=== PATIENT | female | born 1945 | race Caucasian/White ===

== ENCOUNTER → 2017-01-01 | Outpatient (CLI) | payer MEDICARE, OTHER ==
[~2017-01-01] MED LIST: ASPI-983 PO; BACL10TA PO; CHRO1000 PO; GLUC1TAB9 PO; GLUCOSAMINE 1,1 EACH PO; KETO15CR2 TP; LISI-552 PO; MAGN250T13 PO; METF1000 PO; MULT-974 PO; NAPR500T8 PO; POTA2TAB15 PO; RANI150T11 PO
== END ==
LOC: RAD 13:04
PROVIDERS: ATTEND Internal Medicine
DX: Z12.31 Encounter for screening mammogram for malignant neoplasm of breast (principal)
CPT/HCPCS: 77067

== ENCOUNTER → 2018-01-17 | Outpatient (CLI) | payer MEDICARE, OTHER ==
[~2018-01-17] MED LIST changes: -METF1000 PO; +METF10002 PO
--- NOTE | 2018-01-18 12:08 | Diagnostic Imaging Report ---
INDICATION: Routine screening. Comparison is made with prior exam from 01/01/2017 and 08/13/2015. 2-D and 3-D bilateral screening mammography was performed with CAD. Scattered fibroglandular densities are identified bilaterally. Circumscribed nodular densities in both breasts appear stable and partially calcified. No spiculated mass or malignant appearing microcalcifications are seen. The axillae are unremarkable. Impression: BI-RADS category 2 No mammographic features suspicious for malignancy are identified. ACR BI-RADS Category 2: Benign findings. Result letter will be mailed to the patient. Note: At least 10% of breast cancer is not imaged by mammography. Dictated by: Dictated on workstation # [id number]
== END ==
LOC: RAD 14:39
PROVIDERS: ATTEND Internal Medicine
DX: Z12.31 Encounter for screening mammogram for malignant neoplasm of breast (principal)
CPT/HCPCS: 77067

== ENCOUNTER → 2019-07-13 | Outpatient (CLI) | payer MEDICARE, OTHER ==
[~2019-07-13] MED LIST changes: +METF-399 PO; -METF10002 PO
[2019-07-13 09:54] LABS: BASOPHILS % (AUTO) 0 % (0-10); EOSINOPHILS % (AUTO) 3 % (0-10); HEMATOCRIT 37 % (35-52); HEMOGLOBIN 12.4 G/DL (11.5-16.0); LYMPHOCYTES % (AUTO) 24 % (12-44); MEAN CORPUSCULAR HEMOGLOBIN 31 PG (25-34); MEAN CORPUSCULAR HGB CONC 34 G/DL (32-36); MEAN CORPUSCULAR VOLUME 93 FL (80-99); MEAN PLATELET VOLUME 10.6 FL (7.4-10.4); MONOCYTES % (AUTO) 8 % (0-12); NEUTROPHILS % (AUTO) 64 % (42-75); PLATELET COUNT 173 10^3/uL (130-400); RED CELL DISTRIBUTION WIDTH 12.2 % (10.0-14.5); WHITE BLOOD COUNT 6.4 10^3/uL (4.3-11.0)
[2019-07-13 09:55] LABS: EOSINOPHILS # (AUTO) 0.2 10^3/uL (0.0-0.3); LYMPHOCYTES # (AUTO) 1.6 X 10^3 (1.0-4.0); MONOCYTES # (AUTO) 0.5 X 10^3 (0.0-1.0); NEUTROPHILS # (AUTO) 4.1 X 10^3 (1.8-7.8)
[2019-07-13 10:06] LABS: POTASSIUM 4.5 MMOL/L (3.6-5.0)
[2019-07-13 10:07] LABS: BILIRUBIN,TOTAL 0.3 MG/DL (0.1-1.0); CALCIUM 9.4 MG/DL (8.5-10.1); CREATININE SERUM 1.19 MG/DL (0.60-1.30); TOTAL PROTEIN 7.1 GM/DL (6.4-8.2)
[2019-07-13 16:44] LABS: FREE T4 (FREE THYROXINE) 0.94 NG/DL (0.70-1.48)
== END ==
LOC: LAB FS 08:59
PROVIDERS: ATTEND Internal Medicine
DX: E11.65 Type 2 diabetes mellitus with hyperglycemia (principal); E03.9 Hypothyroidism, unspecified; E78.00 Pure hypercholesterolemia, unspecified; E78.1 Pure hyperglyceridemia
CPT/HCPCS: 36415; 80053; 80061; 83036; 84439; 84443; 85025

== ENCOUNTER → 2020-01-09 | Outpatient (CLI) | payer MEDICARE, OTHER ==
[2020-01-09 10:54] LABS: CREATININE SERUM 1.23 MG/DL (0.60-1.30); POTASSIUM 4.3 MMOL/L (3.6-5.0)
[2020-01-09 10:55] LABS: ALBUMIN 4.1 GM/DL (3.2-4.5); BILIRUBIN,TOTAL 0.4 MG/DL (0.1-1.0); CALCIUM 9.5 MG/DL (8.5-10.1); TOTAL PROTEIN 7.1 GM/DL (6.4-8.2)
[2020-01-09 16:21] LABS: FREE T4 (FREE THYROXINE) 0.96 NG/DL (0.70-1.48)
== END ==
LOC: LAB FS 10:11
PROVIDERS: ATTEND Internal Medicine
DX: E11.65 Type 2 diabetes mellitus with hyperglycemia (principal); E03.9 Hypothyroidism, unspecified; I10 Essential (primary) hypertension; Z13.6 Encounter for screening for cardiovascular disorders
CPT/HCPCS: 36415; 80053; 80061; 82043; 83036; 84439; 84443

== ENCOUNTER → 2020-01-30 | Outpatient (CLI) | payer MEDICARE, OTHER ==
--- NOTE | 2020-01-30 14:14 | Diagnostic Imaging Report ---
INDICATION: Bilateral knee pain. No known injury. TECHNIQUE: Three views of the bilateral knees at 1:06 PM. CORRELATION STUDY: None FINDINGS: Right knee: Two long cannulated and partially threaded screws transfix the proximal tibia in a horizontal orientation. There is asymmetric narrowing at the medial compartment. Marginal osteophyte formation is noted medially. The articular surfaces appear to be fairly smooth. There is a small calcified intraarticular loose body posteriorly. Mild narrowing of the patellofemoral compartment. Likely small joint effusion. Left knee: There is moderate joint space narrowing of the medial compartment with the lateral compartment better preserved. There is sclerosis about the medial tibial plateau. Marginal osteophyte formation medially. Minimal spurring about the superior pole of the left patella. IMPRESSION: 1. Negative for acute bony abnormality of either knee. 2. 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 Dictated by: Dictated on workstation # [id number]
== END ==
LOC: RAD FS 12:55
PROVIDERS: ATTEND Nurse Practitioner
DX: M17.0 Bilateral primary osteoarthritis of knee (principal)

== ENCOUNTER → 2020-02-12 | Outpatient (CLI) | payer MEDICARE, OTHER ==
--- NOTE | 2020-02-12 12:56 | Diagnostic Imaging Report ---
INDICATION: Screening. TECHNIQUE: The current study was also evaluated with a Computer Aided Detection (CAD) system. 3-D Tomographic imaging was also performed. COMPARISON: 02/03/2019, 01/17/2018, and 01/01/2017. FINDINGS: There are scattered fibroglandular densities bilaterally. There are benign type calcifications. There is no new dominant mass, spiculated lesion, or suspicious calcification identified. The skin, nipples, and axillae are unremarkable. IMPRESSION: Benign findings. ACR BI-RADS Category 2: Benign findings. Result letter will be mailed to the patient. Note: At least 10% of breast cancer is not imaged by mammography. Dictated by: Dictated on workstation # [id number]
== END ==
LOC: RAD 09:58
PROVIDERS: ATTEND Internal Medicine
DX: Z12.31 Encounter for screening mammogram for malignant neoplasm of breast (principal)
CPT/HCPCS: 77063; 77067

== ENCOUNTER → 2021-02-12 | Outpatient (CLI) | payer MEDICARE, OTHER ==
[~2021-02-12] MED LIST changes: +ASPI-1238 PO; -ASPI-983 PO; -LISI-552 PO; +LISI20TA26 PO
--- NOTE | 2021-02-12 11:31 | Diagnostic Imaging Report ---
Indication: Routine screening. Comparison is made with prior mammogram 02/12/2020 and 02/03/2019. 2-D and 3-D bilateral screening mammography was performed with CAD. Scattered fibroglandular densities are identified bilaterally. The parenchymal pattern is stable. No mass or malignant-appearing microcalcifications are seen. There are benign parenchymal and vascular calcifications bilaterally. Axillae are unremarkable. IMPRESSION: BI-RADS Category 2 No mammographic features suspicious for malignancy are identified. ACR BI-RADS Category 2: Benign findings. Result letter will be mailed to the patient. Note: At least 10% of breast cancer is not imaged by mammography. Dictated by: Dictated on workstation # [id number]
== END ==
LOC: RAD 10:09
PROVIDERS: ATTEND Internal Medicine
DX: Z12.31 Encounter for screening mammogram for malignant neoplasm of breast (principal)
CPT/HCPCS: 77063; 77067

== ENCOUNTER → 2022-04-30 | Outpatient (CLI) | payer MEDICARE, OTHER ==
--- NOTE | 2022-04-30 18:28 | Diagnostic Imaging Report ---
INDICATION: Routine screening. COMPARISON: Prior mammograms from 02/12/2021 and 02/12/2020. EXAMINATION: 2D and 3D bilateral screening mammography was performed with CAD. The current study was also evaluated with a Computer Aided Detection (CAD) system. FINDINGS: Scattered fibroglandular densities are identified, bilaterally. There are benign parenchymal calcifications throughout both breasts. No mass or malignant appearing microcalcifications are seen. Axillae are unremarkable. IMPRESSION: No mammographic features suspicious for malignancy are identified. ACR BI-RADS Category 2: Benign findings. Result letter will be mailed to the patient. Note: At least 10% of breast cancer is not imaged by mammography. Dictated by: Dictated on workstation # [id number]
== END ==
LOC: RAD 10:45
PROVIDERS: ATTEND Internal Medicine
DX: Z12.31 Encounter for screening mammogram for malignant neoplasm of breast (principal)
CPT/HCPCS: 77063; 77067

== ENCOUNTER → 2023-03-24 | Outpatient (CLI) | payer MEDICARE, OTHER ==
[2023-03-24 13:05] LABS: BASOPHILS % (AUTO) 0 % (0-10); EOSINOPHILS # (AUTO) 0.2 10^3/uL (0.0-0.3); EOSINOPHILS % (AUTO) 2 % (0-10); HEMATOCRIT 36 % (35-52); LYMPHOCYTES # (AUTO) 2.1 10^3/uL (1.0-4.0); LYMPHOCYTES % (AUTO) 24 % (12-44); MEAN CORPUSCULAR HEMOGLOBIN 30 pg (25-34); MEAN CORPUSCULAR HGB CONC 33 g/dL (32-36); MEAN CORPUSCULAR VOLUME 89 fL (80-99); MEAN PLATELET VOLUME 9.7 fL (9.0-12.2); MONOCYTES # (AUTO) 0.7 10^3/uL (0.0-1.0); MONOCYTES % (AUTO) 8 % (0-12); NEUTROPHILS % (AUTO) 66 % (42-75); PLATELET COUNT 232 10^3/uL (130-400); WHITE BLOOD COUNT 9.1 10^3/uL (4.3-11.0)
--- NOTE | 2023-03-24 13:07 | Diagnostic Imaging Report ---
EXAMINATION: Left hip radiographs, 2 views. COMPARISON: None. HISTORY: 78-year-old female, left hip pain. FINDINGS: There is severe joint space loss of the left hip with juhj-ly-msmp articulation. There is no prominent osteophyte formation. The left hip is not dislocated. There is no identified acute fracture. IMPRESSION: Severe osteoarthritis of the left hip. Dictated by: Dictated on workstation # [id number]
[2023-03-24 13:15] LABS: POTASSIUM 4.3 MMOL/L (3.6-5.0)
[2023-03-24 13:16] LABS: CALCIUM 9.6 MG/DL (8.5-10.1)
[2023-03-24 13:21] LABS: CREATININE SERUM 0.99 MG/DL (0.60-1.30)
[2023-03-24 13:25] LABS: BACTERIA,URINE MODERATE /HPF; BILIRUBIN,URINE NEGATIVE (NEGATIVE); CLARITY,URINE CLEAR; COLOR,URINE YELLOW; GLUCOSE, URINE (UA) NEGATIVE (NEGATIVE); KETONES,URINE NEGATIVE (NEGATIVE); LEUKOCYTE ESTERASE ,URINE 1+ (NEGATIVE); NITRITE,URINE NEGATIVE (NEGATIVE); PH,URINE 5.5 (5-9); PROTEIN,URINE NEGATIVE (NEGATIVE); RBC,URINE 0-2 /HPF; SQUAMOUS EPITHELIAL CELL,UR 0-2 /HPF
--- NOTE | 2023-03-24 13:25 | Diagnostic Imaging Report ---
Indication: Respiratory distress FINDINGS: The lungs clear. No failure, effusion or pneumothorax. IMPRESSION: Normal 2 view chest. Dictated by: Dictated on workstation # [id number]
== END ==
LOC: ORTHO 11:11
PROVIDERS: ATTEND Orthopaedic Surgery
DX: M16.12 Unilateral primary osteoarthritis, left hip (principal)
CPT/HCPCS: 71046; 73502; 80048; 81000; 85025; 87088; G0463; 36415; 87077; 87186; 99203

== ENCOUNTER → 2023-04-12 | Outpatient (CLI) | payer MEDICARE, OTHER ==
[~2023-04-12] VITALS: Ht 167.7 cm; Wt 90.1 kg
[~2023-04-12] MED LIST changes: +AMLO-250 PO; +CITA20TA9 PO; +LEVO50CA4 PO; +OMEP20CA18 PO; +SIMV10TA26 PO; +TIZA2CAP9 PO; +VENL75TA2 PO
[2023-04-12 09:15] VITALS: BP 116/64
== END ==
LOC: PREOP 07:32
PROVIDERS: ATTEND Orthopaedic Surgery
DX: Z01.818 Encounter for other preprocedural examination (principal)
CPT/HCPCS: 87081; 93005

== ENCOUNTER 2023-04-19 05:49 | Inpatient (IN) | payer MEDICARE, OTHER ==
[~2023-04-19] VITALS: Ht 167.7 cm; Wt 90.1 kg
[2023-04-19] VITALS (14 sets, daily range): BP systolic 118–200; BP diastolic 66–89
--- OUTSIDE RECORDS SUMMARY | 2023-04-19 05:52 | XMS REPORT | Clinical Summary ---
Author Author [facility] Organization [facility] Address Unknown Phone Unavailable Care Team Providers Care Sap Technical Architect Name Role Phone Dot Nuñez Unavailable Unavailable Lupe Jimenez RN Unavailable Unavailable Azael Gibbons MD PCP [phone] Maliha Duong CHOIR DIRECTOR-SWING DRIVER Unavailable [phone] Stepan Shaw MD Unavailable [phone] Source Comments Some departments are not documenting in the electronic medical record. If you do not see the information that you expected, contact Release of Information in the Health Information Management department at [phone] for further assistance in locating additional records.[facility] Medications Medication Sig Dispensed Refills Start Date End Date Status metFORMIN (GLUCOPHAGE) 500 mg tablet Take 500 mg by mouth twice daily with meals. 0 Active lisinopril (PRINIVIL; ZESTRIL) 20 mg tablet Take 20 mg by mouth daily. 0 Active cyclobenzaprine (FLEXERIL) 10 mg tablet Take 10 mg by mouth as Needed for Muscle Cramps. 0 Active MULTIVITAMIN PO Take 1 Tab by mouth daily. womens 1-a-day multivitamin with magnesium 0 Active Active Problems Problem Noted Date Diagnosed Date Colon polyp 06/19/2015 Social History Tobacco Use Types Packs/Day Years Used Date Smoking Tobacco: Never Assessed Sex and Gender Information Value Date Recorded Sex Assigned at Not on file Gender Identity Not on file Sexual Orientation Not on file Last Filed Vital Signs Vital Sign Reading Time Taken Comments Blood Pressure 159/73 06/17/2015 2:11 PM FUNCTIONAL SKILLS TUTOR Pulse 72 06/17/2015 2:11 PM FUNCTIONAL SKILLS TUTOR Temperature 36.5 C (97.7 F) 06/17/2015 1:[address] Respiratory Rate - - Oxygen Saturation 98% 06/17/2015 2:11 PM FUNCTIONAL SKILLS TUTOR Inhaled Oxygen Concentration - - Weight 97.5 kg (215 lb) 06/17/2015 10:57 AM FUNCTIONAL SKILLS TUTOR Height 170.2 cm (5' 7") 06/17/2015 10:57 AM FUNCTIONAL SKILLS TUTOR Body Mass Index 33.67 06/17/2015 10:57 AM FUNCTIONAL SKILLS TUTOR Plan of Treatment Health Maintenance Due Date Last Done Comments MEDICARE ANNUAL WELLNESS VISIT 1945 COVID-19 VACCINE (#1) 1945 DTAP/TDAP VACCINES (1 - Tdap) 01/21/1964 HEPATITIS C SCREENING 01/21/1964 PHYSICAL (COMPREHENSIVE) EXAM 01/21/1964 SHINGLES RECOMBINANT VACCINE (1 of 2) 01/21/1996 OSTEOPOROSIS SCREENING/MONITORING 2011 PNEUMOCOCCAL VACCINE 65+ YRS (1 - PCV) 2011 ADVANCE CARE PLANNING DISCUS ANIKA AND DOCUMENTATION 06/14/2022 DEPRESSION SCREENING 06/14/2022 INFLUENZA VACCINE (#1) 2023 COLORECTAL CANCER SCREENING Discontinued 11/13/2016, 0 06/17/2015 Care Teams Sap Technical Architect Relationship Specialty Start Date End Date Azael Gibbons MD [facility] [place] [address] PCP - General Regulatory Submissions Specialist 06/17/15 Dot Nuñez 05/24/15 Lupe iJmenez, JOSE LUIS 06/11/15 Maliha Duong APRN-SWING DRIVER [address] [facility] [address] [place] [address] Gastroenterology 06/19/15 Stepan Shaw MD [address] [facility] [address] [place] [address] Gastroenterology 09/25/15
[2023-04-19] MEDS ORDERED: ceFAZolin INJECTION 2,000 MG in NS (IVPB) 50 ML 50 ML IV ONE (06:15)
[2023-04-19] MEDS: LACTATED RINGERS 1,000 ML 1,000 ML IV PRN ×2 (06:33→08:13)
[2023-04-19] MEDS ORDERED: MIDAZOLAM INJ 2 MG/2 ML VIAL ONE (07:10)
[2023-04-19] MEDS ORDERED: fentaNYL INJECTION 100 MCG/2 ML VIAL ONE (07:12)
--- NOTE | 2023-04-19 07:15 | Progress Note-Pre Operative ---
Pre-Operative Progress Note Date of Available H&P: Mar 24, 2023 Date H&P Reviewed: Apr 19, 2023 Time H&P Reviewed: 07:10 History & Physical: H&P Reviewed, Patient Examed, No changes noted Pre-Operative Diagnosis: Left Hip Primary Osteoarthritis ELVER CORDOVA MD Apr 19, 2023 07:15
[2023-04-19] MEDS ORDERED: BUPIVACAINE 0.5% 30 ML VIAL ONE (07:47)
[2023-04-19] MEDS ORDERED: TRANEXAMIC ACID 100 MG/ML 10 ML INJECTION ONE (07:47)
[2023-04-19] MEDS ORDERED: PHENYLEPHRINE 100 MCG/ML 10 ML (ANESTHESIA) SYR ONE (09:05)
--- NOTE | 2023-04-19 09:38 | Operative Report - Ortho ---
Operative Report Surgeon (s)/Clothing Cutter (s) Surgeon ELVER CORDOVA MD Clothing Cutter n/a Pre-Operative Diagnosis Left Hip Primary Osteoarthritis Post-Operative Diagnosis same Operative Report Date of Procedure: Apr 19, 2023 Name of Procedure Performed: Left Total Hip Arthroplasty Description & Findings After obtaining informed consent and marking the patient in the preoperative holding area, the patient did receive antibiotics and was taken to the operating room. General anesthesia was induced and patient was positioned in the lateral decubitus position with the left side up. Left lower extremity was prepped and draped in the usual sterile fashion. Surgical timeout was taken. Posterolateral approach was utilized. Capsule and external rotators were taken down in one layer. Hip was dislocated without difficulty. Femoral neck osteotomy was performed and femoral head was removed. Acetabulum was exposed. Labrum and soft tissue was removed from the acetabulum. Sequential reaming was began beginning with a 46 mm reamer and reaming to a 50 mm. 50 mm trial was placed and had good fit. Trial was removed and the acetabulum was irrigated with normal saline; a 50 mm cup was impacted into place and had excellent press fit. A trial liner was put into place. Attention was turned to the femoral side, a [employer] cutter osteotome was used to removed bone near the greater trochanter. Canal finder was inserted followed by the lateralizing reamer. Sequential broaching was began with a 0 and was broached to a 4. Trial standard neck and neutral 32 mm head were put into place. The hip was stable in position of sleep, and but had some instability in flexion and internal rotation. A +4 mm head was placed and the stability improved. This was accepted. Hip was dislocated. Trial components were removed and the canal was irrigated. Acetabulum was exposed and trial liner was removed. Polyethylene liner was impacted into place and locking mechanism was checked. A size 4 Insignia was impacted into place and set at the same level as the broach. A +4 32 mm ceramic head was impacted onto the madrid taper of the stem. Hip was once again located and found to have stability in position of sleep as well as flexion and internal rotation. Irrisept soak was performed. Hip was irrigated. External rotators were repaired with #2 Fiberwire. The fascial layer was closed with #2 StrataFix. The subcutaneous layer was closed with 2-0 Vicryl. Skin was closed with 3-0 V- loc. Wound was dressed with steri-strips, xeroform, 4x4s, ABD, and tape. Patient was placed in abduction pillow and transferred to his hospital bed without difficulty and was stable to the recovery room. Anesthesia Type Spinal Estimated Blood Loss 150 mL Specimen(s) collected/removed None ELVER CORDOVA MD Apr 19, 2023 09:38
[2023-04-19] MEDS ORDERED: BISACODYL 5 MG TABLET PO PRN (09:45)
[2023-04-19] MEDS ORDERED: ONDANSETRON INJECTION 4 MG/2 ML (SDV) IV PRN (09:45)
[2023-04-19] MEDS ORDERED: MILK OF MAGNESIA 400 MG/5 ML 30 ML UDC PO PRN (09:45)
[2023-04-19] MEDS ORDERED: ACETAMINOPHEN 500 MG TABLET PO PRN (09:45)
[2023-04-19] MEDS: NS IV 1000 ML 1,000 ML IV SCH ×2 (10:48→20:06)
--- NOTE | 2023-04-19 11:43 | Consultation ---
ARLENE TOVAR 04/19/23 1143: HPI History of Present Illness: HPI/Chief Complaint 78 year old female presents to in patient care for left SUSAN that occurred earlier on 04/[address]. The pt reports no pain or complaints. She is starting to get feeling back in her LE and has some tingling in both of her hands that is decreasing. She has an appetite and was eating her lunch during the exam. Source: patient (daughter) Date Seen 04/19/23 Attending Physician Michelle Conner DO PCP Admitting Physician: Gurdeep Street MD Attending Physician: Gurdeep Street MD Referring Physician Date of Admission Apr 19, 2023 at 05:49 Home Medications & Allergies Home Medications Reviewed patient Home Medication Reconciliation performed by pharmacy medication reconciliations serology technician and/or nursing. Patients Allergies have been reviewed. Allergies Allergies Coded Allergies No Known Drug Allergies (Qixgakgu91/6/15) Past Artqqwl-Mglvnq-Wrqflx Hx Patient Social History Employed/Student: retired Tobacco Use?: No Smoking Status: Former Smoker (40 pack year history) Substance use?: No Alcohol Use?: Yes Alcohol Frequency: Once in a while Immunizations Up To Date Date of Influenza Vaccine: Mar 18, 2015 Tetanus Booster (TDap): Unknown Date of Pneumonia Vaccine: May 14, 2014 Seasonal Allergies Seasonal Allergies: No Current Status Advance Directives: Yes Advance Directive Location: Copy placed in chart Communicates: Verbally Primary Language: Tunisian Is interpretation needed?: No Sensory deficits: Vision impairment Past Medical History Surgeries: Orthopedic (rt knee replacement (20 years ago). Left SUSAN 04/19/23), Tonsillectomy, Tubal Ligation Currently Using CPAP: No Currently Using BIPAP: No High Cholesterol, Hypertension CARDIOLOGY COORDINATOR History: Tubal Ligation Gastroesophageal Reflux Degenerate Disk Disease, Arthritis Hypothyroidsim, Diabetes, Non-Insulin dep Hearing Impairment: Hard of Hearing Blood Disorders: No Review of Systems Constitutional: No chills, No dizziness, No fever, No malaise, No weakness EENTM: No hearing loss, No ear pain, No blurred vision, No double vision, No vision loss, No hoarseness, No mouth pain Respiratory: No cough, No short of breath Cardiovascular: No chest pain, No palpitations Gastrointestinal: No abdominal pain, No constipation, No diarrhea, No heartburn, No loss of appetite, No nausea, No vomiting Musculoskeletal: joint pain Physical Exam Physical Exam Vital Signs Vital Signs - First Documented 04/19/23 06:05 Temp 36.1 Pulse 89 Resp 18 B/P (MAP) 142/66 (91) Pulse Ox 98 O2 Delivery Room Air Capillary Refill : Height, Weight, BMI Height: 5'7.00" Weight: 214lbs. oz. 97.619978ju; 32.03 BMI Method: General Appearance: No Apparent Distress Eyes: Bilateral Eye Normal Inspection HEENT: PERRL/EOMI; No Photophobia, No Scleral Icterus (L), No Scleral Icterus (R) Neck: Non Tender Respiratory: Chest Non Tender, Lungs Clear, Normal Breath Sounds, No Accessory Muscle Use, No Respiratory Distress Cardiovascular: Regular Rate, Rhythm, No Edema, No JVD, No Murmur, Normal Peripheral Pulses Gastrointestinal: Normal Bowel Sounds, No Pulsatile Mass, Non Tender, Soft; No Distended, No Guarding, No Rebound Extremity: Normal Capillary Refill, No Calf Tenderness Neurologic/Psychiatric: Alert, Oriented x3, No Motor/Sensory Deficits, Normal Mood/Affect, timber framer II-XII Norm as Tested Skin: Normal Color, Warm/Dry Results Results/Procedures Labs Patient resulted labs reviewed. Assessment/Plan Assessment and Plan Assess & Plan/Chief Complaint Assessment: Left SUSAN HTN DMII Hypothyroidism Plan: Left SUSAN -will continue to monitor pt's pain and recovery HTN -continue current medications DMII -continue current medications Hypothyroidism -continue Levothyroxine tx CONNERLEXIE PIERSONRomaine CARLIN 04/20/232058: HPI History of Present Illness: HPI/Chief Complaint Chief complaint: Left total hip arthroplasty HPI: This is a 78-year-old female clinic patient of [facility] for the past 18 years who presented following a left total hip replacement. Currently she is doing well. Vitals remained stable. Source: patient (daughter) Exam Limitations: no limitations Referring Physician Yenifer Past Lndtcab-Xjzeav-Plapum Hx Patient Social History Marrital Status: Employed/Student: retired Smoking Status: Former Smoker (40 pack year history) Past Medical History Surgeries: Orthopedic (rt knee replacement (20 years ago). Left SUSAN 04/19/23), Tonsillectomy, Tubal Ligation High Cholesterol, Hypertension Diabetes, Non-Insulin dep Review of Systems Constitutional: see HPI Physical Exam Physical Exam General Appearance: No Apparent Distress, WD/WN, Chronically ill Respiratory: Lungs Clear, Normal Breath Sounds Cardiovascular: Regular Rate, Rhythm Neurologic/Psychiatric: Alert, Oriented x3 Assessment/Plan Assessment and Plan Assess & Plan/Chief Complaint Assessment: Status post total hip replacement Hypothyroidism Diabetes Hypertension Plan: Supportive nursing home meds Supervisory-Addendum Brief Verification & Attestation Participated in pt care: history, MDM, physical Personally performed: exam, history, MDM, supervision of care Care discussed with: Medical Student Procedures: n/a Results interpretation: Verified all documentation Verification and Attestation of Medical Student E/M Service A medical student performed and documented this service in my presence. I revie wed and verified all information documented by the medical student and made modifications to such information, when appropriate. I personally performed the physical exam and medical decision making. Michelle Conner, Apr 20, 2023,20:57 ARLENE TOVAR Apr 19, 2023 11:43 MICHELLE CONNER DO Apr 20, 2023 20:59
[2023-04-19] MEDS: morphine INJ 4 MG/ML 1 ML (VIAL/SYRINGE) IVP PRN ×2 (12:11→14:55)
[2023-04-19] MEDS: CYCLOBENZAPRINE 10 MG TABLET PO PRN ×2 (13:13→21:18)
--- NOTE | 2023-04-19 14:54 | Diagnostic Imaging Report ---
INDICATION: Postoperative evaluation, left hip arthroplasty. COMPARISON: 03/24/2023. TECHNIQUE: Single radiograph of the pelvis dated 04/19/2023. FINDINGS: Recent and interval placement of a left total hip arthroplasty with postsurgical soft tissue gas present overlying the left hip. No evidence of immediate hardware complication. Degenerative changes are within the partially visualized lower lumbar spine. No acute fracture or dislocation. No suspicious radiopaque foreign body. IMPRESSION: Interval and recent placement of a left total hip arthroplasty without immediate hardware complication, acute osseous abnormality, or suspicious radiopaque foreign body. Scattered degenerative changes. Dictated by: Dictated on workstation # [id number]
[2023-04-19] MEDS ORDERED: ceFAZolin INJECTION 2,000 MG in NS (IVPB) 50 ML 50 ML IV SCH (15:00)
--- NOTE | 2023-04-19 15:00 | Physical Therapy Evaluation ---
PT Evaluation-General Medical Diagnosis Admission Date Apr 19, 2023 at 05:49 Medical Diagnosis: left hip OA Onset Date: Apr 19, 2023 Therapy Diagnosis Therapy Diagnosis: impaired mobility Height/Weight Height (Feet): 5 Height (Inches): 7.00 Weight (Pounds): 214 Precautions Precautions/Isolations: Fall Prevention, Standard Precautions Weight Bear Status Left Lower Extremity: Left Weight Bearing/Tolerated Referral Reason for Referral: Evaluation/Treatment Medical History Pertinent Medical History: OA Additional Medical History (B) hip and knee OA Current History Pt underwent elective left SUSAN 04/19/23 Reviewed History: Yes Social History Home: Multilevel Current Living Status: Spouse Entry Into Home: Level Entry Pt's home is mostly handicap accessible. Pt resides with her . She has relied on the combination of a walker and w/c for mobility for the past year. Prior Prior Level of Function SCALE: Activities may be completed with or without assistive devices. 5-Dstdxjlbxx-gobnkik completes the activity by him/herself with no assistance from a helper. 5-Set-up or Clean-up Assistance-helper sets up or cleans up; patient completes activity. [place] assists only prior to or following the activity. 4-Supervision or Touching Assistance-helper provides verbal cues and/or touching/steadying and/or contact guard assistance as patient completes activity. Assistance may be provided throughout the activity or intermittently. 3-Partial/Moderate Assistance-helper does LESS THAN HALF the effort. [place] lifts, holds or supports trunk or limbs, but provides less than half the effort. 2-Substantial/Maximal Assistance-helper does MORE THAN HALF the effort. [place] lifts or holds trunk or limbs and provides more than half the effort. 4-Nshpyqflx-uhiuvx does ALL the effort. Patient does none of the effort to complete the activity. Or, the assistance of 2 or more helpers is required for the patient to complete the activity. If activity was not attempted, code reason: 7-Patient Refused. 9-Not Applicable-not attempted and the patient did not perform the activity before the current illness, exacerbation or injury. 10-Not Attempted due to Environmental Limitations-(lack of equipment, weather restraints, etc.). 88-Not Attempted due to Medical Conditions or Safety Concerns. Bed Mobility: 6 Transfers (B,C,W/C): 6 Gait: 6 PT Evaluation-Current Subjective Pt reports 10/10 pain left hip. She is having spasms in both legs. Objective Patient Orientation: Person, Situation Attachments: Lutz Catheter, IV Pt in signficant pain. Verbalized only when asked direct questions. Limited opening of the eyes. ROM/Strength Strength Lower Extremities left LE hip flex abd 1/5, ankle PF/DF 3/5, quads 2/5 Sensory Vision: Functional Hearing: Functional Transfers Roll Left to Right (QC): 1 Sit to Lying (QC): 1 Lying to Sitting/Side of Bed(Q: 1 Sit to Stand (QC): 1 Maximal physical assist of 2 to bring patient to edge of bed and come to standing. Pt able to maintain standing without physical assist and was able to take 4 side steps with FWW and verbal cues. Gait Does the Patient Walk?: Yes Mode of Locomotion: Walk Anticipated Mode of Locomotion: Both Distance: 4 Gait Assistive Device: FWW Comments/Gait Description 4 side steps; did not move forward with walker for fear of patient syncope Balance Sitting Static: Fair Sitting Dynamic: Fair Standing Static: Poor Standing Dynamic: Poor Assessment/Needs Pt has impaired mobility following left total hip arthroplasty. Pt had pain limiting mobility for the past year and split time between a FWW and wheel chair. Rehab Potential: Fair Post Rehab Potential-Barriers: prior limited mobility PT Short Term Goals Short Term Goals Time Frame: Apr 21, 2023 Roll Left & Right: 4 Sit to lyin Lying to sitting on side of be: 4 Sit to stand: 4 Chair/lbl-bf-lkxwp transfer: 4 Walk 10 feet: 4 PT Fdc Goals Fdc Goals PT Music Copyist Goals Time Frame: Apr 23, 2023 Roll Left & Right (QC): 6 Sit to Lying (QC): 5 Lying-Sitting on Side/Bed(QC): 6 Sit to Stand (QC): 5 Chair/Laa-ax-Nwfsz Xfer(QC): 5 Does the Patient Walk: Yes Walk 50ft with 2 Turns (QC): 4 PT Plan Problem List Problem List: Activity Tolerance, Balance, Gait, Transfer, Bed Mobility Treatment/Plan Treatment Plan: Continue Plan of Care Treatment Plan: Bed Mobility, Education, Functional Strength, Gait, Safety, Therapeutic Exercise Treatment Duration: Apr 23, 2023 Frequency: 11 times per week Estimated Hrs Per Day: .25 hour per day Patient and/or Family Agrees t: Yes Time Time In: 1430 Time Out: 1500 DATE: Apr 19, 2023 Total Billed Treatment Time: 30 Total Billed Treatment visit, eval high complexity 30 minutes FARNAZ ROSALES PT Apr 19, 2023 15:00
[2023-04-19] MEDS: ceFAZolin INJECTION 2,000 MG in NS (IVPB) 50 ML 50 ML IV SCH ×2 (15:10→23:18)
[2023-04-19] MEDS ORDERED: cloNIDine 0.1 MG TABLET PO NR (16:45)
[2023-04-19] MEDS ORDERED: meTOprolol TARTRATE (IR) 25 MG TABLET PO NR (16:45)
[2023-04-19] MEDS ORDERED: amLODIPine 5 MG TABLET PO NR (16:45)
[2023-04-19] MEDS: ASPIRIN enteric coated 81MG TABLET PO SCH (16:49)
[2023-04-19] MEDS: CELECOXIB 100 MG CAPSULE PO SCH (19:59)
[2023-04-19] MEDS: meTOprolol TARTRATE (IR) 25 MG TABLET PO SCH (20:00)
[2023-04-19] MEDS: metFORMIN 500 MG TABLET PO SCH (20:00)
[2023-04-19] MEDS: DOCUSATE SODIUM 100 MG CAPSULE PO SCH (20:02)
[2023-04-19] MEDS: oxyCODONE IMMEDIATE RELEASE 5 MG TABLET PO PRN (20:07)
[2023-04-19] MEDS: cloNIDine 0.1 MG TABLET PO PRN (21:19)
[2023-04-20 03:15] VITALS: BP 171/77
[2023-04-20] MEDS: cloNIDine 0.1 MG TABLET PO PRN (03:20)
[2023-04-20] MEDS: oxyCODONE IMMEDIATE RELEASE 5 MG TABLET PO PRN ×2 (03:21→09:08)
[2023-04-20] MEDS: THERAPEUTIC MULTIVITAMIN W/MINERALS TABLET PO SCH (05:13)
[2023-04-20] MEDS: NS IV 1000 ML 1,000 ML IV SCH ×2 (05:13→21:22)
[2023-04-20] MEDS: CYCLOBENZAPRINE 10 MG TABLET PO PRN (05:13)
[2023-04-20 05:18] LABS: BASOPHILS % (AUTO) 0 % (0-10); EOSINOPHILS % (AUTO) 0 % (0-10); HEMATOCRIT 32 % (35-52); HEMOGLOBIN 11.2 g/dL (11.5-16.0); LYMPHOCYTES # (AUTO) 1.3 10^3/uL (1.0-4.0); LYMPHOCYTES % (AUTO) 6 % (12-44); MEAN CORPUSCULAR HEMOGLOBIN 30 pg (25-34); MEAN CORPUSCULAR HGB CONC 35 g/dL (32-36); MEAN CORPUSCULAR VOLUME 86 fL (80-99); MEAN PLATELET VOLUME 9.7 fL (9.0-12.2); MONOCYTES # (AUTO) 1.3 10^3/uL (0.0-1.0); MONOCYTES % (AUTO) 6 % (0-12); NEUTROPHILS # (AUTO) 20.1 10^3/uL (1.8-7.8); NEUTROPHILS % (AUTO) 88 % (42-75); PLATELET COUNT 224 10^3/uL (130-400); WHITE BLOOD COUNT 22.8 10^3/uL (4.3-11.0)
[2023-04-20 05:26] LABS: ALBUMIN 3.4 GM/DL (3.2-4.5)
[2023-04-20 05:29] LABS: TOTAL PROTEIN 6.2 GM/DL (6.4-8.2)
[2023-04-20 05:30] LABS: BILIRUBIN,TOTAL 0.6 MG/DL (0.1-1.0)
[2023-04-20 05:32] LABS: CREATININE SERUM 1.02 MG/DL (0.60-1.30)
[2023-04-20 06:09] LABS: LYMPHOCYTES % (MANUAL) 4 %; MONOCYTES % (MANUAL) 4 %; NEUTROPHILS % (MANUAL) 92 %
[2023-04-20 07:18] VITALS: BP 117/70
--- NOTE | 2023-04-20 08:46 | Progress Note - Ortho ---
Progress Note Subjective Date of Exam 04/20/23 Chief Complaint POD #1 L SUSAN HPI/Events since last exam was able to take a few steps yesterday, trouble with muscle spasms yesterday Review of Systems - Allergies: Coded Allergies: No Known Drug Allergies (Verified , 03/19/15) Home Meds Reported Medications Tizanidine HCl (Tizanidine HCl) 2 Mg Capsule, 2 MG PO, CAP 04/12/23 Simvastatin (Simvastatin) 10 Mg Tablet, 10 MG PO, TAB 04/12/23 Levothyroxine Sodium (Levothyroxine) 50 Mcg Capsule, 50 MCG PO, CAP 04/12/23 Venlafaxine HCl (Venlafaxine HCl ER) 75 Mg Tab.er.24, 75 MG PO, TAB 04/12/23 Omeprazole (Omeprazole) 20 Mg Capsule.dr, 20 MG PO, CAP 04/12/23 Citalopram Hydrobromide (Citalopram HBr) 20 Mg Tablet, 20 MG PO, TAB 04/12/23 Amlodipine Besylate (Amlodipine Besylate) 5 Mg Tablet, 5 MG PO DAILY, TAB 04/12/23 Multivitamin (Multi-Vitamin Daily) 1 Each Tablet, 1 EACH PO DAILY, TAB 03/19/15 Potassium Gluconate (Potassium Gluconate) 500 Mg Tablet, 595 MG PO DAILY, TAB 03/19/15 Magnesium Oxide (Magnesium) 250 Mg Tablet, 250 MG PO DAILY, TAB 03/19/15 Lisinopril (Lisinopril) 20 Mg Tablet, 20 MG PO DAILY, TAB 03/19/15 Metformin HCl (Metformin HCl) 1,000 Mg Tablet, 1000 MG PO BID, TAB 03/19/15 Objective Exam L Hip: Dressing C/D/I, +DF of ankle, no s/s of DVT Vital Signs Vital Signs Date Time Temp Pulse Resp B/P (MAP) Pulse Ox O2 Delivery O2 Flow Rate FiO2 04/20/23 07:18 36.0 81 18 117/70 (86) 93 Room Air 04/20/23 03:15 36.1 90 20 171/77 (108) 91 Room Air 04/19/23 23:15 36.3 95 20 176/77 (110) 91 Room Air 04/19/23 21:25 92 Room Air 04/19/23 21:16 36.6 109 20 183/81 (115) 91 Room Air 04/19/23 20:10 92 Room Air 04/19/23 20:09 36.5 109 22 198/87 (124) 90 Room Air 04/19/23 16:36 36.5 116 22 200/80 (120) 92 Room Air 04/19/23 12:27 36.8 101 20 169/77 (107) 96 Room Air 04/19/23 10:42 36.2 76 16 144/74 (97) 100 Room Air 04/19/23 10:23 Room Air 04/19/23 10:15 36.5 16 132/72 (92) 100 Room Air 04/19/23 10:10 16 120/89 (99) 98 Room Air 04/19/23 10:00 16 144/67 (92) 100 Room Air 04/19/23 10:00 Room Air 04/19/23 09:50 16 139/73 (95) 100 Room Air 04/19/23 09:40 OxyMask 2.00 04/19/23 09:40 16 133/68 (89) 100 OxyMask 2.00 04/19/23 09:30 18 124/68 (86) 100 OxyMask 2.00 04/19/23 09:25 36.8 20 118/66 (83) 100 OxyMask 4.00 04/19/23 09:25 OxyMask 4.00 I & O 04/20/23 07:00 Intake Total 3765 ml Output Total 1925 ml Balance 1840 ml Lab Results Laboratory Tests 04/20/23 05:10: White Blood Count 22.8H, Red Blood Count 3.74L, Hemoglobin 11.2L, Hematocrit 32L , Mean Corpuscular Volume 86, Mean Corpuscular Hemoglobin 30, Mean Corpuscular Hemoglobin Concent 35, Red Cell Distribution Width 12.2, Platelet Count 224, Mean Platelet Volume 9.7, Immature Granulocyte % (Auto) 1, Neutrophils (%) (Auto) 88H, Lymphocytes (%) (Auto) 6L, Monocytes (%) (Auto) 6, Eosinophils (%) (Auto) 0, Basophils (%) (Auto) 0, Neutrophils # (Auto) 20.1H, Lymphocytes # (Auto) 1.3, Monocytes # (Auto) 1.3H, Eosinophils # (Auto) 0.0, Basophils # (Auto) 0.0, Immature Granulocyte # (Auto) 0.1, Neutrophils % (Manual) 92, Lymphocytes % (Manual) 4, Monocytes % (Manual) 4, Sodium Level 128L, Potassium Level 4.0, Chloride Level 98, Carbon Dioxide Level 20L, Anion Gap 10, Blood Urea Nitrogen 14, Creatinine 1.02, Estimat Glomerular Filtration Rate 57, BUN/Creatinine Ratio 14, Glucose Level 197H, Calcium Level 8.0L, Corrected Calcium 8.5, Total Bilirubin 0.6, Aspartate Amino Transf (AST/SGOT) 36H, Alanine Aminotransferase (ALT/SGPT) 25, Alkaline Phosphatase 90, Total Protein 6.2L, Albumin 3.4 Imaging Postop AP pelvis dated 04/19/23 was reviewed from PACS and demonstrated left total hip arthroplasty with components in good position, no complications Assessment and Plan Assessment L Hip Primary OA s/p SUSAN Problem List L Hip Primary OA s/p SUSAN Plan PT/OT DVT Prophylaxis Possibly home with home health tomorrow; has family available for assistance Final Diagonsis L Hip Primary OA s/p SUSAN Level of the visit: Level 3 (global) ELVER CORDOVA MD Apr 20, 2023 08:46
[2023-04-20] MEDS ORDERED: amLODIPine 5 MG TABLET PO SCH (09:00)
[2023-04-20] MEDS ORDERED: POTASSIUM GLUCONATE 595 MG PO SCH (09:00)
[2023-04-20] MEDS: PANTOPRAZOLE 20 MG TABLET PO SCH (09:06)
[2023-04-20] MEDS: CELECOXIB 100 MG CAPSULE PO SCH ×2 (09:06→20:32)
[2023-04-20] MEDS: ASPIRIN enteric coated 81MG TABLET PO SCH ×2 (09:06→17:17)
[2023-04-20] MEDS: CITALOPRAM 20 MG TABLET PO SCH (09:06)
[2023-04-20] MEDS: MAGNESIUM OXIDE 400 MG TABLET PO SCH (09:07)
[2023-04-20] MEDS: meTOprolol TARTRATE (IR) 25 MG TABLET PO SCH ×2 (09:07→20:28)
[2023-04-20] MEDS: metFORMIN 500 MG TABLET PO SCH ×2 (09:07→20:33)
[2023-04-20] MEDS: DOCUSATE SODIUM 100 MG CAPSULE PO SCH ×2 (09:10→20:35)
--- NOTE | 2023-04-20 10:56 | Anesthesia-Regional Post-Op ---
Regional Patient Condition Mental Status: Alert, Oriented x3 Circulation: Same as Pre-Op Headache: Absent Sensation: Full Recovery Motor Block: Absent Post Op Complications Complications None Follow Up Care/Instructions Patient Instructions None needed. Anesthesia/Patient Condition Patient is doing well, no complaints, stable vital signs, no apparent adverse anesthesia problems. No complications reported per nursing. QUYNH SIMMONS CRNA Apr 20, 2023 10:56
[2023-04-20 11:28] VITALS: BP 102/65
--- NOTE | 2023-04-20 12:48 | Progress Note ---
ARLENE TOVAR 04/20/23 1248: Subjective Date Seen by a Provider: Apr 20, 2023 Time Seen by a Provider: 11:45 Subjective/Events-last exam Pt's daughter is stating how the pt is not in a lot of pain right now. The pt has not been using a lot of pain medication but is requesting to continue muscle relaxers. The pt has been taking flexeril but is wanting to switch to a new medication, tizanidine, due to the flexeril sedating her. Pt takes tizanidine at home and reports no adverse reactions. Muscle spasms were present throughout the night and the muscle relaxers were helping relieve these sx, the pain medications were not. She was moving around yesterday with PT. She verbalized understanding that Dr. Street wanted her to start moving around and walking. Review of Systems General: No Chills, No Night Sweats, No Fatigue HEENT: No Head Aches, No Visual Changes Pulmonary: No Cough Cardiovascular: No: Chest Pain, Palpitations Gastrointestinal: No: Nausea, Abdominal Pain, Diarrhea, Constipation Musculoskeletal: other (muscle spasms in her LEs b/l) Neurological: No: Weakness, Change in speech, Confusion Objective Exam Last Set of Vital Signs Vital Signs Date Time Temp Pulse Resp B/P (MAP) Pulse Ox O2 Delivery O2 Flow Rate FiO2 04/20/23 11:28 36.4 75 18 102/65 (77) 92 Room Air 04/19/23 09:40 2.00 Capillary Refill : I&O Intake and Output 04/20/23 00:00 Intake Total 3415 ml Output Total 1275 ml Balance 2140 ml Intake Oral 540 ml IV Total 2875 ml Output Urine Total 1125 ml Estimated Blood Loss 150 ml General: No Acute Distress Neck: No JVD Lungs: Clear to Auscultation Heart: Regular Rate, No Murmurs, Gallops Abdomen: Normal Bowel Sounds, Soft, No Tenderness, No Hepatosplenomegaly Extremities: No Clubbing, No Cyanosis Skin: No Rashes Results Lab Laboratory Tests 04/20/23 05:10: White Blood Count 22.8H, Red Blood Count 3.74L, Hemoglobin 11.2L, Hematocrit 32L , Mean Corpuscular Volume 86, Mean Corpuscular Hemoglobin 30, Mean Corpuscular Hemoglobin Concent 35, Red Cell Distribution Width 12.2, Platelet Count 224, Mean Platelet Volume 9.7, Immature Granulocyte % (Auto) 1, Neutrophils (%) (Auto) 88H, Lymphocytes (%) (Auto) 6L, Monocytes (%) (Auto) 6, Eosinophils (%) (Auto) 0, Basophils (%) (Auto) 0, Neutrophils # (Auto) 20.1H, Lymphocytes # (Auto) 1.3, Monocytes # (Auto) 1.3H, Eosinophils # (Auto) 0.0, Basophils # (Auto) 0.0, Immature Granulocyte # (Auto) 0.1, Neutrophils % (Manual) 92, Lymphocytes % (Manual) 4, Monocytes % (Manual) 4, Sodium Level 128L, Potassium Level 4.0, Chloride Level 98, Carbon Dioxide Level 20L, Anion Gap 10, Blood Urea Nitrogen 14, Creatinine 1.02, Estimat Glomerular Filtration Rate 57, BUN/Creatinine Ratio 14, Glucose Level 197H, Calcium Level 8.0L, Corrected Calcium 8.5, Total Bilirubin 0.6, Aspartate Amino Transf (AST/SGOT) 36H, Alanine Aminotransferase (ALT/SGPT) 25, Alkaline Phosphatase 90, Total Protein 6.2L, Albumin 3.4 Assessment/Plan Assessment/Plan Assess & Plan/Chief Complaint Assessment: Left SUSAN HTN DMII Hypothyroidism Plan: Left SUSAN -will continue to monitor pt's pain and recovery -starting the pt on Tizanidine and dc the flexeril due to AE HTN -continue current medications DMII -continue current medications Hypothyroidism -continue Levothyroxine tx MICHELLE CONNER DO 04/20/232115: Subjective Subjective/Events-last exam Patient a bit lethargic today Flexeril made her very drowsy Patient appears to be overmedicated Objective Exam General: Other (Lethargic) Lungs: Clear to Auscultation Heart: Regular Rate Assessment/Plan Assessment/Plan Assess & Plan/Chief Complaint Limit Flexeril Pain control Avoid overmedication Supervisory-Addendum Brief Verification & Attestation Participated in pt care: history, MDM, physical Personally performed: exam, history, MDM, supervision of care Care discussed with: Medical Student Procedures: n/a Results interpretation: Verified all documentation Verification and Attestation of Medical Student E/M Service A medical student performed and documented this service in my presence. I reviewed and verified all information documented by the medical student and made modifications to such information, when appropriate. I personally performed the physical exam and medical decision making. Michelle Conner, Apr 20, 2023,21:15 ARLENE TOVAR Apr 20, 2023 12:48 MICHELLE CONNER DO Apr 20, 2023 21:16
--- NOTE | 2023-04-20 14:50 | Physical Therapy Daily Note ---
PT Daily Note-Current Subjective Pt found seated in recliner /c family present upon entry. Agreed to PT. Reports that her L hip feels "numb." Also reports muscle soreness while standing. Pain Section J - Health Conditions 1. Rarely or not at all 2. Occasionally 3. Frequently 4. Almost constantly 8. Unable to answer Pain Effect on Sleep: 10 Pain Interference with Therapy: 10 Pain Interference w/Day-to-Day: 10 Mental Status Patient Orientation: Person Transfers SCALE: Activities may be completed with or without assistive devices. 3-Ffvehehqcc-gkleemw completes the activity by him/herself with no assistance from a helper. 5-Set-up or Clean-up Assistance-helper sets up or cleans up; patient completes a ctivity. Lamy assists only prior to or following the activity. 4-Supervision or Touching Assistance-helper provides verbal cues and/or touching/steadying and/or contact guard assistance as patient completes activity. Assistance may be provided throughout the activity or intermittently. 3-Partial/Moderate Assistance-helper does LESS THAN HALF the effort. Lamy lifts, holds or supports trunk or limbs, but provides less than half the effort. 2-Substantial/Maximal Assistance-helper does MORE THAN HALF the effort. Lamy lifts or holds trunk or limbs and provides more than half the effort. 6-Qeprtsesr-zlcrsu does ALL the effort. Patient does none of the effort to complete the activity. Or, the assistance of 2 or more helpers is required for the patient to complete the activity. If activity was not attempted, code reason: 7-Patient Refused. 9-Not Applicable-not attempted and the patient did not perform the activity before the current illness, exacerbation or injury. 10-Not Attempted due to Environmental Limitations-(lack of equipment, weather restraints, etc.). 88-Not Attempted due to Medical Conditions or Safety Concerns. Sit to Stand (QC): 3 Weight Bearing Left Lower Extremity: Left Weight Bearing/Tolerated Gait Training Does the Patient Walk?: Yes Distance: 10 feet x 2 Walk 10 feet (QC): 4 Gait Persons Needed: 1 Gait Assistive Device: FWW Assessment Current Status: Fair Progress Pt performs sit to stand transfer from recliner /c MIN assistance for lifting. Verbal cues required for proper sequencing and hand placement. After first compl eted sit to stand transfer pt loses balance once and required MIN assist for steadying. She ambulated 5 feet forward then backward x2 /c use of a FWW. CGA required due to strength and balance deficits. Pt appears very drowsy throughout visit and reports L hip soreness. Stated that she feels a little better post- treatment. Pt left in recliner post-treatment /c call light in place and all needs met. Continue to progress pt per POC. PT Short Term Goals Short Term Goals Time Frame: Apr 21, 2023 Roll Left & Right: 4 Sit to lyin Lying to sitting on side of be: 4 Sit to stand: 4 Chair/irc-zg-exqjs transfer: 4 Walk 10 feet: 4 PT Retirement Goals Glass Finisher Goals PT Glass Finisher Goals Time Frame: Apr 23, 2023 Roll Left & Right (QC): 6 Sit to Lying (QC): 5 Lying-Sitting on Side/Bed(QC): 6 Sit to Stand (QC): 5 Chair/Odj-rj-Rlfdp Xfer(QC): 5 Does the Patient Walk: Yes Walk 50ft with 2 Turns (QC): 4 PT Plan Treatment/Plan Treatment Plan: Continue Plan of Care Treatment Plan: Bed Mobility, Education, Functional Strength, Gait, Safety, Therapeutic Exercise Treatment Duration: Apr 23, 2023 Frequency: 11 times per week Estimated Hrs Per Day: .25 hour per day Patient and/or Family Agrees t: Yes Time Time In: 1430 Time Out: 1445 DATE: Apr 20, 2023 Total Billed Treatment Time: 15 Total Billed Treatment 1 visit GT x 1 BRUCE PATTERSON NARCOTICS DETECTIVE Apr 20, 2023 14:50
--- NOTE | 2023-04-20 14:53 | Occ Therapy Progress Note ---
Therapy Progress Note OT order received, patient asleep and OT unable to arouse AARON ALEXANDER OT Apr 20, 2023 14:53
[2023-04-20 16:36] VITALS: BP 96/57
[2023-04-20 20:26] VITALS: BP 100/61
--- NOTE | 2023-04-20 21:19 | Diagnostic Imaging Report ---
EXAMINATION: Chest 1 view HISTORY: Altered mental status. COMPARISON: 03/24/2023. FINDINGS: Heart size and pulmonary vasculature are normal. The lungs are clear without consolidation, pleural effusion, or pneumothorax. The osseous structures are intact. IMPRESSION: 1. No acute radiographic abnormality in the chest. Dictated by: Dictated on workstation # [id number]
[2023-04-20] MEDS ORDERED: NS IV 1000 ML 1,000 ML ONE (21:21)
[2023-04-20 21:23] LABS: BASOPHILS % (AUTO) 0 % (0-10); EOSINOPHILS # (AUTO) 0.1 10^3/uL (0.0-0.3); EOSINOPHILS % (AUTO) 0 % (0-10); HEMATOCRIT 29 % (35-52); HEMOGLOBIN 9.7 g/dL (11.5-16.0); LYMPHOCYTES # (AUTO) 1.8 10^3/uL (1.0-4.0); LYMPHOCYTES % (AUTO) 10 % (12-44); MEAN CORPUSCULAR HEMOGLOBIN 30 pg (25-34); MEAN CORPUSCULAR HGB CONC 34 g/dL (32-36); MEAN CORPUSCULAR VOLUME 89 fL (80-99); MONOCYTES # (AUTO) 1.2 10^3/uL (0.0-1.0); MONOCYTES % (AUTO) 7 % (0-12); NEUTROPHILS # (AUTO) 15.3 10^3/uL (1.8-7.8); NEUTROPHILS % (AUTO) 83 % (42-75); PLATELET COUNT 194 10^3/uL (130-400); WHITE BLOOD COUNT 18.5 10^3/uL (4.3-11.0)
[2023-04-20 21:38] LABS: ABG BASE EXCESS -3.3 MMOL/L (-2.5-2.5); ABG OXYGEN SATURATION 97 % (94-100); ABG PCO2 36 MMHG (35-45); ABG PH 7.38 (7.37-7.43); ABG PO2 74 MMHG (79-93); ABG TCO2 22.4 MMOL/L (21.0-31.0); INSPIRED O2 ROOM AIR
[2023-04-20 21:39] LABS: VENTILATOR NO
[2023-04-20 21:40] LABS: BACTERIA,URINE FEW /HPF; BILIRUBIN,URINE 1+ (NEGATIVE); CLARITY,URINE CLEAR; COLOR,URINE ORANGE; GLUCOSE, URINE (UA) NEGATIVE (NEGATIVE); KETONES,URINE 1+ (NEGATIVE); LEUKOCYTE ESTERASE ,URINE 1+ (NEGATIVE); NITRITE,URINE NEGATIVE (NEGATIVE); PROTEIN,URINE 2+ (NEGATIVE)
[2023-04-20 21:42] LABS: ALBUMIN 3.2 GM/DL (3.2-4.5); BILIRUBIN,TOTAL 0.8 MG/DL (0.1-1.0); CALCIUM 7.9 MG/DL (8.5-10.1); CREATININE SERUM 1.9 MG/DL (0.60-1.30); POTASSIUM 4.4 MMOL/L (3.6-5.0); TOTAL PROTEIN 5.8 GM/DL (6.4-8.2)
[2023-04-20] MEDS ORDERED: NS (IVPB) 250 ML 250 ML IV ONE (21:45)
[2023-04-20] MEDS ORDERED: NS (IVPB) 250 ML 250 ML ONE (21:53)
[2023-04-20] MEDS: cefTRIAXone IV/IM 1,000 MG in NS (IVPB) 50 ML 50 ML IV SCH (22:42)
[2023-04-20 23:00] VITALS: BP 73/41
[2023-04-21 00:04] VITALS: BP 88/44
[2023-04-21] MEDS ORDERED: NS IV 1000 ML 1,000 ML IV ONE (01:00)
[2023-04-21 01:12] VITALS: BP 83/44
--- NOTE | 2023-04-21 02:24 | Tele-ICU Progress Note ---
Subjective Date Seen by a Provider: Apr 21, 2023 Subjective/Events-last exam This virtual visit was conducted using real time audio/video. Thank you for asking us to see this patient for critical care services due to oliguria, hypotension, CARINA and UTI. Recent events: Had L SUSAN on 04/19. Was to be D/Cd today bu instead transferred to ICU [facility] 4th floor. PMH: DM2, htn, hypothy. Resting comfortably on camera. PE: VSS. 90/40 O2 sat 92% on RA HEENT: No obvious masses, adenopathy or JVD. Chest: clear to auscultation. CV: RRR S1 S2 No murmur or added sounds. Abd: Non-tender. Bowel sounds Y. : Unremarkable. Lutz Y. METAL EXPEDITER/psychiatric: Grossly intact. No obvious focal findings. Extremities: No edema. Capillary refill < 3 seconds. Skin: unremarkable. Results: Elevated WCC 18.5, decreasing., BUN 27, Creat 1.9, Lact 2.31. Decreased Hb 9.7. AB.38/36/74 on RA.. CXR:Clear. Available chart/ vitals / labs / images reviewed. Video assessment done using teleICU camera, rest of exam as per RN. A/P: Critical Care: critically ill patient. Cont. IVF, abx, ASA, PPI, Metformin. Would hold Norvasc, Lisinoporil, Metoprolol. Discussed with RN Kavin.. Asked RN to reach out to eICU if any questions or concerns later. Time spent with patient/coordination of care with other health professionals (mins): 20. Sepsis Event Evaluation Height, Weight, BMI Height: 5'7.00" Weight: 214lbs. oz. 97.421486sh; 32.03 BMI Method: Focused Exam Lactate Level 04/20/23 21:15: Lactic Acid Level 2.31*H 04/20/23 23:26: Lactic Acid Level 1.52 Lactic Acid Level Laboratory Tests Test 04/20/23 23:26 Lactic Acid Level 1.52 MMOL/L (0.50-2.00) Exam Exam Patient acknowledged, consented, and participated in this virtual visit which was conducted using real time audio/video Vital Signs Date Time Temp Pulse Resp B/P (MAP) Pulse Ox O2 Delivery O2 Flow Rate FiO2 04/21/23 01:12 64 83/44 (57) 04/21/23 00:04 36.5 58 16 88/44 (59) 92 Room Air 04/20/23 23:00 36.4 63 16 73/41 (52) 92 Room Air 04/20/23 20:30 92 Room Air 04/20/23 20:26 36.6 59 20 100/61 (74) 93 Room Air 04/20/23 16:36 36.2 61 18 96/57 (70) 90 Room Air 04/20/23 11:28 36.4 75 18 102/65 (77) 92 Room Air 04/20/23 08:00 Room Air 04/20/23 07:18 36.0 81 18 117/70 (86) 93 Room Air 04/20/23 03:15 36.1 90 20 171/77 (108) 91 Room Air I & O 04/21/23 07:00 Intake Total 940 ml Output Total 135 ml Balance 805 ml Height & Weight Height: 5'7.00" Weight: 214lbs. oz. 97.432756pc; 32.03 BMI Method: General Appearance: No Apparent Distress, WD/WN, Chronically ill HEENT: PERRL/EOMI; No Photophobia, No Scleral Icterus (L), No Scleral Icterus (R) Neck: Non Tender Respiratory: Lungs Clear, Normal Breath Sounds Cardiovascular: Regular Rate, Rhythm Extremity: Normal Capillary Refill, No Calf Tenderness Neurologic/Psychiatric: Alert, Oriented x3 Skin: Normal Color, Warm/Dry Results Lab Laboratory Tests 04/20/23 05:10 04/20/23 21:15 Assessment/Plan Assessment/Plan See free text. Critical Care: Critically Ill Patient MADELINE BLANCHARD MD Apr 21, 2023 02:24
[2023-04-21] MEDS ORDERED: NS IV 1000 ML 1,000 ML IV SCH ×4 (03:00→15:00)
[2023-04-21] MEDS: NOREPINEPHRINE 8 MG/250 ML 250 ML IV SCH ×2 (03:00→06:55)
[2023-04-21 03:54] LABS: BASOPHILS % (AUTO) 0 % (0-10); EOSINOPHILS # (AUTO) 0.1 10^3/uL (0.0-0.3); EOSINOPHILS % (AUTO) 1 % (0-10); HEMATOCRIT 27 % (35-52); HEMOGLOBIN 8.9 g/dL (11.5-16.0); LYMPHOCYTES # (AUTO) 1.9 10^3/uL (1.0-4.0); LYMPHOCYTES % (AUTO) 12 % (12-44); MEAN CORPUSCULAR HEMOGLOBIN 30 pg (25-34); MEAN CORPUSCULAR HGB CONC 33 g/dL (32-36); MEAN CORPUSCULAR VOLUME 91 fL (80-99); MEAN PLATELET VOLUME 10.3 fL (9.0-12.2); MONOCYTES # (AUTO) 1.3 10^3/uL (0.0-1.0); MONOCYTES % (AUTO) 9 % (0-12); NEUTROPHILS # (AUTO) 11.6 10^3/uL (1.8-7.8); NEUTROPHILS % (AUTO) 78 % (42-75); PLATELET COUNT 155 10^3/uL (130-400)
[2023-04-21 04:15] LABS: ALBUMIN 2.8 GM/DL (3.2-4.5); POTASSIUM 4.7 MMOL/L (3.6-5.0)
[2023-04-21 04:16] LABS: CALCIUM 7.2 MG/DL (8.5-10.1)
[2023-04-21 04:17] LABS: TOTAL PROTEIN 5.2 GM/DL (6.4-8.2)
[2023-04-21 04:19] LABS: BILIRUBIN,TOTAL 0.7 MG/DL (0.1-1.0)
[2023-04-21 04:21] LABS: CREATININE SERUM 2.05 MG/DL (0.60-1.30)
[2023-04-21] MEDS ORDERED: ACETAMINOPHEN 325 MG TABLET PO PRN (05:30)
[2023-04-21] MEDS ORDERED: NS IV 500 ML 500 ML IV PRN (05:30)
[2023-04-21] MEDS ORDERED: MELATONIN 3 MG TABLET PO PRN (05:30)
[2023-04-21] MEDS ORDERED: ONDANSETRON INJECTION 4 MG/2 ML (SDV) IV PRN (05:30)
[2023-04-21] MEDS ORDERED: diphenhydrAMINE INJ 50 MG/ML VIAL IVP PRN (05:30)
[2023-04-21] MEDS ORDERED: MILK OF MAGNESIA 400 MG/5 ML 30 ML UDC PO PRN (05:30)
[2023-04-21] MEDS ORDERED: ONDANSETRON 4 MG ORAL DISSOLVE TABLET PO PRN (05:30)
[2023-04-21] MEDS ORDERED: CALCIUM CARBONATE 500 MG CHEW TABLET PO PRN (05:30)
[2023-04-21] MEDS ORDERED: ANTACID SUSPENSION 30 ML UDC PO PRN (05:30)
[2023-04-21] MEDS ORDERED: diphenhydrAMINE 25 MG TABLET PO PRN (05:30)
[2023-04-21] MEDS ORDERED: LACTULOSE SYRUP 10GM/15ML 30ML UDC PO PRN (05:30)
[2023-04-21] MEDS ORDERED: NALOXONE 0.4 MG/ML 1 ML VIAL IV PRN (05:30)
[2023-04-21] MEDS ORDERED: BISACODYL 10 MG SUPPOSITORY PR PRN (05:30)
[2023-04-21] MEDS: THERAPEUTIC MULTIVITAMIN W/MINERALS TABLET PO SCH (05:33)
[2023-04-21] MEDS: POTASSIUM CL 10MEQ/50ML IVPB 50 ML IV SCH (05:37)
[2023-04-21] MEDS: POTASSIUM CHLORIDE 20 MEQ TABLET PO SCH (05:37)
[2023-04-21] MEDS: MAGNESIUM 1 GM/100 ML IVPB 100 ML IV SCH (05:37)
[2023-04-21] MEDS: inSUlin ASPART 1 UNIT/0.01 ML (PER UNIT) SC SCH ×4 (05:38→20:56)
[2023-04-21 07:55] VITALS: BP 124/51
[2023-04-21] MEDS ORDERED: RT-ALBUTEROL SULF 2.5 MG/3 ML PRE-MIX VIAL INH PRN (08:15)
[2023-04-21] MEDS: NS IV 1000 ML 1,000 ML IV SCH ×3 (08:19→21:07)
[2023-04-21] MEDS: PANTOPRAZOLE 20 MG TABLET PO SCH (08:19)
[2023-04-21] MEDS: ASPIRIN enteric coated 81MG TABLET PO SCH ×2 (08:19→17:52)
[2023-04-21] MEDS: CITALOPRAM 20 MG TABLET PO SCH (08:19)
[2023-04-21] MEDS: MAGNESIUM OXIDE 400 MG TABLET PO SCH (08:19)
--- NOTE | 2023-04-21 08:19 | Progress Note - Ortho ---
Progress Note Subjective Date of Exam 04/21/23 Chief Complaint POD #2 L SUSAN HPI/Events since last exam events noted, hip pain controlled, has some pain in arch of left foot Review of Systems - Allergies: Coded Allergies: No Known Drug Allergies (Verified , 03/19/15) Home Meds Reported Medications Tizanidine HCl (Tizanidine HCl) 2 Mg Capsule, 2 MG PO, CAP 04/12/23 Simvastatin (Simvastatin) 10 Mg Tablet, 10 MG PO, TAB 04/12/23 Levothyroxine Sodium (Levothyroxine) 50 Mcg Capsule, 50 MCG PO, CAP 04/12/23 Venlafaxine HCl (Venlafaxine HCl ER) 75 Mg Tab.er.24, 75 MG PO, TAB 04/12/23 Omeprazole (Omeprazole) 20 Mg Capsule.dr, 20 MG PO, CAP 04/12/23 Citalopram Hydrobromide (Citalopram HBr) 20 Mg Tablet, 20 MG PO, TAB 04/12/23 Amlodipine Besylate (Amlodipine Besylate) 5 Mg Tablet, 5 MG PO DAILY, TAB 04/12/23 Multivitamin (Multi-Vitamin Daily) 1 Each Tablet, 1 EACH PO DAILY, TAB 03/19/15 Potassium Gluconate (Potassium Gluconate) 500 Mg Tablet, 595 MG PO DAILY, TAB 03/19/15 Magnesium Oxide (Magnesium) 250 Mg Tablet, 250 MG PO DAILY, TAB 03/19/15 Lisinopril (Lisinopril) 20 Mg Tablet, 20 MG PO DAILY, TAB 03/19/15 Metformin HCl (Metformin HCl) 1,000 Mg Tablet, 1000 MG PO BID, TAB 03/19/15 Objective Exam L Hip: Dressing C/D/I, +DF of ankle, no s/s of DVT Vital Signs Vital Signs Date Time Temp Pulse Resp B/P (MAP) Pulse Ox O2 Delivery O2 Flow Rate FiO2 04/21/23 08:04 69 118/60 04/21/23 07:55 36.5 69 92 04/21/23 07:50 69 124/51 04/21/23 07:23 74 139/60 04/21/23 07:00 57 04/21/23 07:00 59 139/60 (86) 92 Room Air 04/21/23 06:55 63 81/41 04/21/23 06:48 67 81/41 (62) 90 Room Air 04/21/23 06:44 72 81/52 (63) 92 Room Air 04/21/23 06:40 68 84/37 (52) 91 Room Air 04/21/23 06:20 74 107/53 (79) 94 Room Air 04/21/23 06:05 78 108/46 (65) 91 Room Air 04/21/23 05:40 73 107/48 (74) 92 Room Air 04/21/23 05:20 75 110/51 (67) 90 Room Air 04/21/23 05:00 76 111/56 (79) 92 Room Air 04/21/23 04:40 69 117/57 (72) 91 Room Air 04/21/23 04:20 69 102/52 (70) 91 Room Air 04/21/23 04:00 69 95/51 (72) 91 Room Air 04/21/23 04:00 91 Room Air 04/21/23 03:48 65 100/50 (69) 89 Room Air 04/21/23 03:20 70 98/81 (92) 90 Room Air 04/21/23 03:00 75 110/51 04/21/23 03:00 66 88/45 (63) 90 Room Air 04/21/23 02:54 68 91/42 (65) 92 Room Air 04/21/23 02:46 68 94/51 (59) 91 Room Air 04/21/23 02:40 68 89/49 (56) 91 Room Air 04/21/23 02:00 69 90/45 (64) 89 Room Air 04/21/23 01:34 71 04/21/23 01:32 68 92/45 (71) 91 Room Air 04/21/23 01:12 64 83/44 (57) 04/21/23 00:04 36.5 58 16 88/44 (59) 92 Room Air 04/21/23 00:00 91 Room Air 04/20/23 23:00 36.4 63 16 73/41 (52) 92 Room Air 04/20/23 20:30 92 Room Air 04/20/23 20:26 36.6 59 20 100/61 (74) 93 Room Air 04/20/23 16:36 36.2 61 18 96/57 (70) 90 Room Air 04/20/23 11:28 36.4 75 18 102/65 (77) 92 Room Air I & O 04/21/23 07:00 Intake Total 3340 ml Output Total 185 ml Balance 3155 ml Lab Results Laboratory Tests 04/20/23 21:15: White Blood Count 18.5H, Red Blood Count 3.23L, Hemoglobin 9.7L, Hematocrit 29L, Mean Corpuscular Volume 89, Mean Corpuscular Hemoglobin 30, Mean Corpuscular Hemoglobin Concent 34, Red Cell Distribution Width 12.8, Platelet Count 194, Mean Platelet Volume 10.0, Immature Granulocyte % (Auto) 1, Neutrophils (%) (Auto) 83H, Lymphocytes (%) (Auto) 10L, Monocytes (%) (Auto) 7, Eosinophils (%) (Auto) 0, Basophils (%) (Auto) 0, Neutrophils # (Auto) 15.3H, Lymphocytes # (Auto) 1.8, Monocytes # (Auto) 1.2H, Eosinophils # (Auto) 0.1, Basophils # (Auto) 0.0, Immature Granulocyte # (Auto) 0.1, Urine Color ORANGE, Urine Clarity CLEAR, Urine pH 5.0, Urine Specific [place] 1.025H, Urine Protein 2+H, Urine Glucose (UA) NEGATIVE, Urine Ketones 1+H, Urine Nitrite NEGATIVE, Urine Bilirubin 1+H, Urine Urobilinogen 0.2, Urine Leukocyte Esterase 1+H, Urine RBC (Auto) 1+H, Urine RBC 5-10H, Urine WBC 10-25H, Urine Squamous Epithelial Cells 5-10, Urine Crystals NONE, Urine Bacteria FEWH, Urine Casts NONE, Urine Mucus NEGATIVE, Urine Culture Indicated YES, Sodium Level 124*L, Potassium Level 4.4, Chloride Level 92L, Carbon Dioxide Level 21, Anion Gap 11, Blood Urea Nitrogen 27H, Creatinine 1.90H, Estimat Glomerular Filtration Rate 27, BUN/Creatinine Ratio 14, Glucose Level 142H, Lactic Acid Level 2.31*H, Calcium Level 7.9L, Corrected Calcium 8.5, Total Bilirubin 0.8, Aspartate Amino Transf (AST/SGOT) 35H, Alanine Aminotransferase (ALT/SGPT) 19, Alkaline Phosphatase 80, Total Protein 5.8L, Albumin 3.2 04/20/23 21:27: Arterial Blood pH 7.38, Arterial Blood Partial Pressure CO2 36, Arterial Blood Partial Pressure O2 74L, Arterial Blood HCO3 21L, Arterial Blood Total CO2 22.4, Arterial Blood Oxygen Saturation 97, Arterial Blood Base Excess -3.3L, Blood Gas Ventilator Setting NO, Blood Gas Inspired Oxygen ROOM AIR 04/20/23 23:26: Lactic Acid Level 1.52 04/21/23 03:36: White Blood Count 15.0H, Red Blood Count 2.97L, Hemoglobin 8.9L, Hematocrit 27L, Mean Corpuscular Volume 91, Mean Corpuscular Hemoglobin 30, Mean Corpuscular Hemoglobin Concent 33, Red Cell Distribution Width 12.6, Platelet Count 155, Mean Platelet Volume 10.3, Immature Granulocyte % (Auto) 0, Neutrophils (%) (Auto) 78H, Lymphocytes (%) (Auto) 12, Monocytes (%) (Auto) 9, Eosinophils (%) (Auto) 1, Basophils (%) (Auto) 0, Neutrophils # (Auto) 11.6H, Lymphocytes # (Auto) 1.9, Monocytes # (Auto) 1.3H, Eosinophils # (Auto) 0.1, Basophils # (Aut o) 0.0, Immature Granulocyte # (Auto) 0.1, Sodium Level 124*L, Potassium Level 4.7, Chloride Level 97L, Carbon Dioxide Level 17L, Anion Gap 10, Blood Urea Nitrogen 31H, Creatinine 2.05H, Estimat Glomerular Filtration Rate 25, BUN/Creatinine Ratio 15, Glucose Level 105, Calcium Level 7.2L, Corrected Calcium 8.2L, Total Bilirubin 0.7, Aspartate Amino Transf (AST/SGOT) 38H, Alanine Aminotransferase (ALT/SGPT) 19, Alkaline Phosphatase 66, Total Protein 5.2L, Albumin 2.8L 04/21/23 06:04: Microbiology 04/20/23 Urine Culture - Preliminary, Resulted Assessment and Plan Assessment L Hip OA s/p SUSAN Problem List L Hip OA s/p SUSAN Plan PT/OT as able DVT Prophylaxis Dressing Change today Appreciate Critical Care/Medical teams Final Diagonsis L Hip OA s/p SUSAN Level of the visit: Level 3 (global) Focused Exam Lactate Level 04/20/23 21:15: Lactic Acid Level 2.31*H 04/20/23 23:26: Lactic Acid Level 1.52 ELVER CORDOVA MD Apr 21, 2023 08:19
[2023-04-21] MEDS: DOCUSATE SODIUM 100 MG CAPSULE PO SCH ×2 (09:01→21:06)
[2023-04-21] MEDS: SENNOSIDES 8.6 MG TABLET PO SCH ×2 (09:01→21:06)
--- NOTE | 2023-04-21 09:22 | History & Physical ---
ARLENE TOVAR 04/21/23 09: History of Present Illness History of Present Illness Reason for visit/HPI Pt states that she is feeling better than yesterday. Reports pain 0/10 when laying in bed. Pain only occurs when moving and walking. Pt reports two possible UTIs in the past, once during childhood and once during her second . Denies frequent UTIs or kidney problems. Right hand feels numb/tingling. Left hand has no numbness or tingling. Complains of having "cotton mouth" despite drinking fluids. Positive assoc sx include decreased exercise endurance and moving slowly during walking sessions. Negative assoc sx include abdominal tenderness, suprapubic tenderness, burning sensation during urination, incontinence, or BECK. Date of Admission Apr 19, 2023 at 05:49 I consulted on this patient on 04/21/23 09:16 Attending Physician Michelle Conner DO Admitting Physician Admitting Physician: Gurdeep Street MD Attending Physician: Gurdeep Street MD Consult Allergies and Home Medications Allergies Coded Allergies: No Known Drug Allergies (Verified , 03/19/15) Patient Home Medication List Amlodipine Besylate (Amlodipine Besylate) 5 Mg Tablet, 5 MG PO DAILY, (Reported) Entered as Reported by: Rosi Sanchez on 04/12/23 0943 Last Action: Reviewed Citalopram Hydrobromide (Citalopram HBr) 40 Mg Tablet, 40 MG PO DAILY, (Reported) Entered as Reported by: MARGARITA CONTRERAS on 04/21/231499 Last Action: Reviewed Ibuprofen (Ibuprofen) 200 Mg Tablet, 400-800 MG PO Q8H PRN for PAIN-MILD (1-4), (Reported) Entered as Reported by: MARGARITA CONTRERAS on 04/21/23 1503 Last Action: Reviewed Levothyroxine Sodium (Levothyroxine Sodium) 50 Mcg Tablet, 50 MCG PO DAILY, (Reported) Entered as Reported by: MARGARITA CONTRERAS on 04/21/231499 Last Action: Reviewed Lisinopril (Lisinopril) 40 Mg Tablet, 40 MG PO DAILY, (Reported) Entered as Reported by: MARGARITA CONTRERAS on 04/21/23 1500 Last Action: Reviewed Magnesium Oxide (Magnesium) 250 Mg Tablet, 250 MG PO DAILY PRN for LEG CRAMPS, (Reported) Entered as Reported by: PRO MUNOZ on 03/19/15909 Last Action: Reviewed Metformin HCl (Metformin HCl) 500 Mg Tablet, 500 MG PO BID, (Reported) Entered as Reported by: MARGARITA CONTRERAS on 04/21/231499 Last Action: Reviewed Multivitamin (Multi-Vitamin Daily) 1 Each Tablet, 1 EACH PO DAILY, (Reported) Entered as Reported by: PRO MUNOZ on 03/19/15909 Last Action: Reviewed Omeprazole (Omeprazole) 20 Mg Capsule.dr, 20 MG PO DAILY, (Reported) Entered as Reported by: Rosi Sanchez on 04/12/23942 Last Action: Reviewed Simvastatin (Simvastatin) 10 Mg Tablet, 10 MG PO HS, (Reported) Entered as Reported by: Rosi Sanchez on 04/12/23942 Last Action: Reviewed Tizanidine HCl (Tizanidine HCl) 2 Mg Tablet, 2 MG PO TID PRN for MUSCLE SPASMS, (Reported) Entered as Reported by: MARGARITA CONTRERAS on 04/21/231499 Last Action: Reviewed Venlafaxine HCl (Venlafaxine HCl ER) 75 Mg Cap.er.24h, 75 MG PO DAILY, (Reported) Entered as Reported by: MARGARITA CONTRERAS on 04/21/231499 Last Action: Reviewed Discontinued Medications Citalopram Hydrobromide (Citalopram HBr) 20 Mg Tablet, 20 MG PO, (Reported) Discontinued Reason: No Longer Taking Entered as Reported by: Rosi Sanchez on 04/12/23942 Last Action: Discontinued Levothyroxine Sodium (Levothyroxine) 50 Mcg Capsule, 50 MCG PO, (Reported) Discontinued Reason: No Longer Taking Entered as Reported by: Rosi Sanchez on 04/12/23942 Last Action: Discontinued Lisinopril (Lisinopril) 20 Mg Tablet, 20 MG PO DAILY, (Reported) Discontinued Reason: No Longer Taking Entered as Reported by: PRO MUNOZ on 03/19/15909 Last Action: Discontinued Metformin HCl (Metformin HCl) 1,000 Mg Tablet, 1,000 MG PO BID, (Reported) Discontinued Reason: No Longer Taking Entered as Reported by: PRO MUNOZ on 03/19/15909 Last Action: Discontinued Potassium Gluconate (Potassium Gluconate) 500 Mg Tablet, 595 MG PO DAILY, (Reported) Discontinued Reason: No Longer Taking Entered as Reported by: PRO MUNOZ on 03/19/15909 Last Action: Discontinued Tizanidine HCl (Tizanidine HCl) 2 Mg Capsule, 2 MG PO, (Reported) Discontinued Reason: Duplicate Order Entered as Reported by: Rosi Sanchez on 04/12/23942 Last Action: Discontinued Venlafaxine HCl (Venlafaxine HCl ER) 75 Mg Tab.er.24, 75 MG PO, (Reported) Discontinued Reason: Duplicate Order Entered as Reported by: Rosi Sanchez on 04/12/23942 Last Action: Discontinued Past Twvikwr-Qftqiv-Rfqgel Hx Patient Social History Marrital Status: Employed/Student: retired Tobacco Use?: No Smoking Status: Former Smoker (40 pack year history) Substance use?: No Alcohol Use?: Yes Alcohol Frequency: Once in a while Immunizations Up To Date Date of Influenza Vaccine: Mar 18, 2015 Tetanus Booster (TDap): Unknown Date of Pneumonia Vaccine: May 14, 2014 Seasonal Allergies Seasonal Allergies: No Current Status Advance Directives: Yes Advance Directive Location: Copy placed in chart Communicates: Verbally Primary Language: Portuguese Is interpretation needed?: No Sensory deficits: Vision impairment Past Medical History Surgeries: Orthopedic (rt knee replacement (20 years ago). Left SUSAN 04/19/23), Tonsillectomy, Tubal Ligation Currently Using CPAP: No Currently Using BIPAP: No High Cholesterol, Hypertension [employer] History: Tubal Ligation Gastroesophageal Reflux Degenerate Disk Disease, Arthritis Diabetes, Non-Insulin dep Hearing Impairment: Hard of Hearing Blood Disorders: No Review of Systems Constitutional: No chills, No dizziness, No fever, No malaise; weakness EENTM: No ear pain, No blurred vision, No double vision, No eye pain Respiratory: No cough, No short of breath Cardiovascular: No chest pain, No edema, No palpitations Gastrointestinal: No abdominal pain, No diarrhea, No loss of appetite, No nausea, No vomiting Genitourinary: No discharge, No frequency, No hematuria, No hesitancy, No incontinence, No pain Musculoskeletal: joint pain (rt hip), other (lt foot pain) Psychiatric/Neurological: Denies Headache; Numbness (rt hand) Physical Exam Vital Signs Vital Signs - First Documented 04/19/23 06:05 Temp 36.1 Pulse 89 Resp 18 B/P (MAP) 142/66 (91) Pulse Ox 98 O2 Delivery Room Air Capillary Refill : Height, Weight, BMI Height: 5'7.00" Weight: 214lbs. oz. 97.986452bi; 32.03 BMI Method: General Appearance: No Apparent Distress Eyes: Bilateral Eye Normal Inspection HEENT: PERRL/EOMI; No Photophobia, No Scleral Icterus (L), No Scleral Icterus (R) Neck: Normal Inspection, Non Tender; No JVD Respiratory: Chest Non Tender, Lungs Clear, Normal Breath Sounds, No Accessory Muscle Use, No Respiratory Distress Cardiovascular: Regular Rate, Rhythm, No Edema, No Gallop, No JVD, No Murmur, Normal Peripheral Pulses Gastrointestinal: Normal Bowel Sounds, No Pulsatile Mass, Non Tender, Soft; No Distended, No Guarding, No Rebound Extremity: Normal Capillary Refill, Non Tender Neurologic/Psychiatric: Alert, Oriented x3, No Motor/Sensory Deficits, Normal 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, 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 Norm as Tested Skin: Normal Color, Warm/Dry Assessment/Plan Assessment and Plan Assessment: Left SUSAN Oliguria UTI Hypotensive Episode DMII Hypothyroidism Plan: Left SUSAN -will continue to monitor pt's pain and recovery Oliguria -continue to monitor output and continue IVF UTI -monitor labwork to ensure Abx is helping Hypotensive episode -pts BP was stable during exam, will continue to monitor status DMII -continue current medications Hypothyroidism -continue Levothyroxine tx MICHELLE CONNER DO 04/21/230: History of Present Illness History of Present Illness Date Seen by a Provider: Apr 21, 2023 Time Seen by a Provider: 11:00 Allergies and Home Medications Allergies Coded Allergies: No Known Drug Allergies (Verified , 03/19/15) Patient Home Medication List Home Medication List Reviewed: Yes Amlodipine Besylate (Amlodipine Besylate) 5 Mg Tablet, 5 MG PO DAILY, (Reported) Entered as Reported by: Rosi Sanchez on 04/12/23 0943 Last Action: Reviewed Citalopram Hydrobromide (Citalopram HBr) 40 Mg Tablet, 40 MG PO DAILY, (Reported) Entered as Reported by: MARGARITA CONTRERAS on 04/21/23 1500 Last Action: Reviewed Ibuprofen (Ibuprofen) 200 Mg Tablet, 400-800 MG PO Q8H PRN for PAIN-MILD (1-4), (Reported) Entered as Reported by: MARGARITA CONTRERAS on 04/21/23 1503 Last Action: Reviewed Levothyroxine Sodium (Levothyroxine Sodium) 50 Mcg Tablet, 50 MCG PO DAILY, (Reported) Entered as Reported by: MARGARITA CONTRERAS on 04/21/231499 Last Action: Reviewed Lisinopril (Lisinopril) 40 Mg Tablet, 40 MG PO DAILY, (Reported) Entered as Reported by: MARGARITA CONTRERAS on 04/21/231499 Last Action: Reviewed Magnesium Oxide (Magnesium) 250 Mg Tablet, 250 MG PO DAILY PRN for LEG CRAMPS, (Reported) Entered as Reported by: PRO MUNOZ on 03/19/15909 Last Action: Reviewed Metformin HCl (Metformin HCl) 500 Mg Tablet, 500 MG PO BID, (Reported) Entered as Reported by: MARGARITA CONTRERAS on 04/21/231499 Last Action: Reviewed Multivitamin (Multi-Vitamin Daily) 1 Each Tablet, 1 EACH PO DAILY, (Reported) Entered as Reported by: PRO MUNOZ on 03/19/15909 Last Action: Reviewed Omeprazole (Omeprazole) 20 Mg Capsule.dr, 20 MG PO DAILY, (Reported) Entered as Reported by: Rosi Sanchez on 04/12/23942 Last Action: Reviewed Simvastatin (Simvastatin) 10 Mg Tablet, 10 MG PO HS, (Reported) Entered as Reported by: Rosi Sanchez on 04/12/23942 Last Action: Reviewed Tizanidine HCl (Tizanidine HCl) 2 Mg Tablet, 2 MG PO TID PRN for MUSCLE SPASMS, (Reported) Entered as Reported by: MARGARITA CONTRERAS on 04/21/231499 Last Action: Reviewed Venlafaxine HCl (Venlafaxine HCl ER) 75 Mg Cap.er.24h, 75 MG PO DAILY, (Reported) Entered as Reported by: MARGARITA CONTRERAS on 04/21/231499 Last Action: Reviewed Discontinued Medications Citalopram Hydrobromide (Citalopram HBr) 20 Mg Tablet, 20 MG PO, (Reported) Discontinued Reason: No Longer Taking Entered as Reported by: Rosi Sanchez on 04/12/23942 Last Action: Discontinued Levothyroxine Sodium (Levothyroxine) 50 Mcg Capsule, 50 MCG PO, (Reported) Discontinued Reason: No Longer Taking Entered as Reported by: Rosi Sanchez on 04/12/23942 Last Action: Discontinued Lisinopril (Lisinopril) 20 Mg Tablet, 20 MG PO DAILY, (Reported) Discontinued Reason: No Longer Taking Entered as Reported by: PRO MUNOZ on 03/19/15909 Last Action: Discontinued Metformin HCl (Metformin HCl) 1,000 Mg Tablet, 1,000 MG PO BID, (Reported) Discontinued Reason: No Longer Taking Entered as Reported by: PRO MUNOZ on 03/19/15909 Last Action: Discontinued Potassium Gluconate (Potassium Gluconate) 500 Mg Tablet, 595 MG PO DAILY, (Reported) Discontinued Reason: No Longer Taking Entered as Reported by: PRO MUNOZ on 03/19/15909 Last Action: Discontinued Tizanidine HCl (Tizanidine HCl) 2 Mg Capsule, 2 MG PO, (Reported) Discontinued Reason: Duplicate Order Entered as Reported by: Rosi Sanchez on 04/12/23942 Last Action: Discontinued Venlafaxine HCl (Venlafaxine HCl ER) 75 Mg Tab.er.24, 75 MG PO, (Reported) Discontinued Reason: Duplicate Order Entered as Reported by: Rosi Sanchez on 04/12/23942 Last Action: Discontinued Past Qofxzyb-Rivyln-Iyaogf Hx Patient Social History Marrital Status: Employed/Student: retired Smoking Status: Never a Smoker Review of Systems Constitutional: see HPI Physical Exam General Appearance: No Apparent Distress, WD/WN, Chronically ill Respiratory: Lungs Clear, Normal Breath Sounds Cardiovascular: Regular Rate, Rhythm Assessment/Plan Admission Diagnosis Admission Status: Inpatient Order (span 2 midnights) Reason for Inpatient Admission: hypotensive episode and CARINA Supervisory-Addendum Brief Verification & Attestation Participated in pt care: history, MDM, physical Personally performed: exam, history, MDM, supervision of care Care discussed with: Medical Student Procedures: n/a Results interpretation: Verified all documentation Verification and Attestation of Medical Student E/M Service A medical student performed and documented this service in my presence. I reviewed and verified all information documented by the medical student and made modifications to such information, when appropriate. I personally performed the physical exam and medical decision making. Michelle Conner, Apr 21, 2023,18:19 ARLENE TOVAR Apr 21, 2023 09:22 MICHELLE CONNER DO Apr 21, 2023 18:20
[2023-04-21] MEDS: oxyCODONE IMMEDIATE RELEASE 5 MG TABLET PO PRN ×2 (10:07→14:15)
--- NOTE | 2023-04-21 12:13 | Tele-ICU Progress Note ---
Subjective Date Seen by a Provider: Apr 21, 2023 Time Seen by a Provider: 12:08 Subjective/Events-last exam (Tele-ICU Physician , Progress Note ) Service provided via interactive audio and video telecommunications [facility]-CARE s yste to a patient admitted to ICU bed in [facility]. Patient is seen today due to persistent need of ICU care She underwent Left hip arthropaty yesterday. Last night and today became hypotensive requiring fluid boluses and brief levophed. cratinin increased. Impression. 1. post op hypotension due fluid depletion. 2. r/o any blood lost. 3. CARINA new onset. Plan. 1. fluid boluses as needed. 2. repeat bmp and cbc 3. DVT prophylaxis Available chart/ vitals / labs / Images reviewed Video assessment done using tele ICU camera, rest of exam as per RN Coordination of care with primary care physician and bedside consultants. I am remotely monitoring this patient from Tele icu station in [place]. I am unable to do the bedside exam, and history/physical and pertinent information is taken from other notes in the computer and bedside staff. Certain portions of this document may have been dictated utilizing voice recognition technology such as [employer]. Inherent to this technology, typographical and grammatical errors may exist. As much as I am diligent to identify and correct to these mistakes, some errors may remain in the document. Critical care time devoted to this patient today is approximately is--25 minutes. Sepsis Event Evaluation Height, Weight, BMI Height: 5'7.00" Weight: 214lbs. oz. 97.525505pn; 32.03 BMI Method: Focused Exam Lactate Level 04/20/23 21:15: Lactic Acid Level 2.31*H 04/20/23 23:26: Lactic Acid Level 1.52 Exam Exam Patient acknowledged, consented, and participated in this virtual visit which was conducted using real time audio/video Vital Signs Date Time Temp Pulse Resp B/P (MAP) Pulse Ox O2 Delivery O2 Flow Rate FiO2 04/21/23 11:42 36.3 04/21/23 11:00 75 99/48 (65) 90 Room Air 04/21/23 10:00 81 96/53 (67) 92 Room Air 04/21/23 09:00 76 104/57 (73) 91 Room Air 04/21/23 08:19 77 104/55 04/21/23 08:18 37.0 Room Air 04/21/23 08:04 69 118/60 04/21/23 08:00 91 Room Air 04/21/23 07:55 36.5 69 92 04/21/23 07:50 69 124/51 04/21/23 07:23 74 139/60 04/21/23 07:00 57 04/21/23 07:00 59 139/60 (86) 92 Room Air 04/21/23 06:55 63 81/41 04/21/23 06:48 67 81/41 (62) 90 Room Air 04/21/23 06:44 72 81/52 (63) 92 Room Air 04/21/23 06:40 68 84/37 (52) 91 Room Air 04/21/23 06:20 74 107/53 (79) 94 Room Air 04/21/23 06:05 78 108/46 (65) 91 Room Air 04/21/23 05:40 73 107/48 (74) 92 Room Air 04/21/23 05:20 75 110/51 (67) 90 Room Air 04/21/23 05:00 76 111/56 (79) 92 Room Air 04/21/23 04:40 69 117/57 (72) 91 Room Air 04/21/23 04:20 69 102/52 (70) 91 Room Air 04/21/23 04:00 69 95/51 (72) 91 Room Air 04/21/23 04:00 91 Room Air 04/21/23 03:48 65 100/50 (69) 89 Room Air 04/21/23 03:20 70 98/81 (92) 90 Room Air 04/21/23 03:00 75 110/51 04/21/23 03:00 66 88/45 (63) 90 Room Air 04/21/23 02:54 68 91/42 (65) 92 Room Air 04/21/23 02:46 68 94/51 (59) 91 Room Air 04/21/23 02:40 68 89/49 (56) 91 Room Air 04/21/23 02:00 69 90/45 (64) 89 Room Air 04/21/23 01:34 71 04/21/23 01:32 68 92/45 (71) 91 Room Air 04/21/23 01:12 64 83/44 (57) 04/21/23 00:04 36.5 58 16 88/44 (59) 92 Room Air 04/21/23 00:00 91 Room Air 04/20/23 23:00 36.4 63 16 73/41 (52) 92 Room Air 04/20/23 20:30 92 Room Air 04/20/23 20:26 36.6 59 20 100/61 (74) 93 Room Air 04/20/23 16:36 36.2 61 18 96/57 (70) 90 Room Air I & O 04/21/23 07:00 Intake Total 3340 ml Output Total 185 ml Balance 3155 ml Height & Weight Height: 5'7.00" Weight: 214lbs. oz. 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
[2023-04-21 14:04] LABS: BASOPHILS % (AUTO) 0 % (0-10); EOSINOPHILS # (AUTO) 0.1 10^3/uL (0.0-0.3); EOSINOPHILS % (AUTO) 1 % (0-10); HEMATOCRIT 26 % (35-52); LYMPHOCYTES # (AUTO) 1.3 10^3/uL (1.0-4.0); LYMPHOCYTES % (AUTO) 10 % (12-44); MEAN CORPUSCULAR HEMOGLOBIN 30 pg (25-34); MEAN CORPUSCULAR HGB CONC 35 g/dL (32-36); MEAN CORPUSCULAR VOLUME 88 fL (80-99); MEAN PLATELET VOLUME 10.2 fL (9.0-12.2); MONOCYTES # (AUTO) 0.9 10^3/uL (0.0-1.0); MONOCYTES % (AUTO) 7 % (0-12); NEUTROPHILS # (AUTO) 11.2 10^3/uL (1.8-7.8); NEUTROPHILS % (AUTO) 82 % (42-75); PLATELET COUNT 152 10^3/uL (130-400); WHITE BLOOD COUNT 13.6 10^3/uL (4.3-11.0)
[2023-04-21 14:10] LABS: POTASSIUM 4.3 MMOL/L (3.6-5.0)
[2023-04-21 14:11] LABS: CALCIUM 7.2 MG/DL (8.5-10.1)
[2023-04-21 14:16] LABS: CREATININE SERUM 1.8 MG/DL (0.60-1.30)
[2023-04-21] MEDS ORDERED: CITA40TA13 PO (15:00)
[2023-04-21] MEDS ORDERED: TIZA-169 PO (15:00)
[2023-04-21] MEDS ORDERED: MAGNESIUM 2 GM/50 ML IVPB 50 ML IV ONE (15:00)
[2023-04-21] MEDS ORDERED: VENL75CA93 PO (15:00)
[2023-04-21] MEDS ORDERED: LEVO50TA6 PO (15:00)
[2023-04-21] MEDS ORDERED: LISI40TA9 PO (15:00)
[2023-04-21] MEDS ORDERED: METF-397 PO (15:00)
[2023-04-21] MEDS ORDERED: IBUP-2473 PO (15:03)
[2023-04-21] MEDS: MAGNESIUM 1 GM/D5W 100 ML IVPB IV SCH (15:09)
--- NOTE | 2023-04-21 18:19 | Progress Note ---
Subjective Date Seen by a Provider: Apr 21, 2023 Time Seen by a Provider: 11:00 Subjective/Events-last exam Patient doing better Mentation is better Daughter at the bedside CARINA noted IVF maintained Still a bit drowsy Reviewed meds and labs Rocephin for early UTI Pain controlled but will minimize meds due to overmedicated status Review of Systems Musculoskeletal: leg pain Focused Exam Lactate Level 04/20/23 21:15: Lactic Acid Level 2.31*H 04/20/23 23:26: Lactic Acid Level 1.52 Objective Exam Last Set of Vital Signs Vital Signs Date Time Temp Pulse Resp B/P (MAP) Pulse Ox O2 Delivery O2 Flow Rate FiO2 04/21/23 18:00 86 131/60 (83) 94 Room Air 04/21/23 16:00 36.5 04/21/23 15:16 2.00 04/21/23 00:04 16 Capillary Refill : I&O Intake and Output 04/21/23 00:00 Intake Total 1290 ml Output Total 730 ml Balance 560 ml Intake Oral 1240 ml IV Total 50 ml Output Urine Total 730 ml General: Alert, Oriented X3, Cooperative, No Acute Distress Lungs: Clear to Auscultation, Normal Air Movement Heart: Regular Rate, Normal S1, Normal S2, No Murmurs Psych/Mental Status: Mental Status NL, Mood NL, Other (still subtle slowness) Results Lab Laboratory Tests 04/20/23 21:15: White Blood Count 18.5H, Red Blood Count 3.23L, Hemoglobin 9.7L, Hematocrit 29L, Mean Corpuscular Volume 89, Mean Corpuscular Hemoglobin 30, Mean Corpuscular Hemoglobin Concent 34, Red Cell Distribution Width 12.8, Platelet Count 194, Mean Platelet Volume 10.0, Immature Granulocyte % (Auto) 1, Neutrophils (%) (Auto) 83H, Lymphocytes (%) (Auto) 10L, Monocytes (%) (Auto) 7, Eosinophils (%) (Auto) 0, Basophils (%) (Auto) 0, Neutrophils # (Auto) 15.3H, Lymphocytes # (Auto) 1.8, Monocytes # (Auto) 1.2H, Eosinophils # (Auto) 0.1, Basophils # (Auto) 0.0, Immature Granulocyte # (Auto) 0.1, Urine Color ORANGE, Urine Clarity CLEAR, Urine pH 5.0, Urine Specific [place] 1.025H, Urine Protein 2+H, Urine Glucose (UA) NEGATIVE, Urine Ketones 1+H, Urine Nitrite NEGATIVE, Urine Bilirubin 1+H, Urine Urobilinogen 0.2, Urine Leukocyte Esterase 1+H, Urine RBC (Auto) 1+H, Urine RBC 5-10H, Urine WBC 10-25H, Urine Squamous Epithelial Cells 5-10, Urine Crystals NONE, Urine Bacteria FEWH, Urine Casts NONE, Urine Mucus NEGATIVE, Urine Culture Indicated YES, Sodium Level 124*L, Potassium Level 4.4, Chloride Level 92L, Carbon Dioxide Level 21, Anion Gap 11, Blood Urea Nitrogen 27H, Creatinine 1.90H, Estimat Glomerular Filtration Rate 27, BUN/Creatinine Ratio 14, Glucose Level 142H, Lactic Acid Level 2.31*H, Calcium Level 7.9L, Corrected Calcium 8.5, Total Bilirubin 0.8, Aspartate Amino Transf (AST/SGOT) 35H, Alanine Aminotransferase (ALT/SGPT) 19, Alkaline Phosphatase 80, Total P rotein 5.8L, Albumin 3.2 04/20/23 21:27: Arterial Blood pH 7.38, Arterial Blood Partial Pressure CO2 36, Arterial Blood Partial Pressure O2 74L, Arterial Blood HCO3 21L, Arterial Blood Total CO2 22.4, Arterial Blood Oxygen Saturation 97, Arterial Blood Base Excess -3.3L, Blood Gas Ventilator Setting NO, Blood Gas Inspired Oxygen ROOM AIR 04/20/23 23:26: Lactic Acid Level 1.52 04/21/23 03:36: White Blood Count 15.0H, Red Blood Count 2.97L, Hemoglobin 8.9L, Hematocrit 27L, Mean Corpuscular Volume 91, Mean Corpuscular Hemoglobin 30, Mean Corpuscular Hemoglobin Concent 33, Red Cell Distribution Width 12.6, Platelet Count 155, Mean Platelet Volume 10.3, Immature Granulocyte % (Auto) 0, Neutrophils (%) (Auto) 78H, Lymphocytes (%) (Auto) 12, Monocytes (%) (Auto) 9, Eosinophils (%) (Auto) 1, Basophils (%) (Auto) 0, Neutrophils # (Auto) 11.6H, Lymphocytes # (Auto) 1.9, Monocytes # (Auto) 1.3H, Eosinophils # (Auto) 0.1, Basophils # (Auto) 0.0, Immature Granulocyte # (Auto) 0.1, Sodium Level 124*L, Potassium Level 4.7, Chloride Level 97L, Carbon Dioxide Level 17L, Anion Gap 10, Blood Urea Nitrogen 31H, Creatinine 2.05H, Estimat Glomerular Filtration Rate 25, BUN/ Creatinine Ratio 15, Glucose Level 105, Calcium Level 7.2L, Corrected Calcium 8.2L, Total Bilirubin 0.7, Aspartate Amino Transf (AST/SGOT) 38H, Alanine Aminotransferase (ALT/SGPT) 19, Alkaline Phosphatase 66, Total Protein 5.2L, Albumin 2.8L 04/21/23 06:04: Iron Level 42, Vitamin B12 Level 406 04/21/23 11:05: Glucometer 138H 04/21/23 13:55: White Blood Count 13.6H, Red Blood Count 2.97L, Hemoglobin 9.0L, Hematocrit 26L, Mean Corpuscular Volume 88, Mean Corpuscular Hemoglobin 30, Mean Corpuscular Hemoglobin Concent 35, Red Cell Distribution Width 12.5, Platelet Count 152, Me an Platelet Volume 10.2, Immature Granulocyte % (Auto) 1, Neutrophils (%) (Auto) 82H, Lymphocytes (%) (Auto) 10L, Monocytes (%) (Auto) 7, Eosinophils (%) (Auto) 1, Basophils (%) (Auto) 0, Neutrophils # (Auto) 11.2H, Lymphocytes # (Auto) 1.3, Monocytes # (Auto) 0.9, Eosinophils # (Auto) 0.1, Basophils # (Auto) 0.0, Immat ure Granulocyte # (Auto) 0.1, Sodium Level 123*L, Potassium Level 4.3, Chloride Level 98, Carbon Dioxide Level 18L, Anion Gap 7, Blood Urea Nitrogen 35H, Creatinine 1.80H, Estimat Glomerular Filtration Rate 29, BUN/Creatinine Ratio 19, Glucose Level 135H, Calcium Level 7.2L, Phosphorus Level 3.0, Magnesium Level 1.0*L 04/21/23 16:24: Glucometer 170H Microbiology 04/20/23 Blood Culture - Preliminary, Resulted 04/20/23 Urine Culture - Preliminary, Resulted Assessment/Plan Assessment/Plan Assess & Plan/Chief Complaint Assessment: Hypotensive episode requiring transfer to ICU 04/21/23 0100 not due to sepsis CARINA post op due to poor PO intake Early UTI placed on Rocephin empirically s/p left hip replacement DM HLP Depression Plan: Monitor BP IVF Levophed prn Rocephin empirically TIFFANIE CONNER DO Apr 21, 2023 18:19
[2023-04-21] MEDS: cefTRIAXone IV/IM 1,000 MG in NS (IVPB) 50 ML 50 ML IV SCH (21:06)
[2023-04-22] MEDS: oxyCODONE IMMEDIATE RELEASE 5 MG TABLET PO PRN ×4 (03:03→20:39)
[2023-04-22 04:48] LABS: BASOPHILS % (AUTO) 0 % (0-10); EOSINOPHILS # (AUTO) 0.1 10^3/uL (0.0-0.3); EOSINOPHILS % (AUTO) 1 % (0-10); HEMATOCRIT 28 % (35-52); HEMOGLOBIN 9.4 g/dL (11.5-16.0); LYMPHOCYTES # (AUTO) 1.1 10^3/uL (1.0-4.0); LYMPHOCYTES % (AUTO) 10 % (12-44); MEAN CORPUSCULAR HEMOGLOBIN 30 pg (25-34); MEAN CORPUSCULAR HGB CONC 34 g/dL (32-36); MEAN CORPUSCULAR VOLUME 88 fL (80-99); MEAN PLATELET VOLUME 10.7 fL (9.0-12.2); MONOCYTES # (AUTO) 0.8 10^3/uL (0.0-1.0); MONOCYTES % (AUTO) 7 % (0-12); NEUTROPHILS # (AUTO) 9.5 10^3/uL (1.8-7.8); NEUTROPHILS % (AUTO) 82 % (42-75); PLATELET COUNT 190 10^3/uL (130-400); WHITE BLOOD COUNT 11.6 10^3/uL (4.3-11.0)
[2023-04-22 04:59] LABS: POTASSIUM 4.2 MMOL/L (3.6-5.0)
[2023-04-22 05:00] LABS: CALCIUM 7.9 MG/DL (8.5-10.1)
[2023-04-22 05:02] LABS: TOTAL PROTEIN 5.8 GM/DL (6.4-8.2)
[2023-04-22 05:04] LABS: BILIRUBIN,TOTAL 0.5 MG/DL (0.1-1.0)
[2023-04-22 05:05] LABS: CREATININE SERUM 1.45 MG/DL (0.60-1.30); PHOSPHORUS 2.4 MG/DL (2.3-4.7)
[2023-04-22 05:08] LABS: MAGNESIUM 1.4 MG/DL (1.6-2.4)
[2023-04-22] MEDS: NS IV 1000 ML 1,000 ML IV SCH ×2 (05:25→15:04)
[2023-04-22] MEDS: POTASSIUM CL 10MEQ/50ML IVPB 50 ML IV SCH (05:43)
[2023-04-22] MEDS: POTASSIUM CHLORIDE 20 MEQ TABLET PO SCH (05:43)
[2023-04-22] MEDS: MAGNESIUM 1 GM/100 ML IVPB 100 ML IV SCH ×6 (05:44→10:41)
[2023-04-22] MEDS: inSUlin ASPART 1 UNIT/0.01 ML (PER UNIT) SC SCH ×5 (05:44→21:26)
[2023-04-22] MEDS: THERAPEUTIC MULTIVITAMIN W/MINERALS TABLET PO SCH (05:58)
--- NOTE | 2023-04-22 07:38 | Physical Therapy Progress Note ---
Therapy Progress Note Patient transferred to ICU due to decline in medical status. PT will require new orders when patient is deemed medically stable and able to actively participate with skilled therapy. MITCH MENDOZA PT Apr 22, 2023 07:38
[2023-04-22] MEDS: CITALOPRAM 20 MG TABLET PO SCH (08:36)
[2023-04-22] MEDS: ASPIRIN enteric coated 81MG TABLET PO SCH (08:36)
[2023-04-22] MEDS: MAGNESIUM OXIDE 400 MG TABLET PO SCH (08:36)
[2023-04-22] MEDS: PANTOPRAZOLE 20 MG TABLET PO SCH (08:36)
--- NOTE | 2023-04-22 08:37 | Progress Note - Ortho ---
Progress Note Subjective Date of Exam 04/22/23 Chief Complaint POD #3 L SUSAN HPI/Events since last exam patient awake, pain controlled, has not been up since being in ICU Review of Systems - Allergies: Coded Allergies: No Known Drug Allergies (Verified , 03/19/15) Home Meds Reported Medications Ibuprofen (Ibuprofen) 200 Mg Tablet, 400-800 MG PO Q8H PRN for PAIN-MILD (1-4), TAB 04/21/23 Levothyroxine Sodium (Levothyroxine Sodium) 50 Mcg Tablet, 50 MCG PO DAILY, TAB 04/21/23 Metformin HCl (Metformin HCl) 500 Mg Tablet, 500 MG PO BID, TAB 04/21/23 Citalopram Hydrobromide (Citalopram HBr) 40 Mg Tablet, 40 MG PO DAILY, TAB 04/21/23 Venlafaxine HCl (Venlafaxine HCl ER) 75 Mg Cap.er.24h, 75 MG PO DAILY, CAP 04/21/23 Lisinopril (Lisinopril) 40 Mg Tablet, 40 MG PO DAILY, TAB 04/21/23 Tizanidine HCl (Tizanidine HCl) 2 Mg Tablet, 2 MG PO TID PRN for MUSCLE SPASMS, TAB 04/21/23 Simvastatin (Simvastatin) 10 Mg Tablet, 10 MG PO HS, TAB 04/12/23 Omeprazole (Omeprazole) 20 Mg Capsule.dr, 20 MG PO DAILY, CAP 04/12/23 Amlodipine Besylate (Amlodipine Besylate) 5 Mg Tablet, 5 MG PO DAILY, TAB 04/12/23 Multivitamin (Multi-Vitamin Daily) 1 Each Tablet, 1 EACH PO DAILY, TAB 03/19/15 Magnesium Oxide (Magnesium) 250 Mg Tablet, 250 MG PO DAILY PRN for LEG CRAMPS, TAB 03/19/15 Discontinued Reported Medications Tizanidine HCl (Tizanidine HCl) 2 Mg Capsule, 2 MG PO, CAP 04/12/23 Levothyroxine Sodium (Levothyroxine) 50 Mcg Capsule, 50 MCG PO, CAP 04/12/23 Venlafaxine HCl (Venlafaxine HCl ER) 75 Mg Tab.er.24, 75 MG PO, TAB 04/12/23 Citalopram Hydrobromide (Citalopram HBr) 20 Mg Tablet, 20 MG PO, TAB 04/12/23 Potassium Gluconate (Potassium Gluconate) 500 Mg Tablet, 595 MG PO DAILY, TAB 03/19/15 Lisinopril (Lisinopril) 20 Mg Tablet, 20 MG PO DAILY, TAB 03/19/15 Metformin HCl (Metformin HCl) 1,000 Mg Tablet, 1000 MG PO BID, TAB 03/19/15 Objective Exam L Hip: Dressing C/D/I, +DF of ankle, no s/s of DVT Vital Signs Vital Signs Date Time Temp Pulse Resp B/P (MAP) Pulse Ox O2 Delivery O2 Flow Rate FiO2 04/22/23 08:00 96 145/61 (89) 94 Room Air 04/22/23 07:30 91 04/22/23 07:00 93 151/72 (98) 95 Room Air 04/22/23 06:00 80 154/71 (98) 94 Room Air 04/22/23 05:00 90 139/64 (89) 95 Room Air 04/22/23 04:00 93 140/71 (94) 96 Room Air 04/22/23 04:00 95 Nasal Cannula 2.00 04/22/23 03:00 91 150/68 (95) 96 Room Air 04/22/23 02:00 80 152/67 (95) 96 Room Air 04/22/23 01:00 80 124/57 (79) 95 Room Air 04/22/23 01:00 70 04/22/23 00:00 80 123/60 (81) 94 Room Air 04/22/23 00:00 93 Nasal Cannula 2.00 04/21/23 23:00 81 112/60 (77) 95 Room Air 04/21/23 22:00 79 117/56 (76) 96 Room Air 04/21/23 21:00 68 109/65 (80) 96 Room Air 04/21/23 20:08 36.0 04/21/23 20:00 70 68/45 (53) 95 Room Air 04/21/23 19:57 36.0 04/21/23 19:32 92 Nasal Cannula 2.00 04/21/23 19:00 77 04/21/23 19:00 82 88/53 (65) 95 Room Air 04/21/23 18:00 86 131/60 (83) 94 Room Air 04/21/23 17:00 86 127/59 (81) 93 Room Air 04/21/23 16:00 86 121/55 (77) 95 Room Air 04/21/23 16:00 36.5 04/21/23 15:16 94 Nasal Cannula 2.00 04/21/23 15:00 95 118/59 (78) 91 Room Air 04/21/23 14:00 86 129/60 (83) 93 Room Air 04/21/23 13:00 80 112/59 (76) 90 Room Air 04/21/23 12:22 92 Room Air 04/21/23 12:08 75 04/21/23 12:00 78 119/62 (81) 90 Room Air 04/21/23 11:42 36.3 04/21/23 11:00 75 99/48 (65) 90 Room Air 04/21/23 10:00 81 96/53 (67) 92 Room Air 04/21/23 09:00 76 104/57 (73) 91 Room Air I & O 04/22/23 07:00 Intake Total 7040 ml Output Total 3075 ml Balance 3965 ml Lab Results Laboratory Tests 04/21/23 11:05: Glucometer 138H 04/21/23 13:55: White Blood Count 13.6H, Red Blood Count 2.97L, Hemoglobin 9.0L, Hematocrit 26L, Mean Corpuscular Volume 88, Mean Corpuscular Hemoglobin 30, Mean Corpuscular Hemoglobin Concent 35, Red Cell Distribution Width 12.5, Platelet Count 152, Mean Platelet Volume 10.2, Immature Granulocyte % (Auto) 1, Neutrophils (%) (Auto) 82H, Lymphocytes (%) (Auto) 10L, Monocytes (%) (Auto) 7, Eosinophils (%) (Auto) 1, Basophils (%) (Auto) 0, Neutrophils # (Auto) 11.2H, Lymphocytes # (Auto) 1.3, Monocytes # (Auto) 0.9, Eosinophils # (Auto) 0.1, Basophils # (Auto) 0.0, Immature Granulocyte # (Auto) 0.1, Sodium Level 123*L, Potassium Level 4.3, Chloride Level 98, Carbon Dioxide Level 18L, Anion Gap 7, Blood Urea Nitrogen 35H, Creatinine 1.80H, Estimat Glomerular Filtration Rate 29, BUN/Creatinine Ratio 19, Glucose Level 135H, Calcium Level 7.2L, Phosphorus Level 3.0, Magnesium Level 1.0*L 04/21/23 16:24: Glucometer 170H 04/21/23 20:18: Glucometer 164H 04/22/23 04:02: White Blood Count 11.6H, Red Blood Count 3.14L, Hemoglobin 9.4L, Hematocrit 28L, Mean Corpuscular Volume 88, Mean Corpuscular Hemoglobin 30, Mean Corpuscular Hemoglobin Concent 34, Red Cell Distribution Width 12.4, Platelet Count 190, Mean Platelet Volume 10.7, Immature Granulocyte % (Auto) 1, Neutrophils (%) (Auto) 82H, Lymphocytes (%) (Auto) 10L, Monocytes (%) (Auto) 7, Eosinophils (%) (Auto) 1, Basophils (%) (Auto) 0, Neutrophils # (Auto) 9.5H, Lymphocytes # (Auto) 1.1, Monocytes # (Auto) 0.8, Eosinophils # (Auto) 0.1, Basophils # (Auto) 0.0, Immature Granulocyte # (Auto) 0.1, Sodium Level 127L, Potassium Level 4.2, Chloride Level 100, Carbon Dioxide Level 18L, Anion Gap 9, Blood Urea Nitrogen 33H, Creatinine 1.45H, Estimat Glomerular Filtration Rate 37, BUN/Creatinine Ratio 23, Glucose Level 138H, Calcium Level 7.9L, Corrected Calcium 8.7, Phosphorus Level 2.4, Magnesium Level 1.4L, Total Bilirubin 0.5, Aspartate Amino Transf (AST/SGOT) 52H, Alanine Aminotransferase (ALT/SGPT) 22, Alkaline Phosphatase 84, Total Protein 5.8L, Albumin 3.0L Microbiology 04/21/23 MRSA Screen - Final, Complete MRSA not isolated 04/20/23 Blood Culture - Preliminary, Resulted 04/20/23 Urine Culture - Preliminary, Resulted Assessment and Plan Assessment L Hip OA s/p SUSAN Problem List L Hip OA s/p SUSAN Plan Resume therapy services as soon as medically able Given setback may need to consider Acute Rehab, will obtain evaluation DVT Prophylaxis Final Diagonsis L Hip OA s/p SUSAN Level of the visit: Level 3 (global) Focused Exam Lactate Level 04/20/23 21:15: Lactic Acid Level 2.31*H 04/20/23 23:26: Lactic Acid Level 1.52 ELVER CORDOVA MD Apr 22, 2023 08:37
[2023-04-22] MEDS: SENNOSIDES 8.6 MG TABLET PO SCH ×2 (08:38→20:39)
[2023-04-22] MEDS: NOREPINEPHRINE 8 MG/250 ML 250 ML IV SCH (08:38)
[2023-04-22] MEDS: DOCUSATE SODIUM 100 MG CAPSULE PO SCH ×2 (08:38→20:39)
--- NOTE | 2023-04-22 09:32 | Progress Note ---
ARLENE TOVAR 04/22/23 0932: Subjective Date Seen by a Provider: Apr 22, 2023 Subjective/Events-last exam Pt states that she has generalized pain rated as a 9/10 which is localized to he r lower back and right pelvis. Denies radiation. The pain started when they propped her up in bed. She is complaining of left leg stiffness that is causing discomfort, she attributes this to the pillow that the Orthopedic wanted to keep in between her legs. Pt wants to discontinue this pillow as soon as possible. Pt is requesting a dose of muscle relaxer due to her last one being last night. Review of Systems General: No Chills, No Night Sweats HEENT: No Head Aches, No Visual Changes, No Eye Pain, No Ear Pain Pulmonary: No Cough Cardiovascular: No: Chest Pain, Palpitations Gastrointestinal: No: Nausea, Vomiting, Abdominal Pain Musculoskeletal: back pain, leg pain Neurological: No: Incoordination, Change in speech, Confusion Focused Exam Lactate Level 04/20/23 21:15: Lactic Acid Level 2.31*H 04/20/23 23:26: Lactic Acid Level 1.52 Objective Exam Last Set of Vital Signs Vital Signs Date Time Temp Pulse Resp B/P (MAP) Pulse Ox O2 Delivery O2 Flow Rate FiO2 04/22/23 08:41 36.7 95 Nasal Cannula 2.00 04/22/23 08:00 96 04/21/23 00:04 16 Capillary Refill : I&O Intake and Output 04/22/23 00:00 Intake Total 8440 ml Output Total 1830 ml Balance 6610 ml Intake Oral 2190 ml IV Total 6250 ml Output Urine Total 1830 ml General: Alert, Oriented X3, Cooperative, Mild Distress HEENT: PERRLA Neck: No JVD Lungs: Clear to Auscultation, Normal Air Movement Heart: Regular Rate, No Murmurs Abdomen: Normal Bowel Sounds, Soft, No Tenderness Extremities: No Clubbing, No Cyanosis Neuro: Normal Speech, Sensation Intact, Cranial Nerves 3-12 NL Psych/Mental Status: Mental Status NL, Other (Affect: irritable) Results Lab Laboratory Tests 04/21/23 11:05: Glucometer 138H 04/21/23 13:55: White Blood Count 13.6H, Red Blood Count 2.97L, Hemoglobin 9.0L, Hematocrit 26L, Mean Corpuscular Volume 88, Mean Corpuscular Hemoglobin 30, Mean Corpuscular Hemoglobin Concent 35, Red Cell Distribution Width 12.5, Platelet Count 152, Mean Platelet Volume 10.2, Immature Granulocyte % (Auto) 1, Neutrophils (%) (Auto) 82H, Lymphocytes (%) (Auto) 10L, Monocytes (%) (Auto) 7, Eosinophils (%) (Auto) 1, Basophils (%) (Auto) 0, Neutrophils # (Auto) 11.2H, Lymphocytes # (Auto) 1.3, Monocytes # (Auto) 0.9, Eosinophils # (Auto) 0.1, Basophils # (Auto) 0.0, Immature Granulocyte # (Auto) 0.1, Sodium Level 123*L, Potassium Level 4.3, Chloride Level 98, Carbon Dioxide Level 18L, Anion Gap 7, Blood Urea Nitrogen 35H, Creatinine 1.80H, Estimat Glomerular Filtration Rate 29, BUN/Creatinine Ratio 19, Glucose Level 135H, Calcium Level 7.2L, Phosphorus Level 3.0, Magnesium Level 1.0*L 04/21/23 16:24: Glucometer 170H 04/21/23 20:18: Glucometer 164H 04/22/23 04:02: White Blood Count 11.6H, Red Blood Count 3.14L, Hemoglobin 9.4L, Hematocrit 28L, Mean Corpuscular Volume 88, Mean Corpuscular Hemoglobin 30, Mean Corpuscular Hemoglobin Concent 34, Red Cell Distribution Width 12.4, Platelet Count 190, Mean Platelet Volume 10.7, Immature Granulocyte % (Auto) 1, Neutrophils (%) (Auto) 82H, Lymphocytes (%) (Auto) 10L, Monocytes (%) (Auto) 7, Eosinophils (%) (Auto) 1, Basophils (%) (Auto) 0, Neutrophils # (Auto) 9.5H, Lymphocytes # (Auto) 1.1, Monocytes # (Auto) 0.8, Eosinophils # (Auto) 0.1, Basophils # (Auto) 0.0, Immature Granulocyte # (Auto) 0.1, Sodium Level 127L, Potassium Level 4.2, Chloride Level 100, Carbon Dioxide Level 18L, Anion Gap 9, Blood Urea Nitrogen 33H, Creatinine 1.45H, Estimat Glomerular Filtration Rate 37, BUN/Creatinine Ratio 23, Glucose Level 138H, Calcium Level 7.9L, Corrected Calcium 8.7, Phosph orus Level 2.4, Magnesium Level 1.4L, Total Bilirubin 0.5, Aspartate Amino Transf (AST/SGOT) 52H, Alanine Aminotransferase (ALT/SGPT) 22, Alkaline Phosphatase 84, Total Protein 5.8L, Albumin 3.0L Microbiology 04/21/23 MRSA Screen - Final, Complete MRSA not isolated 04/20/23 Blood Culture - Preliminary, Resulted 04/20/23 Urine Culture - Preliminary, Resulted Assessment/Plan Assessment/Plan Assess & Plan/Chief Complaint Assessment: Hypotension due to hypovolemia Hyponatremia Oliguria due to CARINA Left SUSAN HTN DMII Hypothyroidism Plan: Hypotension due to hypovolemia -continue to monitor the pt's BP Hyponatremia -Sodium was 127 today which is an improvement from 123 yesterday -will continue to monitor the sodium levels Oliguria due to CARINA -urine output is improving. Through 04/21 it was 1830mL, on 04/20 it was 730mL Left SUSAN -will continue to monitor pt's pain and recovery -still holding off on muscle relaxers at this time until she is more stable HTN -continue current medications DMII -continue current medications Hypothyroidism -continue Levothyroxine tx Clinical Quality Measures Admission Status Admission Dx Assessment: Left SUSAN Oliguria UTI Hypotensive Episode DMII Hypothyroidism Plan: Left SUSAN -will continue to monitor pt's pain and recovery Oliguria -continue to monitor output and continue IVF UTI -monitor labwork to ensure Abx is helping Hypotensive episode -pts BP was stable during exam, will continue to monitor status DMII -continue current medications Hypothyroidism -continue Levothyroxine tx MICHELLE CONNER DO 04/23/23 0502: Subjective Time Seen by a Provider: 11:00 Subjective/Events-last exam Patient doing a lot better Pain is an issue Transferring down to fourth floor Hyponatremia noted Good urinary output Objective Exam General: Alert, Oriented X3, Cooperative, No Acute Distress Lungs: Clear to Auscultation, Normal Air Movement Heart: Regular Rate, Normal S1, Normal S2, No Murmurs Psych/Mental Status: Mental Status NL, Mood NL Assessment/Plan Assessment/Plan Assess & Plan/Chief Complaint Supportive care Continue IV fluids We will move to fourth floor Supervisory-Addendum Brief Verification & Attestation Participated in pt care: history, MDM, physical Personally performed: exam, history, MDM, supervision of care Care discussed with: Medical Student Procedures: n/a Results interpretation: Verified all documentation Verification and Attestation of Medical Student E/M Service A medical student performed and documented this service in my presence. I reviewed and verified all information documented by the medical student and made modifications to such information, when appropriate. I personally performed the physical exam and medical decision making. Michelle Conner, Apr 23, 2023,05:02 ARLENE TOVAR Apr 22, 2023 09:32 MICHELLE CONNER DO Apr 23, 2023 05:02
--- NOTE | 2023-04-22 10:01 | Tele-ICU Progress Note ---
Subjective Date Seen by a Provider: Apr 22, 2023 Time Seen by a Provider: 09:58 Subjective/Events-last exam (Tele-ICU Physician , Progress Note ) Service provided via interactive audio and video telecommunications E-CARE s rob to a patient admitted to ICU bed in [facility]. Patient is seen today due to persistent need of ICU care She underwent Left hip arthropaty yesterday. Last night and today became hypotensive requiring fluid boluses and brief levophed. cratinin increased. Impression. 1. post op hypotension due fluid depletion improving.. 2. Hypotension resolved ,now bp at times high. 3. CARINA new onset improving with hydration. 4. dm 2. Plan. 1. Continue iv hydration 2. Monitor electrolytes, cr, cbc 3. DVT prophylaxis 4. avoid NSAIDS AND AMINOGLYCOSIDES 5.Decrease dose of xanaflex due to mental status changes associated with it. she takes only 2 mg at home. Available chart/ vitals / labs / Images reviewed Video assessment done using tele ICU camera, rest of exam as per RN Coordination of care with primary care physician and bedside consultants. I am remotely monitoring this patient from Tele icu station in [place]. I am unable to do the bedside exam, and history/physical and pertinent information is taken from other notes in the computer and bedside staff. Certain portions of this document may have been dictated utilizing voice recognition technology such as [employer]. Inherent to this technology, typographical and grammatical errors may exist. As much as I am diligent to identify and correct to these mistakes, some errors may remain in the document. Critical care time devoted to this patient today is approximately is--20 minutes. Sepsis Event Evaluation Height, Weight, BMI Height: 5'7.00" Weight: 214lbs. oz. 97.671142zr; 32.03 BMI Method: Focused Exam Lactate Level 04/20/23 21:15: Lactic Acid Level 2.31*H 04/20/23 23:26: Lactic Acid Level 1.52 Exam Exam Patient acknowledged, consented, and participated in this virtual visit which w as conducted using real time audio/video Vital Signs Date Time Temp Pulse Resp B/P (MAP) Pulse Ox O2 Delivery O2 Flow Rate FiO2 04/22/23 09:00 102 168/76 (106) 95 Nasal Cannula 2.00 04/22/23 08:41 36.7 95 Nasal Cannula 2.00 04/22/23 08:00 96 145/61 (89) 94 Nasal Cannula 2.00 04/22/23 08:00 95 Nasal Cannula 2.00 04/22/23 07:30 91 04/22/23 07:00 93 151/72 (98) 95 Nasal Cannula 2.00 04/22/23 06:00 80 154/71 (98) 94 Room Air 04/22/23 05:00 90 139/64 (89) 95 Room Air 04/22/23 04:00 93 140/71 (94) 96 Room Air 04/22/23 04:00 95 Nasal Cannula 2.00 04/22/23 03:00 91 150/68 (95) 96 Room Air 04/22/23 02:00 80 152/67 (95) 96 Room Air 04/22/23 01:00 80 124/57 (79) 95 Room Air 04/22/23 01:00 70 04/22/23 00:00 80 123/60 (81) 94 Room Air 04/22/23 00:00 93 Nasal Cannula 2.00 04/21/23 23:00 81 112/60 (77) 95 Room Air 04/21/23 22:00 79 117/56 (76) 96 Room Air 04/21/23 21:00 68 109/65 (80) 96 Room Air 04/21/23 20:08 36.0 04/21/23 20:00 70 68/45 (53) 95 Room Air 04/21/23 19:57 36.0 04/21/23 19:32 92 Nasal Cannula 2.00 04/21/23 19:00 77 04/21/23 19:00 82 88/53 (65) 95 Room Air 04/21/23 18:00 86 131/60 (83) 94 Room Air 04/21/23 17:00 86 127/59 (81) 93 Room Air 04/21/23 16:00 86 121/55 (77) 95 Room Air 04/21/23 16:00 36.5 04/21/23 15:16 94 Nasal Cannula 2.00 04/21/23 15:00 95 118/59 (78) 91 Room Air 04/21/23 14:00 86 129/60 (83) 93 Room Air 04/21/23 13:00 80 112/59 (76) 90 Room Air 04/21/23 12:22 92 Room Air 04/21/23 12:08 75 04/21/23 12:00 78 119/62 (81) 90 Room Air 04/21/23 11:42 36.3 04/21/23 11:00 75 99/48 (65) 90 Room Air 04/21/23 10:00 81 96/53 (67) 92 Room Air I & O 04/22/23 07:00 Intake Total 7040 ml Output Total 3075 ml Balance 3965 ml Height & Weight Height: 5'7.00" Weight: 214lbs. oz. 97.956986qw; 32.03 BMI Method: General Appearance: No Apparent Distress, WD/WN, Chronically ill HEENT: PERRL/EOMI; No Photophobia, No Scleral Icterus (L), No Scleral Icterus (R) Neck: Normal Inspection, Non Tender; No JVD Respiratory: Lungs Clear, Normal Breath Sounds Cardiovascular: Regular Rate, Rhythm Extremity: Normal Capillary Refill, Non Tender Neurologic/Psychiatric: Alert, Oriented x3, No Motor/Sensory Deficits, Normal Mood/Affect, tie puller II-XII Norm as Tested Skin: Normal Color, Warm/Dry Results Lab Laboratory Tests 04/20/23 21:15 04/21/23 03:36 04/21/23 13:55 04/22/23 04:02 Assessment/Plan Assessment/Plan as above Critical Care: Critically Ill Patient Time spent with patient (mins): 20 EMPERATRIZ BARRIOS MD Apr 22, 2023 10:01
[2023-04-22] MEDS: ENOXAPARIN 40 MG/0.4 ML SYRINGE SC SCH (10:41)
--- NOTE | 2023-04-22 13:27 | Occupational Therapy Eval ---
OT Evaluation-General/PLF Medical Diagnosis Admission Date Apr 19, 2023 at 05:49 Medical Diagnosis: left hip OA Onset Date: Apr 19, 2023 Therapy Diagnosis Therapy Diagnosis: decr self care, weakness, decr funct mobility, decr act tolerance Height/Weight Height (Feet): 5 Height (Inches): 7.00 Weight (Pounds): 214 Precautions Precautions/Isolations: Fall Prevention, Standard Precautions, Pressure Ulcer Comments Incision is on lateral side of L hip so OT will assume pt has hip precautions Weight Bear Status Weight Bearing Restriction: Weight Bearing/Tolerated Location Restriction: L LE Referral Physician: Belle Referral Reason: Evaluation/Treatment Medical History Pertinent Medical History: Arthritis, DM, GERD, HTN, Hypothroidism, OA Additional Medical History Knee replacement. Degen disc disease. Hard of hearing Current History L total hip on 04/19/23. Transferred to ICU 04/21. Pt reported has had severe muscle cramps. Reviewed History: Yes Social History Home: [facility] Current Living Status: Spouse Entry Into Home: Level Entry ADL-Prior Level of Function SCALE: Activities may be completed with or without assistive devices. 8-Qldmxgypcz-zamfybv completes the activity by him/herself with no assistance from a helper. 5-Set-up or Clean-up Assistance-helper sets up or cleans up; patient completes activity. [place] assists only prior to or following the activity. 4-Supervision or Touching Assistance-helper provides verbal cues and/or touching/steadying and/or contact guard assistance as patient completes activity. Assistance may be provided throughout the activity or intermittently. 3-Partial/Moderate Assistance-helper does LESS THAN HALF the effort. [place] lifts, holds or supports trunk or limbs, but provides less than half the effort. 2-Substantial/Maximal Assistance-helper does MORE THAN HALF the effort. [place] lifts or holds trunk or limbs and provides more than half the effort. 6-Uoiraxqap-dzdgfe does ALL the effort. Patient does none of the effort to complete the activity. Or, the assistance of 2 or more helpers is required for the patient to complete the activity. If activity was not attempted, code reason: 7-Patient Refused. 9-Not Applicable-not attempted and the patient did not perform the activity before the current illness, exacerbation or injury. 10-Not Attempted due to Environmental Limitations-(lack of equipment, weather restraints, etc.). 88-Not Attempted due to Medical Conditions or Safety Concerns. ADL PLOF Comments Pt reported that she was independent with all basic self care skills except that she had some difficulty putting on her socks. She used a walker or wheelchair only because of hip limitations. Self Care: Needed Some Help Functional Cognition: Independent OT Current Status Subjective Pt seen in room, up in bed, agreeable to OT. Daughter present. No pain reported but daughter said that he mother has been having difficulty with muscle cramps. Appearance Alert, cooperative Mental Status/Objective Attachments: Central Line, Oxygen Current Glasses/Contacts: Yes Hearing Aids: No Dentures/Partials: Yes (Doesn't always wear them) Hand Dominance: Right Upper Extremity ROM Grossly WFL per pt report. She was reluctant to move much due to fear of cramps Upper Extremity Strength Grossly WFL per pt report ADL-Treatment ADL-Current Pt was able to feed herself soup with setup but did not want to raise head of bed up. She has not been out of bed, per her report and appeared reluctant to do so. Initial PT evaluation reported transfers with min-SBA assistance and cues. General instruction on hip precautions and how they affect ADLs such as toileting and dressing. Pt verbalized understanding. Eating (QC): 5 Education OT Patient Education: Purpose of tx/functional activities, Rehab process, Other (hip precautions) Teaching Recipient: Patient, Family Teaching Methods: Discussion Response to Teaching: Verbalize Understanding OT Usp Goals Nuclear Technician Goals Time Frame: Apr 29, 2023 Eating (QC): 6 Oral Hygiene (QC): 5 Toileting Hygiene (QC): 5 Shower/Bathe Self (QC): 5 Upper Body Dressing (QC): 5 Lower Body Dressing (QC): 5 On/Off Footwear (QC): 5 Additional Goals: 1-Demonstrate ADL Tasks, 2-Verbalize Understanding, 3- ImproveStrength/Emanuel 1=Demonstrate adherence to instructed precautions during ADL tasks. 2=Patient will verbalize/demonstrate understanding of assistive devices/ modifications for ADL. 3=Patient will improve strength/tolerance for activity to enable patient to perform ADL's. OT Education/Plan Problem List/Assessment Assessment: Decreased Activ Tolerance, Decreased UE Strength, Dependent Transfers, Impaired Self-Care Skills Pt would benefit from skilled OT to increase her independence in basic self care and to decrease caregiver burden. Discharge Recommendations Plan/Recommendations: Continue POC Treatment Plan/Plan of Care Treatment,Training & Education: Yes Patient would benefit from OT for education, treatment and training to promote independence in ADL's, mobility, safety and/or upper extremity function for ADL's. Plan of Care: ADL Retraining, Functional Mobility, UE Funct Exercise/Act Treatment Duration: Apr 29, 2023 Frequency: 3 times per week (3-5 times a week) Estimated Hrs Per Day: .25 hour per day Agreement: Yes Rehab Potential: Fair Time Start Time: 12:43 Stop Time: 12:58 DATE: Apr 22, 2023 Total Time Billed (hr/min): 15 Billed Treatment Time visit, 15 minutes OT evaluation moderate intensity AGNIESZKA MAR OT Apr 22, 2023 13:27
--- NOTE | 2023-04-22 14:12 | Physical Therapy Evaluation ---
PT Evaluation-General Medical Diagnosis Admission Date Apr 19, 2023 at 05:49 Medical Diagnosis: left hip OA Onset Date: Apr 19, 2023 Therapy Diagnosis Therapy Diagnosis: generalized weakness/impaired mobility Height/Weight Height (Feet): 5 Height (Inches): 7.00 Weight (Pounds): 214 Precautions Precautions/Isolations: Fall Prevention, Standard Precautions, Pressure Ulcer Weight Bear Status Left Lower Extremity: Left Weight Bearing/Tolerated Referral Physician: Belle Reason for Referral: Evaluation/Treatment Medical History Pertinent Medical History: Arthritis, DM, GERD, HTN, Hypothroidism, OA Current History s/p elective left THR/transfer to ICU due to low BP Reviewed History: Yes Social History Home: Multilevel Current Living Status: Spouse Entry Into Home: Level Entry Prior Prior Level of Function SCALE: Activities may be completed with or without assistive devices. 0-Huitdabykw-niyltyr completes the activity by him/herself with no assistance from a helper. 5-Set-up or Clean-up Assistance-helper sets up or cleans up; patient completes activity. [place] assists only prior to or following the activity. 4-Supervision or Touching Assistance-helper provides verbal cues and/or touching/steadying and/or contact guard assistance as patient completes activity. Assistance may be provided throughout the activity or intermittently. 3-Partial/Moderate Assistance-helper does LESS THAN HALF the effort. [place] lifts, holds or supports trunk or limbs, but provides less than half the effort. 2-Substantial/Maximal Assistance-helper does MORE THAN HALF the effort. [place] lifts or holds trunk or limbs and provides more than half the effort. 7-Yjmyktyqn-nnrskf does ALL the effort. Patient does none of the effort to complete the activity. Or, the assistance of 2 or more helpers is required for the patient to complete the activity. If activity was not attempted, code reason: 7-Patient Refused. 9-Not Applicable-not attempted and the patient did not perform the activity before the current illness, exacerbation or injury. 10-Not Attempted due to Environmental Limitations-(lack of equipment, weather restraints, etc.). 88-Not Attempted due to Medical Conditions or Safety Concerns. Bed Mobility: 6 Transfers (B,C,W/C): 6 Gait: 6 Indoor Mobility (Ambulation): Independent Prior Devices Use: Walker PT Evaluation-Current Subjective Patient agrees to PT. Objective Patient Orientation: Normal For Age Attachments: Lutz Catheter, IV ROM/Strength ROM Lower Extremities left hip precautions/right LE WFL Strength Lower Extremities right LE 3+/5 grossly/left LE 3-/5 grossly Integumentary/Posture Bladder Incontinence: Lutz Cath Posture trunk flexed posture Neuromuscular (Tone, Coordination, Reflexes) grossly intact Sensory Vision: Functional Hearing: Functional Hand Dominance: Right Transfers Lying to Sitting/Side of Bed(Q: 3 Sit to Stand (QC): 3 Gait Mode of Locomotion: Walk Anticipated Mode of Locomotion: Walk Distance: 5 side steps Gait Assistive Device: FWW Balance Sitting Static: Normal Sitting Dynamic: Normal Standing Static: Fair Standing Dynamic: Fair Assessment/Needs Patient will benefit from skilled PT to address functional strength and mobility to improve current LOF to safely return to home at maximum LOF. Rehab Potential: Fair PT Short Term Goals Short Term Goals Time Frame: Apr 25, 2023 Roll Left & Right: 4 Sit to lyin Lying to sitting on side of be: 4 Sit to stand: 4 Chair/xaf-rh-dyhxn transfer: 4 Walk 10 feet: 4 PT Alf Goals [facility] Specialist Goals PT Alf Goals Time Frame: May 01, 2023 Roll Left & Right (QC): 6 Sit to Lying (QC): 5 Lying-Sitting on Side/Bed(QC): 6 Sit to Stand (QC): 5 Chair/Afw-om-Ujudg Xfer(QC): 5 Does the Patient Walk: Yes Walk 50ft with 2 Turns (QC): 4 PT Plan Problem List Problem List: Activity Tolerance, Functional Strength, Safety, Balance, Gait, Transfer, Bed Mobility Treatment/Plan Treatment Plan: Continue Plan of Care Treatment Plan: Bed Mobility, Education, Functional Strength, Gait, Safety, Therapeutic Exercise Treatment Duration: May 01, 2023 Frequency: 11 times per week Estimated Hrs Per Day: .5 hour per day Patient and/or Family Agrees t: Yes Time Time In: 1320 Time Out: 1341 DATE: Apr 22, 2023 Total Billed Treatment Time: 21 Total Billed Treatment 1 visit EVMod 21 min MITCH MENDOZA PT Apr 22, 2023 14:12
[2023-04-22] MEDS: morphine INJ 4 MG/ML 1 ML (VIAL/SYRINGE) IVP PRN (15:04)
[2023-04-22 16:20] VITALS: BP 187/76
[2023-04-22 17:20] VITALS: BP 161/70
[2023-04-22] MEDS: cloNIDine 0.1 MG TABLET PO PRN (17:31)
[2023-04-22 18:52] VITALS: BP 140/60
[2023-04-22 20:15] VITALS: BP 149/68
[2023-04-22] MEDS: cefTRIAXone IV/IM 1,000 MG in NS (IVPB) 50 ML 50 ML IV SCH (21:31)
[2023-04-22 23:18] VITALS: BP 159/72
[2023-04-23] MEDS: oxyCODONE IMMEDIATE RELEASE 5 MG TABLET PO PRN ×2 (00:39→06:56)
[2023-04-23 04:05] VITALS: BP 160/76
[2023-04-23 05:55] LABS: BASOPHILS % (AUTO) 0 % (0-10); EOSINOPHILS # (AUTO) 0.1 10^3/uL (0.0-0.3); EOSINOPHILS % (AUTO) 1 % (0-10); HEMATOCRIT 29 % (35-52); HEMOGLOBIN 9.9 g/dL (11.5-16.0); LYMPHOCYTES # (AUTO) 1.4 10^3/uL (1.0-4.0); LYMPHOCYTES % (AUTO) 11 % (12-44); MEAN CORPUSCULAR HEMOGLOBIN 30 pg (25-34); MEAN CORPUSCULAR HGB CONC 34 g/dL (32-36); MEAN CORPUSCULAR VOLUME 87 fL (80-99); MEAN PLATELET VOLUME 9.7 fL (9.0-12.2); MONOCYTES % (AUTO) 8 % (0-12); NEUTROPHILS % (AUTO) 79 % (42-75); PLATELET COUNT 262 10^3/uL (130-400); WHITE BLOOD COUNT 12.6 10^3/uL (4.3-11.0)
[2023-04-23] MEDS: POTASSIUM CL 10MEQ/50ML IVPB 50 ML IV SCH (06:04)
[2023-04-23] MEDS: THERAPEUTIC MULTIVITAMIN W/MINERALS TABLET PO SCH (06:04)
[2023-04-23 06:05] LABS: ALBUMIN 3.1 GM/DL (3.2-4.5)
[2023-04-23] MEDS: inSUlin ASPART 1 UNIT/0.01 ML (PER UNIT) SC SCH ×3 (06:05→11:16)
[2023-04-23 06:06] LABS: POTASSIUM 4.5 MMOL/L (3.6-5.0)
[2023-04-23 06:07] LABS: CALCIUM 8.7 MG/DL (8.5-10.1)
[2023-04-23] MEDS: POTASSIUM CHLORIDE 20 MEQ TABLET PO SCH (06:07)
[2023-04-23 06:08] LABS: TOTAL PROTEIN 6.2 GM/DL (6.4-8.2)
[2023-04-23 06:10] LABS: BILIRUBIN,TOTAL 0.7 MG/DL (0.1-1.0)
[2023-04-23 06:12] LABS: CREATININE SERUM 0.95 MG/DL (0.60-1.30)
[2023-04-23] MEDS: MAGNESIUM 1 GM/100 ML IVPB 100 ML IV SCH (06:19)
[2023-04-23 07:32] VITALS: BP 188/80
--- NOTE | 2023-04-23 07:47 | Progress Note ---
LAARLENE 04/23/23 0747: Subjective Date Seen by a Provider: Apr 23, 2023 Subjective/Events-last exam [place] Monroy is a 78 year old female with a PMH of HTN, Hypothyroidism, and DMII who was in the hospital due to a left SUSAN on 04/[address]. After the surgery the pt was not in any pain and was feeling good. On 04/20 the pt continued to have tolerated pain levels that were under control of flexeril. We switched flexeril with tizanidine due to flexeril causing the pt to become sedated and sleepy. The muscle relaxers were helping with the pts muscle spasms and tightness. PT was moving the pt around and reporting appropriate progress. On 04/21 the pt was sent to the ICU due to hypotension due to hypovolemia, oliguria, and a possible UTI. The lowest recorded BP was 68/45. On 04/22 the pt was improving, urine output was increasing, and the BP recordings were stable. Muscle relaxers have been on hold due to the hypotensive episodes. Pt states that she is in a lot less pain than yesterday. Pt describes a general soreness that is present. Transfers still take some time but they are going better. She is requesting to start on a muscle relaxer. She is not really in pain, but more muscle spasms and tightness due to the positioning she has been placed in for the past few days. These feelings are b/l LE. She has an appetite this morning. Pt showered this morning with the help of her daughter. Review of Systems General: No Chills, No Night Sweats HEENT: No Head Aches, No Visual Changes, No Eye Pain, No Ear Pain Pulmonary: No Cough Cardiovascular: No: Chest Pain, Palpitations Gastrointestinal: No: Nausea, Vomiting, Abdominal Pain Genitourinary: No Frequency, No Incontinence Musculoskeletal: leg pain (b/l) Neurological: No: Change in speech, Confusion Focused Exam Lactate Level 04/20/23 21:15: Lactic Acid Level 2.31*H 04/20/23 23:26: Lactic Acid Level 1.52 Objective Exam Last Set of Vital Signs Vital Signs Date Time Temp Pulse Resp B/P (MAP) Pulse Ox O2 Delivery O2 Flow Rate FiO2 04/23/23 04:05 36.2 92 18 160/76 (104) 92 Room Air 0.00 0.00 Capillary Refill : I&O Intake and Output 04/22/23 23:59 Intake Total 4670 ml Output Total 5500 ml Balance -830 ml Intake Oral 2070 ml IV Total 2600 ml Output Urine Total 5500 ml General: Alert, Oriented X3, Cooperative, No Acute Distress HEENT: PERRLA, EOMI Neck: No JVD Lungs: Clear to Auscultation, Normal Air Movement Heart: Regular Rate, No Murmurs Abdomen: Normal Bowel Sounds, Soft, No Tenderness Extremities: No Clubbing, No Cyanosis, Normal Pulses (2+ b/l radius and posterior tibialis) Neuro: Normal Speech, Sensation Intact, Cranial Nerves 3-12 NL Psych/Mental Status: Mental Status NL, Mood NL Results Lab Laboratory Tests 04/22/23 10:24: Glucometer 189H 04/22/23 16:27: Glucometer 166H 04/22/23 21:17: Glucometer 178H 04/23/23 05:14: White Blood Count 12.6H, Red Blood Count 3.32L, Hemoglobin 9.9L, Hematocrit 29L, Mean Corpuscular Volume 87, Mean Corpuscular Hemoglobin 30, Mean Corpuscular Hemoglobin Concent 34, Red Cell Distribution Width 12.6, Platelet Count 262, Mean Platelet Volume 9.7, Immature Granulocyte % (Auto) 0, Neutrophils (%) (Auto) 79H, Lymphocytes (%) (Auto) 11L, Monocytes (%) (Auto) 8, Eosinophils (%) (Auto) 1, Basophils (%) (Auto) 0, Neutrophils # (Auto) 10.0H, Lymphocytes # (Auto) 1.4, Monocytes # (Auto) 1.0, Eosinophils # (Auto) 0.1, Basophils # (Auto) 0.0, Immature Granulocyte # (Auto) 0.1, Sodium Level 128L, Potassium Level 4.5, Chloride Level 101, Carbon Dioxide Level 19L, Anion Gap 8, Blood Urea Nitrogen 18, Creatinine 0.95, Estimat Glomerular Filtration Rate 62, BUN/Creatinine Ratio 19, Glucose Level 143H, Calcium Level 8.7, Corrected Calcium 9.4, Magnesium Level 2.0, Total Bilirubin 0.7, Aspartate Amino Transf (AST/SGOT) 66H, Alanine Aminotransferase (ALT/SGPT) 30, Alkaline Phosphatase 96, Total Protein 6.2L, Albumin 3.1L 04/23/23 05:30: Glucometer 133H Microbiology 04/21/23 MRSA Screen - Final, Complete MRSA not isolated 04/20/23 Blood Culture - Preliminary, Resulted 04/20/23 Urine Culture - Final, Complete NO GROWTH Assessment/Plan Assessment/Plan Assess & Plan/Chief Complaint Assessment: Hypotension due to hypovolemia Hyponatremia Oliguria due to CARINA Left SUSAN HTN DMII Hypothyroidism Plan: Hypotension due to hypovolemia -continue to monitor the pt's BP -BP was stable throughout the night Hyponatremia -Sodium was 128 today which is an improvement from 127 yesterday -will continue to monitor the sodium levels Oliguria due to CARINA -urine output is improving. Through 04/22 at 1200H it was 3000mL, through 2400H it was 2500mL Left SUSAN -will continue to monitor pt's pain and recovery -muscle relaxers will be used as needed, we will not start a structured muscle relaxer plan -pt will be sent to rehab to continue the progress of the recovery HTN -continue current medications DMII -continue current medications Hypothyroidism -continue Levothyroxine tx Clinical Quality Measures Admission Status Admission Dx Assessment: Left SUSAN Oliguria UTI Hypotensive Episode DMII Hypothyroidism Plan: Left SUSAN -will continue to monitor pt's pain and recovery Oliguria -continue to monitor output and continue IVF UTI -monitor labwork to ensure Abx is helping Hypotensive episode -pts BP was stable during exam, will continue to monitor status DMII -continue current medications Hypothyroidism -continue Levothyroxine tx MICHELLE CONNER DO 04/24/23 0626: Supervisory-Addendum Brief Verification & Attestation Participated in pt care: history, MDM, physical Personally performed: exam, history, MDM, supervision of care Care discussed with: Medical Student Procedures: n/a Results interpretation: Verified all documentation Verification and Attestation of Medical Student E/M Service A medical student performed and documented this service in my presence. I reviewed and verified all information documented by the medical student and made modifications to such information, when appropriate. I personally performed the physical exam and medical decision making. Michelle Conner, Apr 24, 2023,06:26 ARLENE TOVAR Apr 23, 2023 07:47 MICHELLE CONNER DO Apr 24, 2023 06:26
[2023-04-23] MEDS: PANTOPRAZOLE 20 MG TABLET PO SCH (08:50)
[2023-04-23] MEDS: DOCUSATE SODIUM 100 MG CAPSULE PO SCH (08:50)
[2023-04-23] MEDS: CITALOPRAM 20 MG TABLET PO SCH (08:50)
[2023-04-23] MEDS: MAGNESIUM OXIDE 400 MG TABLET PO SCH (08:50)
[2023-04-23] MEDS: SENNOSIDES 8.6 MG TABLET PO SCH (08:50)
[2023-04-23] MEDS: NS IV 1000 ML 1,000 ML IV SCH (08:51)
--- NOTE | 2023-04-23 09:59 | Physical Therapy Daily Note ---
PT Daily Note-Current Subjective Patient agrees to PT. Daughter present. Pain Section J - Health Conditions 1. Rarely or not at all 2. Occasionally 3. Frequently 4. Almost constantly 8. Unable to answer Pain Effect on Sleep: 1 Pain Interference with Therapy: 1 Pain Interference w/Day-to-Day: 1 Mental Status Patient Orientation: Normal For Age Attachments: Oxygen, Lutz Catheter Transfers SCALE: Activities may be completed with or without assistive devices. 2-Nqquprlyhq-pemtsyt completes the activity by him/herself with no assistance from a helper. 5-Set-up or Clean-up Assistance-helper sets up or cleans up; patient completes activity. [place] assists only prior to or following the activity. 4-Supervision or Touching Assistance-helper provides verbal cues and/or touching/steadying and/or contact guard assistance as patient completes activity. Assistance may be provided throughout the activity or intermittently. 3-Partial/Moderate Assistance-helper does LESS THAN HALF the effort. [place] lifts, holds or supports trunk or limbs, but provides less than half the effort. 2-Substantial/Maximal Assistance-helper does MORE THAN HALF the effort. [place] lifts or holds trunk or limbs and provides more than half the effort. 7-Woyjhguvd-axsndd does ALL the effort. Patient does none of the effort to complete the activity. Or, the assistance of 2 or more helpers is required for the patient to complete the activity. If activity was not attempted, code reason: 7-Patient Refused. 9-Not Applicable-not attempted and the patient did not perform the activity b efore the current illness, exacerbation or injury. 10-Not Attempted due to Environmental Limitations-(lack of equipment, weather restraints, etc.). 88-Not Attempted due to Medical Conditions or Safety Concerns. Lying to Sitting/Side of Bed(Q: 4 Sit to Stand (QC): 3 Chair/Nud-cf-Cepjr Xfer(QC): 3 Weight Bearing Left Lower Extremity: Left Weight Bearing/Tolerated Gait Training Distance: 15' Walk 10 feet (QC): 3 Walk 50 ft with 2 Turns(QC): 88 Gait Assistive Device: FWW very slow, antalgic gait Exercises Seated Therapy Exercises: Ankle pumps, Long arc quads Seated Reps: 10 Assessment Patient tolerated increase in activity on this date. Patient requires time to complete all functional tasks. Patient up in recliner with needs met. Verbal and demonstration left THR precautions given. PT Short Term Goals Short Term Goals Time Frame: Apr 25, 2023 Roll Left & Right: 4 Sit to lyin Lying to sitting on side of be: 4 Sit to stand: 4 Chair/xuo-kx-emljj transfer: 4 Walk 10 feet: 4 PT Group Home Goals Crib Pad Maker Goals PT Group Home Goals Time Frame: May 01, 2023 Roll Left & Right (QC): 6 Sit to Lying (QC): 5 Lying-Sitting on Side/Bed(QC): 6 Sit to Stand (QC): 5 Chair/Mjx-we-Wupss Xfer(QC): 5 Does the Patient Walk: Yes Walk 50ft with 2 Turns (QC): 4 PT Plan Treatment/Plan Treatment Plan: Continue Plan of Care Treatment Plan: Bed Mobility, Education, Functional Strength, Gait, Safety, Therapeutic Exercise Treatment Duration: May 01, 2023 Frequency: 11 times per week Estimated Hrs Per Day: .5 hour per day Patient and/or Family Agrees t: Yes Time Time In: 815 Time Out: 825 DATE: Apr 23, 2023 Total Billed Treatment Time: 10 Total Billed Treatment 1 visit GT 10 min MITCH MENDOZA PT Apr 23, 2023 09:59
[2023-04-23] MEDS: ENOXAPARIN 40 MG/0.4 ML SYRINGE SC SCH (10:08)
--- NOTE | 2023-04-23 10:59 | Discharge Summary ---
Diagnosis/Chief Complaint Date of Admission Apr 19, 2023 at 05:49 Date of Discharge Discharge Date: Apr 23, 2023 Discharge Diagnosis Left hip replacement Hypotensive episode from volume depletion from poor PO intake requiring ICU transfer (not due to sepsis) Overmedication from muscle relaxants CARINA DM HTN HLP Hypothyroidism Depression Abnormal UTI but negative UCx s/p empiric Rocephin Discharge Summary Discharge Physical Examination Allergies: Coded Allergies: No Known Drug Allergies (Verified , 03/19/15) Vitals & I&Os Vital Signs Date Time Temp Pulse Resp B/P (MAP) Pulse Ox O2 Delivery O2 Flow Rate FiO2 04/23/23 14:00 04/23/23 11:31 35.9 103 18 99 Room Air 04/23/23 08:55 2.00 General Appearance: Alert, Oriented X3, Cooperative Respiratory: Clear to Auscultation Cardiovascular: Regular Rate Psych/Mental Status: Mental Status NL Hospital Course Was the Problem List Reviewed?: Yes [place] Monroy is a 78 year old female with a PMH of HTN, Hypothyroidism, and DMII who was in the hospital due to a left SUSAN on 04/[address]. After the surgery the pt was not in any pain and was feeling good. On 04/20 the pt continued to have tolerated pain levels that were under control of flexeril. We switched flexeril with tizanidine due to flexeril causing the pt to become sedated and sleepy. The muscle relaxers were helping with the pts muscle spasms and tightness. PT was moving the pt around and reporting appropriate progress. On 04/21 the pt was sent to the ICU due to hypotension due to hypovolemia, oliguria, and a possible UTI. The lowest recorded BP was 68/45. On 04/22 the pt was improving, urine output was increasing, and the BP recordings were stable. Muscle relaxers have been on hold due to the hypotensive episodes. Pt states that she is in a lot less pain than yesterday. Pt describes a general soreness that is present. Transfers still take some time but they are going better. She is requesting to start on a muscle relaxer. She is not really in pain, but more muscle spasms and tightness due to the positioning she has been placed in for the past few days. These feelings are b/l LE. She has an appetite this morning. Pt showered this morning with the help of her daughter. Labs (last 24 hrs) Laboratory Tests 04/19/23 05:49: Lab Scanned Report Referred Lab Report 04/19/23 06:59: Glucometer 109 04/20/23 05:10: White Blood Count 22.8H, Red Blood Count 3.74L, Hemoglobin 11.2L, Hematocrit 32L , Mean Corpuscular Volume 86, Mean Corpuscular Hemoglobin 30, Mean Corpuscular Hemoglobin Concent 35, Red Cell Distribution Width 12.2, Platelet Count 224, Mean Platelet Volume 9.7, Immature Granulocyte % (Auto) 1, Neutrophils (%) (Auto) 88H, Lymphocytes (%) (Auto) 6L, Monocytes (%) (Auto) 6, Eosinophils (%) (Auto) 0, Basophils (%) (Auto) 0, Neutrophils # (Auto) 20.1H, Lymphocytes # (Auto) 1.3, Monocytes # (Auto) 1.3H, Eosinophils # (Auto) 0.0, Basophils # (Auto) 0.0, Immature Granulocyte # (Auto) 0.1, Neutrophils % (Manual) 92, Lymphocytes % (Manual) 4, Monocytes % (Manual) 4, Sodium Level 128L, Potassium Level 4.0, Chloride Level 98, Carbon Dioxide Level 20L, Anion Gap 10, Blood Urea Nitrogen 14, Creatinine 1.02, Estimat Glomerular Filtration Rate 57, BUN/Creatinine Ratio 14, Glucose Level 197H, Calcium Level 8.0L, Corrected Calcium 8.5, Total Bilirubin 0.6, Aspartate Amino Transf (AST/SGOT) 36H, Alanine Aminotransferase (ALT/SGPT) 25, Alkaline Phosphatase 90, Total Protein 6.2L, Albumin 3.4 04/20/23 21:15: White Blood Count 18.5H, Red Blood Count 3.23L, Hemoglobin 9.7L, Hematocrit 29L, Mean Corpuscular Volume 89, Mean Corpuscular Hemoglobin 30, Mean Corpuscular Hemoglobin Concent 34, Red Cell Distribution Width 12.8, Platelet Count 194, Mean Platelet Volume 10.0, Immature Granulocyte % (Auto) 1, Neutrophils (%) (Auto) 83H, Lymphocytes (%) (Auto) 10L, Monocytes (%) (Auto) 7, Eosinophils (%) (Auto) 0, Basophils (%) (Auto) 0, Neutrophils # (Auto) 15.3H, Lymphocytes # (Auto) 1.8, Monocytes # (Auto) 1.2H, Eosinophils # (Auto) 0.1, Basophils # (Auto) 0.0, Immature Granulocyte # (Auto) 0.1, Sodium Level 124*L, Potassium Level 4.4, Chloride Level 92L, Carbon Dioxide Level 21, Anion Gap 11, Blood Urea Nitrogen 27H, Creatinine 1.90H, Estimat Glomerular Filtration Rate 27, BUN/Creatinine Ratio 14, Glucose Level 142H, Calcium Level 7.9L, Corrected Calcium 8.5, Total Bilirubin 0.8, Aspartate Amino Transf (AST/SGOT) 35H, Alanine Aminotransferase (ALT/SGPT) 19, Alkaline Phosphatase 80, Total Protein 5.8L, Albumin 3.2, Urine Color ORANGE, Urine Clarity CLEAR, Urine pH 5.0, Urine Specific [place] 1.025H, Urine Protein 2+H, Urine Glucose (UA) NEGATIVE, Urine Ketones 1+H, Urine Nitrite NEGATIVE, Urine Bilirubin 1+H, Urine Urobilinogen 0.2, Urine Leukocyte Esterase 1+H, Urine RBC (Auto) 1+H, Urine RBC 5-10H, Urine WBC 10-25H, Urine Squamous Epithelial Cells 5-10, Urine Crystals NONE, Urine Bacteria FEWH, Urine Casts NONE, Urine Mucus NEGATIVE, Urine Culture Indicated YES, Lactic Acid Level 2.31*H 04/20/23 21:27: Arterial Blood pH 7.38, Arterial Blood Partial Pressure CO2 36, Arterial Blood Partial Pressure O2 74L, Arterial Blood HCO3 21L, Arterial Blood Total CO2 22.4, Arterial Blood Oxygen Saturation 97, Arterial Blood Base Excess -3.3L, Blood Gas Ventilator Setting NO, Blood Gas Inspired Oxygen ROOM AIR 04/20/23 23:26: Lactic Acid Level 1.52 04/21/23 03:36: White Blood Count 15.0H, Red Blood Count 2.97L, Hemoglobin 8.9L, Hematocrit 27L, Mean Corpuscular Volume 91, Mean Corpuscular Hemoglobin 30, Mean Corpuscular Hemoglobin Concent 33, Red Cell Distribution Width 12.6, Platelet Count 155, Mean Platelet Volume 10.3, Immature Granulocyte % (Auto) 0, Neutrophils (%) (Auto) 78H, Lymphocytes (%) (Auto) 12, Monocytes (%) (Auto) 9, Eosinophils (%) (Auto) 1, Basophils (%) (Auto) 0, Neutrophils # (Auto) 11.6H, Lymphocytes # (Auto) 1.9, Monocytes # (Auto) 1.3H, Eosinophils # (Auto) 0.1, Basophils # (Auto) 0.0, Immature Granulocyte # (Auto) 0.1, Sodium Level 124*L, Potassium Level 4.7, Chloride Level 97L, Carbon Dioxide Level 17L, Anion Gap 10, Blood Urea Nitrogen 31H, Creatinine 2.05H, Estimat Glomerular Filtration Rate 25, BUN/Creatinine Ratio 15, Glucose Level 105, Calcium Level 7.2L, Corrected Calcium 8.2L, Total Bilirubin 0.7, Aspartate Amino Transf (AST/SGOT) 38H, Alanine Aminotransferase (ALT/SGPT) 19, Alkaline Phosphatase 66, Total Protein 5.2L, Albumin 2.8L 04/21/23 06:04: Iron Level 42, Vitamin B12 Level 406 04/21/23 11:05: Glucometer 138H 04/21/23 13:55: White Blood Count 13.6H, Red Blood Count 2.97L, Hemoglobin 9.0L, Hematocrit 26L, Mean Corpuscular Volume 88, Mean Corpuscular Hemoglobin 30, Mean Corpuscular Hemoglobin Concent 35, Red Cell Distribution Width 12.5, Platelet Count 152, Mean Platelet Volume 10.2, Immature Granulocyte % (Auto) 1, Neutrophils (%) (Auto) 82H, Lymphocytes (%) (Auto) 10L, Monocytes (%) (Auto) 7, Eosinophils (%) (Auto) 1, Basophils (%) (Auto) 0, Neutrophils # (Auto) 11.2H, Lymphocytes # (Auto) 1.3, Monocytes # (Auto) 0.9, Eosinophils # (Auto) 0.1, Basophils # (Auto) 0.0, Immature Granulocyte # (Auto) 0.1, Sodium Level 123*L, Potassium Level 4.3, Chloride Level 98, Carbon Dioxide Level 18L, Anion Gap 7, Blood Urea Nitrogen 35H, Creatinine 1.80H, Estimat Glomerular Filtration Rate 29, BUN/Creatinine Rat io 19, Glucose Level 135H, Calcium Level 7.2L, Phosphorus Level 3.0, Magnesium Level 1.0*L 04/21/23 16:24: Glucometer 170H 04/21/23 20:18: Glucometer 164H 04/22/23 04:02: White Blood Count 11.6H, Red Blood Count 3.14L, Hemoglobin 9.4L, Hematocrit 28L, Mean Corpuscular Volume 88, Mean Corpuscular Hemoglobin 30, Mean Corpuscular Hemoglobin Concent 34, Red Cell Distribution Width 12.4, Platelet Count 190, Mean Platelet Volume 10.7, Immature Granulocyte % (Auto) 1, Neutrophils (%) (Auto) 82H, Lymphocytes (%) (Auto) 10L, Monocytes (%) (Auto) 7, Eosinophils (%) (Auto) 1, Basophils (%) (Auto) 0, Neutrophils # (Auto) 9.5H, Lymphocytes # (Auto) 1.1, Monocytes # (Auto) 0.8, Eosinophils # (Auto) 0.1, Basophils # (Auto) 0.0, Immature Granulocyte # (Auto) 0.1, Sodium Level 127L, Potassium Level 4.2, Chloride Level 100, Carbon Dioxide Level 18L, Anion Gap 9, Blood Urea Nitrogen 33H, Creatinine 1.45H, Estimat Glomerular Filtration Rate 37, BUN/Creatinine Ratio 23, Glucose Level 138H, Calcium Level 7.9L, Corrected Calcium 8.7, Phosphorus Level 2.4, Magnesium Level 1.4L, Total Bilirubin 0.5, Aspartate Amino Transf (AST/SGOT) 52H, Alanine Aminotransferase (ALT/SGPT) 22, Alkaline P hosphatase 84, Total Protein 5.8L, Albumin 3.0L 04/22/23 10:24: Glucometer 189H 04/22/23 16:27: Glucometer 166H 04/22/23 21:17: Glucometer 178H 04/23/23 05:14: White Blood Count 12.6H, Red Blood Count 3.32L, Hemoglobin 9.9L, Hematocrit 29L, Mean Corpuscular Volume 87, Mean Corpuscular Hemoglobin 30, Mean Corpuscular Hemoglobin Concent 34, Red Cell Distribution Width 12.6, Platelet Count 262, Mean Platelet Volume 9.7, Immature Granulocyte % (Auto) 0, Neutrophils (%) (Auto) 79H, Lymphocytes (%) (Auto) 11L, Monocytes (%) (Auto) 8, Eosinophils (%) (Auto) 1, Basophils (%) (Auto) 0, Neutrophils # (Auto) 10.0H, Lymphocytes # (Auto) 1.4, Monocytes # (Auto) 1.0, Eosinophils # (Auto) 0.1, Basophils # (Auto) 0.0, Immature Granulocyte # (Auto) 0.1, Sodium Level 128L, Potassium Level 4.5, Chloride Level 101, Carbon Dioxide Level 19L, Anion Gap 8, Blood Urea Nitrogen 18, Creatinine 0.95, Estimat Glomerular Filtration Rate 62, BUN/Creatinine Ratio 19, Glucose Level 143H, Calcium Level 8.7, Corrected Calcium 9.4, Magnesium Level 2.0, Total Bilirubin 0.7, Aspartate Amino Transf (AST/SGOT) 66H, Alanine Aminotransferase (ALT/SGPT) 30, Alkaline Phosphatase 96, Total Protein 6.2L, Albumin 3.1L 04/23/23 05:30: Glucometer 133H 04/23/23 11:04: Glucometer 203H Microbiology 04/21/23 MRSA Screen - Final, Complete MRSA not isolated 04/20/23 Blood Culture - Preliminary, Resulted 04/20/23 Urine Culture - Final, Complete NO GROWTH Pending Labs Microbiology Date/Time Source Procedure Growth Status 04/21/23 01:39 Nasal MRSA Screen - Final MRSA not isolated Complete 04/20/23 21:55 Peripheral Lt Hand Blood Culture - Preliminary Resulted 04/20/23 21:55 Peripheral Lt Ac Blood Culture - Preliminary Resulted 04/20/23 21:15 Urine Clean Catch Urine Culture - Final NO GROWTH Complete Laboratory Tests 04/19/23 05:49: Lab Scanned Report Referred Lab Report 04/19/23 06:59: Glucometer 109 04/20/23 05:10: White Blood Count 22.8, Red Blood Count 3.74, Hemoglobin 11.2, Hematocrit 32, Mean Corpuscular Volume 86, Mean Corpuscular Hemoglobin 30, Mean Corpuscular Hemoglobin Concent 35, Red Cell Distribution Width 12.2, Platelet Count 224, Mean Platelet Volume 9.7, Immature Granulocyte % (Auto) 1, Neutrophils (%) (Auto) 88, Lymphocytes (%) (Auto) 6, Monocytes (%) (Auto) 6, Eosinophils (%) (Auto) 0, Basophils (%) (Auto) 0, Neutrophils # (Auto) 20.1, Lymphocytes # (Au to) 1.3, Monocytes # (Auto) 1.3, Eosinophils # (Auto) 0.0, Basophils # (Auto) 0.0, Immature Granulocyte # (Auto) 0.1, Neutrophils % (Manual) 92, Lymphocytes % (Manual) 4, Monocytes % (Manual) 4, Sodium Level 128, Potassium Level 4.0, Chloride Level 98, Carbon Dioxide Level 20, Anion Gap 10, Blood Urea Nitrogen 14, Creatinine 1.02, Estimat Glomerular Filtration Rate 57, BUN/Creatinine Ratio 14, Glucose Level 197, Calcium Level 8.0, Corrected Calcium 8.5, Total Bilirubin 0.6, Aspartate Amino Transf (AST/SGOT) 36, Alanine Aminotransferase (ALT/SGPT) 25, Alkaline Phosphatase 90, Total Protein 6.2, Albumin 3.4 04/20/23 21:15: White Blood Count 18.5, Red Blood Count 3.23, Hemoglobin 9.7, Hematocrit 29, Mean Corpuscular Volume 89, Mean Corpuscular Hemoglobin 30, Mean Corpuscular Hemoglobin Concent 34, Red Cell Distribution Width 12.8, Platelet Count 194, Mean Platelet Volume 10.0, Immature Granulocyte % (Auto) 1, Neutrophils (%) (Auto) 83, Lymphocytes (%) (Auto) 10, Monocytes (%) (Auto) 7, Eosinophils (%) (Auto) 0, Basophils (%) (Auto) 0, Neutrophils # (Auto) 15.3, Lymphocytes # (Auto) 1.8, Monocytes # (Auto) 1.2, Eosinophils # (Auto) 0.1, Basophils # (Auto) 0.0, Immature Granulocyte # (Auto) 0.1, Sodium Level 124, Potassium Level 4.4, Chloride Level 92, Carbon Dioxide Level 21, Anion Gap 11, Blood Urea Nitrogen 27, Creatinine 1.90, Estimat Glomerular Filtration Rate 27, BUN/Creatinine Ratio 14, Glucose Level 142, Calcium Level 7.9, Corrected Calcium 8.5, Total Bilirubin 0.8, Aspartate Amino Transf (AST/SGOT) 35, Alanine Aminotransferase (ALT/SGPT) 19, Alkaline Phosphatase 80, Total Protein 5.8, Albumin 3.2, Urine Color ORANGE, Urine Clarity CLEAR, Urine pH 5.0, Urine Specific [place] 1.025, Urine Protein 2+, Urine Glucose (UA) NEGATIVE, Urine Ketones 1+, Urine Nitrite NEGATIVE, Urine Bilirubin 1+, Urine Urobilinogen 0.2, Urine Leukocyte Esterase 1+, Urine RBC (Auto) 1+, Urine RBC 5-10, Urine WBC 10-25, Urine Squamous Epithelial Cells 5- 10, Urine Crystals NONE, Urine Bacteria FEW, Urine Casts NONE, Urine Mucus NEGATIVE, Urine Culture Indicated YES, Lactic Acid Level 2.31 04/20/23 21:27: Arterial Blood pH 7.38, Arterial Blood Partial Pressure CO2 36, Arterial Blood Partial Pressure O2 74, Arterial Blood HCO3 21, Arterial Blood Total CO2 22.4, Arterial Blood Oxygen Saturation 97, Arterial Blood Base Excess -3.3, Blood Gas Ventilator Setting NO, Blood Gas Inspired Oxygen ROOM AIR 04/20/23 23:26: Lactic Acid Level 1.52 04/21/23 03:36: White Blood Count 15.0, Red Blood Count 2.97, Hemoglobin 8.9, Hematocrit 27, Mean Corpuscular Volume 91, Mean Corpuscular Hemoglobin 30, Mean Corpuscular Hemoglobin Concent 33, Red Cell Distribution Width 12.6, Platelet Count 155, Mean Platelet Volume 10.3, Immature Granulocyte % (Auto) 0, Neutrophils (%) (Auto) 78, Lymphocytes (%) (Auto) 12, Monocytes (%) (Auto) 9, Eosinophils (%) (Auto) 1, Basophils (%) (Auto) 0, Neutrophils # (Auto) 11.6, Lymphocytes # (Auto) 1.9, Monocytes # (Auto) 1.3, Eosinophils # (Auto) 0.1, Basophils # (Auto) 0.0, Immature Granulocyte # (Auto) 0.1, Sodium Level 124, Potassium Level 4.7, Chloride Level 97, Carbon Dioxide Level 17, Anion Gap 10, Blood Urea Nitrogen 31, Creatinine 2.05, Estimat Glomerular Filtration Rate 25, BUN/Creatinine Ratio 15, Glucose Level 105, Calcium Level 7.2, Corrected Calcium 8.2, Total Bilirubin 0.7, Aspartate Amino Transf (AST/SGOT) 38, Alanine Aminotransferase (ALT/SGPT) 19, Alkaline Phosphatase 66, Total Protein 5.2, Albumin 2.8 04/21/23 06:04: Iron Level 42, Vitamin B12 Level 406 04/21/23 11:05: Glucometer 138 04/21/23 13:55: White Blood Count 13.6, Red Blood Count 2.97, Hemoglobin 9.0, Hematocrit 26, Mean Corpuscular Volume 88, Mean Corpuscular Hemoglobin 30, Mean Corpuscular Hemoglobin Concent 35, Red Cell Distribution Width 12.5, Platelet Count 152, Mean Platelet Volume 10.2, Immature Granulocyte % (Auto) 1, Neutrophils (%) (Auto) 82, Lymphocytes (%) (Auto) 10, Monocytes (%) (Auto) 7, Eosinophils (%) (Auto) 1, Basophils (%) (Auto) 0, Neutrophils # (Auto) 11.2, Lymphocytes # (Auto) 1.3, Monocytes # (Auto) 0.9, Eosinophils # (Auto) 0.1, Basophils # (Auto) 0.0, Immature Granulocyte # (Auto) 0.1, Sodium Level 123, Potassium Level 4.3, Chloride Level 98, Carbon Dioxide Level 18, Anion Gap 7, Blood Urea Nitrogen 35, Creatinine 1.80, Estimat Glomerular Filtration Rate 29, BUN/Creatinine Ratio 19, Glucose Level 135, Calcium Level 7.2, Phosphorus Level 3.0, Magnesium Level 1.0 04/21/23 16:24: Glucometer 170 04/21/23 20:18: Glucometer 164 04/22/23 04:02: White Blood Count 11.6, Red Blood Count 3.14, Hemoglobin 9.4, Hematocrit 28, Mean Corpuscular Volume 88, Mean Corpuscular Hemoglobin 30, Mean Corpuscular Hemoglobin Concent 34, Red Cell Distribution Width 12.4, Platelet Count 190, Mean Platelet Volume 10.7, Immature Granulocyte % (Auto) 1, Neutrophils (%) (Auto) 82, Lymphocytes (%) (Auto) 10, Monocytes (%) (Auto) 7, Eosinophils (%) (Auto) 1, Basophils (%) (Auto) 0, Neutrophils # (Auto) 9.5, Lymphocytes # (Auto) 1.1, Monocytes # (Auto) 0.8, Eosinophils # (Auto) 0.1, Basophils # (Auto) 0.0, Immature Granulocyte # (Auto) 0.1, Sodium Level 127, Potassium Level 4.2, Chloride Level 100, Carbon Dioxide Level 18, Anion Gap 9, Blood Urea Nitrogen 33, Creatinine 1.45, Estimat Glomerular Filtration Rate 37, BUN/Creatinine Ratio 23, Glucose Level 138, Calcium Level 7.9, Corrected Calcium 8.7, Phosphorus Level 2.4, Magnesium Level 1.4, Total Bilirubin 0.5, Aspartate Amino Transf (AST/SGOT) 52, Alanine Aminotransferase (ALT/SGPT) 22, Alkaline Phosphatase 84, Total Protein 5.8, Albumin 3.0 04/22/23 10:24: Glucometer 189 04/22/23 16:27: Glucometer 166 04/22/23 21:17: Glucometer 178 04/23/23 05:14: White Blood Count 12.6, Red Blood Count 3.32, Hemoglobin 9.9, Hematocrit 29, Mean Corpuscular Volume 87, Mean Corpuscular Hemoglobin 30, Mean Corpuscular Hemoglobin Concent 34, Red Cell Distribution Width 12.6, Platelet Count 262, Mean Platelet Volume 9.7, Immature Granulocyte % (Auto) 0, Neutrophils (%) (Auto) 79, Lymphocytes (%) (Auto) 11, Monocytes (%) (Auto) 8, Eosinophils (%) (Auto) 1, Basophils (%) (Auto) 0, Neutrophils # (Auto) 10.0, Lymphocytes # (Auto) 1.4, Monocytes # (Auto) 1.0, Eosinophils # (Auto) 0.1, Basophils # (Auto) 0.0, Immature Granulocyte # (Auto) 0.1, Sodium Level 128, Potassium Level 4.5, Chloride Level 101, Carbon Dioxide Level 19, Anion Gap 8, Blood Urea Nitrogen 18, Creatinine 0.95, Estimat Glomerular Filtration Rate 62, BUN/Creatinine Ratio 19, Glucose Level 143, Calcium Level 8.7, Corrected Calcium 9.4, Magnesium Level 2.0, Total Bilirubin 0.7, Aspartate Amino Transf (AST/SGOT) 66, Alanine Aminotransferase (ALT/SGPT) 30, Alkaline Phosphatase 96, Total Protein 6.2, Albumin 3.1 04/23/23 05:30: Glucometer 133 04/23/23 11:04: Glucometer 203 Discharge Home Medications: Active Scripts Active Reported Ibuprofen 200 Mg Tablet 400-800 Mg PO Q8H PRN Levothyroxine Sodium 50 Mcg Tablet 50 Mcg PO DAILY Metformin HCl 500 Mg Tablet 500 Mg PO BID Citalopram HBr (Citalopram Hydrobromide) 40 Mg Tablet 40 Mg PO DAILY Venlafaxine HCl ER (Venlafaxine HCl) 75 Mg Cap.er.24h 75 Mg PO DAILY Lisinopril 40 Mg Tablet 40 Mg PO DAILY Tizanidine HCl 2 Mg Tablet 2 Mg PO TID PRN Simvastatin 10 Mg Tablet 10 Mg PO HS Omeprazole 20 Mg Capsule.dr 20 Mg PO DAILY Amlodipine Besylate 5 Mg Tablet 5 Mg PO DAILY Multi-Vitamin Daily (Multivitamin) 1 Each Tablet 1 Each PO DAILY Magnesium (Magnesium Oxide) 250 Mg Tablet 250 Mg PO DAILY PRN Instructions to patient/family Please see electronic discharge instructions given to patient. TIFFANIE CONNER DO Apr 23, 2023 10:59
--- NOTE | 2023-04-23 11:21 | Occ Therapy Progress Note ---
Therapy Progress Note [id number] Pt seen in room but just finishing shower and very fatigued, requiring extra rest before transferring off shower bench. Pt'd daughter assisted her with shower. In care of daughter and aide. AGNIESZKA MAR OT Apr 23, 2023 11:21
[2023-04-23 11:31] VITALS: BP 156/79
== END 2023-04-23 14:00 | DRG 470 ==
LOC: 4TH 05:49 → SURG 05:50 → 4TH 10:30 → ICU 04-21 01:30 → 4TH 04-22 15:35
PROVIDERS: ADMIT Orthopaedic Surgery; ATTEND Orthopaedic Surgery
PROC: 0SRB04A Replacement of Left Hip Joint with Ceramic on Polyethylene Synthetic Substitute, Uncemented, Open Approach (ICD-10-PCS; principal; 2023-04-19 07:20)
DX: M16.12 Unilateral primary osteoarthritis, left hip (principal); N39.0 Urinary tract infection, site not specified; N17.9 Acute kidney failure, unspecified; E87.1 Hypo-osmolality and hyponatremia; I95.89 Other hypotension; E86.1 Hypovolemia; R40.0 Somnolence; T48.1X5A Adverse effect of skeletal muscle relaxants [neuromuscular blocking agents], initial encounter; E11.9 Type 2 diabetes mellitus without complications; Z79.84 Long term (current) use of oral hypoglycemic drugs; I10 Essential (primary) hypertension; E03.9 Hypothyroidism, unspecified; F32.A Depression, unspecified; K21.9 Gastro-esophageal reflux disease without esophagitis; E78.00 Pure hypercholesterolemia, unspecified; H91.90 Unspecified hearing loss, unspecified ear; H54.7 Unspecified visual loss; Z87.891 Personal history of nicotine dependence; Z96.651 Presence of right artificial knee joint; Z79.899 Other long term (current) drug therapy
CPT/HCPCS: 36415; 36600; 71045; 72170; 80048; 80053; 81000; 82607; 82805; 82947; 83540; 83605; 83735; 84100; 85007; 85025; 85027; 87040; 87081; 87088; 94664

== ENCOUNTER 2023-04-23 12:13 | Inpatient (IN) | payer MEDICARE, OTHER ==
[~2023-04-23] VITALS: Ht 170.2 cm; Wt 91.0 kg
[~2023-04-23 12:13] MED LIST changes: +CITA40TA13 PO; +IBUP-2473 PO; +LEVO50TA6 PO; +LISI40TA9 PO; +METF-397 PO; +TIZA-169 PO; +VENL75CA93 PO
--- NOTE | 2023-04-23 12:25 | PM&R Post Admission Assessment ---
PM&R HP Date of Visit: Apr 23, 2023 Time of Visit: 11:45 History of Present Illness CC: Left hip replacement with slow recovery following post op hypotension HPI: This is a 78yoWF clinic patient of mine who presents to ARU following an uncomplicated left hip replacement but had slow recovery due to ICU transfer due to refractory hypotension. (DC summary acute care chart: [place] Monroy is a 78 year old female with a PMH of HTN, Hypothyroidism, and DMII who was in the hospital due to a left SUSAN on 04/[address]. After the surgery the pt was not in any pain and was feeling good. On 04/20 the pt continued to have tolerated pain levels that were under control of flexeril. We switched flexeril with tizanidine due to flexeril causing the pt to become sedated and sleepy. The muscle relaxers were helping with the pts muscle spasms and tightness. PT was moving the pt around and reporting appropriate progress. On 04/21 the pt was sent to the ICU due to hypotension due to hypovolemia, oliguria, and a possible UTI. The lowest recorded BP was 68/45. On 04/22 the pt was improving, urine output was increasing, and the BP recordings were stable. Muscle relaxers have been on hold due to the hypotensive episodes. Pt states that she is in a lot less pain than yesterday. Pt describes a general soreness that is present. Transfers still take some time but they are going better. She is requesting to start on a muscle relaxer. She is not really in pain, but more muscle spasms and tightness due to the positioning she has been placed in for the past few days. These feelings are b/l LE. She has an appetite this morning. Pt showered this morning with the help of her daughter). Currently she is still very tired and having a very slow recovery and she has not had a BM since 04/18/23. Poor PO intake is noted. Past Fcgvqfd-Ypjgqs-Bfnpks Hx Past Med/Social Hx: Reviewed Nursing Past Med/Soc Hx, Reviewed and Corrections made Patient Social History Marrital Status: Employed/Student: retired Alcohol Use: Denies Use Smoking Status: Never a Smoker Immunizations Up To Date Date of Pneumonia Vaccine: May 14, 2014 Date of Influenza Vaccine: Mar 18, 2015 Seasonal Allergies Seasonal Allergies: No Past Medical History Surgeries: Orthopedic, Tonsillectomy, Tubal Ligation Currently Using CPAP: No Currently Using BIPAP: No Cardiac: High Cholesterol, Hypertension Tubal Ligation Gastrointestinal: Gastroesophageal Reflux Musculoskeletal: Degenerate Disk Disease, Arthritis Endocrine: Diabetes, Non-Insulin dep Hearing Impairment: Hard of Hearing History of Blood Disorders: No PM&R Allergy/Meds/Data Review Allergies Coded Allergies: No Known Drug Allergies (Verified , 03/19/15) Home Medications Scheduled Amlodipine Besylate (Amlodipine Besylate), 5 MG PO DAILY, (Reported) Citalopram Hydrobromide (Citalopram HBr), 40 MG PO DAILY, (Reported) Levothyroxine Sodium (Levothyroxine Sodium), 50 MCG PO DAILY, (Reported) Lisinopril (Lisinopril), 40 MG PO DAILY, (Reported) Metformin HCl (Metformin HCl), 500 MG PO BID, (Reported) Multivitamin (Multi-Vitamin Daily), 1 EACH PO DAILY, (Reported) Omeprazole (Omeprazole), 20 MG PO DAILY, (Reported) Simvastatin (Simvastatin), 10 MG PO HS, (Reported) Venlafaxine HCl (Venlafaxine HCl ER), 75 MG PO DAILY, (Reported) Scheduled PRN Ibuprofen (Ibuprofen), 400-800 MG PO Q8H PRN for PAIN-MILD (1-4), (Reported) Magnesium Oxide (Magnesium), 250 MG PO DAILY PRN for LEG CRAMPS, (Reported) Tizanidine HCl (Tizanidine HCl), 2 MG PO TID PRN for MUSCLE SPASMS, (Reported) Discontinued Medications Citalopram Hydrobromide (Citalopram HBr), 20 MG PO, (Reported) Discontinued Reason: No Longer Taking Levothyroxine Sodium (Levothyroxine), 50 MCG PO, (Reported) Discontinued Reason: No Longer Taking Lisinopril (Lisinopril), 20 MG PO DAILY, (Reported) Discontinued Reason: No Longer Taking Metformin HCl (Metformin HCl), 1,000 MG PO BID, (Reported) Discontinued Reason: No Longer Taking Potassium Gluconate (Potassium Gluconate), 595 MG PO DAILY, (Reported) Discontinued Reason: No Longer Taking Tizanidine HCl (Tizanidine HCl), 2 MG PO, (Reported) Discontinued Reason: Duplicate Order Venlafaxine HCl (Venlafaxine HCl ER), 75 MG PO, (Reported) Discontinued Reason: Duplicate Order Current Medications Current Medications Reviewed Review of Systems Constitutional: see HPI, dizziness, malaise, weakness EENTM: no symptoms reported Respiratory: no symptoms reported Cardiovascular: no symptoms reported Gastrointestinal: constipation Genitourinary: no symptoms reported Musculoskeletal: back pain, joint pain Skin: no symptoms reported Psychiatric/Neurological: Anxiety, Depressed All Other Systems Reviewed Negative Unless Noted: Yes Physical Exam Physical Exam Vital Signs Capillary Refill : Height, Weight, BMI Height: 5'7.00" Weight: 214lbs. oz. [id number]; 32.03 BMI Method: General Appearance: No Apparent Distress, WD/WN, Chronically ill, Obese, Other (fatigued) Eyes: Bilateral Eye Normal Inspection, Bilateral Eye PERRL HEENT: PERRL/EOMI, Normal ENT Inspection, Pharynx Normal Neck: Full Range of Motion, Normal Inspection, Non Tender, Supple, Carotid Bruit Respiratory: Chest Non Tender, Lungs Clear, Normal Breath Sounds, No Accessory Muscle Use, No Respiratory Distress Cardiovascular: Regular Rate, Rhythm, No Edema, No Gallop, No JVD, No Murmur, Normal Peripheral Pulses Gastrointestinal: Normal Bowel Sounds, No Organomegaly, No Pulsatile Mass, Non Tender, Soft Back: Normal Inspection, No CVA Tenderness, No Vertebral Tenderness Extremity: Normal Capillary Refill, Normal Inspection, Normal Range of Motion, Non Tender, No Calf Tenderness, No Pedal Edema Neurologic/Psychiatric: Alert, Oriented x3, obiee architect II-XII Norm as Tested, Abnormal Gait, Depressed Affect, Motor Weakness (left leg) Skin: Normal Color, Warm/Dry Lymphatic: No Adenopathy PM&R Medical Assessment & Plan REHAB/MEDICAL ASSESSMENT AND PLAN: REHAB IMPAIRMENT GROUP: Other orthopaedic ETIOLOGIC DIAGNOSIS: Left hip osteoarthritis with slow recovery The comorbidities that impact the patients function and/or functional outcome by: advanced age, slow recovery , post op hypotension requiring ICU, overmedicaion REHAB PLAN: The patient is being admitted to our comprehensive inpatient rehabilitation facility and can tolerate the intensity of service consisting of at least: 180 minutes of therapy a day, 5 out of 7 days a week Rehab treatment will consist of: PT OT will focus on regaining function with the use of AD in order to increase stamina with ambulation along with increasing ADL independence The patient/family has a good understanding of our discharge process and will benefit from an interdisciplinary inpatient rehabilitation program. The patient has potential to make improvement and is in need of at least two of the following multidisciplinary therapies including but not limited to physical, occupational, speech, and prosthetics and orthotics. Additionally the patient will need services from respiratory, nutritional services, wound care, psychology, etc. (Customize this to each patient). Given the patients complex condition and risk of further medical complications, rehabilitation services cannot be safely or effectively provided at a lower level of care such as a penitentiary facility. BARRIERS TO DISCHARGE: Slow recovery with overmedication and poor PO intake ESTIMATED LOS: 7 days DISPOSITION: Home RELEVANT CHANGES SINCE PREADMISSION SCREENING: I have compared the patients medical and functional status at the time of the preadmission screening and there are: no changes PROGNOSIS: Good REHABILITATION GOALS: 1. PT OT will focus on regaining function with the use of AD in order to increase stamina with ambulation along with increasing ADL independence All the above goals were reviewed with the patient and he/she is in agreement. By signing this document, I acknowledge that I have personally performed a full physical examination on this patient within 24 hours of admission to this inpatient rehabilitation facility and have determined the patient to be able to tolerate the above course of treatment at an intensive level for a reasonable period of time. I will be completing a detailed individualized Plan of Care for this patient by day #4 of the patients stay based upon the Preadmission Screen, the Post-Admission Evaluation, and the therapy evaluations. Admission Dx/Comorbidities: (1) S/P total left hip arthroplasty ICD Codes: Z96.642 - Presence of left artificial hip joint Assessment/Plan Assessment and Plan Assess & Plan/Chief Complaint Left hip replacement Hypotensive episode from volume depletion from poor PO intake requiring ICU transfer (not due to sepsis) Overmedication from muscle relaxants and pain meds CARINA DM HTN HLP Hypothyroidism Depression Abnormal UTI but negative UCx s/p empiric Rocephin Plan: Aggressive PT OT Increase motivation Decrease sedatives Increase PO intake TIFFANIE CONNER DO Apr 23, 2023 12:25
[2023-04-23] MEDS ORDERED: ACETAMINOPHEN 325 MG TABLET PO PRN ×2 (12:30→15:00)
[2023-04-23] MEDS ORDERED: diphenhydrAMINE 25 MG TABLET PO PRN ×2 (12:30→15:00)
[2023-04-23] MEDS ORDERED: LOPERAMIDE 2 MG CAPSULE PO PRN (12:30)
[2023-04-23] MEDS ORDERED: LACTULOSE SYRUP 10GM/15ML 30ML UDC PO PRN (12:30)
[2023-04-23] MEDS ORDERED: ALPRAZolam 0.25 MG TABLET PO PRN (12:30)
[2023-04-23] MEDS ORDERED: BISACODYL 10 MG SUPPOSITORY PR PRN ×2 (12:30→15:00)
[2023-04-23] MEDS ORDERED: MELATONIN 3 MG TABLET PO PRN ×2 (12:30→15:00)
[2023-04-23] MEDS ORDERED: guaiFENesin/CODEINE 10ML UDC PO PRN (12:30)
[2023-04-23] MEDS ORDERED: CALCIUM CARBONATE 500 MG CHEW TABLET PO PRN ×2 (12:30→15:00)
[2023-04-23] MEDS ORDERED: ONDANSETRON 4 MG ORAL DISSOLVE TABLET PO PRN ×2 (12:30→15:00)
[2023-04-23] MEDS ORDERED: Sodium Phosphate/Sodium Biphosphate ADULT enema PR PRN (12:30)
[2023-04-23] MEDS ORDERED: DOCUSATE SODIUM 100 MG CAPSULE PO PRN (12:30)
[2023-04-23 14:00] VITALS: BP 192/83
[2023-04-23] MEDS ORDERED: MILK OF MAGNESIA 400 MG/5 ML 30 ML UDC PO PRN (15:00)
[2023-04-23] MEDS ORDERED: BISACODYL 5 MG TABLET PO PRN (15:00)
[2023-04-23] MEDS ORDERED: diphenhydrAMINE INJ 50 MG/ML VIAL IVP PRN (15:00)
[2023-04-23] MEDS ORDERED: RT-ALBUTEROL SULF 2.5 MG/3 ML PRE-MIX VIAL INH PRN (15:00)
[2023-04-23] MEDS ORDERED: ONDANSETRON INJECTION 4 MG/2 ML (SDV) IV PRN (15:00)
[2023-04-23] MEDS ORDERED: ANTACID SUSPENSION 30 ML UDC PO PRN (15:00)
[2023-04-23] MEDS ORDERED: morphine INJ 4 MG/ML 1 ML (VIAL/SYRINGE) IVP PRN (15:00)
--- NOTE | 2023-04-23 15:02 | Occupational Therapy Eval ---
OT Evaluation-General/PLF Medical Diagnosis Admission Date Apr 23, 2023 at 13:45 Medical Diagnosis: L SUSAN posterior approach Onset Date: Apr 19, 2023 Therapy Diagnosis Therapy Diagnosis: Decreased activity tolerance, decreased ADL independence Height/Weight Height (Feet): 5 Height (Inches): 7.00 Weight (Pounds): 214 Precautions Precautions/Isolations: Fall Prevention, Standard Precautions Comments Posterior hip precautions Weight Bear Status Weight Bearing Restriction: Weight Bearing/Tolerated Location Restriction: L LE Referral Physician: Michelle Odonnell DO Medical History Pertinent Medical History: Arthritis, DM, GERD, HTN, Hypothroidism, OA Current History L SUSAN posterior approach 04/19 Reviewed History: Yes Social History Home: Multilevel (Lives on one floor ) Current Living Status: Spouse Entry Into Home: Ramp ADL-Prior Level of Function SCALE: Activities may be completed with or without assistive devices. 4-Loxubnzrgd-znmgldk completes the activity by him/herself with no assistance from a helper. 5-Set-up or Clean-up Assistance-helper sets up or cleans up; patient completes activity. [place] assists only prior to or following the activity. 4-Supervision or Touching Assistance-helper provides verbal cues and/or touching/steadying and/or contact guard assistance as patient completes activity. Assistance may be provided throughout the activity or intermittently. 3-Partial/Moderate Assistance-helper does LESS THAN HALF the effort. [place] lifts, holds or supports trunk or limbs, but provides less than half the effort. 2-Substantial/Maximal Assistance-helper does MORE THAN HALF the effort. [place] lifts or holds trunk or limbs and provides more than half the effort. 1-Tzmwhcdwr-uryfxj does ALL the effort. Patient does none of the effort to complete the activity. Or, the assistance of 2 or more helpers is required for the patient to complete the activity. If activity was not attempted, code reason: 7-Patient Refused. 9-Not Applicable-not attempted and the patient did not perform the activity before the current illness, exacerbation or injury. 10-Not Attempted due to Environmental Limitations-(lack of equipment, weather restraints, etc.). 88-Not Attempted due to Medical Conditions or Safety Concerns. ADL PLOF Comments Pt reports that she ambulates at home using a power wheelchair, manual wheelchair and FWW; though reports she uses a power wheelchair the majority of the time. 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 Pt reports that she is feeling tired, but is willing to participate in therapy. Pain Numeric Pain Scale: 8 Location: Left Location Body Site: Hip Pain Description: Sharp Mental Status/Objective Patient Orientation: Person, Place, Time, Situation Attachments: IV Current Glasses/Contacts: Yes Hearing Aids: No Dentures/Partials: Yes Hand Dominance: Right Upper Extremity ROM Bilateral shoulders, elbows and hand ROM WFL Upper Extremity Coordination WFL Upper Extremity Sensation R hand has some numbness due to arthritis, though pt reports this is baseline for her. Upper Extremity Strength Bilateral UE Strength: Shoulders: 4-/5 Elbows: 3+/5 Industrial Welder: 4/5 Edema: none ADL-Treatment Eating (QC): 5 Oral Hygiene (QC): 5 Shower/Bathe Self (QC): 2 (pt and daughter refused shower due to having one earlier in the day, though reported requiring max A to complete showering. ) Upper Body Dressing (QC): 5 (to don/doff shirt) Lower Body Dressing (QC): 2 (to don brief) On/Off Footwear (QC): 1 (to don/doff socks) Toileting Hygiene (QC): 1 (to complete toilet hygiene in standing ) Other Treatments 13:45- 14:05- Pt completed two functional transfers with min A for balance, r equiring min cues for safety and hand placement. Pt transitioned from sitting EOB to supine with OT and PT supporting bilateral legs and trunk for smooth transition while maintaining hip precautions. After transition was complete pt's daughter reports that she was "not happy about how therapy handled her mom." Therapists discussed and educated pt's daughter on the technique and reasoning PT/OT used in order to transition pt into bed. Notified RN of pt's increased pain. Pt's daughter reports her continued concerns with the care her mother is receiving and was discussing taking her mother home with her. PT/OT deferred further concerns to nursing faculty in order to provide additional information. 15:30-16:40- Pt was received lying supine in bed and reporting that RN administered pain medication which has helped decrease overall pain. Pt very pleasant and willing to participate in therapy at this time. PT/OT co-treated due to the need for two skilled therapists in order to increase safety with higher level activities. OT prioritizing activity tolerance. safety awareness, functional balance and ADL independence. Please refer to PT note for specifics on their focus and for additional specifics of PT POC. Pt completed functional mobility for <10ft with FWW and min A for balance, requiring max cues for safeety and arm placement. Pt self-propelled in wheelchair with supervision, requiring min rest breaks and min cueing for safety. Pt completed UBD with set up A and LBD with max A to thread legs through pants and pull up over buttocks. Pt educated and demonstrated UE strengthening HEP with orange theraband, prioritizing shoulder flexion, abduction and adduction; elbow flexion/extension and battery service technician strength. Education OT Patient Education: Correct positioning, Energy conservation, Home exercise program, Instructions to caregiver, Modified ADL techniques, Progress toward Goal/Update tx plan, Purpose of tx/functional activities, Reviewed precautions, Rehab process, Safety issues, Transfer techniques Teaching Recipient: Patient, Family Teaching Methods: Demonstration, Discussion Response to Teaching: Verbalize Understanding, Return Demonstration, Reinforcement Needed BIMS CAM BIMS Expression of Ideas and Wants: Without Difficulty Understanding Verbal Content: Understands Brief Interview/Mental Status: Yes IRF EUNICE BIMS: IRF EUNICE BIMS Response (Comments) Value Repitition of Three Words Three 3 Recalls Socks Yes, After Cueing (Wear) 1 Recalls Blue Yes, No Cue Required 2 Recalls Bed Yes, After Cueing 1 Year Correct 3 Month Accurate Within 5 Days 2 Day Correct 1 Total 13 Patient Normally Able to Recal: Current Session, Location of own room, Staff Names and faces, That he/she in a hsp Should Staff Asses. Mental St.: No Memory/Recall Ability: Current Season, Location of Own Room, Staff Names and Faces, That He/She in Hospit[facility] CAM Mental Status Change/Baseline: 0 Inattention: 0 Disorganized thinkin Altered level of consciousness: 0 OT Short Term Goals Short Term Goals Time Frame: Apr 30, 2023 Eatin Oral hygiene: 5 (in sitting ) Toileting hygiene: 3 Shower/bathe self: 3 Upper body dressin Lower body dressin Putting on/taking off footwear: 3 OT Perfusionist Goals Residential Goals Time Frame: May 07, 2023 Acute change in mental status: 0 Inattention: 0 Disorganized thinkin Altered level of consciousness: 0 Eating (QC): 6 Oral Hygiene (QC): 6 Toileting Hygiene (QC): 6 Shower/Bathe Self (QC): 4 Upper Body Dressing (QC): 6 Lower Body Dressing (QC): 6 On/Off Footwear (QC): 6 1=Demonstrate adherence to instructed precautions during ADL tasks. 2=Patient will verbalize/demonstrate understanding of assistive devices/modifications for ADL. 3=Patient will improve strength/tolerance for activity to enable patient to perform ADL's. OT Education/Plan Problem List/Assessment Assessment: Decreased Activ Tolerance, Decreased Safety Aware, Decreased UE Strength, Impaired Bed Mobility, Impaired Coordination, Impaired Funct Balance, Impaired I ADL's, Impaired Self-Care Skills Discharge Recommendations Plan/Recommendations: Continue POC Comment Will make recommendations closer to d/c date Barriers to Progress pain, hip precautions Target Placement home with assistance Patient/Family Goals To get better and return home. Treatment Plan/Plan of Care Treatment,Training & Education: Yes Patient would benefit from OT for education, treatment and training to promote independence in ADL's, mobility, safety and/or upper extremity function for ADL's. Plan of Care: ADL Retraining, Caregiver Training, Concurrent Therapy, Functional Mobility, Group Exercise/Act as Ind, UE Funct Exercise/Act, Visual/Perceptual Retrain, W/C Management Training Treatment Duration: May 08, 2023 Frequency: At least 5 of 7 days/Wk (IRF) Estimated Hrs Per Day: 1.5 hours per day Agreement: Yes Rehab Potential: Good Time Start Time: 13:45 ([id number] OT Eval ) Stop Time: 16:40 ([id number] OT/PT Cotx) DATE: Apr 23, 2023 Total Time Billed (hr/min): 90 Billed Treatment Time 1, EVM, ADL 3, FA 1, EX 1 Evelyne Fountain OTR/L Apr 23, 2023 15:02
[2023-04-23] MEDS: oxyCODONE IMMEDIATE RELEASE 5 MG TABLET PO PRN ×2 (15:09→20:22)
[2023-04-23 16:00] VITALS: BP 182/73
[2023-04-23] MEDS: cloNIDine 0.1 MG TABLET PO PRN (16:11)
--- NOTE | 2023-04-23 17:15 | Physical Therapy Evaluation ---
PT Evaluation-General Medical Diagnosis Admission Date Apr 23, 2023 at 13:45 Medical Diagnosis: L SUSAN posterior approach Onset Date: Apr 19, 2023 Therapy Diagnosis Therapy Diagnosis: impaired functional mobility, impaired endurance, weakness, fall risk Height/Weight Height (Feet): 5 Height (Inches): 7.00 Weight (Pounds): 214 Precautions Precautions/Isolations: Fall Prevention, Standard Precautions Weight Bear Status Full Weight Bearing Weight Bearing/Tolerated Referral Physician: Michelle Odonnell DO Reason for Referral: Evaluation/Treatment Medical History Pertinent Medical History: Arthritis, DM, GERD, HTN, Hypothroidism, OA Reviewed History: Yes Social History Home: Multilevel (Lives on one floor ) Current Living Status: Spouse Entry Into Home: Ramp Prior Prior Level of Function SCALE: Activities may be completed with or without assistive devices. 2-Pxpsalehwl-mvvidcc completes the activity by him/herself with no assistance from a helper. 5-Set-up or Clean-up Assistance-helper sets up or cleans up; patient completes activity. [place] assists only prior to or following the activity. 4-Supervision or Touching Assistance-helper provides verbal cues and/or touching/steadying and/or contact guard assistance as patient completes activity. Assistance may be provided throughout the activity or intermittently. 3-Partial/Moderate Assistance-helper does LESS THAN HALF the effort. [place] lifts, holds or supports trunk or limbs, but provides less than half the effort. 2-Substantial/Maximal Assistance-helper does MORE THAN HALF the effort. [place] lifts or holds trunk or limbs and provides more than half the effort. 3-Qofdumons-ajizlk does ALL the effort. Patient does none of the effort to complete the activity. Or, the assistance of 2 or more helpers is required for the patient to complete the activity. If activity was not attempted, code reason: 7-Patient Refused. 9-Not Applicable-not attempted and the patient did not perform the activity before the current illness, exacerbation or injury. 10-Not Attempted due to Environmental Limitations-(lack of equipment, weather restraints, etc.). 88-Not Attempted due to Medical Conditions or Safety Concerns. 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 Patient states, however, that she is the caregiver for her sister who lives with her. PT Evaluation-Current Subjective c/o fatigue and pain 8 (L) hip. Pain Section J - Health Conditions 1. Rarely or not at all 2. Occasionally 3. Frequently 4. Almost constantly 8. Unable to answer Pain Effect on Sleep: 4 Pain Interference with Therapy: 4 Pain Interference w/Day-to-Day: 4 Pt/Family Goals To go home with her daughter with home health. Patient lives in [place]. Objective Patient Orientation: Person, Place Attachments: IV ROM/Strength ROM Upper Extremities defer to OT ROM Lower Extremities (R) LE WFL. (L) knee flexion/extension limited actively by pain. (L) hip ROM limited by pain/weakness/precautions. Strength Upper Extremities defer to OT Strength Lower Extremities (R) LE 5/5 at ankle and knee. Hip flexion 3-/5 - states she has OA is (R) hip. (L) ankle 4/5, (L) knee flexion 3-/5, (L) knee ext 3-/5, (L) hip NT due to pain Integumentary/Posture Integumentary (L) hip incision dressed Neuromuscular (Tone, Coordination, Reflexes) Impaired coordination (L) LE - post-op pain Sensory Vision: Functional Hearing: Functional Hand Dominance: Right Sensation Right Upper Extremit: Impaired (states she has had (R) hand numbness prior to surgery) Sensation Right Lower Extremit: Intact Sensation Left Lower Extremity: Intact Transfers Roll Left & Right (QC): 1 Sit to Lying (QC): 1 (max (A) of 2) Lying to Sitting/Side of Bed(Q: 1 (mod (A) of 2) Sit to Stand (QC): 1 (mod-max (A) of 2 depending on patient's fatigue) Chair/Bts-vn-Exxwx Xfer(QC): 1 (Min (A) of 2, exceptionally slow praveen) Toilet Transfer (QC): 88 Car Transfer (QC): 88 Gait Does the Patient Walk?: Yes Mode of Locomotion: Both Anticipated Mode of Locomotion: Walk Walk 10 feet (QC): 88 (8' /c FWW min-mod (A) of 1 /c cues to walker use and correct sequence with 2nd person for w/c f/u, but unable to make it the 10' distance.) Walk 50 ft with 2 Turns(QC): 88 Walk 150 ft (QC): 88 Walking 10ft/uneven surface-QC: 88 Gait Assistive Device: FWW Wheelchair Training Does the Pt Use a Wheelchair?: Yes Distance: 50' x 2 Wheel 50 ft with 2 turns (QC): 5 Wheel 150 ft (QC): 88 (unable to reach 150' due to fatigue) Type of Wheelchair: Manual Stairs 1 Step (curb) (QC): 88 4 Steps (QC): 88 12 Steps (QC): 88 Balance Sitting Static: Fair Sitting Dynamic: Poor Standing Static: Fair Standing Dynamic: Poor Picking up an Object (QC): 88 Special Test Comments Elderly mobiltiy index: 0/20 -- dependent for mobility. Goal: 12/31. Treatment cotreatment with OT due to severity of patient mobility impairments, endurance deficits and pain. Multiple transfers including to hip/chair to protect THR. Assisted with balance during ADL activities. BP checked /a gait in [id number] - nsg notified. BP immediate standin/71. BP /p walking 8' and sitting down = 140/65. THR precaution education provided verbally, via demonstration, and in written form. Assessment/Needs 78 y/o female with significant mobility deficits post (L) THR on 04/19/23. Will require ARU rehab to maximize all aspects of functional mobility, endurance, strength and safety prior to return home with daughter and HH services. Rehab Potential: Good Post Rehab Potential-Barriers: primarily used power w/c prior to surgery, so prior level was sedentary PT Fpc Goals Settlement Clerk Goals PT Fpc Goals Time Frame: May 07, 2023 Roll Left to Right (QC): 4 Sit to Lying (QC): 4 Lying-Sitting on Side/Bed(QC): 4 Sit to Stand (QC): 4 Chair/Gjd-uy-Etagu Xfer(QC): 4 (/c FWW) Toilet/Commode Transfer (QC): 4 (/c FWW) Car Transfer (QC): 4 (/c FWW) Does the Patient Walk: Yes Walk 10 feet (QC): 4 (/c FWW) Walk 10ft-Uneven Surface(QC): 4 (/c FWW) Walk 50ft with 2 Turns (QC): 4 (/c FWW) Walk 150 ft (QC): 4 (/c FWW) Does the Pt use WC or Scooter?: Yes Wheel 50 feet with 2 turns (QC: 6 Type: Manual Wheel 150 feet: 6 Type: Motorized 1 Step (curb) (QC): 3 (/c FWW) 4 Steps (QC): 9 12 Steps (QC): 9 Picking up an Object (QC): 5 (/c AE) uses both manual and power w/c at home. Elderly mobility scale score: 7/20 PT Plan Problem List Problem List: Activity Tolerance, Functional Strength, Safety, Balance, Gait, Transfer, Bed Mobility Treatment/Plan Treatment Plan: Continue Plan of Care Treatment Plan: Bed Mobility, Education, Functional Activity Emanuel, Functional Strength, Group Therapy, Gait, Safety, Therapeutic Exercise, Transfers Treatment Duration: May 07, 2023 Frequency: At least 5 of 7 days/Wk (IRF) Estimated Hrs Per Day: 1.5 hours per day Safety Risks/Education Safety Risk Comments: THR precautions Teaching Methods: Demonstration, Handout, Discussion Response to Teaching: Reinforcement Needed Time Time In: 1405 (1530) Time Out: 1420 (1645) DATE: Apr 23, 2023 Total Billed Treatment Time: 90 Total Billed Treatment 15' eval [id number], Co-treatment 1002-8924 -- 1GT, 3 FA, 1 WC(70'), [id number] - 5' patient education individual minutes Kristy Dumont PT Apr 23, 2023 17:15
[2023-04-23] MEDS: inSUlin ASPART 1 UNIT/0.01 ML (PER UNIT) SC SCH ×2 (17:40→20:22)
[2023-04-23 17:44] VITALS: BP 133/60
[2023-04-23 19:38] VITALS: BP 142/63
[2023-04-23] MEDS: DOCUSATE SODIUM 100 MG CAPSULE PO SCH (20:22)
[2023-04-23] MEDS: SENNOSIDES 8.6 MG TABLET PO SCH (20:22)
[2023-04-23] MEDS ORDERED: DOCUSATE SODIUM 100 MG CAPSULE PO SCH (21:00)
[2023-04-23] MEDS ORDERED: SENNA W/DOCUSATE TABLET PO SCH (21:00)
[2023-04-24] MEDS: oxyCODONE IMMEDIATE RELEASE 5 MG TABLET PO PRN ×2 (00:54→01:43)
[2023-04-24] MEDS: inSUlin ASPART 1 UNIT/0.01 ML (PER UNIT) SC SCH ×4 (05:41→20:52)
[2023-04-24 05:48] LABS: BASOPHILS % (AUTO) 0 % (0-10); EOSINOPHILS # (AUTO) 0.2 10^3/uL (0.0-0.3); EOSINOPHILS % (AUTO) 2 % (0-10); HEMATOCRIT 26 % (35-52); HEMOGLOBIN 8.8 g/dL (11.5-16.0); LYMPHOCYTES # (AUTO) 1.4 10^3/uL (1.0-4.0); LYMPHOCYTES % (AUTO) 13 % (12-44); MEAN CORPUSCULAR HEMOGLOBIN 30 pg (25-34); MEAN CORPUSCULAR HGB CONC 35 g/dL (32-36); MEAN CORPUSCULAR VOLUME 87 fL (80-99); MEAN PLATELET VOLUME 9.4 fL (9.0-12.2); MONOCYTES % (AUTO) 9 % (0-12); NEUTROPHILS # (AUTO) 7.6 10^3/uL (1.8-7.8); NEUTROPHILS % (AUTO) 74 % (42-75); PLATELET COUNT 241 10^3/uL (130-400); WHITE BLOOD COUNT 10.2 10^3/uL (4.3-11.0)
[2023-04-24 05:59] LABS: ALBUMIN 2.8 GM/DL (3.2-4.5)
[2023-04-24 06:00] LABS: POTASSIUM 4.4 MMOL/L (3.6-5.0)
[2023-04-24 06:01] LABS: CALCIUM 8.7 MG/DL (8.5-10.1)
[2023-04-24 06:02] LABS: TOTAL PROTEIN 5.6 GM/DL (6.4-8.2)
[2023-04-24 06:04] LABS: BILIRUBIN,TOTAL 0.9 MG/DL (0.1-1.0)
[2023-04-24 06:06] LABS: CREATININE SERUM 0.92 MG/DL (0.60-1.30)
[2023-04-24] MEDS: THERAPEUTIC MULTIVITAMIN W/MINERALS TABLET PO SCH (06:31)
[2023-04-24 08:00] VITALS: BP 150/66
[2023-04-24] MEDS: amLODIPine 5 MG TABLET PO SCH (09:15)
[2023-04-24] MEDS: PANTOPRAZOLE 20 MG TABLET PO SCH (09:15)
[2023-04-24] MEDS: SENNOSIDES 8.6 MG TABLET PO SCH ×2 (09:15→20:29)
[2023-04-24] MEDS: CITALOPRAM 20 MG TABLET PO SCH (09:15)
[2023-04-24] MEDS: MAGNESIUM OXIDE 400 MG TABLET PO SCH (09:16)
[2023-04-24] MEDS: DOCUSATE SODIUM 100 MG CAPSULE PO SCH ×2 (09:16→20:29)
[2023-04-24] MEDS: LACTULOSE SYRUP 10GM/15ML 30ML UDC PO PRN (09:19)
[2023-04-24] MEDS: ENOXAPARIN 40 MG/0.4 ML SYRINGE SC SCH (09:19)
[2023-04-24 10:50] VITALS: BP 150/66
--- NOTE | 2023-04-24 12:18 | PM&R Progress Note ---
Subjective HPI/CC On Admission Date Seen by Provider: Apr 24, 2023 Time Seen by Provider: 11:50 Subjective/Events-last exam 04/24/2023: Patient back in bed when I assessed her Appears to be lethargic I reviewed her meds and the only med she has received last night was an oxydocone and that could certainly be the cause and have this residual so will DC that and start Ultram and only if severe pain will Hydrocodone be initiated. Patient ate bfast but I don't think she is consuming enough fluids so will resta rt fluids Overall a catastrophic decline from left hip replacement which will need close intensive medical management to regain back to baseline Review of Systems General: Fatigue, Malaise Objective Exam Vital Signs Vital Signs Date Time Temp Pulse Resp B/P (MAP) Pulse Ox O2 Delivery O2 Flow Rate FiO2 04/24/23 10:50 35.6 84 92 21 04/24/23 09:14 Room Air 0.00 04/24/23 08:00 17 150/66 (94) Capillary Refill : General Appearance: No Apparent Distress, WD/WN, Chronically ill, Obese, Other (fatigued) HEENT: PERRL/EOMI, Normal ENT Inspection, Pharynx Normal Neck: Full Range of Motion, Normal Inspection, Non Tender, Supple, Carotid Bruit Respiratory: Chest Non Tender, Lungs Clear, Normal Breath Sounds, No Accessory Muscle Use, No Respiratory Distress Cardiovascular: Regular Rate, Rhythm, No Edema, No Gallop, No JVD, No Murmur, Normal Peripheral Pulses Gastrointestinal: Normal Bowel Sounds, No Organomegaly, No Pulsatile Mass, Non Tender, Soft Back: Normal Inspection, No CVA Tenderness, No Vertebral Tenderness Extremity: Normal Capillary Refill, Normal Inspection, Normal Range of Motion, Non Tender, No Calf Tenderness, No Pedal Edema Neurologic/Psychiatric: Alert, Oriented x3, patent engineer II-XII Norm as Tested, Abnormal Gait, Depressed Affect, Motor Weakness (left leg) Skin: Normal Color, Warm/Dry Lymphatic: No Adenopathy Results/Procedures Lab Laboratory Tests 04/24/23 05:38 Patient resulted labs reviewed. FIM Transfers Therapy Code Descriptions/Definitions Functional [place] Measure: 0=Not Assessed/NA 4=Minimal Assistance 1=Total Assistance 5=Supervision or Setup 2=Maximal Assistance 6=Modified [place] 3=Moderate Assistance 7=Complete IndependenceSCALE: Activities may be completed with or without assistive devices. 1-Lhhdbgkeil-ursppfe completes the activity by him/herself with no assistance from a helper. 5-Set-up or Clean-up Assistance-helper sets up or cleans up; patient completes activity. [place] assists only prior to or following the activity. 4-Supervision or Touching Assistance-helper provides verbal cues and/or touching/steadying and/or contact guard assistance as patient completes activity. Assistance may be provided throughout the activity or intermittently. 3-Partial/Moderate Assistance-helper does LESS THAN HALF the effort. [place] lifts, holds or supports trunk or limbs, but provides less than half the effort. 2-Substantial/Maximal Assistance-helper does MORE THAN HALF the effort. [place] lifts or holds trunk or limbs and provides more than half the effort. 2-Yajjfvxto-zfimzw does ALL the effort. Patient does none of the effort to complete the activity. Or, the assistance of 2 or more helpers is required for the patient to complete the activity. If activity was not attempted, code reason: 7-Patient Refused. 9-Not Applicable-not attempted and the patient did not perform the activity before the current illness, exacerbation or injury. 10-Not Attempted due to Environmental Limitations-(lack of equipment, weather restraints, etc.). 88-Not Attempted due to Medical Conditions or Safety Concerns. Roll Left to Right (QC): 1 Sit to Lying (QC): 1 (max (A) of 2) Sit to Stand (QC): 1 (mod-max (A) of 2 depending on patient's fatigue) Chair/Szv-ga-Rjpbx Xfer(QC): 1 (Min (A) of 2, exceptionally slow praveen) Car Transfer (QC): 88 Gait Training Does the Patient Walk?: Yes Walk 10 feet (QC): 88 (8' /c FWW min-mod (A) of 1 /c cues to walker use and correct sequence with 2nd person for w/c f/u, but unable to make it the 10' distance.) Walk 50 ft with 2 Turns(QC): 88 Walk 150 ft (QC): 88 Walking 10ft/uneven surface-QC: 88 Gait Assistive Device: FWW Wheelchair Training Does the Pt Use a Wheelchair?: Yes Distance: 50' x 2 Wheel 50 ft with 2 turns (QC): 5 Wheel 150 ft (QC): 88 (unable to reach 150' due to fatigue) Type of Wheelchair: Manual Stair Training 1 Step (curb) (QC): 88 4 Steps (QC): 88 12 Steps (QC): 88 Balance Picking up an Object (QC): 88 ADL-Treatment Eating (QC): 5 Oral Hygiene (QC): 5 Shower/Bathe Self (QC): 2 (pt and daughter refused shower due to having one earlier in the day, though reported requiring max A to complete showering. ) Upper Body Dressing (QC): 5 (to don/doff shirt) Lower Body Dressing (QC): 2 (to don brief) On/Off Footwear (QC): 1 (to don/doff socks) Toileting Hygiene (QC): 1 (to complete toilet hygiene in standing ) Assessment/Plan Assessment and Plan Assess & Plan/Chief Complaint Left hip replacement Hypotensive episode from volume depletion from poor PO intake requiring ICU transfer (not due to sepsis) Overmedication from muscle relaxants and pain meds CARINA DM HTN HLP Hypothyroidism Depression Abnormal UTI but negative UCx s/p empiric Rocephin Post op anemia from blood loss Hyponatremia Plan: Aggressive PT OT Increase motivation Decrease sedatives Increase PO intake 04/24/2023: Give IVF DC Oxycodone since it appears to be too strong for the patient Ultram and Hydrocodone Minimize sedating meds IVF Check iron and B12 Sodium tablets (1) S/P total left hip arthroplasty TIFFANIE CONNER DO Apr 24, 2023 12:18
--- NOTE | 2023-04-24 12:23 | Occupational Ther Daily Note ---
OT Current Status-Daily Note Subjective Pt received lying supine in bed. Pt pleasant and agreeable to therapy. Pain Numeric Pain Scale: 7 Location: Left Location Body Site: Hip Pain Description: Sharp Comment: only with activity Mental Status/Objective Patient Orientation: Person, Place, Time, Situation Attachments: IV ADL-Treatment Therapy Code Descriptions/Definitions Functional [place] Measure: 0=Not Assessed/NA 4=Minimal Assistance 1=Total Assistance 5=Supervision or Setup 2=Maximal Assistance 6=Modified [place] 3=Moderate Assistance 7=Complete IndependenceSCALE: Activities may be completed with or without assistive devices. 3-Tvbesnvdff-ycixjtp completes the activity by him/herself with no assistance from a helper. 5-Set-up or Clean-up Assistance-helper sets up or cleans up; patient completes activity. [place] assists only prior to or following the activity. 4-Supervision or Touching Assistance-helper provides verbal cues and/or touching/steadying and/or contact guard assistance as patient completes activity. Assistance may be provided throughout the activity or intermittently. 3-Partial/Moderate Assistance-helper does LESS THAN HALF the effort. [place] lifts, holds or supports trunk or limbs, but provides less than half the effort. 2-Substantial/Maximal Assistance-helper does MORE THAN HALF the effort. [place] lifts or holds trunk or limbs and provides more than half the effort. 8-Axjucrvno-xwpwqq does ALL the effort. Patient does none of the effort to complete the activity. Or, the assistance of 2 or more helpers is required for the patient to complete the activity. If activity was not attempted, code reason: 7-Patient Refused. 9-Not Applicable-not attempted and the patient did not perform the activity before the current illness, exacerbation or injury. 10-Not Attempted due to Environmental Limitations-(lack of equipment, weather restraints, etc.). 88-Not Attempted due to Medical Conditions or Safety Concerns. Lower Body Dressing (QC): 3 (min A to don/doff brief and pants) On/Off Footwear: 1 (to don/doff socks) Toileting Hygiene (QC): 3 (to complete toilet hygiene in standing ) Toilet Transfer (QC): 3 (with 2 people, extended time and extensive cueing ) Other Treatment OT/PT co-treatment completed due to the need for two skilled clinicians in order to perform functional mobility and activities safely due to pt's high care level. OT focusing on activity tolerance, functional balance, UE strength/mobility and safety awareness. Please refer to PT note for their focus and additional information. Pt completed functional transfer from bed to BSC and from BSC to chair with FWW and mod A x2 for balance, requiring extended time to complete transfer and extensive cueing for hand placement, safety and to maintain precautions. Pt completed UE HEP with orange theraband with emphasis on shoulder abduction/adduction/flexion; elbow flexion/extension and asp net developer. Education OT Patient Education: Correct positioning, Home exercise program, Modified ADL techniques, Progress toward Goal/Update tx plan, Purpose of tx/functional activities, Reviewed precautions, Rehab process, Safety issues, Transfer techniques, Use of adapted equipment Teaching Recipient: Patient Teaching Methods: Demonstration, Discussion Response to Teaching: Verbalize Understanding, Return Demonstration, Reinforcement Needed OT Short Term Goals Short Term Goals Time Frame: Apr 30, 2023 Eatin Oral hygiene: 5 (in sitting ) Toileting hygiene: 3 Shower/bathe self: 3 Upper body dressin Lower body dressin Putting on/taking off footwear: 3 OT [facility] Goals Card Cleaner Goals Time Frame: May 07, 2023 Acute change in mental status: 0 Inattention: 0 Disorganized thinkin Altered level of consciousness: 0 Eating (QC): 6 Oral Hygiene (QC): 6 Toileting Hygiene (QC): 6 Shower/Bathe Self (QC): 4 Upper Body Dressing (QC): 6 Lower Body Dressing (QC): 6 On/Off Footwear (QC): 6 1=Demonstrate adherence to instructed precautions during ADL tasks. 2=Patient will verbalize/demonstrate understanding of assistive devices/modifications for ADL. 3=Patient will improve strength/tolerance for activity to enable patient to perform ADL's. OT Education/Plan Problem List/Assessment Assessment: Decreased Activ Tolerance, Decreased Safety Aware, Decreased UE Strength, Impaired Bed Mobility, Impaired Coordination, Impaired Funct Balance, Impaired I ADL's, Impaired Self-Care Skills Discharge Recommendations Plan/Recommendations: Continue POC Treatment Plan/Plan of Care Treatment,Training & Education: Yes Patient would benefit from OT for education, treatment and training to promote independence in ADL's, mobility, safety and/or upper extremity function for ADL's. Plan of Care: ADL Retraining, Caregiver Training, Concurrent Therapy, Functional Mobility, Group Exercise/Act as Ind, UE Funct Exercise/Act, Visual/Perceptual Retrain, W/C Management Training Treatment Duration: May 08, 2023 Frequency: At least 5 of 7 days/Wk (IRF) Estimated Hrs Per Day: 1.5 hours per day Agreement: Yes Rehab Potential: Good Time Start Time: 09:30 ([id number] OT/PT Cotx) Stop Time: 10:25 DATE: Apr 24, 2023 Total Time Billed (hr/min): 55 Billed Treatment Time 1, ADL 2, EX 2 Evelyne Fountain OTR/L Apr 24, 2023 12:23
[2023-04-24] MEDS: NS IV 1000 ML 1,000 ML IV SCH (12:27)
--- NOTE | 2023-04-24 12:29 | Physical Therapy Daily Note ---
PT Daily Note-Current Subjective Pt laying Supine in bed upon arrival. Pt agrees to PT/OT co-treat. Pt asks to toilet to start tx. Pain Numeric Pain Scale: 7 Location: Left Location Body Site: Hip Pain Description: Ache, Sharp Section J - Health Conditions 1. Rarely or not at all 2. Occasionally 3. Frequently 4. Almost constantly 8. Unable to answer Pain Effect on Sleep: 4 Pain Interference with Therapy: 4 Pain Interference w/Day-to-Day: 4 Mental Status Patient Orientation: Person, Place, Time, Situation Attachments: IV Transfers SCALE: Activities may be completed with or without assistive devices. 1-Gasacdevsp-elrdret completes the activity by him/herself with no assistance from a helper. 5-Set-up or Clean-up Assistance-helper sets up or cleans up; patient completes activity. [place] assists only prior to or following the activity. 4-Supervision or Touching Assistance-helper provides verbal cues and/or touching/steadying and/or contact guard assistance as patient completes activity. Assistance may be provided throughout the activity or intermittently. 3-Partial/Moderate Assistance-helper does LESS THAN HALF the effort. [place] lifts, holds or supports trunk or limbs, but provides less than half the effort. 2-Substantial/Maximal Assistance-helper does MORE THAN HALF the effort. [place] lifts or holds trunk or limbs and provides more than half the effort. 8-Gkxrhktww-iqithw does ALL the effort. Patient does none of the effort to complete the activity. Or, the assistance of 2 or more helpers is required for the patient to complete the activity. If activity was not attempted, code reason: 7-Patient Refused. 9-Not Applicable-not attempted and the patient did not perform the activity before the current illness, exacerbation or injury. 10-Not Attempted due to Environmental Limitations-(lack of equipment, weather restraints, etc.). 88-Not Attempted due to Medical Conditions or Safety Concerns. Lying to Sitting/Side of Bed(Q: 3 (Mod A) Sit to Stand (QC): 3 (Mod A) Toilet Transfer (QC): 3 (Mod A) Weight Bearing Full Weight Bearing Weight Bearing/Tolerated Gait Training Does the Patient Walk?: Yes Distance: 7' x2 Walk 10 feet (QC): 3 (Mod A) Gait Assistive Device: FWW Exercises Supine Ex: Ankle pumps, Quad Set, Glut sets, Heel Slides (R side), Short Arc Quads, Hip abd/add Supine Reps: 10 Seated Therapy Exercises: Ankle pumps, Long arc quads, Hip abd/add, Glut set Seated Reps: 10 Treatments OT/PT co-treatment completed due to the need for two skilled clinicians in order to perform functional mobility and activities safely due to pt's high care level. OT focusing on activity tolerance, functional balance, UE strength/mobility and safety awareness. PT focused on transfers, following proper Hip Precautions and LE strengthening/mobility. Pt completed functional transfer from bed to BSC and from BSC to chair with FWW and mod A x2 for balance, requiring extended time to complete transfer and extensive cueing for hand placement, safety and to maintain precautions. Pt completed UE HEP with orange theraband with emphasis on shoulder abduction/adduction/flexion; elbow flexion/extension and women's apparel salesperson. Pt alternated Seated LE & UE EX as well as review of Proper Hip Precautions. Pt resting in Hip chair at end of tx. All needs met, call light next to pt. Assessment Current Status: Fair Progress Pt takes extended time to complete tasks as well as reports increasing pain w/movement. PT Jail Goals Spark Plug Assembler Goals PT Spark Plug Assembler Goals Time Frame: May 07, 2023 Roll Left & Right (QC): 4 Sit to Lying (QC): 4 Lying-Sitting on Side/Bed(QC): 4 Sit to Stand (QC): 4 Chair/Ipx-yh-Pgpwr Xfer(QC): 4 (/c FWW) Toilet Transfer (QC): 4 (/c FWW) Car Transfer (QC): 4 (/c FWW) Does the Patient Walk: Yes Walk 10 feet (QC): 4 (/c FWW) Walk 50ft with 2 Turns (QC): 4 (/c FWW) Walk 150 ft (QC): 4 (/c FWW) Walking 10ft on Uneven Surface: 4 (/c FWW) 1 Step (curb) (QC): 3 (/c FWW) 4 Steps (QC): 9 12 Steps (QC): 9 Picking up an Object (QC): 5 (/c AE) Does the Pt use WC or Scooter?: Yes Wheel 50 feet with 2 turns (QC: 6 Type: Manual Wheel 150 feet: 6 Type: Motorized PT Plan Problem List Problem List: Activity Tolerance, Functional Strength, Safety, Gait, Transfer Treatment/Plan Treatment Plan: Continue Plan of Care Treatment Plan: Bed Mobility, Education, Functional Activity Emanuel, Functional Strength, Group Therapy, Gait, Safety, Therapeutic Exercise, Transfers Treatment Duration: May 07, 2023 Frequency: At least 5 of 7 days/Wk (IRF) Estimated Hrs Per Day: 1.5 hours per day Safety Risks/Education Patient Education: Gait Training, Transfer Techniques, Issued Written HEP, Reviewed Precautions, Correct Positioning, Safety Issues Teaching Recipient: Patient Teaching Methods: Discussion Response to Teaching: Verbalize Understanding Time Time In: 929 Time Out: 1025 DATE: Apr 24, 2023 Total Billed Treatment Time: 55 Total Billed Treatment Co-treat w/OT for 55m 1, FA x2 (30m) & EX x2 (25m) LILY CORNEJO DIAGNOSTIC CARDIAC SONOGRAPHER Apr 24, 2023 12:29
[2023-04-24] MEDS ORDERED: SODIUM CHLORIDE 1 GM TABLET PO ONE (12:30)
[2023-04-24 19:33] VITALS: BP 196/84
[2023-04-24] MEDS: cloNIDine 0.1 MG TABLET PO PRN (19:44)
[2023-04-24 20:03] VITALS: BP 158/70
[2023-04-24] MEDS: SODIUM CHLORIDE 1 GM TABLET PO SCH (20:21)
[2023-04-25] MEDS: NS IV 1000 ML 1,000 ML IV SCH ×2 (01:48→14:15)
[2023-04-25] MEDS: inSUlin ASPART 1 UNIT/0.01 ML (PER UNIT) SC SCH ×4 (06:15→21:40)
[2023-04-25] MEDS: THERAPEUTIC MULTIVITAMIN W/MINERALS TABLET PO SCH (06:19)
[2023-04-25 07:44] VITALS: BP 132/60
[2023-04-25] MEDS ORDERED: CYANOCOBALAMIN 1000 MCG/ML 1 ML VIAL IM ONE ×2 (08:15→08:45)
[2023-04-25] MEDS ORDERED: IRON SUCROSE 200 MG/10 ML VIAL IV ONE (08:15)
--- NOTE | 2023-04-25 08:17 | PM&R Progress Note ---
Subjective HPI/CC On Admission Date Seen by Provider: Apr 25, 2023 Time Seen by Provider: 12:00 Subjective/Events-last exam 04/25/2023: Improved a bit Hgb 7.7 but when offered to transfuse the patient and daughter stated she is JW and will not accept blood products I was not aware she was JW so will put that in her chart and give additional iron infusions and B12 Less sedated BM+ 04/24/2023: Patient back in bed when I assessed her Appears to be lethargic I reviewed her meds and the only med she has received last night was an oxydocone and that could certainly be the cause and have this residual so will DC that and start Ultram and only if severe pain will Hydrocodone be initiated. Patient ate bfast but I don't think she is consuming enough fluids so will restart fluids Overall a catastrophic decline from left hip replacement which will need close intensive medical management to regain back to baseline Review of Systems General: Fatigue, Malaise Objective Exam Vital Signs Vital Signs Date Time Temp Pulse Resp B/P (MAP) Pulse Ox O2 Delivery O2 Flow Rate FiO2 04/25/23 09:14 Room Air 0.00 04/25/23 07:44 36.5 73 16 132/60 (84) 96 04/24/23 10:50 21 Capillary Refill : General Appearance: No Apparent Distress, WD/WN, Chronically ill, Obese, Other (fatigued) HEENT: PERRL/EOMI, Normal ENT Inspection, Pharynx Normal Neck: Full Range of Motion, Normal Inspection, Non Tender, Supple, Carotid Bruit Respiratory: Chest Non Tender, Lungs Clear, Normal Breath Sounds, No Accessory Muscle Use, No Respiratory Distress Cardiovascular: Regular Rate, Rhythm, No Edema, No Gallop, No JVD, No Murmur, Normal Peripheral Pulses Gastrointestinal: Normal Bowel Sounds, No Organomegaly, No Pulsatile Mass, Non Tender, Soft Back: Normal Inspection, No CVA Tenderness, No Vertebral Tenderness Extremity: Normal Capillary Refill, Normal Inspection, Normal Range of Motion, Non Tender, No Calf Tenderness, No Pedal Edema Neurologic/Psychiatric: Alert, Oriented x3, guard dance hall II-XII Norm as Tested, Abnormal Gait, Depressed Affect, Motor Weakness (left leg) Skin: Normal Color, Warm/Dry Lymphatic: No Adenopathy Results/Procedures Lab Laboratory Tests 04/25/23 08:17 Patient resulted labs reviewed. FIM Transfers Therapy Code Descriptions/Definitions Functional [place] Measure: 0=Not Assessed/NA 4=Minimal Assistance 1=Total Assistance 5=Supervision or Setup 2=Maximal Assistance 6=Modified [place] 3=Moderate Assistance 7=Complete IndependenceSCALE: Activities may be completed with or without assistive devices. 3-Khbmozrngh-wtebezl completes the activity by him/herself with no assistance from a helper. 5-Set-up or Clean-up Assistance-helper sets up or cleans up; patient completes activity. [place] assists only prior to or following the activity. 4-Supervision or Touching Assistance-helper provides verbal cues and/or touching/steadying and/or contact guard assistance as patient completes activity. Assistance may be provided throughout the activity or intermittently. 3-Partial/Moderate Assistance-helper does LESS THAN HALF the effort. [place] lifts, holds or supports trunk or limbs, but provides less than half the effort. 2-Substantial/Maximal Assistance-helper does MORE THAN HALF the effort. [place] lifts or holds trunk or limbs and provides more than half the effort. 6-Gxtogftni-idblqt does ALL the effort. Patient does none of the effort to complete the activity. Or, the assistance of 2 or more helpers is required for the patient to complete the activity. If activity was not attempted, code reason: 7-Patient Refused. 9-Not Applicable-not attempted and the patient did not perform the activity before the current illness, exacerbation or injury. 10-Not Attempted due to Environmental Limitations-(lack of equipment, weather restraints, etc.). 88-Not Attempted due to Medical Conditions or Safety Concerns. Roll Left to Right (QC): 1 Sit to Lying (QC): 1 (max (A) of 2) Sit to Stand (QC): 3 (Mod A) Chair/Vlo-pp-Xipxe Xfer(QC): 1 (Min (A) of 2, exceptionally slow praveen) Car Transfer (QC): 88 Gait Training Does the Patient Walk?: Yes Distance: 7' x2 Walk 10 feet (QC): 3 (Mod A) Walk 50 ft with 2 Turns(QC): 88 Walk 150 ft (QC): 88 Walking 10ft/uneven surface-QC: 88 Gait Assistive Device: FWW Wheelchair Training Does the Pt Use a Wheelchair?: Yes Distance: 50' x 2 Wheel 50 ft with 2 turns (QC): 5 Wheel 150 ft (QC): 88 (unable to reach 150' due to fatigue) Type of Wheelchair: Manual Stair Training 1 Step (curb) (QC): 88 4 Steps (QC): 88 12 Steps (QC): 88 Balance Picking up an Object (QC): 88 ADL-Treatment Eating (QC): 5 Oral Hygiene (QC): 5 Shower/Bathe Self (QC): 2 (pt and daughter refused shower due to having one earlier in the day, though reported requiring max A to complete showering. ) Upper Body Dressing (QC): 5 (to don/doff shirt) Lower Body Dressing (QC): 3 (min A to don/doff brief and pants) On/Off Footwear (QC): 1 (to don/doff socks) Toileting Hygiene (QC): 3 (to complete toilet hygiene in standing ) Toilet Transfer (QC): 3 (with 2 people, extended time and extensive cueing ) Assessment/Plan Assessment and Plan Assess & Plan/Chief Complaint Left hip replacement Hypotensive episode from volume depletion from poor PO intake requiring ICU transfer (not due to sepsis) Overmedication from muscle relaxants and pain meds CARINA DM HTN HLP Hypothyroidism Depression Abnormal UTI but negative UCx s/p empiric Rocephin Post op anemia from blood loss Hyponatremia JW will not accept blood products Plan: Aggressive PT OT Increase motivation Decrease sedatives Increase PO intake 04/24/2023: Give IVF DC Oxycodone since it appears to be too strong for the patient Ultram and Hydrocodone Minimize sedating meds IVF Check iron and B12 Sodium tablets 04/25/2023: HLIVF Iron infusions (1) S/P total left hip arthroplasty TIFFANIE CONNER DO Apr 25, 2023 08:17
[2023-04-25 08:24] LABS: BASOPHILS % (AUTO) 0 % (0-10); EOSINOPHILS # (AUTO) 0.2 10^3/uL (0.0-0.3); EOSINOPHILS % (AUTO) 2 % (0-10); HEMATOCRIT 23 % (35-52); HEMOGLOBIN 7.7 g/dL (11.5-16.0); LYMPHOCYTES # (AUTO) 1.1 10^3/uL (1.0-4.0); LYMPHOCYTES % (AUTO) 13 % (12-44); MEAN CORPUSCULAR HEMOGLOBIN 30 pg (25-34); MEAN CORPUSCULAR HGB CONC 34 g/dL (32-36); MEAN CORPUSCULAR VOLUME 88 fL (80-99); MEAN PLATELET VOLUME 9.4 fL (9.0-12.2); MONOCYTES # (AUTO) 0.8 10^3/uL (0.0-1.0); MONOCYTES % (AUTO) 10 % (0-12); NEUTROPHILS # (AUTO) 6.1 10^3/uL (1.8-7.8); NEUTROPHILS % (AUTO) 74 % (42-75); PLATELET COUNT 212 10^3/uL (130-400); WHITE BLOOD COUNT 8.2 10^3/uL (4.3-11.0)
[2023-04-25] MEDS: amLODIPine 5 MG TABLET PO SCH (08:25)
[2023-04-25] MEDS: SENNOSIDES 8.6 MG TABLET PO SCH ×2 (08:25→20:28)
[2023-04-25] MEDS: CITALOPRAM 20 MG TABLET PO SCH (08:25)
[2023-04-25] MEDS: PANTOPRAZOLE 20 MG TABLET PO SCH (08:25)
[2023-04-25] MEDS: DOCUSATE SODIUM 100 MG CAPSULE PO SCH ×2 (08:25→20:28)
[2023-04-25] MEDS: ENOXAPARIN 40 MG/0.4 ML SYRINGE SC SCH (08:25)
[2023-04-25] MEDS: MAGNESIUM OXIDE 400 MG TABLET PO SCH (08:25)
[2023-04-25] MEDS: SODIUM CHLORIDE 1 GM TABLET PO SCH ×2 (08:25→19:51)
[2023-04-25 08:34] LABS: ALBUMIN 2.5 GM/DL (3.2-4.5); POTASSIUM 4.3 MMOL/L (3.6-5.0)
[2023-04-25 08:35] LABS: CALCIUM 8.4 MG/DL (8.5-10.1)
[2023-04-25 08:36] LABS: TOTAL PROTEIN 4.9 GM/DL (6.4-8.2)
[2023-04-25 08:38] LABS: BILIRUBIN,TOTAL 0.7 MG/DL (0.1-1.0)
[2023-04-25 08:40] LABS: CREATININE SERUM 0.83 MG/DL (0.60-1.30)
[2023-04-25 19:42] VITALS: BP 141/65
--- NOTE | 2023-04-26 05:06 | PM&R Progress Note ---
Subjective HPI/CC On Admission Date Seen by Provider: Apr 26, 2023 Time Seen by Provider: 08:30 Subjective/Events-last exam 04/26/2023: Doing much better Less pain Labs stable Eating a bit Dramatically improved today 04/25/2023: Improved a bit Hgb 7.7 but when offered to transfuse the patient and daughter stated she is JW and will not accept blood products I was not aware she was JW so will put that in her chart and give additional iron infusions and B12 Less sedated BM+ 04/24/2023: Patient back in bed when I assessed her Appears to be lethargic I reviewed her meds and the only med she has received last night was an oxydocone and that could certainly be the cause and have this residual so will DC that and start Ultram and only if severe pain will Hydrocodone be initiated. Patient ate bfast but I don't think she is consuming enough fluids so will restart fluids Overall a catastrophic decline from left hip replacement which will need close intensive medical management to regain back to baseline Review of Systems General: Fatigue, Malaise Objective Exam Vital Signs Vital Signs Date Time Temp Pulse Resp B/P (MAP) Pulse Ox O2 Delivery O2 Flow Rate FiO2 04/26/23 20:01 37.3 94 20 195/78 (117) 91 Room Air 04/25/23 09:14 0.00 04/24/23 10:50 21 Capillary Refill : General Appearance: No Apparent Distress, WD/WN, Chronically ill, Obese, Other (fatigued) HEENT: PERRL/EOMI, Normal ENT Inspection, Pharynx Normal Neck: Full Range of Motion, Normal Inspection, Non Tender, Supple, Carotid Bruit Respiratory: Chest Non Tender, Lungs Clear, Normal Breath Sounds, No Accessory Muscle Use, No Respiratory Distress Cardiovascular: Regular Rate, Rhythm, No Edema, No Gallop, No JVD, No Murmur, Normal Peripheral Pulses Gastrointestinal: Normal Bowel Sounds, No Organomegaly, No Pulsatile Mass, Non Tender, Soft Back: Normal Inspection, No CVA Tenderness, No Vertebral Tenderness Extremity: Normal Capillary Refill, Normal Inspection, Normal Range of Motion, Non Tender, No Calf Tenderness, No Pedal Edema Neurologic/Psychiatric: Alert, Oriented x3, professor of kinesiology II-XII Norm as Tested, Abnormal Gait, Depressed Affect, Motor Weakness (left leg) Skin: Normal Color, Warm/Dry Lymphatic: No Adenopathy Results/Procedures Lab Laboratory Tests 04/26/23 05:25 Patient resulted labs reviewed. FIM Transfers Therapy Code Descriptions/Definitions Functional [place] Measure: 0=Not Assessed/NA 4=Minimal Assistance 1=Total Assistance 5=Supervision or Setup 2=Maximal Assistance 6=Modified [place] 3=Moderate Assistance 7=Complete IndependenceSCALE: Activities may be completed with or without assistive devices. 8-Iimwmruekq-shqieia completes the activity by him/herself with no assistance from a helper. 5-Set-up or Clean-up Assistance-helper sets up or cleans up; patient completes activity. [place] assists only prior to or following the activity. 4-Supervision or Touching Assistance-helper provides verbal cues and/or touching/steadying and/or contact guard assistance as patient completes activity. Assistance may be provided throughout the activity or intermittently. 3-Partial/Moderate Assistance-helper does LESS THAN HALF the effort. [place] lifts, holds or supports trunk or limbs, but provides less than half the effort. 2-Substantial/Maximal Assistance-helper does MORE THAN HALF the effort. [place] lifts or holds trunk or limbs and provides more than half the effort. 9-Asxkiwfbv-euzkwn does ALL the effort. Patient does none of the effort to complete the activity. Or, the assistance of 2 or more helpers is required for the patient to complete the activity. If activity was not attempted, code reason: 7-Patient Refused. 9-Not Applicable-not attempted and the patient did not perform the activity before the current illness, exacerbation or injury. 10-Not Attempted due to Environmental Limitations-(lack of equipment, weather restraints, etc.). 88-Not Attempted due to Medical Conditions or Safety Concerns. Roll Left to Right (QC): 1 Sit to Lying (QC): 1 (max (A) of 2) Sit to Stand (QC): 3 (Mod A) Chair/Hmo-yz-Uboql Xfer(QC): 1 (Min (A) of 2, exceptionally slow praveen) Car Transfer (QC): 88 Gait Training Does the Patient Walk?: Yes Distance: 7' x2 Walk 10 feet (QC): 3 (Mod A) Walk 50 ft with 2 Turns(QC): 88 Walk 150 ft (QC): 88 Walking 10ft/uneven surface-QC: 88 Gait Assistive Device: FWW Wheelchair Training Does the Pt Use a Wheelchair?: Yes Distance: 50' x 2 Wheel 50 ft with 2 turns (QC): 5 Wheel 150 ft (QC): 88 (unable to reach 150' due to fatigue) Type of Wheelchair: Manual Stair Training 1 Step (curb) (QC): 88 4 Steps (QC): 88 12 Steps (QC): 88 Balance Picking up an Object (QC): 88 ADL-Treatment Eating (QC): 5 Oral Hygiene (QC): 5 Shower/Bathe Self (QC): 2 (pt and daughter refused shower due to having one earlier in the day, though reported requiring max A to complete showering. ) Upper Body Dressing (QC): 5 (to don/doff shirt) Lower Body Dressing (QC): 3 (min A to don/doff brief and pants) On/Off Footwear (QC): 1 (to don/doff socks) Toileting Hygiene (QC): 3 (to complete toilet hygiene in standing ) Toilet Transfer (QC): 3 (with 2 people, extended time and extensive cueing ) Assessment/Plan Assessment and Plan Assess & Plan/Chief Complaint Left hip replacement Hypotensive episode from volume depletion from poor PO intake requiring ICU transfer (not due to sepsis) Overmedication from muscle relaxants and pain meds CARINA DM HTN HLP Hypothyroidism Depression Abnormal UTI but negative UCx s/p empiric Rocephin Post op anemia from blood loss Hyponatremia JW will not accept blood products Plan: Aggressive PT OT Increase motivation Decrease sedatives Increase PO intake 04/24/2023: Give IVF DC Oxycodone since it appears to be too strong for the patient Ultram and Hydrocodone Minimize sedating meds IVF Check iron and B12 Sodium tablets 04/25/2023: HLIVF Iron infusions 04/26/2023: Monitor closely (1) S/P total left hip arthroplasty TIFFANIE CONNER DO Apr 26, 2023 05:06
[2023-04-26] MEDS: THERAPEUTIC MULTIVITAMIN W/MINERALS TABLET PO SCH (05:36)
[2023-04-26 05:42] LABS: BASOPHILS % (AUTO) 0 % (0-10); EOSINOPHILS # (AUTO) 0.3 10^3/uL (0.0-0.3); EOSINOPHILS % (AUTO) 3 % (0-10); HEMATOCRIT 25 % (35-52); HEMOGLOBIN 8.5 g/dL (11.5-16.0); LYMPHOCYTES # (AUTO) 1.4 10^3/uL (1.0-4.0); LYMPHOCYTES % (AUTO) 17 % (12-44); MEAN CORPUSCULAR HEMOGLOBIN 31 pg (25-34); MEAN CORPUSCULAR HGB CONC 34 g/dL (32-36); MEAN CORPUSCULAR VOLUME 89 fL (80-99); MEAN PLATELET VOLUME 9.5 fL (9.0-12.2); MONOCYTES # (AUTO) 0.9 10^3/uL (0.0-1.0); MONOCYTES % (AUTO) 10 % (0-12); NEUTROPHILS # (AUTO) 5.8 10^3/uL (1.8-7.8); NEUTROPHILS % (AUTO) 68 % (42-75); PLATELET COUNT 260 10^3/uL (130-400); WHITE BLOOD COUNT 8.6 10^3/uL (4.3-11.0)
[2023-04-26 06:01] LABS: ALBUMIN 2.8 GM/DL (3.2-4.5); BILIRUBIN,TOTAL 0.4 MG/DL (0.1-1.0); CREATININE SERUM 0.83 MG/DL (0.60-1.30); POTASSIUM 4.6 MMOL/L (3.6-5.0); TOTAL PROTEIN 5.5 GM/DL (6.4-8.2)
[2023-04-26] MEDS: inSUlin ASPART 1 UNIT/0.01 ML (PER UNIT) SC SCH ×4 (06:29→20:32)
[2023-04-26 08:00] VITALS: BP 138/53
[2023-04-26] MEDS: CITALOPRAM 20 MG TABLET PO SCH (08:29)
[2023-04-26] MEDS: ENOXAPARIN 40 MG/0.4 ML SYRINGE SC SCH (08:29)
[2023-04-26] MEDS: amLODIPine 5 MG TABLET PO SCH (08:30)
[2023-04-26] MEDS: MAGNESIUM OXIDE 400 MG TABLET PO SCH (08:30)
[2023-04-26] MEDS: PANTOPRAZOLE 20 MG TABLET PO SCH (08:30)
[2023-04-26] MEDS: SODIUM CHLORIDE 1 GM TABLET PO SCH ×2 (08:30→20:26)
--- NOTE | 2023-04-26 08:43 | ST Cognitive Linguistic Eval ---
Speech Evaluation-General Medical Diagnosis L SUSAN posterior approach Onset Date: Apr 19, 2023 Therapy Diagnosis Therapy Diagnosis: L SUSAN Posterior Precautions Precautions: Fall Precautions/Isolations: Standard Precautions Referral Referring Physician: Dr. Odonnell Reason for Referral: Evaluation/Treatment Medical History Pertinent Medical History: Arthritis, DM, GERD, HTN, Hypothroidism, OA Current History L SUSAN on 04/19 Reviewed History: Yes Social History Current Living Status: Spouse Speech PLF-Current Status Prior Level of Function Pt reports independence with all ADLs. Subjective Pt was sitting in chair upon RETAIL PRESENTATION SPECIALIST arrival. Pt was cooperative and participated. Language Eval: Auditory Comprehends Simple Yes/No Ques: Functional Follows 1-Step Commands: Functional Follows Complex Directions: Functional Follows General Conversations: Functional Language Eval: Verbal Language Completes Spontaneous Greeting: Functional Imitates Simple Words/Phrases: Functional Requests Basic Needs: Functional States Basic Personal Info: Functional Language Evaluation: Reading Follows Simple Written Direct: Functional Language Evaluation: Writing Writes to Simple Dictation: Functional Objective Formal/Standardized Tests MMSE Results Pt scores WFL on the MMSE (28/30). No concerns regarding cognition at this time, discontinue ST. Speech-Plan Patient/Family Goals Patient/Family Goals: Pt wants to return home with her . Treatment Plan Speech Therapy Treatment Plan: Discontinue ST Treatment Duration: Apr 26, 2023 Frequency: 1 time per week Estimated Hrs Per Day: Other (Discontinue ST at this time) Rehab Potential: Good Time Speech Therapy Time In: 08:00 Speech Therapy Time Out: 08:30 DATE: Apr 26, 2023 Total Billed Time: 30 Billed Treatment Time 1 SPSNDCOMP [address] India Meyer Apr 26, 2023 08:43
[2023-04-26] MEDS: SENNOSIDES 8.6 MG TABLET PO SCH ×2 (09:15→20:03)
[2023-04-26] MEDS: DOCUSATE SODIUM 100 MG CAPSULE PO SCH ×2 (09:15→20:03)
--- NOTE | 2023-04-26 10:31 | Occupational Ther Daily Note ---
OT Current Status-Daily Note Subjective Pt agreeable to OT Tx, states pain and muscle spasms in L hip, does not provide pain rating. Mental Status/Objective Patient Orientation: Normal For Age ADL-Treatment Therapy Code Descriptions/Definitions Functional [place] Measure: 0=Not Assessed/NA 4=Minimal Assistance 1=Total Assistance 5=Supervision or Setup 2=Maximal Assistance 6=Modified [place] 3=Moderate Assistance 7=Complete IndependenceSCALE: Activities may be completed with or without assistive devices. 8-Yqzexkvxft-awzeueo completes the activity by him/herself with no assistance from a helper. 5-Set-up or Clean-up Assistance-helper sets up or cleans up; patient completes activity. [place] assists only prior to or following the activity. 4-Supervision or Touching Assistance-helper provides verbal cues and/or touching/steadying and/or contact guard assistance as patient completes activity. Assistance may be provided throughout the activity or intermittently. 3-Partial/Moderate Assistance-helper does LESS THAN HALF the effort. [place] lifts, holds or supports trunk or limbs, but provides less than half the effort. 2-Substantial/Maximal Assistance-helper does MORE THAN HALF the effort. [place] lifts or holds trunk or limbs and provides more than half the effort. 3-Lyihoiagl-nmavjw does ALL the effort. Patient does none of the effort to complete the activity. Or, the assistance of 2 or more helpers is required for the patient to complete the activity. If activity was not attempted, code reason: 7-Patient Refused. 9-Not Applicable-not attempted and the patient did not perform the activity before the current illness, exacerbation or injury. 10-Not Attempted due to Environmental Limitations-(lack of equipment, weather restraints, etc.). 88-Not Attempted due to Medical Conditions or Safety Concerns. Oral Hygiene (QC): 5 (oral swab) Upper Body Dressing (QC): 5 Lower Body Dressing (QC): 3 (Min A with pant hike. Education provided on AE ) On/Off Footwear: 2 (Max A overall using AE.) Other Treatment Pt in recliner, agreeable to OT Tx. Pt donned bra and shirt after set up assistance. Pt educated on AE for LBD. Pt threaded pants using director of application development, requiring VCs threading LEs, and slight assistance with pant hike. Pt utilized director of application development to doff socks with SBA. OT dependently donned tedhose. Pt used sock aide to don b/l socks with min A, then assist donning b/l shoes. Pt stood from hip chair with CGA, VCs for UE placement. Pant hike performed, OT assisted as needed, CGA for standing balance. Pt returned to hip chair, CGA with VCs for UE placement. Post tx, pt in recliner, call light in reach and all needs met. Hip precautions reviewed throughout tx, pt recalled 2/3. Education OT Patient Education: Correct positioning, Energy conservation, Modified ADL techniques, Progress toward Goal/Update tx plan, Purpose of tx/functional activities, Reviewed precautions, Rehab process, Safety issues, Transfer techniques, Use of adapted equipment Teaching Recipient: Patient Teaching Methods: Discussion Response to Teaching: Verbalize Understanding, Reinforcement Needed OT Short Term Goals Short Term Goals Time Frame: Apr 30, 2023 Eatin Oral hygiene: 5 (in sitting ) Toileting hygiene: 3 Shower/bathe self: 3 Upper body dressin Lower body dressin Putting on/taking off footwear: 3 OT Fdc Goals Fdc Goals Time Frame: May 07, 2023 Acute change in mental status: 0 Inattention: 0 Disorganized thinkin Altered level of consciousness: 0 Eating (QC): 6 Oral Hygiene (QC): 6 Toileting Hygiene (QC): 6 Shower/Bathe Self (QC): 4 Upper Body Dressing (QC): 6 Lower Body Dressing (QC): 6 On/Off Footwear (QC): 6 1=Demonstrate adherence to instructed precautions during ADL tasks. 2=Patient will verbalize/demonstrate understanding of assistive devices/modifications for ADL. 3=Patient will improve strength/tolerance for activity to enable patient to perform ADL's. OT Education/Plan Problem List/Assessment Assessment: Decreased Activ Tolerance, Decreased UE Strength, Impaired Funct Balance, Impaired I ADL's, Impaired Self-Care Skills Discharge Recommendations Plan/Recommendations: Continue POC Treatment Plan/Plan of Care Patient would benefit from OT for education, treatment and training to promote independence in ADL's, mobility, safety and/or upper extremity function for ADL's. Plan of Care: ADL Retraining, Caregiver Training, Concurrent Therapy, Functional Mobility, Group Exercise/Act as Ind, UE Funct Exercise/Act, Visual/Perceptual Retrain, W/C Management Training Treatment Duration: May 08, 2023 Frequency: At least 5 of 7 days/Wk (IRF) Estimated Hrs Per Day: 1.5 hours per day Agreement: Yes Rehab Potential: Good Time Start Time: 09:40 Stop Time: 10:40 DATE: Apr 26, 2023 Total Time Billed (hr/min): 60 Billed Treatment Time 1, ADL 4 TATUM SINGH OT Apr 26, 2023 10:30
--- NOTE | 2023-04-26 12:13 | Physical Therapy Daily Note ---
PT Daily Note-Current Subjective Pt presents sitting in elevated recliner. Pt reports 10/10 pain in (L) hip and thigh, stating "the pain is always high". Pt agrees to PT tx. Pt stated during tx that pain was increasing. Pt's daughter present during entire tx. Pain Section J - Health Conditions 1. Rarely or not at all 2. Occasionally 3. Frequently 4. Almost constantly 8. Unable to answer Pain Effect on Sleep: 4 Pain Interference with Therapy: 4 Pain Interference w/Day-to-Day: 4 Mental Status Patient Orientation: Person, Place, Time, Situation Transfers SCALE: Activities may be completed with or without assistive devices. 4-Kazgyodhsy-cvsodzh completes the activity by him/herself with no assistance f rom a helper. 5-Set-up or Clean-up Assistance-helper sets up or cleans up; patient completes activity. [place] assists only prior to or following the activity. 4-Supervision or Touching Assistance-helper provides verbal cues and/or touching/steadying and/or contact guard assistance as patient completes activity. Assistance may be provided throughout the activity or intermittently. 3-Partial/Moderate Assistance-helper does LESS THAN HALF the effort. [place] lifts, holds or supports trunk or limbs, but provides less than half the effort. 2-Substantial/Maximal Assistance-helper does MORE THAN HALF the effort. [place] lifts or holds trunk or limbs and provides more than half the effort. 4-Jllhbulsm-yyerwn does ALL the effort. Patient does none of the effort to complete the activity. Or, the assistance of 2 or more helpers is required for the patient to complete the activity. If activity was not attempted, code reason: 7-Patient Refused. 9-Not Applicable-not attempted and the patient did not perform the activity before the current illness, exacerbation or injury. 10-Not Attempted due to Environmental Limitations-(lack of equipment, weather restraints, etc.). 88-Not Attempted due to Medical Conditions or Safety Concerns. Sit to Stand (QC): 4 (CGA for safety) Weight Bearing Full Weight Bearing Weight Bearing/Tolerated Gait Training Does the Patient Walk?: Yes Walk 10 feet (QC): 4 (CGA for safety) Walk 50 ft with 2 Turns(QC): 88 (Pt only amb 20') Walk 150 ft (QC): 88 (Pt only amb 20') Gait Assistive Device: FWW Pt amb 20' from recliner to hallway and back to recliner /c FWW, CGA for safety and vc's for turning to "good side" for less painful WB. Wheelchair Training Does the Pt Use a Wheelchair?: No Exercises THER EX: Seated B ankle pumps x 20. Seated (L) Quad stretch x 15s x 3reps. Sit<> Stand /c FWW, SBA x 5 reps. Standing /c BUE support on FWW: (L) Hip abd /c toe touch method x 10 reps, (B) Hip ext x 10reps. Treatments Pt amb from recliner<>hallway /c FWW, CGA for safety. Pt conducted seated and standing ther ex in room with daughter present and providing CGA, as well as COCKTAIL LOUNGE MANAGER providing CGA. Pt required multiple rest breaks secondary to increasing pain. Post tx with pt in recliner, daughter present, call light within reach and all needs met. Assessment Current Status: Good Progress Pt requires multiple RB's, secondary to increasing pain. Pt will conduct therape utic activities with reinforcement. PT Mcc Goals Mcc Goals PT [employer] Architect Goals Time Frame: May 07, 2023 Roll Left & Right (QC): 4 Sit to Lying (QC): 4 Lying-Sitting on Side/Bed(QC): 4 Sit to Stand (QC): 4 Chair/Mpx-mm-Zkyqa Xfer(QC): 4 (/c FWW) Toilet Transfer (QC): 4 (/c FWW) Car Transfer (QC): 4 (/c FWW) Does the Patient Walk: Yes Walk 10 feet (QC): 4 (/c FWW) Walk 50ft with 2 Turns (QC): 4 (/c FWW) Walk 150 ft (QC): 4 (/c FWW) Walking 10ft on Uneven Surface: 4 (/c FWW) 1 Step (curb) (QC): 3 (/c FWW) 4 Steps (QC): 9 12 Steps (QC): 9 Picking up an Object (QC): 5 (/c AE) Does the Pt use WC or Scooter?: Yes Wheel 50 feet with 2 turns (QC: 6 Type: Manual Wheel 150 feet: 6 Type: Motorized PT Plan Problem List Problem List: Activity Tolerance, Functional Strength, ROM Treatment/Plan Treatment Plan: Continue Plan of Care Treatment Plan: Bed Mobility, Education, Functional Activity Emanuel, Functional Strength, Group Therapy, Gait, Safety, Therapeutic Exercise, Transfers Treatment Duration: May 07, 2023 Frequency: At least 5 of 7 days/Wk (IRF) Estimated Hrs Per Day: 1.5 hours per day Safety Risks/Education Patient Education: Correct Positioning, Safety Issues Teaching Recipient: Patient, Family Teaching Methods: Demonstration, Discussion Response to Teaching: Verbalize Understanding Discharge Recommendations Plan Continue with HEP ther ex as pt progresses. Time Time In: 1115 Time Out: 1215 DATE: Apr 26, 2023 Total Billed Treatment Time: 60 Total Billed Treatment 1, GT (15m), FA (15m), EX2 (30m) FAREED ROMAN PTA Apr 26, 2023 12:13
--- NOTE | 2023-04-26 15:31 | Therapy Group Daily Note ---
Therapy Daily Group Note Patient Education Topic Home Safety, Exercises Exercises LE Seated Exercise, UE Exercise Session Ratio (pt:therapist): 4:1 Goal of Session: Education on ARU Expectations, Home Safety Strategies, UE/LE Strengthing Goal Met for this Session: Yes Pt Benefit of Group: Contributions to Others, F/U Use of Strategies @Home, Increased Functional Safety, Increased Functional Strength, Improved Cognition, Recognition of Peers, Socialization Other/Notes Group completed with Felisa Ferguson. Took over pt care from OT. OT/PT group consisted of introductions (name,place living, favorite Thanksgiving food), socialization, B UE/LE seated exercises and educational topic of home safety with activity. Pt introduced self appropriately and actively listened to peers. Pt able to complete B UE/LE seated exercises with minimal cues and modifications to maintain hip precautions. Pt demonstrated understanding of educational topic by voicing personal experiences and using information gathered during discussion. Post tx with patient care nursing assistant assisting pt back to room. All needs met. Start Time: 13:00 Stop Time: 14:15 Total Billed Treatment Time: 75 Total Billed Treatment 1, GRP FAREED ROMAN MECHANICAL MAINTENANCE ENGINEER Apr 26, 2023 15:31
[2023-04-26 20:01] VITALS: BP 195/78
[2023-04-26] MEDS: cloNIDine 0.1 MG TABLET PO PRN (20:26)
[2023-04-26 21:00] VITALS: BP 152/63
[2023-04-27] MEDS: THERAPEUTIC MULTIVITAMIN W/MINERALS TABLET PO SCH (05:36)
[2023-04-27] MEDS: inSUlin ASPART 1 UNIT/0.01 ML (PER UNIT) SC SCH ×4 (05:39→21:34)
--- NOTE | 2023-04-27 06:56 | Individualized Plan of Care ---
Individualized Plan of Care Rehab Nursing IPOC Order Admission Date Apr 23, 2023 at 13:45 Current Orders Orders Admission Order(Inpt,Obs,Sdc) (04/23/23 12:21) Vital Signs: Per Unit Policy ( 08,16,00 (04/23/23 12:21) Robles Castellanos (04/23/23 12:21) Sequential Compression Device Q12HX1 (04/23/23 12:21) Rewards Consultant-Inpt Rehab Con (04/23/23 12:21) Rehab Nursing Orders-Ipoc (04/23/23 12:21) Physical Therapy Rehab Orders (04/23/23 12:21) Occupational Therapy Rehab Ord (04/23/23 12:21) Speech Therapy Rehab Orders (04/23/23 12:21) Cbc And Automated Diff (04/24/23 06:00) Comprehensive Metabolic Panel (04/24/23 06:00) Precautions (Aru) (04/23/23 12:21) Weekly Weight WEEK (04/23/23 12:21) Rehab-Intensity Of Therapy (04/23/23 12:21) Initiate Admission Nursing Pro .admission (04/23/23 12:21) Alprazolam Tablet (Alprazolam Tablet) (04/23/23 12:30) Calcium Carbonate Chew Tablet (Calcium C (04/23/23 12:30) Diphenhydramine Tablet (Diphenhydramine (04/23/23 12:30) Docusate Sodium Capsule (Docusate Sodium (04/23/23 21:00) Docusate Sodium Capsule (Docusate Sodium (04/23/23 12:30) Bisacodyl Suppository (Bisacodyl Supposi (04/23/23 12:30) Lactulose Oral Solution (Enulose Oral So (04/23/23 12:30) Na Phos/Na Biphos Adult Enema (Na Phos/N (04/23/23 12:30) Guaifenesin/Codeine Syrup (Guaifenesin/C (04/23/23 12:30) Loperamide Capsule (Loperamide Capsule) (04/23/23 12:30) Melatonin Tablet (Melatonin Tablet) (04/23/23 12:30) Polyethylene Glycol Powder (Polyethylen (04/23/23 21:00) Ondansetron Oral Dissolve Tab (Ondanset (04/23/23 12:30) Senna W/Docusate Tablet (Senna W/Docusat (04/23/23 21:00) Acetaminophen Tablet (Acetaminophen Ta (04/23/23 12:30) Initiate Admission Nursing Pro .admission (04/23/23 12:21) Admission Arrival Bed Request (04/23/23 13:32) Code/Resuscitation (04/23/23 14:52) Abduction Pillow: Apply (Order (04/23/23 14:52) Accucheck Achs ACHS (04/23/23 14:52) Incentive Spirometry (Nursing) Q2H (04/23/23 14:52) Nursing Communication (Order) (04/23/23 14:52) Sequential Compression Device Q12HX1 (04/23/23 14:52) Albuterol Pre-Mix Nebs (Rt) (Albuterol (04/23/23 15:00) Diphenhydramine Injection (Diphenhydram (04/23/23 15:00) Diphenhydramine Tablet (Diphenhydramine (04/23/23 15:00) Citalopram Tablet (Citalopram Tablet) (04/24/23 09:00) Docusate Sodium Capsule (Docusate Sodium (04/23/23 21:00) Bisacodyl Suppository (Bisacodyl Supposi (04/23/23 15:00) Bisacodyl Tablet (Bisacodyl Tablet) (04/23/23 15:00) Lactulose Oral Solution (Enulose Oral So (04/23/23 15:00) Magnesium Oxide Tablet (Magnesium Oxide (04/24/23 08:00) Melatonin Tablet (Melatonin Tablet) (04/23/23 15:00) Milk Of Magnesia Oral Susp (Milk Of Magn (04/23/23 15:00) Polyethylene Glycol Powder (Polyethylen (04/23/23 15:00) Multivitamin W/Mineral Tablet (Multivita (04/24/23 07:00) Antacid Suspension (Antacid Suspension (04/23/23 15:00) Insulin Aspart (Per Unit) (Insulin Aspar (04/23/23 16:00) Pantoprazole Tablet (Pantoprazole Tablet (04/24/23 09:00) Sennosides Tablet (Sennosides Tablet) (04/23/23 21:00) Calcium Carbonate Chew Tablet (Calcium C (04/23/23 15:00) Acetaminophen Tablet (Acetaminophen Ta (04/23/23 15:00) Ondansetron Injection (Ondansetron Inj (04/23/23 15:00) Ondansetron Oral Dissolve Tab (Ondanset (04/23/23 15:00) Amlodipine Tablet (Amlodipine Tablet) (04/24/23 09:00) Clonidine Tablet (Clonidine Tablet) (04/23/23 15:00) Morphine Injection (Morphine Injection (04/23/23 15:00) Oxycodone Immediate Rel Tablet (Oxycodon (04/23/23 15:00) Tizanidine Tablet (Zanaflex Tablet) (04/23/23 15:00) Incentive Spirometry Initial (04/23/23 14:52) Svn Small Volume Nebulizer (04/23/23 14:52) Incentive Spirometry (Nursing) Q2H (04/23/23 14:52) Iv Convert To Heplock (Order) (04/23/23 14:59) Catheter(Urinary) Discontinue (04/23/23 14:59) Enoxaparin Injection (Enoxaparin Injecti (04/24/23 09:00) General/Regular (04/23/23 Dinner) Mat Initiate Protocol (04/24/23 10:50) Oxygen Delivery Set Up (04/24/23 11:02) Oxygen-Administer 07,19 (04/24/23 11:02) Iron Test (Fe) (04/24/23 11:39) Vitamin B 12 (04/24/23 11:39) Soap Suds Enema Until Clear (04/24/23 11:39) Hydrocodone/Apap 5/325 Tablet (Hydrocod (04/24/23 12:00) Ns Iv 1000 Ml (Ns Iv 1000 Ml) (04/24/23 12:00) Tramadol Tablet (Ultram Tablet) (04/24/23 12:00) Sodium Chloride Tablet (Sodium Chloride (04/24/23 12:30) Sodium Chloride Tablet (Sodium Chloride (04/24/23 21:00) Cbc And Automated Diff (04/25/23 08:07) Comprehensive Metabolic Panel (04/25/23 08:07) Iron Sucrose Injection (Venofer Injectio (04/25/23 08:15) Cyanocobalamin Injection (Cyanocobalamin (04/25/23 08:15) Cyanocobalamin Injection (Cyanocobalamin (04/25/23 08:45) Iron Sucrose Injection (Venofer Injectio (04/27/23 09:00) Cbc And Automated Diff (04/26/23 06:00) Comprehensive Metabolic Panel (04/26/23 06:00) Patient Visit (04/23/23 ) Pt Eval Moderate Complexity (04/23/23 ) Patient Visit (04/23/23 ) Gait Training, Ea 15 Min (04/23/23 ) Wheelchair Mgmt/Propulsn 15min (04/23/23 ) Functional Activities, Ea 15 (04/23/23 ) Patient Visit (04/24/23 ) Functional Activities, Ea 15 (04/24/23 ) Exercise Therap, Ea 15 Min (04/24/23 ) Patient Visit (04/26/23 ) Speech Sound Lang Comp (04/26/23 ) Patient Visit (04/26/23 ) Gait Training, Ea 15 Min (04/26/23 ) Functional Activities, Ea 15 (04/26/23 ) Exercise Therap, Ea 15 Min (04/26/23 ) Patient Visit (04/26/23 ) Therapeutic, Group (04/26/23 ) Glucerna (04/26/23 15:39) Rehab Nursing Orders: Ongoing Assess. of Cognitive Status, Ongoing Assess. of Function Status, Bladder Management, Bladder Scan, Bladder Training, Bowel Management, Bowel Training, Disease Management & Educaiton, DVT Prophylaxis, Fall Prevention, Fluid/Electrolyte/Nutrition Mgmt, Infection Prevention, Medication Management & Education, Management of Risks & Complications, Nutrition Management, Pain Management, Patient/Family Support, Safety Manageme nt, Swallow Precautions, Wound Management Intensity of Therapy to be met Patient to be seen: Min.3h per day/5 of 7d PT IPOC Problem List: Activity Tolerance, Functional Strength, ROM Treatment Plan: Continue Plan of Care Bed Mobility, Education, Functional Activity Emanuel, Functional Strength, Group Therapy, Gait, Safety, Therapeutic Exercise, Transfers Treatment Duration: May 07, 2023 Frequency: At least 5 of 7 days/Wk (IRF) Estimated Hrs Per Day: 1.5 hours per day OT IPOC Problems: Decreased Activ Tolerance, Decreased UE Strength, Impaired Funct Balance, Impaired I ADL's, Impaired Self-Care Skills OT Treatment, Training and Edu: Yes Plan of Care: ADL Retraining, Caregiver Training, Concurrent Therapy, Functional Mobility, Group Exercise/Act as Ind, UE Funct Exercise/Act, Visual/ Perceptual Retrain, W/C Management Training Treatment Duration: May 08, 2023 Frequency: At least 5 of 7 days/Wk (IRF) Estimated Hrs Per Day: 1.[address] IPOC Speech Therapy Treatment Plan: Discontinue ST Treatment Duration: Apr 26, 2023 Frequency: 1 time per week Estimated Hrs Per Day: Other (Discontinue ST at this time) Rewards Consultant/Case Mgmt Rewards Consultant/Case Managemen: Discharge Planning Dietitian/Corn Chip Maker Dietitian/Corn Chip Maker to monitor nutritional status and make changes and/or recommendations as needed and work with speech pathology on dietary upgrades as the occur. Physician IPOC Medical Issues being managed closely and that require the 24 hour availability of a physician: Recent hypotension and severe anemia and JW declines blood products and hyponatremia along with oversedation will require close monitoring for any decline in status Medical Issues: Bowel/Bladder Function, DVT Prophylaxis, Falls Precautions, Fluid/Electrolyte/Nutrition Balance, Infection Protection, Pain Management, Weight Bearing Precautions, Wound Care Brief Synthesis of Preadmission Screen, Post-Admission Evaluation, and Therapy Evaluations: PT OT will focus on regaining function with use of AD in order to regain stamina and ambulation and increase independence in ADL's Medical Prognosis: Good Anticipated Length of Stay: 7 days TIFFANIE CONNER DO Apr 27, 2023 06:56
--- NOTE | 2023-04-27 07:01 | PM&R Progress Note ---
Subjective HPI/CC On Admission Date Seen by Provider: Apr 27, 2023 Time Seen by Provider: 12:00 Subjective/Events-last exam 04/27/2023: Much improved Slow recovery but walking much better Reviewed meds and labs BM+ 04/26/2023: Doing much better Less pain Labs stable Eating a bit Dramatically improved today 04/25/2023: Improved a bit Hgb 7.7 but when offered to transfuse the patient and daughter stated she is JW and will not accept blood products I was not aware she was JW so will put that in her chart and give additional iron infusions and B12 Less sedated BM+ 04/24/2023: Patient back in bed when I assessed her Appears to be lethargic I reviewed her meds and the only med she has received last night was an oxydocone and that could certainly be the cause and have this residual so will DC that and start Ultram and only if severe pain will Hydrocodone be initiated. Patient ate bfast but I don't think she is consuming enough fluids so will restart fluids Overall a catastrophic decline from left hip replacement which will need close intensive medical management to regain back to baseline Review of Systems General: Fatigue, Malaise Objective Exam Vital Signs Vital Signs Date Time Temp Pulse Resp B/P (MAP) Pulse Ox O2 Delivery O2 Flow Rate FiO2 04/27/23 08:00 36.3 76 17 154/70 (98) 97 Room Air 04/25/23 09:14 0.00 04/24/23 10:50 21 Capillary Refill : General Appearance: No Apparent Distress, WD/WN, Chronically ill, Obese, Other (fatigued) HEENT: PERRL/EOMI, Normal ENT Inspection, Pharynx Normal Neck: Full Range of Motion, Normal Inspection, Non Tender, Supple, Carotid Bruit Respiratory: Chest Non Tender, Lungs Clear, Normal Breath Sounds, No Accessory Muscle Use, No Respiratory Distress Cardiovascular: Regular Rate, Rhythm, No Edema, No Gallop, No JVD, No Murmur, Normal Peripheral Pulses Gastrointestinal: Normal Bowel Sounds, No Organomegaly, No Pulsatile Mass, Non Tender, Soft Back: Normal Inspection, No CVA Tenderness, No Vertebral Tenderness Extremity: Normal Capillary Refill, Normal Inspection, Normal Range of Motion, Non Tender, No Calf Tenderness, No Pedal Edema Neurologic/Psychiatric: Alert, Oriented x3, refuse driver II-XII Norm as Tested, Abnormal Gait, Depressed Affect, Motor Weakness (left leg) Skin: Normal Color, Warm/Dry Lymphatic: No Adenopathy Results/Procedures Lab Patient resulted labs reviewed. FIM Transfers Therapy Code Descriptions/Definitions Functional [place] Measure: 0=Not Assessed/NA 4=Minimal Assistance 1=Total Assistance 5=Supervision or Setup 2=Maximal Assistance 6=Modified [place] 3=Moderate Assistance 7=Complete IndependenceSCALE: Activities may be completed with or without assistive devices. 8-Oncagwqhqe-ctlvlfj completes the activity by him/herself with no assistance from a helper. 5-Set-up or Clean-up Assistance-helper sets up or cleans up; patient completes activity. [place] assists only prior to or following the activity. 4-Supervision or Touching Assistance-helper provides verbal cues and/or touching/steadying and/or contact guard assistance as patient completes activity. Assistance may be provided throughout the activity or intermittently. 3-Partial/Moderate Assistance-helper does LESS THAN HALF the effort. [place] lifts, holds or supports trunk or limbs, but provides less than half the effort. 2-Substantial/Maximal Assistance-helper does MORE THAN HALF the effort. [place] lifts or holds trunk or limbs and provides more than half the effort. 2-Qliwsgsam-fpagnk does ALL the effort. Patient does none of the effort to complete the activity. Or, the assistance of 2 or more helpers is required for the patient to complete the activity. If activity was not attempted, code reason: 7-Patient Refused. 9-Not Applicable-not attempted and the patient did not perform the activity before the current illness, exacerbation or injury. 10-Not Attempted due to Environmental Limitations-(lack of equipment, weather restraints, etc.). 88-Not Attempted due to Medical Conditions or Safety Concerns. Roll Left to Right (QC): 1 Sit to Lying (QC): 1 (max (A) of 2) Sit to Stand (QC): 4 (CGA for safety) Chair/Awl-dd-Pdnkp Xfer(QC): 1 (Min (A) of 2, exceptionally slow praveen) Car Transfer (QC): 88 Gait Training Does the Patient Walk?: Yes Distance: 7' x2 Walk 10 feet (QC): 4 (CGA for safety) Walk 50 ft with 2 Turns(QC): 88 (Pt only amb 20') Walk 150 ft (QC): 88 (Pt only amb 20') Walking 10ft/uneven surface-QC: 88 Gait Assistive Device: FWW Wheelchair Training Does the Pt Use a Wheelchair?: No Distance: 50' x 2 Wheel 50 ft with 2 turns (QC): 5 Wheel 150 ft (QC): 88 (unable to reach 150' due to fatigue) Type of Wheelchair: Manual Stair Training 1 Step (curb) (QC): 88 4 Steps (QC): 88 12 Steps (QC): 88 Balance Picking up an Object (QC): 88 ADL-Treatment Eating (QC): 5 Oral Hygiene (QC): 5 (oral swab) Shower/Bathe Self (QC): 2 (pt and daughter refused shower due to having one earlier in the day, though reported requiring max A to complete showering. ) Upper Body Dressing (QC): 5 Lower Body Dressing (QC): 3 (Min A with pant hike. Education provided on AE ) On/Off Footwear (QC): 2 (Max A overall using AE.) Toileting Hygiene (QC): 3 (to complete toilet hygiene in standing ) Toilet Transfer (QC): 3 (with 2 people, extended time and extensive cueing ) Assessment/Plan Assessment and Plan Assess & Plan/Chief Complaint Left hip replacement Hypotensive episode from volume depletion from poor PO intake requiring ICU transfer (not due to sepsis) Overmedication from muscle relaxants and pain meds CARINA DM HTN HLP Hypothyroidism Depression Abnormal UTI but negative UCx s/p empiric Rocephin Post op anemia from blood loss Hyponatremia JW will not accept blood products Plan: Aggressive PT OT Increase motivation Decrease sedatives Increase PO intake 04/24/2023: Give IVF DC Oxycodone since it appears to be too strong for the patient Ultram and Hydrocodone Minimize sedating meds IVF Check iron and B12 Sodium tablets 04/25/2023: HLIVF Iron infusions 04/26/2023: Monitor closely 04/27/2023: Much improved Slow recovery (1) S/P total left hip arthroplasty TIFFANIE CONNER DO Apr 27, 2023 07:01
[2023-04-27 08:00] VITALS: BP 154/70
[2023-04-27] MEDS: PANTOPRAZOLE 20 MG TABLET PO SCH (08:13)
[2023-04-27] MEDS: SODIUM CHLORIDE 1 GM TABLET PO SCH ×2 (08:14→21:49)
[2023-04-27] MEDS: amLODIPine 5 MG TABLET PO SCH (08:14)
[2023-04-27] MEDS: MAGNESIUM OXIDE 400 MG TABLET PO SCH (08:14)
[2023-04-27] MEDS: CITALOPRAM 20 MG TABLET PO SCH (08:14)
[2023-04-27] MEDS: IRON SUCROSE 200 MG/10 ML VIAL IV SCH (08:14)
[2023-04-27] MEDS: ENOXAPARIN 40 MG/0.4 ML SYRINGE SC SCH (08:25)
[2023-04-27] MEDS: SENNOSIDES 8.6 MG TABLET PO SCH ×2 (11:10→21:49)
[2023-04-27] MEDS: DOCUSATE SODIUM 100 MG CAPSULE PO SCH ×2 (11:10→21:49)
--- NOTE | 2023-04-27 15:23 | Occupational Ther Daily Note ---
OT Current Status-Daily Note Subjective Pt received sitting in hip chair with daughter at bedside. Pt very pleasant and willing to participate in therapy. Pain Numeric Pain Scale: 4 Location Body Site: Hip Pain Description: Throbbing Mental Status/Objective Patient Orientation: Person, Place, Time, Situation Attachments: IV ADL-Treatment Therapy Code Descriptions/Definitions Functional [place] Measure: 0=Not Assessed/NA 4=Minimal Assistance 1=Total Assistance 5=Supervision or Setup 2=Maximal Assistance 6=Modified [place] 3=Moderate Assistance 7=Complete IndependenceSCALE: Activities may be completed with or without assistive devices. 2-Bvsxemuwdw-bouttmh completes the activity by him/herself with no assistance from a helper. 5-Set-up or Clean-up Assistance-helper sets up or cleans up; patient completes activity. [place] assists only prior to or following the activity. 4-Supervision or Touching Assistance-helper provides verbal cues and/or touching/steadying and/or contact guard assistance as patient completes activity. Assistance may be provided throughout the activity or intermittently. 3-Partial/Moderate Assistance-helper does LESS THAN HALF the effort. [place] lifts, holds or supports trunk or limbs, but provides less than half the effort. 2-Substantial/Maximal Assistance-helper does MORE THAN HALF the effort. [place] lifts or holds trunk or limbs and provides more than half the effort. 8-Hmnopmohh-hvjcog does ALL the effort. Patient does none of the effort to complete the activity. Or, the assistance of 2 or more helpers is required for the patient to complete the activity. If activity was not attempted, code reason: 7-Patient Refused. 9-Not Applicable-not attempted and the patient did not perform the activity before the current illness, exacerbation or injury. 10-Not Attempted due to Environmental Limitations-(lack of equipment, weather restraints, etc.). 88-Not Attempted due to Medical Conditions or Safety Concerns. Lower Body Dressing (QC): 4 (to pull up brief and pants after toileting ) On/Off Footwear: 2 (to don/doff socks without using adaptive equipment) Toileting Hygiene (QC): 3 (to complete toilet hygiene in standing ) Toilet Transfer (QC): 3 (to [facility]) Other Treatment Pt completed functional mobility for ~80ftx2 with FWW and standby assist for safety and balance, requiring min cues for hand placement. Pt requiring increased time and rest breaks throughout mobility due to increased fatigue. Pt requiring mod A for strength when standing from normal height chair, though is min A to supervision from high hip chair. Education OT Patient Education: Correct positioning, Energy conservation, Home exercise program, Instructions to caregiver, Modified ADL techniques, Progress toward Goal/Update tx plan, Purpose of tx/functional activities, Reviewed precautions, Rehab process, Safety issues, Transfer techniques, Use of adapted equipment Teaching Recipient: Patient, Family Teaching Methods: Demonstration, Discussion Response to Teaching: Verbalize Understanding, Return Demonstration OT Short Term Goals Short Term Goals Time Frame: Apr 30, 2023 Eatin Oral hygiene: 5 (in sitting ) Toileting hygiene: 3 Shower/bathe self: 3 Upper body dressin Lower body dressin Putting on/taking off footwear: 3 OT Senior Care Goals Conservation Enforcement Officer Goals Time Frame: May 07, 2023 Acute change in mental status: 0 Inattention: 0 Disorganized thinkin Altered level of consciousness: 0 Eating (QC): 6 Oral Hygiene (QC): 6 Toileting Hygiene (QC): 6 Shower/Bathe Self (QC): 4 Upper Body Dressing (QC): 6 Lower Body Dressing (QC): 6 On/Off Footwear (QC): 6 1=Demonstrate adherence to instructed precautions during ADL tasks. 2=Patient will verbalize/demonstrate understanding of assistive devices/modifications for ADL. 3=Patient will improve strength/tolerance for activity to enable patient to perform ADL's. OT Education/Plan Problem List/Assessment Assessment: Decreased Activ Tolerance, Decreased Safety Aware, Decreased UE Strength, Impaired Bed Mobility, Impaired Coordination, Impaired Funct Balance, Impaired I ADL's, Impaired Self-Care Skills Discharge Recommendations Plan/Recommendations: Continue POC Treatment Plan/Plan of Care Treatment,Training & Education: Yes Patient would benefit from OT for education, treatment and training to promote independence in ADL's, mobility, safety and/or upper extremity function for ADL's. Plan of Care: ADL Retraining, Caregiver Training, Concurrent Therapy, Functional Mobility, Group Exercise/Act as Ind, UE Funct Exercise/Act, Visual/Perceptual Retrain, W/C Management Training Treatment Duration: May 08, 2023 Frequency: At least 5 of 7 days/Wk (IRF) Estimated Hrs Per Day: 1.5 hours per day Agreement: Yes Rehab Potential: Good Time Start Time: 09:45 ([facility] OT/PT 9:45-10:45) Stop Time: 10:45 DATE: Apr 27, 2023 Total Time Billed (hr/min): 60 Billed Treatment Time 1, FA 4 Evelyne Fountain OTR/L Apr 27, 2023 15:23
--- NOTE | 2023-04-27 15:24 | Physical Therapy Daily Note ---
PT Daily Note-Current Subjective Pt presents sitting in hip chair. Pt's daughter present in room. Pt reports 3/10 pain in (L) hip/thigh. Pt agreeable to PT/OT cotreat. Pain Section J - Health Conditions 1. Rarely or not at all 2. Occasionally 3. Frequently 4. Almost constantly 8. Unable to answer Pain Effect on Sleep: 4 Pain Interference with Therapy: 4 Pain Interference w/Day-to-Day: 4 Mental Status Patient Orientation: Person, Place, Time, Situation Transfers SCALE: Activities may be completed with or without assistive devices. 9-Qhvpgeroxi-drggkgz completes the activity by him/herself with no assistance from a helper. 5-Set-up or Clean-up Assistance-helper sets up or cleans up; patient completes activity. [place] assists only prior to or following the activity. 4-Supervision or Touching Assistance-helper provides verbal cues and/or touching/steadying and/or contact guard assistance as patient completes activity. Assistance may be provided throughout the activity or intermittently. 3-Partial/Moderate Assistance-helper does LESS THAN HALF the effort. [place] lift s, holds or supports trunk or limbs, but provides less than half the effort. 2-Substantial/Maximal Assistance-helper does MORE THAN HALF the effort. [place] lifts or holds trunk or limbs and provides more than half the effort. 3-Icfnimzej-pftmyl does ALL the effort. Patient does none of the effort to complete the activity. Or, the assistance of 2 or more helpers is required for the patient to complete the activity. If activity was not attempted, code reason: 7-Patient Refused. 9-Not Applicable-not attempted and the patient did not perform the activity before the current illness, exacerbation or injury. 10-Not Attempted due to Environmental Limitations-(lack of equipment, weather restraints, etc.). 88-Not Attempted due to Medical Conditions or Safety Concerns. Sit to Stand (QC): 3 (ModA for regular height chair. SBA for hip chair.) Weight Bearing Full Weight Bearing Weight Bearing/Tolerated Gait Training Does the Patient Walk?: Yes Walk 10 feet (QC): 4 Walk 50 ft with 2 Turns(QC): 4 Gait Assistive Device: FWW Pt amb 80' x 2 /c FWW, SBA for vc/tc's. Wheelchair Training Does the Pt Use a Wheelchair?: No Exercises THER EX: Manual B LE HS stretch x 15s x 2 reps. Seated B LE ankle pumps. Pt performed multiple sit<>stand transfers, /c FWW and SBA (hip chair) to ModA (regular height chair). Treatments PT/OT co-treat([id number]), skills of 2 clinicians required for skilled instruction for safe ambulation and ADL/IADL tasks at home. PT focusing on LE for ambulation, transfers and all mobility while OT focusing on UE for ADLs and functional mobility during ADLs. Post tx with pt in hip recliner, daughter present in room, call light within reach and all needs met. Assessment Current Status: Good Progress Pt increased amb distance from 20' to 80' x 2 /c FWW, SBA. PT Industrial Economist Goals [facility] Goals PT Industrial Economist Goals Time Frame: May 07, 2023 Roll Left & Right (QC): 4 Sit to Lying (QC): 4 Lying-Sitting on Side/Bed(QC): 4 Sit to Stand (QC): 4 Chair/Xpj-zi-Jywrm Xfer(QC): 4 (/c FWW) Toilet Transfer (QC): 4 (/c FWW) Car Transfer (QC): 4 (/c FWW) Does the Patient Walk: Yes Walk 10 feet (QC): 4 (/c FWW) Walk 50ft with 2 Turns (QC): 4 (/c FWW) Walk 150 ft (QC): 4 (/c FWW) Walking 10ft on Uneven Surface: 4 (/c FWW) 1 Step (curb) (QC): 3 (/c FWW) 4 Steps (QC): 9 12 Steps (QC): 9 Picking up an Object (QC): 5 (/c AE) Does the Pt use WC or Scooter?: Yes Wheel 50 feet with 2 turns (QC: 6 Type: Manual Wheel 150 feet: 6 Type: Motorized PT Plan Problem List Problem List: Activity Tolerance, Functional Strength, ROM Treatment/Plan Treatment Plan: Continue Plan of Care Treatment Plan: Bed Mobility, Education, Functional Activity Emanuel, Functional Strength, Group Therapy, Gait, Safety, Therapeutic Exercise, Transfers Treatment Duration: May 07, 2023 Frequency: At least 5 of 7 days/Wk (IRF) Estimated Hrs Per Day: 1.5 hours per day Safety Risks/Education Patient Education: Gait Training, Reviewed Precautions, Correct Positioning, Safety Issues Teaching Recipient: Patient, Family Discharge Recommendations Plan Continue with tx per pt POC. Time Time In: 944 Time Out: 1045 DATE: Apr 27, 2023 Total Billed Treatment Time: 60 Total Billed Treatment 1, GT2 (30m), FA2 (30m). CoTx /c OT: [id number] (60m). FAREED ROMAN KITCHEN MECHANIC Apr 27, 2023 15:24
--- NOTE | 2023-04-27 15:31 | Occupational Ther Daily Note ---
OT Current Status-Daily Note Subjective Pt received sitting in hip chair with daughter at bedside. Pt pleasant and willing to participate in therapy. Pain Numeric Pain Scale: 4 Location Body Site: Hip Pain Description: Throbbing Mental Status/Objective Patient Orientation: Person, Place, Time, Situation Attachments: IV ADL-Treatment Therapy Code Descriptions/Definitions Functional [place] Measure: 0=Not Assessed/NA 4=Minimal Assistance 1=Total Assistance 5=Supervision or Setup 2=Maximal Assistance 6=Modified [place] 3=Moderate Assistance 7=Complete IndependenceSCALE: Activities may be completed with or without assistive devices. 0-Cnqxbvptaq-tqqewri completes the activity by him/herself with no assistance from a helper. 5-Set-up or Clean-up Assistance-helper sets up or cleans up; patient completes activity. [place] assists only prior to or following the activity. 4-Supervision or Touching Assistance-helper provides verbal cues and/or touching/steadying and/or contact guard assistance as patient completes activity. Assistance may be provided throughout the activity or intermittently. 3-Partial/Moderate Assistance-helper does LESS THAN HALF the effort. [place] lifts, holds or supports trunk or limbs, but provides less than half the effort. 2-Substantial/Maximal Assistance-helper does MORE THAN HALF the effort. [place] lifts or holds trunk or limbs and provides more than half the effort. 8-Tzzlerjlx-lswemn does ALL the effort. Patient does none of the effort to complete the activity. Or, the assistance of 2 or more helpers is required for the patient to complete the activity. If activity was not attempted, code reason: 7-Patient Refused. 9-Not Applicable-not attempted and the patient did not perform the activity before the current illness, exacerbation or injury. 10-Not Attempted due to Environmental Limitations-(lack of equipment, weather restraints, etc.). 88-Not Attempted due to Medical Conditions or Safety Concerns. Lower Body Dressing (QC): 4 (to pull up briefs and pants after toileting) Toileting Hygiene (QC): 3 (to complete toilet hygiene in standing) Toilet Transfer (QC): 3 (to complete toilet transfer) Other Treatment Pt complete functional UE strengthening activity in supported sitting with #1 wrist weights for ~20mins. Pt completed bed mobility with max A due to fatigue, though completed scooting in sitting with Min A. Education OT Patient Education: Correct positioning, Energy conservation, Home exercise program, Instructions to caregiver, Modified ADL techniques, Progress toward Goal/Update tx plan, Purpose of tx/functional activities, Reviewed precautions, Rehab process, Safety issues, Transfer techniques, Use of adapted equipment Teaching Recipient: Patient, Family Teaching Methods: Demonstration, Discussion Response to Teaching: Verbalize Understanding, Return Demonstration OT Short Term Goals Short Term Goals Time Frame: Apr 30, 2023 Eatin Oral hygiene: 5 (in sitting ) Toileting hygiene: 3 Shower/bathe self: 3 Upper body dressin Lower body dressin Putting on/taking off footwear: 3 OT Fire Extinguisher Tester Goals Fire Extinguisher Tester Goals Time Frame: May 07, 2023 Acute change in mental status: 0 Inattention: 0 Disorganized thinkin Altered level of consciousness: 0 Eating (QC): 6 Oral Hygiene (QC): 6 Toileting Hygiene (QC): 6 Shower/Bathe Self (QC): 4 Upper Body Dressing (QC): 6 Lower Body Dressing (QC): 6 On/Off Footwear (QC): 6 1=Demonstrate adherence to instructed precautions during ADL tasks. 2=Patient will verbalize/demonstrate understanding of assistive devices/modifications for ADL. 3=Patient will improve strength/tolerance for activity to enable patient to perform ADL's. OT Education/Plan Problem List/Assessment Assessment: Decreased Activ Tolerance, Decreased Safety Aware, Decreased UE Strength, Impaired Bed Mobility, Impaired Coordination, Impaired Funct Balance, Impaired I ADL's, Impaired Self-Care Skills Discharge Recommendations Plan/Recommendations: Continue POC Treatment Plan/Plan of Care Treatment,Training & Education: Yes Patient would benefit from OT for education, treatment and training to promote independence in ADL's, mobility, safety and/or upper extremity function for ADL's. Plan of Care: ADL Retraining, Caregiver Training, Concurrent Therapy, Functional Mobility, Group Exercise/Act as Ind, UE Funct Exercise/Act, Visual/Perceptual Retrain, W/C Management Training Treatment Duration: May 08, 2023 Frequency: At least 5 of 7 days/Wk (IRF) Estimated Hrs Per Day: 1.5 hours per day Agreement: Yes Rehab Potential: Good Time Start Time: 13:00 ([id number] OT tx only; [id number] cotx) Stop Time: 14:00 DATE: Apr 27, 2023 Total Time Billed (hr/min): 60 Billed Treatment Time 1, ADL 2, EX 2 Evelyne Fountain OTR/L Apr 27, 2023 15:31
--- NOTE | 2023-04-27 15:42 | Physical Therapy Daily Note ---
PT Daily Note-Current Subjective Pt presents sitting in chair in [employer], with daughter and OT. Pt reports pain 4/10 in (L) hip/thigh. Pt states her hip is "throbbing". Pt agreeable to PT/OT cotreat. Pain Section J - Health Conditions 1. Rarely or not at all 2. Occasionally 3. Frequently 4. Almost constantly 8. Unable to answer Pain Effect on Sleep: 4 Pain Interference with Therapy: 4 Pain Interference w/Day-to-Day: 4 Mental Status Patient Orientation: Person, Place, Time, Situation Transfers SCALE: Activities may be completed with or without assistive devices. 0-Hosgarkbwy-dwxptwc completes the activity by him/herself with no assistance from a helper. 5-Set-up or Clean-up Assistance-helper sets up or cleans up; patient completes activity. [place] assists only prior to or following the activity. 4-Supervision or Touching Assistance-helper provides verbal cues and/or touching/steadying and/or contact guard assistance as patient completes act ivity. Assistance may be provided throughout the activity or intermittently. 3-Partial/Moderate Assistance-helper does LESS THAN HALF the effort. [place] lifts, holds or supports trunk or limbs, but provides less than half the effort. 2-Substantial/Maximal Assistance-helper does MORE THAN HALF the effort. [place] lifts or holds trunk or limbs and provides more than half the effort. 7-Wmfepuala-sfblib does ALL the effort. Patient does none of the effort to complete the activity. Or, the assistance of 2 or more helpers is required for the patient to complete the activity. If activity was not attempted, code reason: 7-Patient Refused. 9-Not Applicable-not attempted and the patient did not perform the activity before the current illness, exacerbation or injury. 10-Not Attempted due to Environmental Limitations-(lack of equipment, weather restraints, etc.). 88-Not Attempted due to Medical Conditions or Safety Concerns. Weight Bearing Full Weight Bearing Weight Bearing/Tolerated Treatments Pt's daughter requested PT discuss therapy goals with herself and pt. PT/OT co-treat([id number]), skills of 2 clinicians required for discussing OT & PT therapy goals for pt. PT focusing on therapy goals for ambulation, transfers and all LE mobility, while OT focusing on therapy goals for UE ADLs and functional mobility during ADLs. Post tx with pt at table in [facility], OT still treating, daughter present and all needs met. Assessment Current Status: Good Progress Pt and pt's family both were able to verbalize understanding of OT/PT therapy goals. PT Real Estate Clerk Goals Detention Goals PT Real Estate Clerk Goals Time Frame: May 07, 2023 Roll Left & Right (QC): 4 Sit to Lying (QC): 4 Lying-Sitting on Side/Bed(QC): 4 Sit to Stand (QC): 4 Chair/Kgh-wz-Kvvaz Xfer(QC): 4 (/c FWW) Toilet Transfer (QC): 4 (/c FWW) Car Transfer (QC): 4 (/c FWW) Does the Patient Walk: Yes Walk 10 feet (QC): 4 (/c FWW) Walk 50ft with 2 Turns (QC): 4 (/c FWW) Walk 150 ft (QC): 4 (/c FWW) Walking 10ft on Uneven Surface: 4 (/c FWW) 1 Step (curb) (QC): 3 (/c FWW) 4 Steps (QC): 9 12 Steps (QC): 9 Picking up an Object (QC): 5 (/c AE) Does the Pt use WC or Scooter?: Yes Wheel 50 feet with 2 turns (QC: 6 Type: Manual Wheel 150 feet: 6 Type: Motorized PT Plan Problem List Problem List: Activity Tolerance, Functional Strength, Safety, ROM Treatment/Plan Treatment Plan: Continue Plan of Care Treatment Plan: Bed Mobility, Education, Functional Activity Emanuel, Functional Strength, Group Therapy, Gait, Safety, Therapeutic Exercise, Transfers Treatment Duration: May 07, 2023 Frequency: At least 5 of 7 days/Wk (IRF) Estimated Hrs Per Day: 1.5 hours per day Safety Risks/Education Patient Education: Gait Training, Transfer Techniques, Steps, Issued Written HEP, Reviewed Precautions DEMI CHEF discussed all PT goals with pt and pt's daughter, including: bed mobility, all transfers, walking 10-150', walking on uneven terrain, steps and neuromu scular reeducation. Discharge Recommendations Plan Continue with tx per pt POC. Time Time In: 1350 Time Out: 1400 DATE: Apr 27, 2023 Total Billed Treatment Time: 10 Total Billed Treatment 1, FA (10m). CoTx /c OT: [id number] (10m). FAREED ROMAN DEMI CHEF Apr 27, 2023 15:42
[2023-04-27 20:22] VITALS: BP 152/73
--- NOTE | 2023-04-28 04:54 | PM&R Progress Note ---
Subjective HPI/CC On Admission Date Seen by Provider: Apr 28, 2023 Time Seen by Provider: 13:00 Subjective/Events-last exam 04/28/2023: Patient doing well Discharging on Wednesday Overall seems to be doing much better Not eating as well as she should but she will try 04/27/2023: Much improved Slow recovery but walking much better Reviewed meds and labs BM+ 04/26/2023: Doing much better Less pain Labs stable Eating a bit Dramatically improved today 04/25/2023: Improved a bit Hgb 7.7 but when offered to transfuse the patient and daughter stated she is JW and will not accept blood products I was not aware she was JW so will put that in her chart and give additional iron infusions and B12 Less sedated BM+ 04/24/2023: Patient back in bed when I assessed her Appears to be lethargic I reviewed her meds and the only med she has received last night was an oxydocone and that could certainly be the cause and have this residual so will DC that and start Ultram and only if severe pain will Hydrocodone be initiated. Patient ate bfast but I don't think she is consuming enough fluids so will restart fluids Overall a catastrophic decline from left hip replacement which will need close intensive medical management to regain back to baseline Review of Systems General: Fatigue, Malaise Objective Exam Vital Signs Vital Signs Date Time Temp Pulse Resp B/P (MAP) Pulse Ox O2 Delivery O2 Flow Rate FiO2 04/28/23 09:45 Room Air 04/28/23 08:00 36.5 88 17 166/73 (104) 98 04/25/23 09:14 0.00 04/24/23 10:50 21 Capillary Refill : General Appearance: No Apparent Distress, WD/WN, Chronically ill, Obese, Other (fatigued) HEENT: PERRL/EOMI, Normal ENT Inspection, Pharynx Normal Neck: Full Range of Motion, Normal Inspection, Non Tender, Supple, Carotid Bruit Respiratory: Chest Non Tender, Lungs Clear, Normal Breath Sounds, No Accessory Muscle Use, No Respiratory Distress Cardiovascular: Regular Rate, Rhythm, No Edema, No Gallop, No JVD, No Murmur, Normal Peripheral Pulses Gastrointestinal: Normal Bowel Sounds, No Organomegaly, No Pulsatile Mass, Non Tender, Soft Back: Normal Inspection, No CVA Tenderness, No Vertebral Tenderness Extremity: Normal Capillary Refill, Normal Inspection, Normal Range of Motion, Non Tender, No Calf Tenderness, No Pedal Edema Neurologic/Psychiatric: Alert, Oriented x3, warp hanger II-XII Norm as Tested, Abnormal Gait, Depressed Affect, Motor Weakness (left leg) Skin: Normal Color, Warm/Dry Lymphatic: No Adenopathy Results/Procedures Lab Patient resulted labs reviewed. FIM Transfers Therapy Code Descriptions/Definitions Functional [place] Measure: 0=Not Assessed/NA 4=Minimal Assistance 1=Total Assistance 5=Supervision or Setup 2=Maximal Assistance 6=Modified [place] 3=Moderate Assistance 7=Complete IndependenceSCALE: Activities may be completed with or without assistive devices. 2-Hszwhjfznc-heafuol completes the activity by him/herself with no assistance from a helper. 5-Set-up or Clean-up Assistance-helper sets up or cleans up; patient completes activity. [place] assists only prior to or following the activity. 4-Supervision or Touching Assistance-helper provides verbal cues and/or touching/steadying and/or contact guard assistance as patient completes activ ity. Assistance may be provided throughout the activity or intermittently. 3-Partial/Moderate Assistance-helper does LESS THAN HALF the effort. [place] lifts, holds or supports trunk or limbs, but provides less than half the effort. 2-Substantial/Maximal Assistance-helper does MORE THAN HALF the effort. [place] lifts or holds trunk or limbs and provides more than half the effort. 6-Vykhlrgtk-qhrfpe does ALL the effort. Patient does none of the effort to complete the activity. Or, the assistance of 2 or more helpers is required for the patient to complete the activity. If activity was not attempted, code reason: 7-Patient Refused. 9-Not Applicable-not attempted and the patient did not perform the activity before the current illness, exacerbation or injury. 10-Not Attempted due to Environmental Limitations-(lack of equipment, weather restraints, etc.). 88-Not Attempted due to Medical Conditions or Safety Concerns. Roll Left to Right (QC): 1 Sit to Lying (QC): 1 (max (A) of 2) Sit to Stand (QC): 3 (ModA for regular height chair. SBA for hip chair.) Chair/Qyh-aj-Eqvjf Xfer(QC): 1 (Min (A) of 2, exceptionally slow praveen) Car Transfer (QC): 88 Gait Training Does the Patient Walk?: Yes Distance: 7' x2 Walk 10 feet (QC): 4 Walk 50 ft with 2 Turns(QC): 4 Walk 150 ft (QC): 88 (Pt only amb 20') Walking 10ft/uneven surface-QC: 88 Gait Assistive Device: FWW Wheelchair Training Does the Pt Use a Wheelchair?: No Distance: 50' x 2 Wheel 50 ft with 2 turns (QC): 5 Wheel 150 ft (QC): 88 (unable to reach 150' due to fatigue) Type of Wheelchair: Manual Stair Training 1 Step (curb) (QC): 88 4 Steps (QC): 88 12 Steps (QC): 88 Balance Picking up an Object (QC): 88 ADL-Treatment Eating (QC): 5 Oral Hygiene (QC): 5 (oral swab) Shower/Bathe Self (QC): 2 (pt and daughter refused shower due to having one earlier in the day, though reported requiring max A to complete showering. ) Upper Body Dressing (QC): 5 Lower Body Dressing (QC): 4 (to pull up briefs and pants after toileting) On/Off Footwear (QC): 2 (to don/doff socks without using adaptive equipment) Toileting Hygiene (QC): 3 (to complete toilet hygiene in standing) Toilet Transfer (QC): 3 (to complete toilet transfer) Assessment/Plan Assessment and Plan Assess & Plan/Chief Complaint Left hip replacement Hypotensive episode from volume depletion from poor PO intake requiring ICU transfer (not due to sepsis) Overmedication from muscle relaxants and pain meds CARINA DM HTN HLP Hypothyroidism Depression Abnormal UTI but negative UCx s/p empiric Rocephin Post op anemia from blood loss Hyponatremia JW will not accept blood products Plan: Aggressive PT OT Increase motivation Decrease sedatives Increase PO intake 04/24/2023: Give IVF DC Oxycodone since it appears to be too strong for the patient Ultram and Hydrocodone Minimize sedating meds IVF Check iron and B12 Sodium tablets 04/25/2023: HLIVF Iron infusions 04/26/2023: Monitor closely 04/27/2023: Much improved Slow recovery 04/28/2023: Supportive care Increase nutrition Maintain bowel regimen (1) S/P total left hip arthroplasty TIFFANIE CONNER 15, 2023 04:54
[2023-04-28] MEDS: inSUlin ASPART 1 UNIT/0.01 ML (PER UNIT) SC SCH ×4 (05:51→20:47)
[2023-04-28] MEDS: THERAPEUTIC MULTIVITAMIN W/MINERALS TABLET PO SCH (06:32)
[2023-04-28 08:00] VITALS: BP 166/73
[2023-04-28] MEDS: DOCUSATE SODIUM 100 MG CAPSULE PO SCH ×2 (08:04→21:33)
[2023-04-28] MEDS: PANTOPRAZOLE 20 MG TABLET PO SCH (08:04)
[2023-04-28] MEDS: SODIUM CHLORIDE 1 GM TABLET PO SCH ×2 (08:04→21:33)
[2023-04-28] MEDS: amLODIPine 5 MG TABLET PO SCH (08:04)
[2023-04-28] MEDS: ENOXAPARIN 40 MG/0.4 ML SYRINGE SC SCH (08:04)
[2023-04-28] MEDS: SENNOSIDES 8.6 MG TABLET PO SCH ×2 (08:04→21:33)
[2023-04-28] MEDS: CITALOPRAM 20 MG TABLET PO SCH (08:04)
[2023-04-28] MEDS: MAGNESIUM OXIDE 400 MG TABLET PO SCH (08:05)
--- NOTE | 2023-04-28 09:09 | Occupational Ther Daily Note ---
OT Current Status-Daily Note Subjective Pt agreeable to OT Tx. ADL-Treatment Therapy Code Descriptions/Definitions Functional [place] Measure: 0=Not Assessed/NA 4=Minimal Assistance 1=Total Assistance 5=Supervision or Setup 2=Maximal Assistance 6=Modified [place] 3=Moderate Assistance 7=Complete IndependenceSCALE: Activities may be completed with or without assistive devices. 7-Wksqmmdejm-geeiovo completes the activity by him/herself with no assistance from a helper. 5-Set-up or Clean-up Assistance-helper sets up or cleans up; patient completes activity. [place] assists only prior to or following the activity. 4-Supervision or Touching Assistance-helper provides verbal cues and/or touching/steadying and/or contact guard assistance as patient completes activity. Assistance may be provided throughout the activity or intermittently. 3-Partial/Moderate Assistance-helper does LESS THAN HALF the effort. [place] lifts, holds or supports trunk or limbs, but provides less than half the effort. 2-Substantial/Maximal Assistance-helper does MORE THAN HALF the effort. [place] lifts or holds trunk or limbs and provides more than half the effort. 0-Effobpete-xaqchk does ALL the effort. Patient does none of the effort to complete the activity. Or, the assistance of 2 or more helpers is required for the patient to complete the activity. If activity was not attempted, code reason: 7-Patient Refused. 9-Not Applicable-not attempted and the patient did not perform the activity before the current illness, exacerbation or injury. 10-Not Attempted due to Environmental Limitations-(lack of equipment, weather restraints, etc.). 88-Not Attempted due to Medical Conditions or Safety Concerns. Oral Hygiene (QC): 6 (seated at sink) Toileting Hygiene (QC): 4 (CGA) Toilet Transfer (QC): 4 (CGA on/off BSC over toilet.) Other Treatment Pt agreeable to OT tx. Sit to stand from hip chair, CGA, CGA using FWW to transfer into bathroom and onto BSC over toilet. Pt completed toileting with CGA, then transferred to w/c, CGA. Pt sat at sink, washed hands, washed face, and completed oral care IND. Pt propelled w/c to therapy gym in order to increase BUE strength, pt completed w/c mobility wtih UEs only. OT tx focused on increasing BUE strength and activity tolerance. Pt completed arm bike, x10 mins, 5-10 watt resistance, no rest breaks. She then completed BUE exercises using moderate resistance theraband, x10 reps, 5/5 exercises. Pt assisted back to room via w/c. Post tx, pt up in w/c, call light in reach and all needs met. Daughter present Education OT Patient Education: Correct positioning, Energy conservation, Exercise program, Home exercise program, Modified ADL techniques, Progress toward Goal/Update tx plan, Purpose of tx/functional activities, Rehab process Teaching Recipient: Patient Teaching Methods: Discussion Response to Teaching: Verbalize Understanding OT Short Term Goals Short Term Goals Time Frame: Apr 30, 2023 Eatin Oral hygiene: 5 (in sitting ) Toileting hygiene: 3 Shower/bathe self: 3 Upper body dressin Lower body dressin Putting on/taking off footwear: 3 OT Shelter Goals Shelter Goals Time Frame: May 07, 2023 Acute change in mental status: 0 Inattention: 0 Disorganized thinkin Altered level of consciousness: 0 Eating (QC): 6 Oral Hygiene (QC): 6 Toileting Hygiene (QC): 6 Shower/Bathe Self (QC): 4 Upper Body Dressing (QC): 6 Lower Body Dressing (QC): 6 On/Off Footwear (QC): 6 1=Demonstrate adherence to instructed precautions during ADL tasks. 2=Patient will verbalize/demonstrate understanding of assistive devices/modifications for ADL. 3=Patient will improve strength/tolerance for activity to enable patient to perform ADL's. OT Education/Plan Problem List/Assessment Assessment: Decreased Activ Tolerance, Decreased UE Strength, Impaired Funct Balance, Impaired I ADL's, Impaired Self-Care Skills Discharge Recommendations Plan/Recommendations: Continue POC Treatment Plan/Plan of Care Patient would benefit from OT for education, treatment and training to promote independence in ADL's, mobility, safety and/or upper extremity function for ADL's. Plan of Care: ADL Retraining, Caregiver Training, Concurrent Therapy, Functional Mobility, Group Exercise/Act as Ind, UE Funct Exercise/Act, Visual/Perceptual Retrain, W/C Management Training Treatment Duration: May 08, 2023 Frequency: At least 5 of 7 days/Wk (IRF) Estimated Hrs Per Day: 1.5 hours per day Agreement: Yes Rehab Potential: Good Time Start Time: 08:30 Stop Time: 09:30 DATE: Apr 28, 2023 Total Time Billed (hr/min): 60 Billed Treatment Time 1, ADL 2 (25'), EX 2 (35') TATUM SINGH OT Apr 28, 2023 09:09
[2023-04-28] MEDS: HYDROcodone/ACETAMINOPHEN 5 MG/325 MG TABLET PO PRN (10:12)
--- NOTE | 2023-04-28 12:05 | Physical Therapy Daily Note ---
PT Daily Note-Current Subjective Pt sitting in w/c in room upon arrival. Pt agrees to PT. Pain Numeric Pain Scale: 7 Location: Left Location Body Site: Hip Pain Description: Stabbing, Tightness Comment: Nurse notified and pain med given during tx Section J - Health Conditions 1. Rarely or not at all 2. Occasionally 3. Frequently 4. Almost constantly 8. Unable to answer Pain Effect on Sleep: 4 Pain Interference with Therapy: 4 Pain Interference w/Day-to-Day: 4 Mental Status Patient Orientation: Person, Place, Situation Transfers SCALE: Activities may be completed with or without assistive devices. 4-Ayfdrnpcnt-zdmjbgn completes the activity by him/herself with no assistance from a helper. 5-Set-up or Clean-up Assistance-helper sets up or cleans up; patient completes activity. [place] assists only prior to or following the activity. 4-Supervision or Touching Assistance-helper provides verbal cues and/or touching/steadying and/or contact guard assistance as patient completes activity. Assistance may be provided throughout the activity or intermittently. 3-Partial/Moderate Assistance-helper does LESS THAN HALF the effort. [place] lifts, holds or supports trunk or limbs, but provides less than half the effort. 2-Substantial/Maximal Assistance-helper does MORE THAN HALF the effort. [place] lifts or holds trunk or limbs and provides more than half the effort. 7-Yobzcyeuk-ljwmzn does ALL the effort. Patient does none of the effort to complete the activity. Or, the assistance of 2 or more helpers is required for the patient to complete the activity. If activity was not attempted, code reason: 7-Patient Refused. 9-Not Applicable-not attempted and the patient did not perform the activity before the current illness, exacerbation or injury. 10-Not Attempted due to Environmental Limitations-(lack of equipment, weather restraints, etc.). 88-Not Attempted due to Medical Conditions or Safety Concerns. Sit to Stand (QC): 5 Weight Bearing Full Weight Bearing Weight Bearing/Tolerated Gait Training Does the Patient Walk?: Yes Distance: 83" Walk 10 feet (QC): 5 Walk 50 ft with 2 Turns(QC): 5 Walk 150 ft (QC): 4 Gait Assistive Device: FWW Switched & Raised FWW to have pt stand taller instead of bending over Exercises Seated Therapy Exercises: Ankle pumps, Sit to stand (5), Long arc quads, Hip abd/add, Glut set Seated Reps: 15 Treatments TF to standing and amb in hallway before taking RB. Pt completes Seated EX then TF to standing and amb in hallway to room. Pt resting in Hip chair wall needs met, call light in hand. Assessment Current Status: Good Progress Pt has gained strength so is more independent with TF & mobility. PT Care Home Goals Care Home Goals PT Steam Roller Operator Goals Time Frame: May 07, 2023 Roll Left & Right (QC): 4 Sit to Lying (QC): 4 Lying-Sitting on Side/Bed(QC): 4 Sit to Stand (QC): 4 Chair/Vln-hs-Mfaew Xfer(QC): 4 (/c FWW) Toilet Transfer (QC): 4 (/c FWW) Car Transfer (QC): 4 (/c FWW) Does the Patient Walk: Yes Walk 10 feet (QC): 4 (/c FWW) Walk 50ft with 2 Turns (QC): 4 (/c FWW) Walk 150 ft (QC): 4 (/c FWW) Walking 10ft on Uneven Surface: 4 (/c FWW) 1 Step (curb) (QC): 3 (/c FWW) 4 Steps (QC): 9 12 Steps (QC): 9 Picking up an Object (QC): 5 (/c AE) Does the Pt use WC or Scooter?: Yes Wheel 50 feet with 2 turns (QC: 6 Type: Manual Wheel 150 feet: 6 Type: Motorized PT Plan Problem List Problem List: Activity Tolerance, Gait Treatment/Plan Treatment Plan: Continue Plan of Care Treatment Plan: Bed Mobility, Education, Functional Activity Emanuel, Functional Strength, Group Therapy, Gait, Safety, Therapeutic Exercise, Transfers Treatment Duration: May 07, 2023 Frequency: At least 5 of 7 days/Wk (IRF) Estimated Hrs Per Day: 1.5 hours per day Safety Risks/Education Patient Education: Transfer Techniques, Correct Positioning, Safety Issues Teaching Recipient: Patient Teaching Methods: Discussion Response to Teaching: Verbalize Understanding Time Time In: 0945 Time Out: 1030 DATE: Apr 28, 2023 Total Billed Treatment Time: 45 Total Billed Treatment 1, EX (15m) & GT x2 (30m) LILY CORNEJO TRACK FITTER Apr 28, 2023 12:05
--- NOTE | 2023-04-28 15:56 | Therapy Group Daily Note ---
Therapy Daily Group Note Patient Education Topic Other List Below (Memory) Exercises LE Seated Exercise, UE Exercise Session Ratio (pt:therapist): 3:1 Goal of Session: Memory Strategies, UE/LE Strengthing Goal Met for this Session: Yes Pt Benefit of Group: Contributions to Others, F/U Use of Strategies @Home, Increased Functional Safety, Increased Functional Strength, Improved Cognition, Recognition of Peers, Socialization Other/Notes Pt transported via w/c to OT/PT group in therapy gym. Group consisted of introductions(name, place living, Thanksgiving family traditions), socializati on, B UE/LE seated exercises, education and activities on memory strategies. Pt introduced self appropriately and actively listened to peers. Pt able to complete B UE seated exercises with encouragement and modifications due to limited ROM and fatigue. Pt participated in activities and demonstrated understanding of memory education by vocalizing own strategies. After therapy, pt returned to room to rest. All needs met. Start Time: 13:00 Stop Time: 14:15 Total Billed Treatment Time: 75 Total Billed Treatment 1,[facility] BETOLILY FERRELL RN CLINICAL TRIALS Apr 28, 2023 15:56
[2023-04-28 19:54] VITALS: BP 118/52
[2023-04-29] MEDS: inSUlin ASPART 1 UNIT/0.01 ML (PER UNIT) SC SCH ×4 (06:06→21:13)
[2023-04-29] MEDS: THERAPEUTIC MULTIVITAMIN W/MINERALS TABLET PO SCH (06:37)
[2023-04-29 08:00] VITALS: BP 114/70
[2023-04-29] MEDS: DOCUSATE SODIUM 100 MG CAPSULE PO SCH ×2 (08:15→21:27)
[2023-04-29] MEDS: amLODIPine 5 MG TABLET PO SCH (08:16)
[2023-04-29] MEDS: SENNOSIDES 8.6 MG TABLET PO SCH ×2 (08:16→21:28)
[2023-04-29] MEDS: MAGNESIUM OXIDE 400 MG TABLET PO SCH (08:16)
[2023-04-29] MEDS: CITALOPRAM 20 MG TABLET PO SCH (08:16)
[2023-04-29] MEDS: PANTOPRAZOLE 20 MG TABLET PO SCH (08:16)
[2023-04-29] MEDS: SODIUM CHLORIDE 1 GM TABLET PO SCH ×2 (08:17→21:14)
[2023-04-29] MEDS: ENOXAPARIN 40 MG/0.4 ML SYRINGE SC SCH (08:19)
--- NOTE | 2023-04-29 08:34 | PM&R Progress Note ---
Subjective HPI/CC On Admission Date Seen by Provider: Apr 29, 2023 Time Seen by Provider: 12:00 Subjective/Events-last exam 04/29/2023: Patient dramatically improved Ambulating slowly but improved Reviewed meds and labs Eating and drinking well 04/28/2023: Patient doing well Discharging on Wednesday Overall seems to be doing much better Not eating as well as she should but she will try 04/27/2023: Much improved Slow recovery but walking much better Reviewed meds and labs BM+ 04/26/2023: Doing much better Less pain Labs stable Eating a bit Dramatically improved today 04/25/2023: Improved a bit Hgb 7.7 but when offered to transfuse the patient and daughter stated she is JW and will not accept blood products I was not aware she was JW so will put that in her chart and give additional iron infusions and B12 Less sedated BM+ 04/24/2023: Patient back in bed when I assessed her Appears to be lethargic I reviewed her meds and the only med she has received last night was an oxydocone and that could certainly be the cause and have this residual so will DC that and start Ultram and only if severe pain will Hydrocodone be initiated. Patient ate bfast but I don't think she is consuming enough fluids so will restart fluids Overall a catastrophic decline from left hip replacement which will need close intensive medical management to regain back to baseline Review of Systems General: Fatigue, Malaise Objective Exam Vital Signs Vital Signs Date Time Temp Pulse Resp B/P (MAP) Pulse Ox O2 Delivery O2 Flow Rate FiO2 04/29/23 20:55 Room Air 04/29/23 19:54 36.7 74 16 140/60 (86) 94 04/25/23 09:14 0.00 04/24/23 10:50 21 Capillary Refill : General Appearance: No Apparent Distress, WD/WN, Chronically ill, Obese, Other (fatigued) HEENT: PERRL/EOMI, Normal ENT Inspection, Pharynx Normal Neck: Full Range of Motion, Normal Inspection, Non Tender, Supple, Carotid Bruit Respiratory: Chest Non Tender, Lungs Clear, Normal Breath Sounds, No Accessory Muscle Use, No Respiratory Distress Cardiovascular: Regular Rate, Rhythm, No Edema, No Gallop, No JVD, No Murmur, Normal Peripheral Pulses Gastrointestinal: Normal Bowel Sounds, No Organomegaly, No Pulsatile Mass, Non Tender, Soft Back: Normal Inspection, No CVA Tenderness, No Vertebral Tenderness Extremity: Normal Capillary Refill, Normal Inspection, Normal Range of Motion, Non Tender, No Calf Tenderness, No Pedal Edema Neurologic/Psychiatric: Alert, Oriented x3, microbiological laboratory technician II-XII Norm as Tested, Abnormal Gait, Depressed Affect, Motor Weakness (left leg) Skin: Normal Color, Warm/Dry Lymphatic: No Adenopathy Results/Procedures Lab Patient resulted labs reviewed. FIM Transfers Therapy Code Descriptions/Definitions Functional [place] Measure: 0=Not Assessed/NA 4=Minimal Assistance 1=Total Assistance 5=Supervision or Setup 2=Maximal Assistance 6=Modified [place] 3=Moderate Assistance 7=Complete IndependenceSCALE: Activities may be completed with or without assistive devices. 5-Afizlipzin-jtzjuog completes the activity by him/herself with no assistance from a helper. 5-Set-up or Clean-up Assistance-helper sets up or cleans up; patient completes activity. [place] assists only prior to or following the activity. 4-Supervision or Touching Assistance-helper provides verbal cues and/or touching/steadying and/or contact guard assistance as patient completes activity. Assistance may be provided throughout the activity or intermittently. 3-Partial/Moderate Assistance-helper does LESS THAN HALF the effort. [place] lifts, holds or supports trunk or limbs, but provides less than half the effort. 2-Substantial/Maximal Assistance-helper does MORE THAN HALF the effort. [place] lifts or holds trunk or limbs and provides more than half the effort. 8-Ajjcnidbb-lzzdoe does ALL the effort. Patient does none of the effort to complete the activity. Or, the assistance of 2 or more helpers is required for the patient to complete the activity. If activity was not attempted, code reason: 7-Patient Refused. 9-Not Applicable-not attempted and the patient did not perform the activity before the current illness, exacerbation or injury. 10-Not Attempted due to Environmental Limitations-(lack of equipment, weather restraints, etc.). 88-Not Attempted due to Medical Conditions or Safety Concerns. Roll Left to Right (QC): 1 Sit to Lying (QC): 1 (max (A) of 2) Sit to Stand (QC): 5 Chair/Hmp-pl-Fyxbb Xfer(QC): 1 (Min (A) of 2, exceptionally slow praveen) Car Transfer (QC): 88 Gait Training Does the Patient Walk?: Yes Distance: 83" Walk 10 feet (QC): 5 Walk 50 ft with 2 Turns(QC): 5 Walk 150 ft (QC): 4 Walking 10ft/uneven surface-QC: 88 Gait Assistive Device: FWW Wheelchair Training Does the Pt Use a Wheelchair?: No Distance: 50' x 2 Wheel 50 ft with 2 turns (QC): 5 Wheel 150 ft (QC): 88 (unable to reach 150' due to fatigue) Type of Wheelchair: Manual Stair Training 1 Step (curb) (QC): 88 4 Steps (QC): 88 12 Steps (QC): 88 Balance Picking up an Object (QC): 88 ADL-Treatment Eating (QC): 5 Oral Hygiene (QC): 6 (seated at sink) Shower/Bathe Self (QC): 2 (pt and daughter refused shower due to having one earlier in the day, though reported requiring max A to complete showering. ) Upper Body Dressing (QC): 5 Lower Body Dressing (QC): 4 (to pull up briefs and pants after toileting) On/Off Footwear (QC): 2 (to don/doff socks without using adaptive equipment) Toileting Hygiene (QC): 4 (CGA) Toilet Transfer (QC): 4 (CGA on/off BSC over toilet.) Assessment/Plan Assessment and Plan Assess & Plan/Chief Complaint Left hip replacement Hypotensive episode from volume depletion from poor PO intake requiring ICU transfer (not due to sepsis) Overmedication from muscle relaxants and pain meds CARINA DM HTN HLP Hypothyroidism Depression Abnormal UTI but negative UCx s/p empiric Rocephin Post op anemia from blood loss Hyponatremia JW will not accept blood products Plan: Aggressive PT OT Increase motivation Decrease sedatives Increase PO intake 04/24/2023: Give IVF DC Oxycodone since it appears to be too strong for the patient Ultram and Hydrocodone Minimize sedating meds IVF Check iron and B12 Sodium tablets 04/25/2023: HLIVF Iron infusions 04/26/2023: Monitor closely 04/27/2023: Much improved Slow recovery 04/28/2023: Supportive care Increase nutrition Maintain bowel regimen 04/29/2023: Check labs in a.m. Continue aggressive rehab (1) S/P total left hip arthroplasty TIFFANIE CONNER DO Apr 29, 2023 08:34
[2023-04-29] MEDS: IRON SUCROSE 200 MG/10 ML VIAL IV SCH (09:34)
--- NOTE | 2023-04-29 12:59 | Occupational Ther Daily Note ---
OT Current Status-Daily Note Subjective Pt received lying supine in bed with daughter at bedside. Pt very pleasant and willing to participate in therapy. Pain Numeric Pain Scale: 6 Location: Incisional Location Body Site: Hip Mental Status/Objective Patient Orientation: Person, Place, Time, Situation ADL-Treatment Therapy Code Descriptions/Definitions Functional [place] Measure: 0=Not Assessed/NA 4=Minimal Assistance 1=Total Assistance 5=Supervision or Setup 2=Maximal Assistance 6=Modified [place] 3=Moderate Assistance 7=Complete IndependenceSCALE: Activities may be completed with or without assistive devices. 3-Svyanhxfcg-txhcmva completes the activity by him/herself with no assistance from a helper. 5-Set-up or Clean-up Assistance-helper sets up or cleans up; patient completes activity. [place] assists only prior to or following the activity. 4-Supervision or Touching Assistance-helper provides verbal cues and/or touching/steadying and/or contact guard assistance as patient completes activity. Assistance may be provided throughout the activity or intermittently. 3-Partial/Moderate Assistance-helper does LESS THAN HALF the effort. [place] lifts, holds or supports trunk or limbs, but provides less than half the effort. 2-Substantial/Maximal Assistance-helper does MORE THAN HALF the effort. [place] lifts or holds trunk or limbs and provides more than half the effort. 3-Txeczdzuh-dpqugr does ALL the effort. Patient does none of the effort to complete the activity. Or, the assistance of 2 or more helpers is required for the patient to complete the activity. If activity was not attempted, code reason: 7-Patient Refused. 9-Not Applicable-not attempted and the patient did not perform the activity before the current illness, exacerbation or injury. 10-Not Attempted due to Environmental Limitations-(lack of equipment, weather restraints, etc.). 88-Not Attempted due to Medical Conditions or Safety Concerns. Eating (QC): 5 Upper Body Dressing (QC): 5 (to don/doff shirt) Lower Body Dressing (QC): 4 (to don/doff brief and pants utilizing drill instructor) On/Off Footwear: 4 (to don/doff socks utilizing sock-aid) Toileting Hygiene (QC): 4 (to complete toilet hygiene in sitting ) Toilet Transfer (QC): 4 (with use of FWW) Other Treatment Pt and family member educated on adaptive dressing techniques, utilizing sock- aid and drill instructor to assist with LBD. Pt completed functional mobility of ~20ft with FWW and supervision/CGA for balance, requiring no cues for safety. Pt de monstrating increased pace when ambulating this session. Co-treated with PT due to the need for two skilled therapists in order to complete high level tasks with optimal safety. OT focused on functional balance, ADL independence, activity tolerance and functional transfers. Please refer to PT note for specifics on their care and treatment. Educated pt and family member on transferring into and out of tub shower safely while maintaining hip precautions, utilizing FWW and min A for balance. Pt demonstrated independence with UE strengthening HEP with red theraband this session, requiring no cues for proper form or to recall exercises. Pt and family denied any questions or concerns about pt returning home at discharge. Education OT Patient Education: Correct positioning, Energy conservation, Home exercise program, Instructions to caregiver, Modified ADL techniques, Progress toward Goal/Update tx plan, Purpose of tx/functional activities, Reviewed precautions, Rehab process, Safety issues, Transfer techniques, Use of adapted equipment Teaching Recipient: Patient, Family Teaching Methods: Demonstration, Discussion Response to Teaching: Verbalize Understanding, Return Demonstration OT Short Term Goals Short Term Goals Time Frame: Apr 30, 2023 Eatin Oral hygiene: 5 (in sitting ) Toileting hygiene: 3 Shower/bathe self: 3 Upper body dressin Lower body dressin Putting on/taking off footwear: 3 OT Tool Checker Goals Fpc Goals Time Frame: May 07, 2023 Acute change in mental status: 0 Inattention: 0 Disorganized thinkin Altered level of consciousness: 0 Eating (QC): 6 Oral Hygiene (QC): 6 Toileting Hygiene (QC): 6 Shower/Bathe Self (QC): 4 Upper Body Dressing (QC): 6 Lower Body Dressing (QC): 6 On/Off Footwear (QC): 6 1=Demonstrate adherence to instructed precautions during ADL tasks. 2=Patient will verbalize/demonstrate understanding of assistive devices/modifications for ADL. 3=Patient will improve strength/tolerance for activity to enable patient to perform ADL's. OT Education/Plan Problem List/Assessment Assessment: Decreased Activ Tolerance, Decreased Safety Aware, Decreased UE Strength, Impaired Bed Mobility, Impaired Coordination, Impaired Funct Balance, Impaired I ADL's, Impaired Self-Care Skills Discharge Recommendations Plan/Recommendations: Continue POC Treatment Plan/Plan of Care Treatment,Training & Education: Yes Patient would benefit from OT for education, treatment and training to promote independence in ADL's, mobility, safety and/or upper extremity function for ADL's. Plan of Care: ADL Retraining, Caregiver Training, Concurrent Therapy, Functional Mobility, Group Exercise/Act as Ind, UE Funct Exercise/Act, Visual/Perceptual Retrain, W/C Management Training Treatment Duration: May 08, 2023 Frequency: At least 5 of 7 days/Wk (IRF) Estimated Hrs Per Day: 1.5 hours per day Agreement: Yes Rehab Potential: Good Time Start Time: 07:50 Stop Time: 09:20 DATE: Apr 29, 2023 Total Time Billed (hr/min): 90 Billed Treatment Time 1, ADL 4, FA 1, EX 1 Evelyne Fountain OTR/L Apr 29, 2023 12:59
--- NOTE | 2023-04-29 14:57 | Physical Therapy Daily Note ---
PT Daily Note-Current Subjective Pt laying Supine in bed upon arrival. Daughter present. Pt agrees to PT. Pain Numeric Pain Scale: 6 Location: Left Location Body Site: Hip Section J - Health Conditions 1. Rarely or not at all 2. Occasionally 3. Frequently 4. Almost constantly 8. Unable to answer Pain Effect on Sleep: 3 Pain Interference with Therapy: 3 Pain Interference w/Day-to-Day: 3 Mental Status Patient Orientation: Person, Place, Time, Situation Transfers SCALE: Activities may be completed with or without assistive devices. 7-Uzkmjgzjbb-gjyjuft completes the activity by him/herself with no assistance from a helper. 5-Set-up or Clean-up Assistance-helper sets up or cleans up; patient completes activity. [place] assists only prior to or following the activity. 4-Supervision or Touching Assistance-helper provides verbal cues and/or touching/steadying and/or contact guard assistance as patient completes activity. Assistance may be provided throughout the activity or intermittently. 3-Partial/Moderate Assistance-helper does LESS THAN HALF the effort. [place] lifts, holds or supports trunk or limbs, but provides less than half the effort. 2-Substantial/Maximal Assistance-helper does MORE THAN HALF the effort. [place] lifts or holds trunk or limbs and provides more than half the effort. 5-Ypxfgdvzp-vlqjhd does ALL the effort. Patient does none of the effort to complete the activity. Or, the assistance of 2 or more helpers is required for the patient to complete the activity. If activity was not attempted, code reason: 7-Patient Refused. 9-Not Applicable-not attempted and the patient did not perform the activity before the current illness, exacerbation or injury. 10-Not Attempted due to Environmental Limitations-(lack of equipment, weather restraints, etc.). 88-Not Attempted due to Medical Conditions or Safety Concerns. Lying to Sitting/Side of Bed(Q: 3 (Min A for little assistance geeting L LE to EOB) Sit to Stand (QC): 5 (SBA) Toilet Transfer (QC): 5 (SBA) Weight Bearing Full Weight Bearing Weight Bearing/Tolerated Gait Training Does the Patient Walk?: Yes Distance: 20' Walk 10 feet (QC): 5 Gait Assistive Device: FWW Treatments Pt and family member educated on adaptive dressing techniques, utilizing sock- aid and rollway man to assist with LBD. Pt completed functional mobility of ~20ft FWW and supervision/CGA for balance, requiring no cues for safety. Pt demonstrating increased pace when ambulating this session. Co-treated with OT due to the need for two skilled therapists in order to complete high level tasks with optimal safety. OT focused on functional balance, ADL independence, activity tolerance and functional transfers. PT focused on bed mobility, transf ers, ambulation as well as proper hand placement during transfers. Educated pt and family member on transferring into and out of tub shower safely while maintaining hip precautions, utilizing FWW and min A for balance. Pt and family denied any questions or concerns about pt returning home at discharge. OT continues working w/pt as PT departs. Assessment Current Status: Good Progress Pt has gained increase in strengthen as well as activity tolerance and independence of tasks. PT Alf Goals Alf Goals PT Alf Goals Time Frame: May 07, 2023 Roll Left & Right (QC): 4 Sit to Lying (QC): 4 Lying-Sitting on Side/Bed(QC): 4 Sit to Stand (QC): 4 Chair/Bnf-zr-Tmech Xfer(QC): 4 (/c FWW) Toilet Transfer (QC): 4 (/c FWW) Car Transfer (QC): 4 (/c FWW) Does the Patient Walk: Yes Walk 10 feet (QC): 4 (/c FWW) Walk 50ft with 2 Turns (QC): 4 (/c FWW) Walk 150 ft (QC): 4 (/c FWW) Walking 10ft on Uneven Surface: 4 (/c FWW) 1 Step (curb) (QC): 3 (/c FWW) 4 Steps (QC): 9 12 Steps (QC): 9 Picking up an Object (QC): 5 (/c AE) Does the Pt use WC or Scooter?: Yes Wheel 50 feet with 2 turns (QC: 6 Type: Manual Wheel 150 feet: 6 Type: Motorized PT Plan Problem List Problem List: Activity Tolerance, Bed Mobility Treatment/Plan Treatment Plan: Continue Plan of Care Treatment Plan: Bed Mobility, Education, Functional Activity Emanuel, Functional Strength, Group Therapy, Gait, Safety, Therapeutic Exercise, Transfers Treatment Duration: May 07, 2023 Frequency: At least 5 of 7 days/Wk (IRF) Estimated Hrs Per Day: 1.5 hours per day Safety Risks/Education Patient Education: Gait Training, Transfer Techniques, Correct Positioning, Safety Issues Teaching Recipient: Patient Teaching Methods: Discussion Response to Teaching: Verbalize Understanding Time Time In: 0800 Time Out: 844 DATE: Apr 29, 2023 Total Billed Treatment Time: 45 Total Billed Treatment Co-treat w/OT for 45m ([id number]) 1, GT (20m) & FA x2 (25m) ILLY CORNEJO SHOP AND ALTERATION TAILOR Apr 29, 2023 14:57
[2023-04-29] MEDS: HYDROcodone/ACETAMINOPHEN 5 MG/325 MG TABLET PO PRN (15:37)
--- NOTE | 2023-04-29 17:30 | Physical Therapy Daily Note ---
PT Daily Note-Current Subjective Pt sitting in Hip chair with daughter present. Pt agrees to PT. Pain Numeric Pain Scale: 5-Moderate Pain Location: Left Location Body Site: Hip Pain Description: Ache Section J - Health Conditions 1. Rarely or not at all 2. Occasionally 3. Frequently 4. Almost constantly 8. Unable to answer Pain Effect on Sleep: 3 Pain Interference with Therapy: 3 Pain Interference w/Day-to-Day: 3 Mental Status Patient Orientation: Person, Place, Time, Situation Transfers SCALE: Activities may be completed with or without assistive devices. 1-Vdrwqktqes-cmwtfjo completes the activity by him/herself with no assistance from a helper. 5-Set-up or Clean-up Assistance-helper sets up or cleans up; patient completes activity. [place] assists only prior to or following the activity. 4-Supervision or Touching Assistance-helper provides verbal cues and/or touching/steadying and/or contact guard assistance as patient completes activity. Assistance may be provided throughout the activity or intermittently. 3-Partial/Moderate Assistance-helper does LESS THAN HALF the effort. [place] lif ts, holds or supports trunk or limbs, but provides less than half the effort. 2-Substantial/Maximal Assistance-helper does MORE THAN HALF the effort. [place] lifts or holds trunk or limbs and provides more than half the effort. 4-Fogjrdfqn-ycttdx does ALL the effort. Patient does none of the effort to complete the activity. Or, the assistance of 2 or more helpers is required for the patient to complete the activity. If activity was not attempted, code reason: 7-Patient Refused. 9-Not Applicable-not attempted and the patient did not perform the activity before the current illness, exacerbation or injury. 10-Not Attempted due to Environmental Limitations-(lack of equipment, weather restraints, etc.). 88-Not Attempted due to Medical Conditions or Safety Concerns. Sit to Stand (QC): 5 (SBA) Toilet Transfer (QC): 5 (SBA) Weight Bearing Full Weight Bearing Weight Bearing/Tolerated Gait Training Does the Patient Walk?: Yes Distance: 75' x2 Walk 10 feet (QC): 5 (SBA) Walk 50 ft with 2 Turns(QC): 5 (SBA) Walk 150 ft (QC): 5 (SBA) Gait Assistive Device: FWW Treatments TF from Hip chair and amb to BR. After toileting & pericare, pt amb in hallway. Pt takes RB before amb again in hallway & returning to room. Pt TF to Supine in bed w/Min A for lifting L LE into bed (discussed & demo. amf mechanic & will practice more). Pt resting at end of tx. All needs met, call light in hand. Assessment Pt is fatigues and needs RB occasionally. PT Residential Goals Residential Goals PT Residential Goals Time Frame: May 07, 2023 Roll Left & Right (QC): 4 Sit to Lying (QC): 4 Lying-Sitting on Side/Bed(QC): 4 Sit to Stand (QC): 4 Chair/Ijo-uv-Vsmuy Xfer(QC): 4 (/c FWW) Toilet Transfer (QC): 4 (/c FWW) Car Transfer (QC): 4 (/c FWW) Does the Patient Walk: Yes Walk 10 feet (QC): 4 (/c FWW) Walk 50ft with 2 Turns (QC): 4 (/c FWW) Walk 150 ft (QC): 4 (/c FWW) Walking 10ft on Uneven Surface: 4 (/c FWW) 1 Step (curb) (QC): 3 (/c FWW) 4 Steps (QC): 9 12 Steps (QC): 9 Picking up an Object (QC): 5 (/c AE) Does the Pt use WC or Scooter?: Yes Wheel 50 feet with 2 turns (QC: 6 Type: Manual Wheel 150 feet: 6 Type: Motorized PT Plan Problem List Problem List: Activity Tolerance Treatment/Plan Treatment Plan: Continue Plan of Care Treatment Plan: Bed Mobility, Education, Functional Activity Emanuel, Functional Strength, Group Therapy, Gait, Safety, Therapeutic Exercise, Transfers Treatment Duration: May 07, 2023 Frequency: At least 5 of 7 days/Wk (IRF) Estimated Hrs Per Day: 1.5 hours per day Time Time In: 1300 Time Out: 1345 DATE: Apr 29, 2023 Total Billed Treatment Time: 45 Total Billed Treatment 1, GT x2 (30m) & FA (15m) LILY CORNEJO DIELECTRIC PRESS OPERATOR Apr 29, 2023 17:30
[2023-04-29 19:54] VITALS: BP 140/60
--- NOTE | 2023-04-30 05:24 | PM&R Progress Note ---
Subjective HPI/CC On Admission Date Seen by Provider: Apr 30, 2023 Time Seen by Provider: 12:00 Subjective/Events-last exam 04/30/2023: Patient doing well Labs stable Hemoglobin 8.9 Continue IV iron and B12 Supportive care Discharge on Wednesday04/29/2023: Patient dramatically improved Ambulating slowly but improved Reviewed meds and labs Eating and drinking well 04/28/2023: Patient doing well Discharging on Wednesday Overall seems to be doing much better Not eating as well as she should but she will try 04/27/2023: Much improved Slow recovery but walking much better Reviewed meds and labs BM+ 04/26/2023: Doing much better Less pain Labs stable Eating a bit Dramatically improved today 04/25/2023: Improved a bit Hgb 7.7 but when offered to transfuse the patient and daughter stated she is JW and will not accept blood products I was not aware she was JW so will put that in her chart and give additional iron infusions and B12 Less sedated BM+ 04/24/2023: Patient back in bed when I assessed her Appears to be lethargic I reviewed her meds and the only med she has received last night was an oxydocone and that could certainly be the cause and have this residual so will DC that and start Ultram and only if severe pain will Hydrocodone be initiated. Patient ate bfast but I don't think she is consuming enough fluids so will restart fluids Overall a catastrophic decline from left hip replacement which will need close intensive medical management to regain back to baseline Review of Systems General: Fatigue, Malaise Musculoskeletal: leg pain Objective Exam Vital Signs Vital Signs Date Time Temp Pulse Resp B/P (MAP) Pulse Ox O2 Delivery O2 Flow Rate FiO2 04/30/23 20:44 36.6 80 16 151/61 (91) 96 Room Air 04/25/23 09:14 0.00 Capillary Refill : General Appearance: No Apparent Distress, WD/WN, Chronically ill, Obese, Other (fatigued) HEENT: PERRL/EOMI, Normal ENT Inspection, Pharynx Normal Neck: Full Range of Motion, Normal Inspection, Non Tender, Supple, Carotid Bruit Respiratory: Chest Non Tender, Lungs Clear, Normal Breath Sounds, No Accessory Muscle Use, No Respiratory Distress Cardiovascular: Regular Rate, Rhythm, No Edema, No Gallop, No JVD, No Murmur, Normal Peripheral Pulses Gastrointestinal: Normal Bowel Sounds, No Organomegaly, No Pulsatile Mass, Non Tender, Soft Back: Normal Inspection, No CVA Tenderness, No Vertebral Tenderness Extremity: Normal Capillary Refill, Normal Inspection, Normal Range of Motion, Non Tender, No Calf Tenderness, No Pedal Edema Neurologic/Psychiatric: Alert, Oriented x3, research agricultural engineer II-XII Norm as Tested, Abnormal Gait, Depressed Affect, Motor Weakness (left leg) Skin: Normal Color, Warm/Dry Lymphatic: No Adenopathy Results/Procedures Lab Patient resulted labs reviewed. FIM Transfers Therapy Code Descriptions/Definitions Functional [place] Measure: 0=Not Assessed/NA 4=Minimal Assistance 1=Total Assistance 5=Supervision or Setup 2=Maximal Assistance 6=Modified [place] 3=Moderate Assistance 7=Complete IndependenceSCALE: Activities may be completed with or without assistive devices. 6-Tnkprayjri-iictrod completes the activity by him/herself with no assistance from a helper. 5-Set-up or Clean-up Assistance-helper sets up or cleans up; patient completes activity. [place] assists only prior to or following the activity. 4-Supervision or Touching Assistance-helper provides verbal cues and/or touching/steadying and/or contact guard assistance as patient completes activity. Assistance may be provided throughout the activity or intermittently. 3-Partial/Moderate Assistance-helper does LESS THAN HALF the effort. [place] lifts, holds or supports trunk or limbs, but provides less than half the effort. 2-Substantial/Maximal Assistance-helper does MORE THAN HALF the effort. [place] lifts or holds trunk or limbs and provides more than half the effort. 1-Ctpuotcod-yuuaxy does ALL the effort. Patient does none of the effort to complete the activity. Or, the assistance of 2 or more helpers is required for the patient to complete the activity. If activity was not attempted, code reason: 7-Patient Refused. 9-Not Applicable-not attempted and the patient did not perform the activity before the current illness, exacerbation or injury. 10-Not Attempted due to Environmental Limitations-(lack of equipment, weather restraints, etc.). 88-Not Attempted due to Medical Conditions or Safety Concerns. Roll Left to Right (QC): 1 Sit to Lying (QC): 1 (max (A) of 2) Sit to Stand (QC): 5 (SBA) Chair/Qkf-ge-Febcp Xfer(QC): 1 (Min (A) of 2, exceptionally slow praveen) Car Transfer (QC): 88 Gait Training Does the Patient Walk?: Yes Distance: 75' x2 Walk 10 feet (QC): 5 (SBA) Walk 50 ft with 2 Turns(QC): 5 (SBA) Walk 150 ft (QC): 5 (SBA) Walking 10ft/uneven surface-QC: 88 Gait Assistive Device: FWW Wheelchair Training Does the Pt Use a Wheelchair?: No Distance: 50' x 2 Wheel 50 ft with 2 turns (QC): 5 Wheel 150 ft (QC): 88 (unable to reach 150' due to fatigue) Type of Wheelchair: Manual Stair Training 1 Step (curb) (QC): 88 4 Steps (QC): 88 12 Steps (QC): 88 Balance Picking up an Object (QC): 88 ADL-Treatment Eating (QC): 5 Oral Hygiene (QC): 6 (seated at sink) Shower/Bathe Self (QC): 2 (pt and daughter refused shower due to having one earlier in the day, though reported requiring max A to complete showering. ) Upper Body Dressing (QC): 5 (to don/doff shirt) Lower Body Dressing (QC): 4 (to don/doff brief and pants utilizing sole edge inker machine) On/Off Footwear (QC): 4 (to don/doff socks utilizing sock-aid) Toileting Hygiene (QC): 4 (to complete toilet hygiene in sitting ) Toilet Transfer (QC): 4 (with use of FWW) Assessment/Plan Assessment and Plan Assess & Plan/Chief Complaint Left hip replacement Hypotensive episode from volume depletion from poor PO intake requiring ICU transfer (not due to sepsis) Overmedication from muscle relaxants and pain meds CARINA DM HTN HLP Hypothyroidism Depression Abnormal UTI but negative UCx s/p empiric Rocephin Post op anemia from blood loss Hyponatremia JW will not accept blood products Plan: Aggressive PT OT Increase motivation Decrease sedatives Increase PO intake 04/24/2023: Give IVF DC Oxycodone since it appears to be too strong for the patient Ultram and Hydrocodone Minimize sedating meds IVF Check iron and B12 Sodium tablets 04/25/2023: HLIVF Iron infusions 04/26/2023: Monitor closely 04/27/2023: Much improved Slow recovery 04/28/2023: Supportive care Increase nutrition Maintain bowel regimen 04/29/2023: Check labs in a.m. Continue aggressive rehab 04/30/2023: Discharge on Wednesday Aggressive rehab to continue (1) S/P total left hip arthroplasty TIFFANIE CONNER DO Apr 30, 2023 05:24
[2023-04-30 06:01] LABS: BASOPHILS % (AUTO) 0 % (0-10); EOSINOPHILS # (AUTO) 0.2 10^3/uL (0.0-0.3); EOSINOPHILS % (AUTO) 3 % (0-10); HEMATOCRIT 27 % (35-52); HEMOGLOBIN 8.8 g/dL (11.5-16.0); LYMPHOCYTES # (AUTO) 1.1 10^3/uL (1.0-4.0); LYMPHOCYTES % (AUTO) 16 % (12-44); MEAN CORPUSCULAR HEMOGLOBIN 30 pg (25-34); MEAN CORPUSCULAR HGB CONC 33 g/dL (32-36); MEAN CORPUSCULAR VOLUME 92 fL (80-99); MEAN PLATELET VOLUME 9.2 fL (9.0-12.2); MONOCYTES # (AUTO) 0.7 10^3/uL (0.0-1.0); MONOCYTES % (AUTO) 10 % (0-12); NEUTROPHILS # (AUTO) 4.7 10^3/uL (1.8-7.8); NEUTROPHILS % (AUTO) 71 % (42-75); PLATELET COUNT 290 10^3/uL (130-400); WHITE BLOOD COUNT 6.7 10^3/uL (4.3-11.0)
[2023-04-30 06:16] LABS: ALBUMIN 2.9 GM/DL (3.2-4.5); POTASSIUM 3.8 MMOL/L (3.6-5.0)
[2023-04-30 06:17] LABS: CALCIUM 8.8 MG/DL (8.5-10.1)
[2023-04-30 06:19] LABS: TOTAL PROTEIN 5.9 GM/DL (6.4-8.2)
[2023-04-30 06:20] LABS: BILIRUBIN,TOTAL 0.5 MG/DL (0.1-1.0)
[2023-04-30 06:22] LABS: CREATININE SERUM 0.94 MG/DL (0.60-1.30)
[2023-04-30] MEDS: inSUlin ASPART 1 UNIT/0.01 ML (PER UNIT) SC SCH ×4 (06:41→21:24)
[2023-04-30] MEDS: THERAPEUTIC MULTIVITAMIN W/MINERALS TABLET PO SCH (06:44)
[2023-04-30 08:00] VITALS: BP 156/69
[2023-04-30] MEDS: CITALOPRAM 20 MG TABLET PO SCH (08:46)
[2023-04-30] MEDS: MAGNESIUM OXIDE 400 MG TABLET PO SCH (08:46)
[2023-04-30] MEDS: DOCUSATE SODIUM 100 MG CAPSULE PO SCH ×2 (08:46→21:27)
[2023-04-30] MEDS: PANTOPRAZOLE 20 MG TABLET PO SCH (08:46)
[2023-04-30] MEDS: amLODIPine 5 MG TABLET PO SCH (08:46)
[2023-04-30] MEDS: SENNOSIDES 8.6 MG TABLET PO SCH ×2 (08:46→21:27)
[2023-04-30] MEDS: SODIUM CHLORIDE 1 GM TABLET PO SCH ×2 (08:46→21:27)
[2023-04-30] MEDS: ENOXAPARIN 40 MG/0.4 ML SYRINGE SC SCH (08:47)
--- NOTE | 2023-04-30 10:56 | Occupational Ther Daily Note ---
OT Current Status-Daily Note Subjective Pt received sitting in hip chair. Pt very pleasant and willing to participate in therapy. Pain Numeric Pain Scale: 2 Location Body Site: Hip Mental Status/Objective Patient Orientation: Person, Place, Time, Situation Attachments: IV ADL-Treatment Therapy Code Descriptions/Definitions Functional [place] Measure: 0=Not Assessed/NA 4=Minimal Assistance 1=Total Assistance 5=Supervision or Setup 2=Maximal Assistance 6=Modified [place] 3=Moderate Assistance 7=Complete IndependenceSCALE: Activities may be completed with or without assistive devices. 9-Cgwupspbab-kwudjgs completes the activity by him/herself with no assistance from a helper. 5-Set-up or Clean-up Assistance-helper sets up or cleans up; patient completes activity. [place] assists only prior to or following the activity. 4-Supervision or Touching Assistance-helper provides verbal cues and/or touching/steadying and/or contact guard assistance as patient completes activity. Assistance may be provided throughout the activity or intermittently. 3-Partial/Moderate Assistance-helper does LESS THAN HALF the effort. [place] lifts, holds or supports trunk or limbs, but provides less than half the effort. 2-Substantial/Maximal Assistance-helper does MORE THAN HALF the effort. [place] lifts or holds trunk or limbs and provides more than half the effort. 0-Xedjhapzp-aewtkk does ALL the effort. Patient does none of the effort to complete the activity. Or, the assistance of 2 or more helpers is required for the patient to complete the activity. If activity was not attempted, code reason: 7-Patient Refused. 9-Not Applicable-not attempted and the patient did not perform the activity before the current illness, exacerbation or injury. 10-Not Attempted due to Environmental Limitations-(lack of equipment, weather restraints, etc.). 88-Not Attempted due to Medical Conditions or Safety Concerns. Eating (QC): 6 Oral Hygiene (QC): 6 Shower/Bathe Self (QC): 5 Upper Body Dressing (QC): 6 Lower Body Dressing (QC): 6 (utilizing clinical quality rn) On/Off Footwear: 6 (using sock aid) Toileting Hygiene (QC): 6 Toilet Transfer (QC): 6 Education OT Patient Education: Correct positioning, Energy conservation, Home exercise program, Modified ADL techniques, Progress toward Goal/Update tx plan, Purpose of tx/functional activities, Reviewed precautions, Rehab process, Safety issues, Transfer techniques, Use of adapted equipment Teaching Recipient: Patient Teaching Methods: Demonstration, Discussion Response to Teaching: Verbalize Understanding, Return Demonstration BIMS CAM BIMS Expression of Ideas and Wants: Without Difficulty Understanding Verbal Content: Understands Brief Interview/Mental Status: Yes IRF EUNICE BIMS: IRF [place] BIMS Response (Comments) Value Repitition of Three Words Three 3 Recalls Socks Yes, No Cue Required 2 Recalls Blue Yes, No Cue Required 2 Recalls Bed Yes, No Cue Required 2 Year Correct 3 Month Accurate Within 5 Days 2 Day Correct 1 Total 15 Patient Normally Able to Recal: Current Session, Location of own room, Staff Names and faces, That he/she in a hsp Should Staff Asses. Mental St.: No Memory/Recall Ability: Current Season, Location of Own Room, Staff Names and Faces, That He/She in Hospitall CAM Mental Status Change/Baseline: 0 Inattention: 0 Disorganized thinkin Altered level of consciousness: 0 OT Short Term Goals Short Term Goals Time Frame: Apr 30, 2023 Eatin Oral hygiene: 5 (in sitting ) Toileting hygiene: 3 Shower/bathe self: 3 Upper body dressin Lower body dressin Putting on/taking off footwear: 3 OT Jail Goals Sales Enablement Consultant Goals Time Frame: May 07, 2023 Acute change in mental status: 0 Inattention: 0 Disorganized thinkin Altered level of consciousness: 0 Eating (QC): 6 Oral Hygiene (QC): 6 Toileting Hygiene (QC): 6 Shower/Bathe Self (QC): 4 Upper Body Dressing (QC): 6 Lower Body Dressing (QC): 6 On/Off Footwear (QC): 6 1=Demonstrate adherence to instructed precautions during ADL tasks. 2=Patient will verbalize/demonstrate understanding of assistive devices/modifications for ADL. 3=Patient will improve strength/tolerance for activity to enable patient to perform ADL's. OT Education/Plan Problem List/Assessment Assessment: Decreased Activ Tolerance, Impaired Funct Balance, Impaired I ADL's Discharge Recommendations Plan/Recommendations: Continue POC Treatment Plan/Plan of Care Treatment,Training & Education: Yes Patient would benefit from OT for education, treatment and training to promote independence in ADL's, mobility, safety and/or upper extremity function for ADL's. Plan of Care: ADL Retraining, Caregiver Training, Concurrent Therapy, Functional Mobility, Group Exercise/Act as Ind, UE Funct Exercise/Act, Visual/Perceptual Retrain, W/C Management Training Treatment Duration: May 08, 2023 Frequency: At least 5 of 7 days/Wk (IRF) Estimated Hrs Per Day: 1.5 hours per day Agreement: Yes Rehab Potential: Good Time Start Time: 10:00 Stop Time: 11:00 DATE: Apr 30, 2023 Total Time Billed (hr/min): 60 Billed Treatment Time 1, ADL 4 Evelyne Fountain OTR/L Apr 30, 2023 10:56
--- NOTE | 2023-04-30 15:25 | Therapy Group Daily Note ---
Therapy Daily Group Note Patient Education Topic Fall Prevention, Energy Cons, Exercises, ADL Exercises LE Seated Exercise, ROM, Stretching, Gross Motor, UE Exercise Session Ratio (pt:therapist): 5:1 Goal of Session: Energy Conservation Tech., UE/LE Strengthing Goal Met for this Session: Yes Pt Benefit of Group: Contributions to Others, Increased Functional Strength, Recognition of Peers, Socialization Other/Notes OT group consisted of introductions (name, place living, favorite holiday), socialization, BUE dowel exercises seated, and education on benefits of exercises. Pt introduced self appropriately and actively listened to peers. Pt able to complete BUE dowel exercises, 2x10 reps with minimal cues. Pt then able to use dowel zaid in UEs to "bat" balloons and balls around the group, and used BLEs to "kick" balls around group. Pt demonstrated understanding of educational topic. After therapy, pt up in recliner, call light in reach and all needs met. Chair alarm activated. Start Time: 13:00 Stop Time: 14:00 Total Billed Treatment Time: 60 Total Billed Treatment 1, GRP Evelyne Fountain OTR/L Apr 30, 2023 15:24
[2023-04-30] MEDS: HYDROcodone/ACETAMINOPHEN 5 MG/325 MG TABLET PO PRN (16:48)
--- NOTE | 2023-04-30 17:29 | Physical Therapy Daily Note ---
PT Daily Note-Current Subjective Patient seated in elevated chair when PT enters room. Patient agreeable to session. Patient able to recite precautions upon request in preparation of session. Patient rates pain 3-4/10 throughout session. Pain Section J - Health Conditions 1. Rarely or not at all 2. Occasionally 3. Frequently 4. Almost constantly 8. Unable to answer Pain Effect on Sleep: 3 Pain Interference with Therapy: 3 Pain Interference w/Day-to-Day: 3 Transfers SCALE: Activities may be completed with or without assistive devices. 2-Nllixwolgr-oipnuha completes the activity by him/herself with no assistance from a helper. 5-Set-up or Clean-up Assistance-helper sets up or cleans up; patient completes activity. [place] assists only prior to or following the activity. 4-Supervision or Touching Assistance-helper provides verbal cues and/or touching/steadying and/or contact guard assistance as patient completes activity. Assistance may be provided throughout the activity or intermittently. 3-Partial/Moderate Assistance-helper does LESS THAN HALF the effort. [place] lifts, holds or supports trunk or limbs, but provides less than half the effort. 2-Substantial/Maximal Assistance-helper does MORE THAN HALF the effort. [place] lifts or holds trunk or limbs and provides more than half the effort. 5-Ukbycrsjb-hlcsuu does ALL the effort. Patient does none of the effort to complete the activity. Or, the assistance of 2 or more helpers is required for the patient to complete the activity. If activity was not attempted, code reason: 7-Patient Refused. 9-Not Applicable-not attempted and the patient did not perform the activity before the current illness, exacerbation or injury. 10-Not Attempted due to Environmental Limitations-(lack of equipment, weather restraints, etc.). 88-Not Attempted due to Medical Conditions or Safety Concerns. Roll Left & Right (QC): 4 Sit to Lying (QC): 4 Lying to Sitting/Side of Bed(Q: 4 Sit to Stand (QC): 4 Chair/Wbn-on-Hdrfr Xfer(QC): 4 Toilet Transfer (QC): 4 Car Transfer (QC): 88 Patient participated in functional transfer practice with use of FWW focusing on adherence to hip precautions/safety, performance, and sequence, performing at variable distances and angles to surfaces of variable heights and compliance, req CGA-SBA. Patient participated in functional bed mobility and repositioning with ongoing focusing on improving adherence to precautions/safety and improving efficiency and quality of functional task, req CGA-SBA. Weight Bearing Full Weight Bearing Weight Bearing/Tolerated Gait Training Walk 10 feet (QC): 4 Walk 50 ft with 2 Turns(QC): 4 Walk 150 ft (QC): 4 Walking 10ft/uneven surface-QC: 88 Gait Persons Needed: 1 Gait Assistive Device: FWW Patient participated in functional gait training with use of FWW focusing on maintaining COG/DANIEL, stepping mechanics, and AD management, achieving distances up to 200' c FWW, CGA. Exercises Patient perform seated LLE AROM including hip flex <90, ankle pumps, LAQ x3 sets of 15 for improved functional strength, endurance and mobility, PT Senior Care Goals Senior Care Goals PT Senior Care Goals Time Frame: May 07, 2023 Roll Left & Right (QC): 4 Sit to Lying (QC): 4 Lying-Sitting on Side/Bed(QC): 4 Sit to Stand (QC): 4 Chair/Cgx-ue-Zspfp Xfer(QC): 4 (/c FWW) Toilet Transfer (QC): 4 (/c FWW) Car Transfer (QC): 4 (/c FWW) Does the Patient Walk: Yes Walk 10 feet (QC): 4 (/c FWW) Walk 50ft with 2 Turns (QC): 4 (/c FWW) Walk 150 ft (QC): 4 (/c FWW) Walking 10ft on Uneven Surface: 4 (/c FWW) 1 Step (curb) (QC): 3 (/c FWW) 4 Steps (QC): 9 12 Steps (QC): 9 Picking up an Object (QC): 5 (/c AE) Does the Pt use WC or Scooter?: Yes Wheel 50 feet with 2 turns (QC: 6 Type: Manual Wheel 150 feet: 6 Type: Motorized PT Plan Treatment/Plan Treatment Plan: Continue Plan of Care Treatment Plan: Bed Mobility, Education, Functional Activity Emanuel, Functional Strength, Group Therapy, Gait, Safety, Therapeutic Exercise, Transfers Treatment Duration: May 07, 2023 Frequency: At least 5 of 7 days/Wk (IRF) Estimated Hrs Per Day: 1.5 hours per day Time Time In: 1542 Time Out: 1642 DATE: Apr 30, 2023 Total Billed Treatment Time: 60 Total Billed Treatment 1 session, 60 minutes [id number] 1 FA 1 Ex 2 Gt MANDI GARSIA PT Apr 30, 2023 17:29
[2023-04-30 20:44] VITALS: BP 151/61
[2023-05-01] MEDS: HYDROcodone/ACETAMINOPHEN 5 MG/325 MG TABLET PO PRN ×2 (04:26→21:53)
[2023-05-01] MEDS: inSUlin ASPART 1 UNIT/0.01 ML (PER UNIT) SC SCH ×4 (06:01→21:53)
--- NOTE | 2023-05-01 06:24 | PM&R Progress Note ---
Subjective HPI/CC On Admission Date Seen by Provider: May 01, 2023 Time Seen by Provider: 12:00 Subjective/Events-last exam 05/01/2023: Ready for DC tomorrow Sleeps a lot Motivation is poor in general 04/30/2023: Patient doing well Labs stable Hemoglobin 8.9 Continue IV iron and B12 Supportive care Discharge on Wednesday04/29/2023: Patient dramatically improved Ambulating slowly but improved Reviewed meds and labs Eating and drinking well 04/28/2023: Patient doing well Discharging on Wednesday Overall seems to be doing much better Not eating as well as she should but she will try 04/27/2023: Much improved Slow recovery but walking much better Reviewed meds and labs BM+ 04/26/2023: Doing much better Less pain Labs stable Eating a bit Dramatically improved today 04/25/2023: Improved a bit Hgb 7.7 but when offered to transfuse the patient and daughter stated she is JW and will not accept blood products I was not aware she was JW so will put that in her chart and give additional iron infusions and B12 Less sedated BM+ 04/24/2023: Patient back in bed when I assessed her Appears to be lethargic I reviewed her meds and the only med she has received last night was an oxyd ocone and that could certainly be the cause and have this residual so will DC that and start Ultram and only if severe pain will Hydrocodone be initiated. Patient ate bfast but I don't think she is consuming enough fluids so will restart fluids Overall a catastrophic decline from left hip replacement which will need close intensive medical management to regain back to baseline Review of Systems General: Fatigue, Malaise Objective Exam Vital Signs Vital Signs Date Time Temp Pulse Resp B/P (MAP) Pulse Ox O2 Delivery O2 Flow Rate FiO2 05/01/23 10:59 71 132/60 (84) 05/01/23 09:59 Room Air 05/01/23 08:00 36.5 18 94 04/25/23 09:14 0.00 Capillary Refill : General Appearance: No Apparent Distress, WD/WN, Chronically ill, Obese, Other (fatigued) HEENT: PERRL/EOMI, Normal ENT Inspection, Pharynx Normal Neck: Full Range of Motion, Normal Inspection, Non Tender, Supple, Carotid Bruit Respiratory: Chest Non Tender, Lungs Clear, Normal Breath Sounds, No Accessory Muscle Use, No Respiratory Distress Cardiovascular: Regular Rate, Rhythm, No Edema, No Gallop, No JVD, No Murmur, Normal Peripheral Pulses Gastrointestinal: Normal Bowel Sounds, No Organomegaly, No Pulsatile Mass, Non Tender, Soft Back: Normal Inspection, No CVA Tenderness, No Vertebral Tenderness Extremity: Normal Capillary Refill, Normal Inspection, Normal Range of Motion, Non Tender, No Calf Tenderness, No Pedal Edema Neurologic/Psychiatric: Alert, Oriented x3, industrial maintenance repairer helper II-XII Norm as Tested, Abnormal Gait, Depressed Affect, Motor Weakness (left leg) Skin: Normal Color, Warm/Dry Lymphatic: No Adenopathy Results/Procedures Lab Patient resulted labs reviewed. FIM Transfers Therapy Code Descriptions/Definitions Functional [place] Measure: 0=Not Assessed/NA 4=Minimal Assistance 1=Total Assistance 5=Supervision or Setup 2=Maximal Assistance 6=Modified [place] 3=Moderate Assistance 7=Complete IndependenceSCALE: Activities may be completed with or without assistive devices. 6-Cqwaykqoms-fygiqxj completes the activity by him/herself with no assistance from a helper. 5-Set-up or Clean-up Assistance-helper sets up or cleans up; patient completes activity. [place] assists only prior to or following the activity. 4-Supervision or Touching Assistance-helper provides verbal cues and/or touching/steadying and/or contact guard assistance as patient completes activity. Assistance may be provided throughout the activity or intermittently. 3-Partial/Moderate Assistance-helper does LESS THAN HALF the effort. [place] lifts, holds or supports trunk or limbs, but provides less than half the effort. 2-Substantial/Maximal Assistance-helper does MORE THAN HALF the effort. [place] lifts or holds trunk or limbs and provides more than half the effort. 9-Opftwgguq-zgntgu does ALL the effort. Patient does none of the effort to complete the activity. Or, the assistance of 2 or more helpers is required for the patient to complete the activity. If activity was not attempted, code reason: 7-Patient Refused. 9-Not Applicable-not attempted and the patient did not perform the activity before the current illness, exacerbation or injury. 10-Not Attempted due to Environmental Limitations-(lack of equipment, weather restraints, etc.). 88-Not Attempted due to Medical Conditions or Safety Concerns. Roll Left to Right (QC): 4 Sit to Lying (QC): 4 Sit to Stand (QC): 4 Chair/Lmk-bd-Nayxd Xfer(QC): 4 Car Transfer (QC): 88 Gait Training Does the Patient Walk?: Yes Distance: 75' x2 Walk 10 feet (QC): 4 Walk 50 ft with 2 Turns(QC): 4 Walk 150 ft (QC): 4 Walking 10ft/uneven surface-QC: 88 Gait Persons Needed: 1 Gait Assistive Device: FWW Wheelchair Training Does the Pt Use a Wheelchair?: No Distance: 50' x 2 Wheel 50 ft with 2 turns (QC): 5 Wheel 150 ft (QC): 88 (unable to reach 150' due to fatigue) Type of Wheelchair: Manual Stair Training 1 Step (curb) (QC): 88 4 Steps (QC): 88 12 Steps (QC): 88 Balance Picking up an Object (QC): 88 ADL-Treatment Eating (QC): 6 Oral Hygiene (QC): 6 Shower/Bathe Self (QC): 5 Upper Body Dressing (QC): 6 Lower Body Dressing (QC): 6 (utilizing soccer referee) On/Off Footwear (QC): 6 (using sock aid) Toileting Hygiene (QC): 6 Toilet Transfer (QC): 6 Assessment/Plan Assessment and Plan Assess & Plan/Chief Complaint Left hip replacement Hypotensive episode from volume depletion from poor PO intake requiring ICU tra nsfer (not due to sepsis) Overmedication from muscle relaxants and pain meds CARINA DM HTN HLP Hypothyroidism Depression Abnormal UTI but negative UCx s/p empiric Rocephin Post op anemia from blood loss Hyponatremia JW will not accept blood products Plan: Aggressive PT OT Increase motivation Decrease sedatives Increase PO intake 04/24/2023: Give IVF DC Oxycodone since it appears to be too strong for the patient Ultram and Hydrocodone Minimize sedating meds IVF Check iron and B12 Sodium tablets 04/25/2023: HLIVF Iron infusions 04/26/2023: Monitor closely 04/27/2023: Much improved Slow recovery 04/28/2023: Supportive care Increase nutrition Maintain bowel regimen 04/29/2023: Check labs in a.m. Continue aggressive rehab 04/30/2023: Discharge on Wednesday Aggressive rehab to continue 05/01/2023: DC tomorrow (1) S/P total left hip arthroplasty TIFFANIE CONNER DO May 01, 2023 06:24
[2023-05-01] MEDS: THERAPEUTIC MULTIVITAMIN W/MINERALS TABLET PO SCH (06:31)
[2023-05-01] MEDS: CYANOCOBALAMIN 1,000 MCG TABLET PO SCH (06:31)
[2023-05-01] MEDS: LACTULOSE SYRUP 10GM/15ML 30ML UDC PO PRN (06:31)
[2023-05-01 08:00] VITALS: BP 181/75
[2023-05-01] MEDS: SODIUM CHLORIDE 1 GM TABLET PO SCH ×2 (08:27→21:53)
[2023-05-01] MEDS: amLODIPine 5 MG TABLET PO SCH (08:27)
[2023-05-01] MEDS: DOCUSATE SODIUM 100 MG CAPSULE PO SCH ×2 (08:27→19:49)
[2023-05-01] MEDS: MAGNESIUM OXIDE 400 MG TABLET PO SCH (08:27)
[2023-05-01] MEDS: PANTOPRAZOLE 20 MG TABLET PO SCH (08:27)
[2023-05-01] MEDS: CITALOPRAM 20 MG TABLET PO SCH (08:27)
[2023-05-01] MEDS: SENNOSIDES 8.6 MG TABLET PO SCH ×2 (08:27→19:49)
[2023-05-01] MEDS: ENOXAPARIN 40 MG/0.4 ML SYRINGE SC SCH (08:27)
[2023-05-01] MEDS: cloNIDine 0.1 MG TABLET PO PRN (08:29)
[2023-05-01] MEDS: IRON SUCROSE 200 MG/10 ML VIAL IV SCH (08:32)
[2023-05-01 10:59] VITALS: BP 132/60
[2023-05-01 21:47] VITALS: BP 141/65
[2023-05-02] MEDS: inSUlin ASPART 1 UNIT/0.01 ML (PER UNIT) SC SCH ×2 (05:45→11:34)
[2023-05-02] MEDS ORDERED: TRM50T PO (05:55)
[2023-05-02] MEDS ORDERED: TIZA-169 PO (05:55)
[2023-05-02] MEDS ORDERED: ACHD5005 PO (05:55)
[2023-05-02] MEDS ORDERED: CYAN-41 PO (05:55)
--- NOTE | 2023-05-02 05:57 | D/C HH Face to Face Order ---
D/C HH Face to Face Orders Instructions for Patient HH Patient Instructions/FollowUp: PCP as scheduled Physician to follow Patient: Belle Discharge Diet for Home: ADA Diet Patient Problems: Slow recovery from hip replacement Patient Data-Allergies,Ht & Wt Patient Allergies: Coded Allergies: No Known Drug Allergies (Verified , 03/19/15) Height (Feet): 5 Height (Inches): 7.00 Weight (Pounds): 214 Home Health Need/Face to Face Date of Face to Face: May 02, 2023 Clinical Findings: Generalized weakness and fatigue, Instability, Muscle weakness I have seen Pt qsxb-by-uwmk: Yes Discharged To: Home Diagnosis/Conditions: debility Patient is Homebound due to: Tata fall risk due to instabilty, Muscle weakness Homebound Status Due to the above stated illness, injury or surgical procedure (medical condition or diagnosis) and associated clinical findings, the patient is homebound because of his/her inability to leave home except with aid of a supportive device and/or person AND leaving the home requires a considerable and taxing effort or is medically contraindicated. Pt req the following assistanc: Walker Home Health Nursing Orders Home Health Services Order: Nursing Services, Asphalt Paving Superintendent-Evaluate & Treat, Physical Therapy-Evaluate & Treat Certify Stmt I certify that this patient is under my care and that I, a nurse practitioner or a physician; a hospital nursing assistant working with me, had a face to face encounter that - meets the physician face to face encounter requirements with this patient as dated. TIFFANIE CONNER DO May 02, 2023 05:57
--- NOTE | 2023-05-02 05:58 | Discharge Summary ---
Diagnosis/Chief Complaint Date of Admission Apr 23, 2023 at 13:45 Date of Discharge Discharge Date: May 02, 2023 Discharge Diagnosis Left hip replacement Hypotensive episode from volume depletion from poor PO intake requiring ICU transfer (not due to sepsis) Overmedication from muscle relaxants and pain meds CARINA DM HTN HLP Hypothyroidism Depression Abnormal UTI but negative UCx s/p empiric Rocephin Post op anemia from blood loss Hyponatremia JW will not accept blood products Plan: Aggressive PT OT Increase motivation Decrease sedatives Increase PO intake 04/24/2023: Give IVF DC Oxycodone since it appears to be too strong for the patient Ultram and Hydrocodone Minimize sedating meds IVF Check iron and B12 Sodium tablets 04/25/2023: HLIVF Iron infusions 04/26/2023: Monitor closely 04/27/2023: Much improved Slow recovery 04/28/2023: Supportive care Increase nutrition Maintain bowel regimen 04/29/2023: Check labs in a.m. Continue aggressive rehab 04/30/2023: Discharge on Wednesday Aggressive rehab to continue 05/01/2023: DC tomorrow (1) S/P total left hip arthroplasty Discharge Summary Discharge Physical Examination Allergies: Coded Allergies: No Known Drug Allergies (Verified , 03/19/15) Vitals & I&Os Vital Signs Date Time Temp Pulse Resp B/P (MAP) Pulse Ox O2 Delivery O2 Flow Rate FiO2 05/02/23 11:26 36.2 88 16 145/70 99 Room Air General Appearance: Alert, Oriented X3, Cooperative Respiratory: Clear to Auscultation Cardiovascular: Regular Rate Psych/Mental Status: Mental Status NL Hospital Course Was the Problem List Reviewed?: Yes Patient had a lengthy hospital course most of it due to continued slow recovery and minimal motivation. Hyponatremia resolved and acute kidney injury resolved and patient returned back to baseline of bowel function. She participated in therapy although she was slow in ambulation and ultimately she was deemed stable for discharge home with home care and medications were sent into the pharmacy. Overall she appeared to have continued poor motivation so hopefully when she gets back to her regular environment at home she will improve. Labs (last 24 hrs) Laboratory Tests 04/23/23 16:39: Glucometer 175H 04/23/23 20:15: Glucometer 182H 04/24/23 05:35: Iron Level 41, Vitamin B12 Level 537 11/11/23 05:38: White Blood Count 10.2, Red Blood Count 2.94L, Hemoglobin 8.8L, Hematocrit 26L, Mean Corpuscular Volume 87, Mean Corpuscular Hemoglobin 30, Mean Corpuscular Hemoglobin Concent 35, Red Cell Distribution Width 12.7, Platelet Count 241, Mean Platelet Volume 9.4, Immature Granulocyte % (Auto) 0, Neutrophils (%) (Auto) 74, Lymphocytes (%) (Auto) 13, Monocytes (%) (Auto) 9, Eosinophils (%) (Auto) 2, Basophils (%) (Auto) 0, Neutrophils # (Auto) 7.6, Lymphocytes # (Auto) 1.4, Monocytes # (Auto) 1.0, Eosinophils # (Auto) 0.2, Basophils # (Auto) 0.0, Immature Granulocyte # (Auto) 0.0, Sodium Level 127L, Potassium Level 4.4, Chloride Level 98, Carbon Dioxide Level 22, Anion Gap 7, Blood Urea Nitrogen 22H , Creatinine 0.92, Estimat Glomerular Filtration Rate 64, BUN/Creatinine Ratio 24, Glucose Level 146H, Calcium Level 8.7, Corrected Calcium 9.7, Total Bilirubin 0.9, Aspartate Amino Transf (AST/SGOT) 165H, Alanine Aminotransferase (ALT/SGPT) 97H, Alkaline Phosphatase 265H, Total Protein 5.6L, Albumin 2.8L 04/24/23 05:39: Glucometer 131H 04/24/23 11:14: Glucometer 170H 04/24/23 16:02: Glucometer 189H 04/24/23 20:37: Glucometer 184H 04/25/23 06:11: Glucometer 131H 04/25/23 08:17: White Blood Count 8.2, Red Blood Count 2.57L, Hemoglobin 7.7L, Hematocrit 23L, Mean Corpuscular Volume 88, Mean Corpuscular Hemoglobin 30, Mean Corpuscular Hemoglobin Concent 34, Red Cell Distribution Width 12.8, Platelet Count 212, Mean Platelet Volume 9.4, Immature Granulocyte % (Auto) 1, Neutrophils (%) (Auto) 74, Lymphocytes (%) (Auto) 13, Monocytes (%) (Auto) 10, Eosinophils (%) (Auto) 2, Basophils (%) (Auto) 0, Neutrophils # (Auto) 6.1, Lymphocytes # (Auto) 1.1, Monocytes # (Auto) 0.8, Eosinophils # (Auto) 0.2, Basophils # (Auto) 0.0, Immature Granulocyte # (Auto) 0.0, Sodium Level 127L, Potassium Level 4.3, Chloride Level 99, Carbon Dioxide Level 25, Anion Gap 3L, Blood Urea Nitrogen 20H, Creatinine 0.83, Estimat Glomerular Filtration Rate 73, BUN/Creatinine Ratio 24, Glucose Level 158H, Calcium Level 8.4L, Corrected Calcium 9.6, Total Bilirubin 0.7, Aspartate Amino Transf (AST/SGOT) 60H, Alanine Aminotransferase (ALT/SGPT) 62H, Alkaline Phosphatase 187H, Total Protein 4.9L, Albumin 2.5L 04/25/23 10:30: Glucometer 125H 04/25/23 15:54: Glucometer 173H 04/25/23 20:42: Glucometer 159H 04/26/23 05:25: White Blood Count 8.6, Red Blood Count 2.79L, Hemoglobin 8.5L, Hematocrit 25L, Mean Corpuscular Volume 89, Mean Corpuscular Hemoglobin 31, Mean Corpuscular Hemoglobin Concent 34, Red Cell Distribution Width 12.8, Platelet Count 260, Mean Platelet Volume 9.5, Immature Granulocyte % (Auto) 1, Neutrophils (%) (Auto) 68, Lymphocytes (%) (Auto) 17, Monocytes (%) (Auto) 10, Eosinophils (%) (Auto) 3, Basophils (%) (Auto) 0, Neutrophils # (Auto) 5.8, Lymphocytes # (Auto) 1.4, Monocytes # (Auto) 0.9, Eosinophils # (Auto) 0.3, Basophils # (Auto) 0.0, Immature Granulocyte # (Auto) 0.1, Sodium Level 131L, Potassium Level 4.6, Chloride Level 99, Carbon Dioxide Level 26, Anion Gap 6, Blood Urea Nitrogen 22H , Creatinine 0.83, Estimat Glomerular Filtration Rate 73, BUN/Creatinine Ratio 27, Glucose Level 133H, Calcium Level 9.0, Corrected Calcium 10.0, Total Bilirubin 0.4, Aspartate Amino Transf (AST/SGOT) 39H, Alanine Aminotransferase (ALT/SGPT) 53, Alkaline Phosphatase 176H, Total Protein 5.5L, Albumin 2.8L 04/26/23 11:04: Glucometer 128H 04/26/23 15:44: Glucometer 108 04/26/23 20:25: Glucometer 113H 04/27/23 05:35: Glucometer 124H 04/27/23 10:50: Glucometer 165H 04/27/23 15:52: Glucometer 135H 04/27/23 20:20: Glucometer 126H 04/28/23 05:46: Glucometer 130H 04/28/23 09:47: Glucometer 156H 04/28/23 20:41: Glucometer 145H 04/29/23 05:52: Glucometer 134H 04/29/23 10:47: Glucometer 156H 04/29/23 16:02: Glucometer 119H 04/29/23 21:03: Glucometer 151H 04/30/23 05:30: White Blood Count 6.7, Red Blood Count 2.91L, Hemoglobin 8.8L, Hematocrit 27L, Mean Corpuscular Volume 92, Mean Corpuscular Hemoglobin 30, Mean Corpuscular Hemoglobin Concent 33, Red Cell Distribution Width 13.4, Platelet Count 290, Mean Platelet Volume 9.2, Immature Granulocyte % (Auto) 1, Neutrophils (%) (Auto) 71, Lymphocytes (%) (Auto) 16, Monocytes (%) (Auto) 10, Eosinophils (%) (Auto) 3, Basophils (%) (Auto) 0, Neutrophils # (Auto) 4.7, Lymphocytes # (Auto) 1.1, Monocytes # (Auto) 0.7, Eosinophils # (Auto) 0.2, Basophils # (Auto) 0.0, Immature Granulocyte # (Auto) 0.1, Sodium Level 133L, Potassium Level 3.8, Chloride Level 97L, Carbon Dioxide Level 30, Anion Gap 6, Blood Urea Nitrogen 16, Creatinine 0.94, Estimat Glomerular Filtration Rate 62, BUN/Creatinine Ratio 17, Glucose Level 116H, Calcium Level 8.8, Corrected Calcium 9.7, Total Bilirubin 0.5, Aspartate Amino Transf (AST/SGOT) 33, Alanine Aminotransferase (ALT/SGPT) 38, Alkaline Phosphatase 135, Total Protein 5.9L, Albumin 2.9L 04/30/23 11:04: Glucometer 152H 04/30/23 15:36: Glucometer 137H 04/30/23 20:42: Glucometer 129H 05/01/23 06:00: Glucometer 127H 05/01/23 11:19: Glucometer 146H 05/01/23 16:24: Glucometer 128H 05/01/23 21:46: Glucometer 155H 05/02/23 05:21: Glucometer 116H 05/02/23 11:31: Glucometer 202H Pending Labs Laboratory Tests 04/23/23 16:39: Glucometer 175 04/23/23 20:15: Glucometer 182 04/24/23 05:35: Iron Level 41, Vitamin B12 Level 537 04/24/23 05:38: White Blood Count 10.2, Red Blood Count 2.94, Hemoglobin 8.8, Hematocrit 26, Mean Corpuscular Volume 87, Mean Corpuscular Hemoglobin 30, Mean Corpuscular Hemoglobin Concent 35, Red Cell Distribution Width 12.7, Platelet Count 241, Mean Platelet Volume 9.4, Immature Granulocyte % (Auto) 0, Neutrophils (%) (Auto) 74, Lymphocytes (%) (Auto) 13, Monocytes (%) (Auto) 9, Eosinophils (%) (Auto) 2, Basophils (%) (Auto) 0, Neutrophils # (Auto) 7.6, Lymphocytes # (Auto) 1.4, Monocytes # (Auto) 1.0, Eosinophils # (Auto) 0.2, Basophils # (Auto) 0.0, Immature Granulocyte # (Auto) 0.0, Sodium Level 127, Potassium Level 4.4, Chloride Level 98, Carbon Dioxide Level 22, Anion Gap 7, Blood Urea Nitrogen 22, Creatinine 0.92, Estimat Glomerular Filtration Rate 64, BUN/Creatinine Ratio 24, Glucose Level 146, Calcium Level 8.7, Corrected Calcium 9.7, Total Bilirubin 0.9, Aspartate Amino Transf (AST/SGOT) 165, Alanine Aminotransferase (ALT/SGPT) 97, Alkaline Phosphatase 265, Total Protein 5.6, Albumin 2.8 04/24/23 05:39: Glucometer 131 04/24/23 11:14: Glucometer 170 04/24/23 16:02: Glucometer 189 04/24/23 20:37: Glucometer 184 04/25/23 06:11: Glucometer 131 04/25/23 08:17: White Blood Count 8.2, Red Blood Count 2.57, Hemoglobin 7.7, Hematocrit 23, Mean Corpuscular Volume 88, Mean Corpuscular Hemoglobin 30, Mean Corpuscular Hemoglobin Concent 34, Red Cell Distribution Width 12.8, Platelet Count 212, Mean Platelet Volume 9.4, Immature Granulocyte % (Auto) 1, Neutrophils (%) (Auto) 74, Lymphocytes (%) (Auto) 13, Monocytes (%) (Auto) 10, Eosinophils (%) (Auto) 2, Basophils (%) (Auto) 0, Neutrophils # (Auto) 6.1, Lymphocytes # (Auto) 1.1, Monocytes # (Auto) 0.8, Eosinophils # (Auto) 0.2, Basophils # (Auto) 0.0, Immature Granulocyte # (Auto) 0.0, Sodium Level 127, Potassium Level 4.3, Chloride Level 99, Carbon Dioxide Level 25, Anion Gap 3, Blood Urea Nitrogen 20, Creatinine 0.83, Estimat Glomerular Filtration Rate 73, BUN/Creatinine Ratio 24, Glucose Level 158, Calcium Level 8.4, Corrected Calcium 9.6, Total Bilirubin 0.7, Aspartate Amino Transf (AST/SGOT) 60, Alanine Aminotransferase (ALT/SGPT) 62, Alkaline Phosphatase 187, Total Protein 4.9, Albumin 2.5 04/25/23 10:30: Glucometer 125 04/25/23 15:54: Glucometer 173 04/25/23 20:42: Glucometer 159 04/26/23 05:25: White Blood Count 8.6, Red Blood Count 2.79, Hemoglobin 8.5, Hematocrit 25, Mean Corpuscular Volume 89, Mean Corpuscular Hemoglobin 31, Mean Corpuscular Hemoglobin Concent 34, Red Cell Distribution Width 12.8, Platelet Count 260, Mean Platelet Volume 9.5, Immature Granulocyte % (Auto) 1, Neutrophils (%) (Auto) 68, Lymphocytes (%) (Auto) 17, Monocytes (%) (Auto) 10, Eosinophils (%) (Auto) 3, Basophils (%) (Auto) 0, Neutrophils # (Auto) 5.8, Lymphocytes # (Auto) 1.4, Monocytes # (Auto) 0.9, Eosinophils # (Auto) 0.3, Basophils # (Auto) 0.0, Immature Granulocyte # (Auto) 0.1, Sodium Level 131, Potassium Level 4.6, Chloride Level 99, Carbon Dioxide Level 26, Anion Gap 6, Blood Urea Nitrogen 22, Creatinine 0.83, Estimat Glomerular Filtration Rate 73, BUN/Creatinine Ratio 27, Glucose Level 133, Calcium Level 9.0, Corrected Calcium 10.0, Total Bilirubin 0.4, Aspartate Amino Transf (AST/SGOT) 39, Alanine Aminotransferase (ALT/SGPT) 53, Alkaline Phosphatase 176, Total Protein 5.5, Albumin 2.8 04/26/23 11:04: Glucometer 128 04/26/23 15:44: Glucometer 108 04/26/23 20:25: Glucometer 113 04/27/23 05:35: Glucometer 124 04/27/23 10:50: Glucometer 165 04/27/23 15:52: Glucometer 135 04/27/23 20:20: Glucometer 126 04/28/23 05:46: Glucometer 130 04/28/23 09:47: Glucometer 156 04/28/23 20:41: Glucometer 145 04/29/23 05:52: Glucometer 134 04/29/23 10:47: Glucometer 156 04/29/23 16:02: Glucometer 119 04/29/23 21:03: Glucometer 151 04/30/23 05:30: White Blood Count 6.7, Red Blood Count 2.91, Hemoglobin 8.8, Hematocrit 27, Mean Corpuscular Volume 92, Mean Corpuscular Hemoglobin 30, Mean Corpuscular Hemoglobin Concent 33, Red Cell Distribution Width 13.4, Platelet Count 290, Mean Platelet Volume 9.2, Immature Granulocyte % (Auto) 1, Neutrophils (%) (Auto) 71, Lymphocytes (%) (Auto) 16, Monocytes (%) (Auto) 10, Eosinophils (%) (Auto) 3, Basophils (%) (Auto) 0, Neutrophils # (Auto) 4.7, Lymphocytes # (Auto) 1.1, Monocytes # (Auto) 0.7, Eosinophils # (Auto) 0.2, Basophils # (Auto) 0.0, Immature Granulocyte # (Auto) 0.1, Sodium Level 133, Potassium Level 3.8, Chloride Level 97, Carbon Dioxide Level 30, Anion Gap 6, Blood Urea Nitrogen 16, Creatinine 0.94, Estimat Glomerular Filtration Rate 62, BUN/Creatinine Ratio 17, Glucose Level 116, Calcium Level 8.8, Corrected Calcium 9.7, Total Bilirubin 0.5, Aspartate Amino Transf (AST/SGOT) 33, Alanine Aminotransferase (ALT/SGPT) 38, Alkaline Phosphatase 135, Total Protein 5.9, Albumin 2.9 04/30/23 11:04: Glucometer 152 04/30/23 15:36: Glucometer 137 04/30/23 20:42: Glucometer 129 05/01/23 06:00: Glucometer 127 05/01/23 11:19: Glucometer 146 05/01/23 16:24: Glucometer 128 05/01/23 21:46: Glucometer 155 05/02/23 05:21: Glucometer 116 05/02/23 11:31: Glucometer 202 Discharge Home Medications: Active Scripts Active Vitamin B-12 (Cyanocobalamin (Vitamin B-12)) 1,000 Mcg Tablet 1,000 Mcg PO DAILY@0700 Tramadol HCl 50 Mg Tablet 50 Mg PO TID PRN Hydrocodone-Acetamin 5-325 mg (Hydrocodone/Acetaminophen) 5 Mg-325 Mg Tablet 1 Ea PO Q8H PRN Tizanidine HCl 2 Mg Tablet 2 Mg PO TID PRN Reported Levothyroxine Sodium 50 Mcg Tablet 50 Mcg PO DAILY Metformin HCl 500 Mg Tablet 500 Mg PO BID Citalopram HBr (Citalopram Hydrobromide) 40 Mg Tablet 40 Mg PO DAILY Venlafaxine HCl ER (Venlafaxine HCl) 75 Mg Cap.er.24h 75 Mg PO DAILY Lisinopril 40 Mg Tablet 40 Mg PO DAILY Simvastatin 10 Mg Tablet 10 Mg PO HS Omeprazole 20 Mg Capsule.dr 20 Mg PO DAILY Amlodipine Besylate 5 Mg Tablet 5 Mg PO DAILY Multi-Vitamin Daily (Multivitamin) 1 Each Tablet 1 Each PO DAILY Magnesium (Magnesium Oxide) 250 Mg Tablet 250 Mg PO DAILY PRN Instructions to patient/family Please see electronic discharge instructions given to patient. Diagnosis/Problems Diagnosis/Problems (1) S/P total left hip arthroplasty TIFFANIE CONNER DO May 02, 2023 05:58
[2023-05-02] MEDS: CYANOCOBALAMIN 1,000 MCG TABLET PO SCH (06:17)
[2023-05-02] MEDS: THERAPEUTIC MULTIVITAMIN W/MINERALS TABLET PO SCH (06:17)
[2023-05-02 08:00] VITALS: BP 145/70
[2023-05-02] MEDS: MAGNESIUM OXIDE 400 MG TABLET PO SCH (08:33)
[2023-05-02] MEDS: CITALOPRAM 20 MG TABLET PO SCH (08:33)
[2023-05-02] MEDS: amLODIPine 5 MG TABLET PO SCH (08:33)
[2023-05-02] MEDS: ENOXAPARIN 40 MG/0.4 ML SYRINGE SC SCH (08:33)
[2023-05-02] MEDS: PANTOPRAZOLE 20 MG TABLET PO SCH (08:33)
[2023-05-02] MEDS: SODIUM CHLORIDE 1 GM TABLET PO SCH (08:33)
[2023-05-02] MEDS: DOCUSATE SODIUM 100 MG CAPSULE PO SCH (08:34)
[2023-05-02] MEDS: SENNOSIDES 8.6 MG TABLET PO SCH (08:34)
[2023-05-02 11:26] VITALS: BP 145/70
--- NOTE | 2023-05-03 13:25 | Therapy Team Discharge Summary ---
Therapy Discharge Summary Discharge Recommendations Date of Discharge May 02, 2023 at 11:26 Therapy D/C Recommendations: Occupational Therapy Home Care Physical Therapy Roll Left to Right (QC): 4 Sit to Lying (QC): 4 Lying to Sitting/Side of Bed(Q: 4 Sit to Stand (QC): 4 Chair/Cdu-qq-Trdki Xfer(QC): 4 Toilet Transfer (QC): 5 Car Transfer (QC): 88 Does the Patient Walk: Yes Mode of Locomotion: Both Anticipated Mode of Locomotion: Walk Walk 10 feet (QC): 4 Walk 50 ft with 2 Turns(QC): 4 Walk 150 ft (QC): 4 Walking 10ft on uneven surface: 88 Gait Assistive Device: FWW Does the Pt Use a Wheelchair: No Wheelchair Distance: 50' x 2 Wheel 50 ft with 2 turns (QC): 5 Wheel 150 ft (QC): 88 (unable to reach 150' due to fatigue) Type of Wheelchair: Manual 1 Step (curb) (QC): 88 4 Steps (QC): 88 12 Steps (QC): 88 Balance Sitting Static: Fair Balance Sitting Dynamic: Poor Balance-Standing Static: Fair Picking up an Object (QC): 88 Occupational Therapy Pt admitted to [facility] s/p L SUSAN. At [facility], pt was independent with ADLS and functional mobility using FWW or power w/c. Upon initial evaluation, pt required set up with eating, oral care, and UBD, max A showering and LBD, and total assist footwear and toileting. OT tx focused on increasing BUE strength and activity tolerance, increasing safety and independence with ADLs and functional mobility, and education on hip precautions/AE for LBD. Pt made good functional progress, meeting all LTGs. Pt discharged home, d/c from OT. Decreased Activ Tolerance, Impaired Funct Balance, Impaired I ADL's Eating (QC): 6 Oral Hygiene (QC): 6 Shower/Bathe Self (QC): 5 Upper Body Dressing (QC): 6 Lower Body Dressing (QC): 6 (utilizing cone machine operator) On/Off Footwear (QC): 6 (using sock aid) Toileting Hygiene (QC): 6 PT Fdc Goals Fdc Goals PT Fdc Goals Time Frame: May 07, 2023 Roll Left to Right (QC): 4 Sit to Lying (QC): 4 Lying-Sitting on Side/Bed(QC): 4 Sit to Stand (QC): 4 Chair/Tko-tb-Kibfl Xfer(QC): 4 (/c FWW) Toilet/Commode Transfer (QC): 4 (/c FWW) Car Transfer (QC): 4 (/c FWW) Does the Patient Walk: Yes Walk 10 feet (QC): 4 (/c FWW) Walk 10ft-Uneven Surface(QC): 4 (/c FWW) Walk 50ft with 2 Turns (QC): 4 (/c FWW) Walk 150 ft (QC): 4 (/c FWW) Does the Pt use WC or Scooter?: Yes Wheel 50 feet with 2 turns (QC: 6 Type: Manual Wheel 150 feet: 6 Type: Motorized 1 Step (curb) (QC): 3 (/c FWW) 4 Steps (QC): 9 12 Steps (QC): 9 Picking up an Object (QC): 5 (/c AE) OT Ostrich Farmer Goals Ostrich Farmer Goals Time Frame: May 07, 2023 Acute change in mental status: 0 Inattention: 0 Disorganized thinkin Altered level of consciousness: 0 Eating (QC): 6 (met) Oral Hygiene (QC): 6 (met) Toileting Hygiene (QC): 6 (met) Shower/Bathe Self (QC): 4 (met) Upper Body Dressing (QC): 6 (met) Lower Body Dressing (QC): 6 (met) On/Off Footwear (QC): 6 (met) 1=Demonstrate adherence to instructed precautions during ADL tasks. 2=Patient will verbalize/demonstrate understanding of assistive devices/modifications for ADL. 3=Patient will improve strength/tolerance for activity to enable patient to perform ADL's. TATUM SINGH OT May 03, 2023 13:25
--- NOTE | 2023-05-04 13:34 | Therapy Team Discharge Summary ---
Therapy Discharge Summary Discharge Recommendations Date of Discharge May 02, 2023 at 11:26 Therapy D/C Recommendations: Occupational Therapy Home Care Physical Therapy Patient was admitted to the ARU 04/23/23 following a (L) THR on 04/19/23. At the time of discharge, patient was SBA-CGA with all bed mobility and functional transfers /c a FWW /c prn cues for hip precautions. She was able to ambulate up to 200' with a FWW SBA-CGA. Patient may have benefited further from a longer stay on the ARU, but both the patient and family were adamant that she discharge home on 05/02/23. Home Health PT was recommended. Roll Left to Right (QC): 4 Sit to Lying (QC): 4 Lying to Sitting/Side of Bed(Q: 4 Sit to Stand (QC): 4 Chair/Xma-tw-Chowi Xfer(QC): 4 Toilet Transfer (QC): 4 Car Transfer (QC): 88 (QC not recorded at time of D/C. It is anticipated that patient would have been CGA(4) as she was with all other functional transfers.) Does the Patient Walk: Yes Mode of Locomotion: Both Anticipated Mode of Locomotion: Walk Walk 10 feet (QC): 4 Walk 50 ft with 2 Turns(QC): 4 Walk 150 ft (QC): 4 Walking 10ft on uneven surface: 88 (QC not recorded at time of D/C. It is anticipated that patient would have been CGA(4) as she was with all other functional gait using her FWW.) Distance: 200' Gait Assistive Device: FWW Does the Pt Use a Wheelchair: No Wheelchair Distance: 150' multiple rest breaks Wheel 50 ft with 2 turns (QC): 6 Wheel 150 ft (QC): 6 Type of Wheelchair: Manual (Patient has a manual w/c, power w/c, and a scooter that she utilizes at home.) 1 Step (curb) (QC): 88 (ramp at home) 4 Steps (QC): 88 (ramp at home) 12 Steps (QC): 88 (ramp at home) Balance Sitting Static: Good Balance Sitting Dynamic: Good Balance-Standing Static: Good Picking up an Object (QC): 4 (/c a cable installer) Occupational Therapy Decreased Activ Tolerance, Impaired Funct Balance, Impaired I ADL's Eating (QC): 6 Oral Hygiene (QC): 6 Shower/Bathe Self (QC): 5 Upper Body Dressing (QC): 6 Lower Body Dressing (QC): 6 (utilizing cable installer) On/Off Footwear (QC): 6 (using sock aid) Toileting Hygiene (QC): 6 PT Big Machine Consultant Goals Big Machine Consultant Goals PT Big Machine Consultant Goals Time Frame: May 07, 2023 Roll Left to Right (QC): 4 Sit to Lying (QC): 4 Lying-Sitting on Side/Bed(QC): 4 Sit to Stand (QC): 4 Chair/Gin-cw-Pycjh Xfer(QC): 4 (/c FWW) Toilet/Commode Transfer (QC): 4 (/c FWW) Car Transfer (QC): 4 (/c FWW) Does the Patient Walk: Yes Walk 10 feet (QC): 4 (/c FWW) Walk 10ft-Uneven Surface(QC): 4 (/c FWW) Walk 50ft with 2 Turns (QC): 4 (/c FWW) Walk 150 ft (QC): 4 (/c FWW) Does the Pt use WC or Scooter?: Yes Wheel 50 feet with 2 turns (QC: 6 Type: Manual Wheel 150 feet: 6 Type: Motorized 1 Step (curb) (QC): 3 (/c FWW) 4 Steps (QC): 9 12 Steps (QC): 9 Picking up an Object (QC): 5 (/c AE) OT Penitentiary Goals Penitentiary Goals Time Frame: May 07, 2023 Acute change in mental status: 0 Inattention: 0 Disorganized thinkin Altered level of consciousness: 0 Eating (QC): 6 (met) Oral Hygiene (QC): 6 (met) Toileting Hygiene (QC): 6 (met) Shower/Bathe Self (QC): 4 (met) Upper Body Dressing (QC): 6 (met) Lower Body Dressing (QC): 6 (met) On/Off Footwear (QC): 6 (met) 1=Demonstrate adherence to instructed precautions during ADL tasks. 2=Patient will verbalize/demonstrate understanding of assistive devices/modifications for ADL. 3=Patient will improve strength/tolerance for activity to enable patient to perform ADL's. Kristy Dumont PT May 04, 2023 13:34
== END 2023-05-02 11:26 | disposition home health service (06) | DRG 560 ==
PROVIDERS: ADMIT Internal Medicine; ATTEND Internal Medicine
DX: Z47.1 Aftercare following joint replacement surgery (principal); D62 Acute posthemorrhagic anemia; N17.9 Acute kidney failure, unspecified; E87.1 Hypo-osmolality and hyponatremia; I10 Essential (primary) hypertension; E03.9 Hypothyroidism, unspecified; E11.9 Type 2 diabetes mellitus without complications; E78.00 Pure hypercholesterolemia, unspecified; K21.9 Gastro-esophageal reflux disease without esophagitis; M19.90 Unspecified osteoarthritis, unspecified site; H91.90 Unspecified hearing loss, unspecified ear; F32.A Depression, unspecified; Z96.642 Presence of left artificial hip joint; Z79.899 Other long term (current) drug therapy; Z79.84 Long term (current) use of oral hypoglycemic drugs
CPT/HCPCS: 36415; 80053; 82607; 82947; 83540; 85025; 94760

== ENCOUNTER → 2023-05-04 | Outpatient (CLI) | payer MEDICARE, OTHER ==
[~2023-05-04] MED LIST changes: +ACHD5005 PO; +CYAN-41 PO; +TRM50T PO
== END ==
LOC: ORTHO 11:09
PROVIDERS: ATTEND Orthopaedic Surgery
DX: Z47.89 Encounter for other orthopedic aftercare (principal)